=== PATIENT | female | born 1945 | race Caucasian/White ===

== ENCOUNTER 2022-12-22 17:14 | Outpatient (OUT) | payer MEDICARE, SELFPAY | END 2022-12-22 17:15 | disposition home or self-care (01) | LOC: VACCLI 12-27 17:17 | PROVIDERS: PCP Family Medicine; Visit Provider Family Medicine | DX: Z23 Encounter for immunization (principal) | CPT/HCPCS: 90662; G0008 ==

== ENCOUNTER 2023-01-31 13:13 | Outpatient (OUT) | payer MEDICARE, SELFPAY ==
--- NOTE | 2023-01-31 13:29 | XR_ITS ---
The [address] [address] Patient Name: WILBER VANESSA MRN: [id number] date: 1945 Sex: F Assigned Patient Location: [facility] Current Patient Location: [facility] Accession/Order Number: [id number] Exam Date: 01/31/2023 13:21 Report Date: 02/01/2023 11:52 At the request of: JONNY SILVA Procedure: XR abdomen 1V EXAMINATION: XR abdomen 1V, [id number] HISTORY: Kidney Stones COMPARISON: CT abdomen/pelvis 01/25/2021 FINDINGS/IMPRESSION: No calcification projecting over either kidney or along the expected courses of the ureters. Several vascular phleboliths project over the pelvis. Nonobstructive bowel gas pattern. Stool burden is mildly above-average. Sclerosis of the right pubic body is similar. Electronically authenticated by: JETT QUILES Date: 02/01/2023 11:52
== END 2023-01-31 13:14 | disposition home or self-care (01) ==
LOC: RAD 13:14
PROVIDERS: PCP Family Medicine; Visit Provider Urology
DX: N20.0 Calculus of kidney (principal)
CPT/HCPCS: 74018

== ENCOUNTER 2023-02-23 14:09 | Outpatient (REF) | payer MEDICARE, SELFPAY ==
[2023-02-23 15:05] LABS: SARS-CoV-2 Ag NEGATIVE (NEGATIVE)
[2023-02-24 14:27] LABS: SARS-CoV-2 NAA NOT DETECTED (NOT DETECTE)
== END 2023-02-23 14:10 | disposition home or self-care (01) ==
LOC: LAB 14:09
PROVIDERS: PCP Family Medicine; Visit Provider Family Medicine
DX: Z20.822 Contact with and (suspected) exposure to COVID-19 (principal)
CPT/HCPCS: 87635; 87811

== ENCOUNTER 2023-03-21 10:48 | Outpatient (OUT) | payer OTHER, SELFPAY ==
--- OUTSIDE RECORDS SUMMARY | 2023-03-21 11:03 | XMS_ITS | CCD ---
Author Name Unknown Address [address] [place] [address] Organization [facility] Care Team Providers Care Dean Of Girls Name Role Phone Cathie Camara Unavailable Unavailable Unavailable LUIS A ROSARIO Attending Unavailable REQUEST, DR MIRNA LISTED Primary Care Unavailjalyn ROSARIO, LUIS A Consulting Unavailable MARLENE, LUIS A Admitting Unavailable CAMARA, DR CATHIE Doss Admitting Unavailable CAMARA, DR CATHIE Doss Attending Unavailable CAMARA, DR CATHIE Doss Primary Care Unavailable ZIEBJARRETT, DR CARMEN Ayala Consulting Unavailable CAMARA, DR CATHIE Doss Consulting Unavailable FRAGOSO, DR FULLER Attending Unavailable FRAGOSO, DR FULLER Consulting Unavailable CAMARA, DR CATHIE Doss Primary Care Unavailable FRAGOSO, DR FULLER Admitting Unavailable WEST, DR JANIS Clark Consulting Unavailable MARLENE, LUIS A Attending Unavailable MISC, DR GARRISON Primary Care Unavailable MARLENE, LUIS A Consulting Unavailable MARLENE, LUIS A Admitting Unavailable TO, JANIS Consulting Unavailable MARLENE, LUIS A Admitting Unavailable ZIEBER, DR CARMEN Ayala Consulting Unavailable CAMARA, DR CATHIE Doss Primary Care Unavailable MARLENE, LUIS A Attending Unavailable MARLENE, LUIS A Consulting Unavailable CAMARA, DR CATHIE Doss Primary Care Unavailable PAY, DR OLEARY Admitting Unavailable ZIEBER, DR CARMEN Ayala Consulting Unavailable PAY, DR OLEARY Attending Unavailable PAY, DR OLEARY Consulting Unavailable JAX, CATHIE Primary Care Physician Cathie Camara Unavailable Carol, Dr. Youngblood Referring Unavaila ble Jax, Dr. Cathie Hamlin Primary Care Unav ailable Carol, Dr. Youngblood Attending Unavaila ble Carol, Dr. Youngblood Referring Unavaila ble Jax, Dr. Cathie Hamlin Primary Care Unav ailable Carol, Dr. Youngblood Attending Unavaila ble ELVIEKANDI NAVA Attending Unavailable ELVIE, KANDI E Attending Unavailable Allergies Allergy Classification Reported Allergen(s) Allergy Type Date of Onset Reaction(s) Facility (3 sources) Hmg-Coa Reductase Inhibitors (Statins); Translations: [Statins] Allergy to drug (finding) Muscle weakness [facility]Mel 250 DO Work Phone: (6 sources) Penicillins; Translations: [Penicillins] Allergy to drug (finding) Mild (qualifier value) [facility] (2 sources) atorvastatin; Translations: [atorvastatin] Drug Allergy [facility] (1 source) Penicillins Drug allergy (disorder) 10-09-19 [facility] (2 sources) atorvastatin; Translations: [atorvastatin] Drug Allergy Unknown [facility] (4 sources) Penicillin Drug Allergy anaphylaxis [facility] Other (3 sources) Substance with penicillin structure and antibacterial mechanism of action (substance) Drug allergy 09-15-19 16 Unknown [facility] Other (3 sources) Statins Support *DIETARY PRODUCTS/DIETARY MANAGEME Propensity to adverse reactions Unknown [facility] Other (3 sources) Allergies Reconciled Propensity to adverse reactions 01-02-20 Unknown [facility] Other Medications Current Medications Medication Drug Class(es) Dates Sig (Normalized) Sig (Original) apixaban 5 mg oral tablet (2 sources) Factor Xa Inhibitor Start: 07-23-2021 take 1 tablet by mouth twice daily Eliquis 5 mg oral tablet 5 mg = 1 tab(s), Oral, BID Start Date: 11/30/21 Status: Ordered ascorbic acid 500 mg oral tablet (4 sources) Vitamin C Start: 03-09-2021 take 500 mg by mouth once daily Vitamin C 500 mg, Oral, Daily Start Date: 03/09/21 Status: Ordered take 2 tablets by mouth once jonathan ly Vitamin C 1000 MG Oral Tablet TAKE 2 TABLET Daily Quantity: 0 Refills: 0 Ordered: 26-Mar-2022 DO Active take 1 capsule by mouth once jonathan ly Vitamin C 500 MG Oral Capsule TAKE 1 CAPSULE Daily Quantity: 0 Refills: 0 Ordered: 31-Mar-2021 DO Active azithromycin 250 mg oral tablet (2 sources) Macrolide Antimicrobial Start: 02-24-2023 Azithromycin 250 MG as directed Orally 2 tabs po today, then 1 tab daily x 4 more days for 5 Jan, Active Start: 11-12-2021 Azithromycin 2 50 MG Oral Tablet TAKE 2 TABLETS by mouth today, THEN take 1 TABLET once a day FOR the next 4 DAYS. Quantity: 6 Refills: 0 Ordered: 12-Nov-2021 DO Start : 12-Nov-2021 Complete benzonatate 200 mg oral capsule (1 source) Non-narcotic Antitussive Start: 02-24-2023 take 1 capsule by mouth every eight hours Benzonatate 200 MG 1 capsule Orally Three times a day for 10 day(s) Jan, Active cholecalciferol 0.05 mg oral tablet (7 sources) Vitamin D take 1 tablet by mouth every twenty-four hours Vitamin D 50 MCG (2000 UT) 1 tablet Orally Once a day Active Vitamin D3 Maxim um Strength 125 MCG (5000 UT) Oral Capsule TAKE DIRECTED. Quantity: 0 Refills: 0 Ordered: 31-Mar-2021 DO Active Daily Multiple Vitamins (1 source) Start: 08-06-2019 Daily Multiple Vitamins Oral, Daily, Refill(s) 0 Start Date: 08/06/19 Status: Ordered levothyroxine sodium 0.15 mg oral tablet (9 sources) l-Thyroxine Start: 02-01-2023 Synthroid 150 mcg (0.15 mg) Tab Refills(s) 0 Start Date: 02/01/23 Status: Ordered Start: 03-11-2021 take [address] [facility] once daily Synthroid 150 MCG Oral Tablet TAKE 1 TABLET DAILY. Quantity: 0 Refills: 0 Ordered: 11-Mar-2021 DO Start : 11-Mar-2021 Active Start: 03-11-2021 Synthroid 150 MCG Oral Tablet Quantity: 90 Refills: 0 Ordered: 11-Mar-2021 DO Start : 11-Mar-2021 Active Start: 08-06-2019 levothyroxine 150 mcg, Daily, Refills(s) 0 Start Date: 08/06/19 Status: Ordered Synthroid 150 MC G TAKE 1 TABLET DAILY for 90 Active lisinopril 5 mg oral tablet (9 sources) Angiotensin Converting Enzyme Inhibitor Start: 08-06-2019 take 5 mg by mouth once daily lisinopril 5 mg, Oral, Daily, Refills(s) 0 Start Date: 08/06/19 Status: Ordered loratadine 10 mg oral capsule (3 sources) Start: 11-30-2021 take 1 capsule by mouth once daily loratadine 10 mg oral capsule 10 mg = 1 cap(s), Oral, Daily Start Date: 11/30/21 Status: Ordered take 1 tablet by north [facility] once daily as needed Allergy Relief 10 MG Oral Tablet TAKE 1 TABLET DAILY NEEDED. Quantity: 0 Refills: 0 Ordered: 26-Mar-2022 DO Active meloxicam 15 mg oral tablet (4 sources) Nonsteroidal Anti-inflammatory Drug Start: 07-13-2022 take 1 tablet by mouth every twenty-four hours Meloxicam 15 MG 1 tablet Orally Once a day for 30 days June, Active metoprolol tartrate 50 mg oral tablet (9 sources) beta-Adrenergic Castillo Start: 11-28-2020 take 1 tablet by mouth twice daily Metoprolol tartrate 50 mg Tab 50 mg = 1 tab(s), Oral, BID Start Date: 03/09/21 Status: Ordered Multi Complete - (3 sources) Multi Complete - as directed Orally Active norethindrone 0.35 mg oral tablet (1 source) Start: 06-01-2021 Deblitane 0.35 mg oral tablet Refills(s) 0 Start Date: 06/01/21 Status: Ordered 24 hr oxybutynin chloride 15 mg extended release oral tablet (9 sources) Cholinergic Muscarinic Antagonist Start: 09-15-2021 take 1 tablet by mouth once daily oxybutynin 15 mg ER Tab 15 mg = 1 tab(s), Oral, Daily, # 90 tab(s), Refills(s) 3, Pharmacy: [id number], 158, cm, 11/30/21 14:46:00 EDT, Height/Length Dosing, 106.4, kg, 11/30/21 14:46:00 EDT, Weight Dosing Start Date: 01/13/23 Status: Ordered Start: 08-28-2021 take 1 tablet by north th every twenty-four hours Oxybutynin Chloride ER 5 MG Oral Tablet Extended Release 24 Hour Quantity: 30 Refills: 0 Ordered: 28-Aug-2021 DO Start : 28-Aug-2021 Complete paxlovid (300/100) 20 x 150 mg & 10 x 100mg tablet therapy pack (1 source) Start: 07-27-2022 take 3 tablets by mouth every twelve hours Paxlovid (300/100) 20 x 150 MG & 10 x 100MG 3 tablets Orally Twice a day for 5 day(s) June, Active Probiotic Digestive Aid Gummies (1 source) Start: 02-01-2023 Probiotic Digestive Aid Gummies mg, Chewed, BID, Refill(s) 0 Start Date: 02/01/23 Status: Ordered tamsulosin hydrochloride 0.4 mg oral capsule (1 source) alpha-Adrenergi c Castillo Start: 02-01-2023 End: 02-15-2023 take 1 capsule by mouth once daily tamsulosin 0.4 mg Cap 0.4 mg = 1 cap(s), Oral, Daily, X 14 day(s), # 14 cap(s), Refills(s) 0, Pharmacy: [id number], 158, cm, 02/01/23 10:12:00 EST, Height/Length Dosing, 106, kg, 02/01/23 10:12:00 EST, Weight Dosing Start Date: 02/01/23 Stop Date: 02/15/23 Status: Ordered Vitamin D (2 sources) Start: 08-06-2019 Vitamin D Oral , Refills(s) 0 Start Date: 08/06/19 Status: Ordered {20 (nirmatrelvir 150 MG Oral Tablet) / 10 (ritonavir 100 MG Oral Tablet) } Pack [Paxlovid 5-Day] (1 source) Start: 07-27-2022 take 3 tablets by mouth every twelve hours Paxlovid (300/100) 20 x 150 MG & 10 x 100MG 3 tablets Orally Twice a day for 5 day(s) June, Active Completed/Discontinued Medications Medication Drug Class(es) Dates Sig (Normalized) Sig (Original) acetaminophen 325 mg / HYDROcodone bitartrate 5 mg oral tablet (1 source) Opioid Agonist Start: 07-20-2021 HYDROcodone-Aceta minophen 5-325 MG Oral Tablet Quantity: 10 Refills: 0 Ordered: 20-Jul-2021 DO Start : 20-Jul-2021 Complete Black Elderberry(Carvalho-Flow er) CAPS (1 source) Black Elderberry(Carvalho- Flower) CAPS Take 1 capsule twice daily Quantity: 0 Refills: 0 Ordered: 31-Mar-2021 DO Active Centrum Silver Ultra Womens TABS (3 sources) Centrum Silver Ultra Womens TABS TAKE 1 TABLET DAILY. Quantity: 0 Refills: 0 Ordered: 31-Mar-2021 DO Active Culturelle Digestive Womens CAPS (2 sources) Culturelle Digestive Womens CAPS TAKE 1 CAPSULE Daily Quantity: 0 Refills: 0 Ordered: 26-Mar-2022 DO Active Deblitane 0.35 MG Oral Tablet (1 source) Start: 05-27-2021 take 1 tablet by mouth once daily Deblitane 0.35 MG Oral Tablet TAKE 1 TABLET BY MOUTH ONCE DAILY Quantity: 28 Refills: 0 Ordered: 22-Jun-2021 DO Start : 27-May-2021 Complete linseed oil 1000 mg oral capsule (1 source) take 1 capsule by mouth once daily Flaxseed Oil 1000 MG Oral Capsule TAKE 1 CAPSULE Daily Quantity: 0 Refills: 0 Ordered: 26-Mar-2022 DO Active melatonin 1 mg oral tablet (1 source) Start: 08-27-2021 take 1 tablet by mouth 2 hour(s) before bedtime Melatonin 1 MG Oral Tablet TAKE 1 TABLET BY MOUTH 2 (TWO) HOURS BEFORE bedtime Quantity: 30 Refills: 0 Ordered: 27-Aug-2021 DO Start : 27-Aug-2021 Complete 24 hr metFORMIN hydrochloride 500 mg extended release oral tablet (8 sources) Biguanide Start: 09-25-2020 take 1 tablet by mouth once daily metFORMIN HCl ER 500 MG Oral Tablet Extended Release 24 Hour Take 1 tablet daily Quantity: 0 Refills: 0 Ordered: 25-Sep-2020 DO Start : 25-Sep-2020 Active Start: 08-06-2019 take 500 mg by mouth once gustavo y metformin 500 mg, Oral, Daily, Refills(s) 0 Start Date: 08/06/19 Status: Ordered 24 hr mirabegron 50 mg extended release oral tablet (1 source) beta3-Adrenergic Agonist Start: 03-09-2021 take 1 tablet by mouth once daily Myrbetriq 50 MG Oral Tablet Extended Release 24 Hour TAKE 1 TABLET BY MOUTH DAILY Quantity: 30 Refills: 0 Ordered: 09-Mar-2021 DO Start : 09-Mar-2021 Active miSOPROStol 0.2 mg oral tablet (1 source) Prostaglandin E1 Analog Start: 05-21-2021 take 4 tablets by mouth once daily miSOPROStol 200 MCG Oral Tablet TAKE 4 TABLETS BY MOUTH ONCE DAILY the night before the procedure Quantity: 4 Refills: 0 Ordered: 21-May-2021 DO Start : 21-May-2021 Complete omeprazole 20 mg delayed release oral capsule (1 source) Proton Pump Inhibitor Start: 05-05-2021 Omeprazole 20 MG Oral Capsule Delayed Release Quantity: 30 Refills: 0 Ordered: 05-May-2021 DO Start : 05-May-2021 Complete potassium bicarbonate 20 meq effervescent oral tablet (9 sources) Start: 02-01-2023 End: 01-27-2024 take 1 tablet by mouth twice daily potassium bicarbonate 20 mEq oral tablet, effervescent 20 mEq = 1 tab(s), Oral, BID, X 30 day(s), # 60 tab(s), Refills(s) 11, Pharmacy: [id number], 158, cm, 02/01/23 10:12:00 EST, Height/Length Dosing, 106, kg, 02/01/23 10:12:00 EST, Weight Dosing Start Date: 02/01/23 Stop Date: 01/27/24 Status: Ordered Start: 03-24-2020 take 1 tablet by north twice daily Effer-K 25 MEQ Oral Tablet Effervescent TAKE 1 TABLET BY MOUTH TWICE DAILY Quantity: 144 Refills: 0 Ordered: 24-Dec-2020 DO Start : 24-Mar-2020 Active primidone 50 mg oral tablet (2 sources) Anti-epileptic Agent Start: 03-19-2021 Primidone 50 MG Oral Tablet 3 IN MORNING, 2 AT LUNCH, 2 AT NIGHT Quantity: 0 Refills: 0 Ordered: 19-Mar-2021 DO Start : 19-Mar-2021 Active Start: 09-24-2019 primidone 50 m g Tab Refills(s) 0 Start Date: 09/24/19 Status: Ordered Problems Active Problems Problem Classification Problem Date Documented Da te Episodic/Chronic Abdominal pain (15 sources) Right upper quadrant pain; Translations: [Unspecified abdominal pain] Onset: 01-25-2021 Episodic Acute bronchitis (3 sources) Acute bronchitis; Translations: [Acute bronchitis due to other specified organisms] Episodic Calculus of urinary tract (10 sources) Calculus of kidney; Translations: [Kidney stone] Onset: 03-05-2021 Episodic Cardiac dysrhythmias (3 sources) Sinus tachycardia; Translations: [Other specified cardiac dysrhythmias] Episodic Deficiency and other anemia (1 source) Anemia, unspecified Episodic Diabetes mellitus with complications (10 sources) Disorder due to type 2 diabetes mellitus; Translations: [Type 2 diabetes mellitus with unspecified complications] Chronic Diabetes mellitus without complication (3 sources) Type 2 diabetes mellitus without complications; Translations: [Diabetes mellitus] Onset: 01-26-2021 08-06-2019 Chronic Disorders of lipid metabolism (2 sources) Hyperlipidemia 08-06-2019 Chronic E Codes: Fall (1 source) Fall on same level from slipping, tripping and stumbling without subsequent striking against object, initial encounter; Translations: [FALL SAME LVL SLIP NO STRK OBJ INIT] Onset: 09-28-2021 Episodic Essential hypertension (7 sources) Hypertensive disorder; Translations: [Unspecified essential hypertension] 08-06-2019 Chronic Genitourinary symptoms and ill-defined conditions (6 sources) Urge incontinence; Translations: [Incontinence] Onset: 11-30-2021 Chronic Genitourinary symptoms and ill-defined conditions (5 sources) Dysuria; Translations: [Frequency of micturition] Onset: 01-26-2021 Episodic Immunizations and screening for infectious disease (1 source) Encounter for immunization; Translations: [ENCOUNTER FOR IMMUNIZATION] Onset: 09-28-2021 Episodic Menopausal disorders (3 sources) Atrophic vaginitis; Translations: [Postmenopausal atrophic vaginitis] Chronic Nutritional deficiencies (2 sources) Vitamin D deficiency; Translations: [Vitamin D deficiency, unspecified] Chronic Osteoarthritis (5 sources) Arthritis; Translations: [Osteoarthritis] 08-06-2019 Chronic Other aftercare (1 source) 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; Translations: [OTH LIQUOR TESTER CURRENT DRUG THERAPY] Onset: 09-28-2021 Episodic Other aftercare (1 source) middle or intermediate school principal (current) use of anticoagulants; Translations: [FCI CURRNT USE ANTICOAGULANTS] Onset: 09-28-2021 Episodic Other aftercare (1 source) middle or intermediate school principal (current) use of oral hypoglycemic drugs; Translations: [LIQUOR TESTER USE ORAL HYPOGLYCEMIC DX] Onset: 07-22-2021 Episodic Other circulatory disease (3 sources) Elevated blood-pressure reading without diagnosis of hypertension; Translations: [Elevated blood-pressure reading, without diagnosis of hypertension] Episodic Other diseases of kidney and ureters (2 sources) Cyst of kidney 03-24-2020 Episodic Other diseases of kidney and ureters (2 sources) Hydronephrosis 03-24-2020 Episodic Other gastrointestinal disorders (3 sources) Flatulence, eructation and gas pain; Translations: [Abdominal distension (gaseous)] Episodic Other hereditary and degenerative nervous system conditions (3 sources) Essential tremor; Translations: [Essential and other specified forms of tremor] Chronic Other lower respiratory disease (3 sources) Pleuritic pain; Translations: [Pleurodynia] Episodic Other non-traumatic joint disorders (1 source) Monoarthritis; 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, not elsewhere classified, unspecified site] Chronic Other non-traumatic joint disorders (1 source) Monoarthritis, not elsewhere classified, unspecified site Chronic Other non-traumatic joint disorders (3 sources) Pain in left wrist; Translations: [PAIN IN LEFT WRIST] Onset: 09-24-2021 Episodic Other non-traumatic joint disorders (1 source) Pain in left shoulder; Translations: [PAIN IN LEFT SHOULDER] Onset: 09-28-2021 Episodic Other nutritional; endocrine; and metabolic disorders (3 sources) Body mass index 40+ - severely obese; Translations: [Morbid obesity] Chronic Other nutritional; endocrine; and metabolic disorders (1 source) Obesity, unspecified; Translations: [OBESITY UNSPECIFIED] Onset: 07-22-2021 Chronic Other nutritional; endocrine; and metabolic disorders (1 source) Body mass index (BMI) 40.0-44.9, adult; Translations: [BODY MASS INDEX BMI 40.0-44.9 ADULT] Onset: 07-22-2021 Chronic Other nutritional; endocrine; and metabolic disorders (2 sources) Obesity 08-06-2019 Chronic Other nutritional; endocrine; and metabolic disorders (3 sources) Morbid obesity; Translations: [Morbid (severe) obesity due to excess calories] Chronic Other screening for suspected conditions (not mental disorders or infectious disease) (4 sources) Abnormal findings on diagnostic imaging of other specified body structures; Translations: [Imaging result abnormal] Onset: 04-23-2021 Chronic Other upper respiratory infections (3 sources) Chronic sinusitis; Translations: [Chronic sinusitis, unspecified] Chronic Other upper respiratory infections (1 source) Acute maxillary sinusitis, unspecified Episodic Parkinson`s disease (3 sources) Parkinson's disease; Translations: [Parkinson's disease] Chronic Pneumonia (except that caused by tuberculosis or sexually transmitted disease) (1 source) Pneumonia (except that caused by tuberculosis or sexually transmitted disease); Translations: [PNEUMONIA D/T CORONAVIRUS DIS 2019] Onset: 01-26-2021 Pulmonary heart disease (6 sources) Other pulmonary embolism without acute cor pulmonale; Translations: [Pulmonary embolism] Onset: 07-22-2021 11-30-2021 Episodic Residual codes; unclassified (1 source) Acquired absence of other specified parts of digestive tract; Translations: [ACQ ABSENCE OTH PART DIGESTV TRACT] Onset: 07-22-2021 Episodic Residual codes; unclassified (3 sources) Localized edema; Translations: [Localized edema] Episodic Residual codes; unclassified (3 sources) Immunization refused ; Translations: [Immunization not carried out because of patient refusal] Episodic Spondylosis; intervertebral disc disorders; other back problems (3 sources) Low back pain; Translations: [Low back pain, unspecified] Episodic Sprains and strains (1 source) Strain of unspecified muscle, fascia and tendon at wrist and hand level, left hand, initial encounter; Translations: [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 HND 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] Onset: 09-28-2021 Episodic Superficial injury; contusion (3 sources) Contusion of other part of head, initial encounter; Translations: [Abrasion of other part of head, initial encounter] Onset: 09-28-2021 Episodic Thyroid disorders (9 sources) Hypothyroidism; Translations: [Unspecified acquired hypothyroidism] 08-06-2019 Chronic Unclassified (2 sources) Asymptomatic microscopic hematuria 08-06-2019 Viral infection (8 sources) COVID-19; Translations: [Disease caused by 2019-nCoV] Onset: 01-26-2021 Past or Other Problems Problem Classification Problem Date Documented Da te Episodic/Chronic Other gastrointestinal disorders (4 sources) Abdominal distension (gaseous); Translations: [ABDOMINAL DISTENSION GASEOUS] Onset: 04-22-2021 Episodic Unclassified (3 sources) Never smoked tobacco; Translations: [Never a smoker] Results Test Name Value Interpretation Reference Range Facility Pre-Certification Formon Pre-Certification Form [id number] .00TIFF [facility] Pre-Certification Form [id number] .00TIFF [facility] RAD - MISCon 02-04-2023 RAD - MIS [id number] [facility] [id number] .00TIFF [facility] 02-02-2023 [facility] [id number] .00TIFF [facility] Screenson 02-02-2023 Screens [id number] .00TIFF [facility] Ambulatory Visit Summaryon 1 04-04-2022 Ambulatory Visit Summary PHYLLIS FRENCH :1945 Visit Date:02/01/2023 Ambulatory Visit Instructions Your Diagnosis Kidney stone Urge incontinence Tests Performed Urnls Dip Stick Auto w/o Microscopy POC 21167 XR Abdomen 1 View -- Results Pending -- Please visit your patient portal for your results or contact your primary care physician. Your Care Team Attending Physician - KANDI BERMEO PA-C Primary Care Physician - CATHIE CAMARA MD This Is Your Medications List potassium bicarbonate (potassium bicarbonate 20 mEq oral tablet, effervescent) tamsulosin (tamsulosin 0.4 mg Cap) Contact prescribing physician if questions or concerns bacillus coagulans (Probiotic Digestive Aid Gummies) ergocalciferol (Vitamin D) levothyroxine (Synthroid 150 mcg (0.15 mg) Tab) lisinopril metformin metoprolol (Metoprolol tartrate 50 mg Tab) oxybutynin (oxybutynin 15 mg ER Tab) Procedures Performed Cystoscopic removal of ureteric stent (09/25/2019), ESWL of kidney (08/16/2019), Cystoscopic insertion of ureteric stent (08/09/2019), Cystoscopy (12/11/2015), Cystoscopy (10/10/2015), Appendectomy, Cholecystectomy, Colonoscopy. Discharge Vitals Heart Rate (Peripheral) 69 Respiratory Rate 16 Blood Pressure 134/82 Height 158 cm Height 62 in Weight 106 kg Weight 233.2 lb BMI 42.46 What to do next Scheduled Follow-Up Appointments Tuesday 10:00 AM EST With: KANDI BERMEO PA-C Where: [facility] Patient Educationon 02-02-20 Patient Education Nephrology Dietary Guidelines to Help Prevent Kidney Stones Kidney stones are deposits of minerals and salts that form inside your kidneys. Your risk of developing kidney stones may be greater depending on your diet, your lifestyle, the medicines you take, and whether you have certain medical conditions. Most people can lower their risks of developing kidney stones by following these dietary guidelines. Your dietitian may give you more specific instructions depending on your overall health and the type of kidney stones you tend to develop. What are tips for following this plan? Reading food labels ? Choose foods with no salt added or low-salt labels. Limit your salt (sodium) intake to less than 1,500 mg a day. ? Choose foods with calcium for each meal and snack. Try to eat about 300 mg of calcium at each meal. Foods that contain 200?500 mg of calcium a serving include: ? 8 oz (237 mL) of milk, calcium-fortifiednon- dairy milk, and calcium-fortifiedfrui t juice. Calcium-fortified means that calcium has been added to these drinks. ? 8 oz (237 mL) of kefir, yogurt, and soy yogurt. ? 4 oz (114 g) of tofu. ? 1 oz (28 g) of cheese. ? 1 cup (150 g) of dried figs. ? 1 cup (91 g) of cooked broccoli. ? One 3 oz (85 g) can of sardines or mackerel. Most people need 1,000?1,500 mg of calcium a day. Talk to your dietitian about how much calcium is recommended for you. Shopping ? Buy plenty of fresh fruits and vegetables. Most people do not need to avoid fruits and vegetables, even if these foods contain nutrients that may contribute to kidney stones. ? When shopping for convenience foods, choose: ? Whole pieces of fruit. ? Pre-made salads with dressing on the side. ? Low-fat fruit and yogurt smoothies. ? Avoid buying frozen meals or prepared deli foods. These can be high in sodium. ? Look for foods with live cultures, such as yogurt and kefir. ? Choose high-fiber grains, such as whole-wheat breads, oat bran, and wheat cereals. Cooking ? Do not add salt to food when cooking. Place a salt shaker on the table and allow each person to add their own salt to taste. ? Use vegetable protein, such as beans, textured vegetable protein (TVP), or tofu, instead of meat in pasta, casseroles, and soups. Meal planning ? Eat less salt, if told by your dietitian. To do this: ? Avoid eating processed or pre-made food. ? Avoid eating fast food. ? Eat less animal protein, including cheese, meat, poultry, or fish, if told by your dietitian. To do this: ? Limit the number of times you have meat, poultry, fish, or cheese each week. Eat a diet free of meat at least 2 days a week. ? Eat only one serving each day of meat, poultry, fish, or seafood. ? When you prepare animal proteins, cut pieces into small portion sizes. For most meat and fish, one serving is about the size of the palm of your hand. ? Eat at least five servings of fresh fruits and vegetables each day. To do this: ? Keep fruits and vegetables on hand for snacks. ? Eat one piece of fruit or a handful of berries with breakfast. ? Have a salad and fruit at lunch. ? Have two kinds of vegetables at dinner. ? You may be told to limit foods that are high in a substance called oxalate. These include: ? Spinach (cooked), rhubarb, beets, sweet potatoes, and Dominican chard. ? Peanuts. ? Potato chips, costa rican fries, and baked potatoes with skin on. ? Nuts and nut products. ? Chocolate. ? If you regularly take a diuretic medicine, make sure to eat at least 1 or 2 servings of fruits or vegetables that are high in potassium each day. These include: ? Avocado. ? Banana. ? Redwood, prune, carrot, or tomato juice. ? Baked potato. ? Cabbage. ? Beans and split peas. Lifestyle ? Drink enough fluid to keep your urine pale yellow. This is the most important thing you can do. Spread your fluid intake throughout the day. ? If you drink alcohol: ? Limit how much you have to: ? 0?1 drink a day for women who are not . ? 0?2 drinks a day for men. ? Know how much alcohol is in your drink. In the [place] one drink equals one 12 oz bottle of beer (355 mL), one 5 oz glass of wine (148 mL), or one 1? oz glass of hard liquor (44 mL). ? Lose weight if told by your health care provider. Work with your dietitian to find an eating plan and weight loss strategies that work best for you. General information ? Talk to your health care provider and dietitian about taking daily supplements. Depending on your health and the cause of your kidney stones, you may be told: ? Do not take high-dose supplements of vitamin C (1,000 mg a day or more). ? To take a calcium supplement. ? To take a daily probiotic supplement. ? To take other supplements such as magnesium, fish oil, or vitamin B6. ? Take rhnx-gzz-cnlcthe and prescription medicines only as told by your health care provider. These include supplements. What foods sh (more content not included)... Normal [facility] Urology Office/Clinic Noteon 02-01-2023 Urology Office/Clinic Note Chief Complaint 1yr KUB HPI Staff PRW pt 1yr KUB DXL Kidney Stone, Urge Incontinence & Nocturia *Effer K 25meq bid & Oxybutynin 15mg ER Last treated for stones in 2019. (Rt ESWL) KUB 01/31/23 2wks ago noticed increased frequency. Believes she may have passed a stone early this morning. Urge to void as well as RT flank pain awakened her. No blood at that time. Did not see a stone at that time. However there is a black speck in her sample that she gave in our office. Denies pain/burning. Voiding q2hrs during the day. 2-3x/night. For the past few weeks. Normally voids q3-4hrs during the day. Currently having discomfort on Rt side. Denies leaking with Oxybutynin. History of Present Illness staff HPI reviewed and agree. Review of Systems PHQ Score Initial Depression Screen Score: 0 SCORE no fever, chills, malaise, myalgia. no rash/lesions. no chest pain, palpitations, or SOB. no abdominal pain, nausea, vomiting. no unilateral calf swelling, redness, pain Physical Exam Vitals & Measurements HR: 69(Peripheral) RR: 16 BP: 134/82 HT: 62 in HT: 158 cm WT: 106 kg WT: 233.2 lb BMI: 42.46 General: nontoxic, NAD Mouth: moist mucosa Lungs: normal respiratory effort Cardio: regular rate, good distal perfusion Abdomen: nondistended, no suprapubic distention or tenderness, no CVA tenderness Neurologic: Grossly normal Skin: No rashes or suspicious lesions Assessment/Plan Dr. Fargoso pt 1. Kidney stone (N20.0: Calculus of kidney) KUB 11/24/21 - neg for stones. KUB 01/31/23 TB - report not yet completed. Personal review: possible bladder stone, but stool burden. Taking Effer-K 25mEq bid. UA today negative for blood and infection. Has discomfort on R side. States she has had a decreased water intake and change in diet recently. Had increased frequency the last few weeks and feels she passed a stone this morning. Does have a black sediment in her urine sample today. Discussed pt to take Tamsulosin to help with stone passage. Recommended increased clear fluid intake. Advised pt to go to ER if she develops fever, chills, or severe pain. Call if sx don't improve in a week or 2. -Begin Flomax 0.4mg qd -Increase fluid intake -Cont Effer-K -KUB @ [facility] in 1 yr 2. Urge incontinence (N39.41: Urge incontinence) Failed Myrbetriq due to expense. Taking Oxybutynin ER 15mg. Denies bothersome dry mouth SE. Voids q2hrs during the day, was q3-4hrs. Admits she does have some constipation. Advised pt this can cause bladder complications. Advised pt to try to increase fiber and use stool softeners, such as miralax. -Control BMs -Cont Oxybutynin wo changes Follow-up With When Contact Information ELVIE CRAIG, KANDI Doss, URO[address] [place] [address] [phone] Additional Instructions: 1 yr w/ KUB Patient Education Dietary Guidelines to Help Prevent Kidney Stones Documentation recorded by the newton Carvalho accurately reflects the services(s) I performed and decisions made by me. Authenticated by Kandi Bermeo PA-C on 02/01/2023 11:04:52. I, Roxy Carvalho, personally scribed for Kandi Bermeo PA-C on 02/01/2023 10:50:33. . Problem List/Past Medical History Ongoing Arthritis Diabetes Hematuria Hydronephrosis with obstructing calculus Hyperlipidemia Hypertension Hypothyroidism Kidney cysts Kidney stone Mixed incontinence Nephrolithiasis Nocturia Obesity Pulmonary embolus Right flank pain Urge incontinence Historical No qualifying data Procedure/Surgical History Cystoscopic removal of ureteric stent (09/25/2019), ESWL of kidney (08/16/2019), Cystoscopic insertion of ureteric stent (08/09/2019), Cystoscopy (12/11/2015), Cystoscopy (10/10/2015), Appendectomy, Cholecystectomy, Colonoscopy. Medications lisinopril, 5 mg, Oral, Daily metformin, 500 mg, Oral, Daily Metoprolol tartrate 50 mg Tab, 50 mg= 1 tab(s), Oral, BID oxybutynin 15 mg ER Tab, 15 mg= 1 tab(s), Oral, Daily, 3 refills potassium bicarbonate 20 mEq oral tablet, effervescent, 20 mEq= 1 tab(s), Oral, BID, 11 refills Probiotic Digestive Aid Gummies, Chewed, BID Synthroid 150 mcg (0.15 mg) Tab Vitamin D, Oral Allergies atorvastatin (Unknown) penicillins (Mild) Social History Alcohol - Denies Alcohol Use, 03/09/2021 Substance Abuse - Denies Substance Abuse, 03/09/2021 Tobacco - Denies Tobacco Use, 11/30/2021 Never (less than 100 in lifetime) Tobacco Use:. Never Smokeless Tobacco Use:. Household tobacco concerns: No. Yes, 02/01/2023 Family History Hypertension: Mother. Kidney disease: Father. Parkinsons: Father. Primary malignant neoplasm of female breast: Mother. Renal failure syndrome: Father. Immunizations Vaccine Date Status Comments influenza virus vaccine, inactivated 11/28/2021 Recorded SARS-CoV-2 (COVID-19) Ad26 vaccine 05/07/2020 Recorded 2023-02-01: [id number] SARS-CoV-2 (COVID-19) Ad26 vaccin (more content not included)... Normal [facility] Comment on above: Result Comment: Elec tronically Signed By: KANDI BERMEO PA-C\.br\Date and Time Signed: 02/01/23 11:05 EST\.br\Electronically Co-Signed By: Roxy Carvalho\.br\Date and Time Co-Signed: 02/01/23 10:50 EST Office Visit (Cardiology)on 11-05-2022 Follow-up visit Diagnoses/Problems Assessed Sinus tachycardia (427.89) (R00.0) Essential tremor (333.1) (G25.0) Hypothyroidism (244.9) (E03.9) Morbid obesity with BMI of 45.0-49.9, adult (278.01,V85.42) (E66.01,Z68.42) Never a smoker Orders Morbid obesity with BMI of 45.0-49.9, adult Healthy Weight Tips; Status:Complete - Retrospective Authorization; Done: [id number] Some eating tips that can help you lose weight.; Status:Complete - Retrospective Authorization; Done: [id number] SocHx: Never a smoker Tobacco Use Screening; Status:Complete; Done: [id number] Patient Instructions Please bring all medicines, vitamins, and herbal supplements with you when you come to the office. Prescriptions will not be filled unless you are compliant with your follow up appointments or have a follow up appointment scheduled as per instruction of your physician. Refills should be requested at the time of your visit. Follow up in 1 year with EKG PCP will forward labs when completed in next month. Chief Complaint 8 MONTH FOLLOW UP History of Present Illness Patient is here for follow-up continue management for previous evaluation for resting sinus tachycardia attributed to antihypertensive medication, hypertension and obesity. Since last time I saw her she denies any change in cardiac status or symptoms. She denies chest pain, palpitation, lightheadedness, dizziness or syncope. She admits to sedentary lifestyle related to her morbid obesity. She reports recent bout with COVID-19 but recovered from that Assessment 1. Mild resting tachycardia clearly due to vasodilator effect of lisinopril and anticholinergic effect of imipramine this has improved with metoprolol. 2. Hypertension controlled 3. Morbid obesity with c recent weight gain 4. Essential tremor 5. Hypothyroidism on treatment 6. Increased risk of fall 7. Recent COVID-19 recovered from that without sequela Plan 1. I reassured the patient that her mild tachycardia is due to medication 2. Present medical regiment considering improvement of her symptoms and her tachycardia 3. I counseled her regarding losing weight and exercise 4. I advised her to notify me with any change in cardiac status or symptoms 5. We will see her back in 1 year 6. Fall precaution Active Problems Problems Essential tremor (333.1) (G25.0) Hypothyroidism (244.9) (E03.9) Morbid obesity with BMI of 45.0-49.9, adult (278.01,V85.42) (E66.01,Z68.42) Never a smoker Sinus tachycardia (427.89) (R00.0) Surgical History Problems History of section History of Cholecystectomy History of Complete colonoscopy History of Kidney surgery Current Meds Medication NameInstruction Allergy Relief 10 MG Oral TabletTAKE 1 TABLET DAILY NEEDED. Centrum Silver Ultra Womens TABSTAKE 1 TABLET DAILY. Culturelle Digestive Womens CAPSTAKE 1 CAPSULE Daily Effer-K 25 MEQ Oral Tablet EffervescentTAKE 1 TABLET BY MOUTH TWICE DAILY Lisinopril 5 MG Oral TabletTake 1 tablet by mouth daily metFORMIN HCl ER 500 MG Oral Tablet Extended Release 24 HourTake 1 tablet daily Metoprolol Tartrate 50 MG Oral TabletTake 1 tablet twice daily oxyBUTYnin Chloride ER 15 MG Oral Tablet Extended Release 24 HourTake 1 tablet daily Synthroid 150 MCG Oral TabletTAKE 1 TABLET DAILY. Vitamin C 1000 MG Oral TabletTAKE 2 TABLET Daily Vitamin D 50 MCG (2000 UT) Oral TabletTake 1 tablet daily patient brought in a medication list Allergies Medication Penicillins Adverse Reaction; Unknown; Recorded By: Rimma Lemons; 11/14/2020 2:01:22 PM Statins Adverse Reaction; Muscle weakness; Recorded By: Rimma Lemons; 11/14/2020 2:01:22 PM Family History Mother Family history of myocardial infarction (V17.3) (Z82.49) Social History Problems Never a smoker No alcohol use No caffeine use No illicit drug use Review of Systems Other Symptoms: Tremor. Vitals Vital Signs Recorded: 05Nov2022 09:53AM Heart Rate64, L Radial Ssspowgt407, LUE, Sitting Qibijdgoh42, LUE, Sitting Height5 ft 1 in Lkpgwx797 lb BMI Gakfkgwhbm13.62 kg/m2 BSA Calculated2.08 Tobacco Useb) No PHQ-2 #1. Over the last 2 weeks have you felt down, depressed or hopeless? (If yes, answer PHQ-9 below)No PHQ-2 #2. Over the last 2 weeks have you felt little interest or pleasure in doing things? (If yes, answer PHQ-9 below)No Falls Screening (Age 18+)b) One or more falls in the last year Physical Exam Constitutional: alert and in no acute distress. Neck: neck is supple, symmetric, trachea midline, no masses and no thyromegaly . Pulmonary: no increased work of breathing or signs of respiratory distress and lungs clear to auscultation. Cardiovascular: carotid pulses 2+ bilaterally with no bruit , JVP was normal, no thrills , regular rhythm, normal S1 and S2, no murmurs , pedal pulses 2+ bilaterally and no edema . Abdomen: abdomen non-tender, no masses and no hepatomegaly . Skin: skin warm and dry, normal skin turgor . Psychiatr (more content not included)... Normal [employer] Tobacco Screening.on 023 Adult depression screening assessment No [employer] DO Work Phone: Fall risk assessment b) One or [facility] the [facility] [employer] DO Work Phone: Tobacco use status CP b) No [employer] 250 DO Work Phone: Office Visit (Cardiology)on 03-26-2022 Follow-up visit Diagnoses/Problems Assessed Sinus tachycardia (427.89) (R00.0) Essential tremor (333.1) (G25.0) Never a smoker Hypothyroidism (244.9) (E03.9) Morbid obesity with BMI of 45.0-49.9, adult (278.01,V85.42) (E66.01,Z68.42) Orders Morbid obesity with BMI of 45.0-49.9, adult Healthy Weight Tips; Status:Complete - Retrospective Authorization; Done: 26Mar2022 Some eating tips that can help you lose weight.; Status:Complete - Retrospective Authorization; Done: 26Mar2022 Sinus tachycardia IO EKG Electrocardiogram- 12 Lead; Status:Complete; Done: 26Mar2022 SocHx: Never a smoker Tobacco Use Screening; Status:Complete; Done: 26Mar2022 Patient Instructions Please bring all medicines, vitamins, and herbal supplements with you when you come to the office. Prescriptions will not be filled unless you are compliant with your follow up appointments or have a follow up appointment scheduled as per instruction of your physician. Refills should be requested at the time of your visit. Patient provided Falls Prevention education sheet. Follow up in 8 months Chief Complaint PHYLLIS FRENCH is being seen for a 6 month follow-up of + EKG. History of Present Illness Patient is here for follow-up continue management for previous evaluation for sinus tachycardia, hypertension, obesity. Since last time I saw her she reports marked improvement of her symptoms. Her blood pressure and heart rate has been well controlled. t. She denies chest pain, palpitation, lightheadedness, dizziness or syncope. She remains fairly active EKG today showed heart rate is 69 Assessment 1. Mild resting tachycardia clearly due to vasodilator effect of lisinopril and anticholinergic effect of imipramine this has improved with metoprolol. 2. Hypertension controlled 3. Morbid obesity with current weight gain 4. Essential tremor 5. Hypothyroidism on treatment 6. Increased risk of fall Plan 1. I reassured the patient that her mild tachycardia is due to medication 2. Present medical regiment considering improvement of her symptoms and her tachycardia 3. I counseled her regarding losing weight and exercise 4. I advised her to notify me with any change in cardiac status or symptoms 5. We will see her back in 8 month 6. Fall precaution Surgical History Problems History of section History of Cholecystectomy History of Complete colonoscopy History of Kidney surgery Current Meds Medication NameInstruction Allergy Relief 10 MG Oral TabletTAKE 1 TABLET DAILY NEEDED. Centrum Silver Ultra Womens TABSTAKE 1 TABLET DAILY. Culturelle Digestive Womens CAPSTAKE 1 CAPSULE Daily Effer-K 25 MEQ Oral Tablet EffervescentTAKE 1 TABLET BY MOUTH TWICE DAILY Flaxseed Oil 1000 MG Oral CapsuleTAKE 1 CAPSULE Daily Lisinopril 5 MG Oral TabletTake 1 tablet by mouth daily metFORMIN HCl ER 500 MG Oral Tablet Extended Release 24 HourTake 1 tablet daily Metoprolol Tartrate 50 MG Oral TabletTake 1 tablet twice daily Oxybutynin Chloride ER 15 MG Oral Tablet Extended Release 24 HourTake 1 tablet daily Synthroid 150 MCG Oral TabletTAKE 1 TABLET DAILY. Vitamin C 1000 MG Oral TabletTAKE 2 TABLET Daily Vitamin D 50 MCG (1999) Oral TabletTake 1 tablet daily Allergies Medication Penicillins Adverse Reaction; Unknown; Recorded By: Rimma Lemons; 11/14/2020 2:01:22 PM Statins Adverse Reaction; Muscle weakness; Recorded By: Rimma Lemons; 11/14/2020 2:01:22 PM Social History Problems Never a smoker No alcohol use No caffeine use No illicit drug use Review of Systems Constitutional: not feeling tired. Cardiovascular: no intermittent leg claudication and as noted in HPI. Respiratory: no cough and no shortness of breath. Gastrointestinal: no change in bowel habits and no blood in stools. Integumentary: no skin rashes. Neurological: no seizures and no frequent falls. All other systems have been reviewed and are negative for complaint. Vitals Vital Signs Recorded: 26Mar2022 11:12AM Heart Rate69, Apical Nayebagh589, RUE, Sitting Kxazgsvey07, RUE, Sitting Height5 ft 1 in Qoglrb352 lb BMI Ytsypjjfxh66.67 kg/m2 BSA Calculated2.07 Tobacco Useb) No PHQ-2 #1. Over the last 2 weeks have you felt down, depressed or hopeless? (If yes, answer PHQ-9 below)Yes PHQ-2 #2. Over the last 2 weeks have you felt little interest or pleasure in doing things? (If yes, answer PHQ-9 below)Yes Falls Screening (Age 18+)b) One or more falls in the last year PHQ-9 #1. Little interest or pleasure in doing things1-Several days PHQ-9 #2. Feeling down, depressed, or hopelesS1-Several days PHQ-9 #3. Trouble falling or staying asleep, or sleeping too much3-Nearly every day PHQ-9 #4. Feeling tired or having little energy0-Not at all PHQ-9 #5. Poor appetite or overeating0-Not at all PHQ-9 #6. Feeling bad about yourself or you are a failure or that you have let yourself or your family down1-Several days PHQ-9 #7. Trouble concentrating on thi (more content not included)... Normal [employer] Tobacco Screening.on 023 Adult depression screening assessment [facility] [employer] DO Work Phone: Fall risk assessment b) One or more falls in the last year [facility] [employer] DO Work Phone: Tobacco use status CP b) No [facility] [employer] DO Work Phone: Tobacco Screening. 1-Several days [facility] [employer] DO Work Phone: Tobacco Screening. 3-Nearly every day [facility] [employer] DO Work Phone: Tobacco Screening. 0-Not at all [facility] [employer] DO Work Phone: Tobacco Screening. Not difficult at all [facility] [employer] DO Work Phone: CT CSPINE WO CONon 2 CT CSPINE WO CON EXAMINATION: CT CSPINE WO CON HISTORY: Falls COMPARISON: No relevant comparison available. TECHNIQUE: Axial, Coronal, and Sagittal images were created without IV contrast. Dose reduction techniques were achieved by using automated exposure control and/or adjustment of mA and/or kV according to patient size and/or use of iterative reconstruction technique. FINDINGS: VERTEBRAL BODIES: Straightening of the normal lordotic curvature. No fracture spondylolisthesis. FACET JOINTS: Multilevel mild degenerative changes. No disruption or abnormal widening. CERVICAL DISCS: Marked narrowing C6-C7 with large posterior disc-osteophyte complex. Moderate narrowing C5-C6. Bone encroachment on the neural foramen at C5-C6 and C6-C7 bilaterally. CENTRAL CANAL: Suspect moderate narrowing C6-C7 secondary to degenerative changes. No evidence of hemorrhage. PARASPINAL AREA: No visible mass. IMPRESSION: 1. No appreciable acute abnormality. 2. Multilevel degenerative changes suspected to result in moderate central canal and bilateral foramen narrowing as detailed above. Electronically authenticated by: CARMEN HAY Date: 2021-09-24 11:08 Normal [facility] CT FACIAL BONES WO CONon CT FACIAL BONES WO CON EXAMINATION: CT FACIAL BONES WO CON HISTORY: UNSPECIFIED INJURY OF HEAD, INITIAL ENCOUNTER ; fell striking face on floor COMPARISON: No relevant comparison available. TECHNIQUE: Axial, Coronal, and Sagittal CT images created without IV contrast. Dose reduction techniques were achieved by using automated exposure control and/or adjustment of mA and/or kV according to patient size and/or use of iterative reconstruction technique. FINDINGS: FACIAL BONES: No bony lesion or fracture. SINUSES: No visible mass, significant fluid or mucosal thickening. NASAL FOSSA: No mass, fracture, or significant septal deviation. SKULL BASE: No mass or bone destruction. ORBITS: No visible mass, hematoma, edema or fracture. OTHER: No lymphadenopathy. Unremarkable nasopharynx, oropharynx, and oral cavity. IMPRESSION: 1. No fracture, subcutaneous hematoma, or appreciable edema. Electronically authenticated by: CARMEN HAY Date: 2021-09-24 11:18 Normal [facility] [address] HEAD WO CONon 09-24-2021 CT HEAD WO CON EXAMINATION: CT HEAD WO CON HISTORY: Falls ; fell striking face on floor, patient on blood thinner COMPARISON: No relevant comparison available. TECHNIQUE: Axial CT images were obtained without IV contrast. Dose reduction techniques were achieved by using automated exposure control and/or adjustment of mA and/or kV according to patient size and/or use of iterative reconstruction technique. FINDINGS: BRAIN: No edema, hemorrhage, mass, acute infarction, or inappropriate atrophy. CSF SPACES: No hydrocephalus, subarachnoid hemorrhage, or mass. Appropriate for age. SKULL: No fracture, mass, or other significant visible lesion. SINUSES: No significant mucosal thickening or fluid on the limited views. ORBITS: No appreciable abnormality on the limited views. OTHER: Negative IMPRESSION: 1. Motion artifact from patient tremors limits evaluation; no appreciable hemorrhage or acute abnormality. 2. Age consistent mild chronic changes. Electronically authenticated by: CARMEN HAY Date: 2021-09-24 11:21 Normal [facility] CBC AUTO DIFFon 07-20-2021 BASO # 0.1 103/ul Normal 0.0-0.1 [facility] Comment on above: Performed By: #### C BC ####[facility] [address] [place] [address]Dr. Sabrina Reagan Basophils/100 WBC (Bld) 0.5 % Normal 0.2-2.0 [facility] Comment on above: Performed By: #### C BC ####[facility] [id number] [place], [place] [address]Dr. Sabrina Tez EO # 0.3 103/ul Normal 0.0-0.7 [facility] Comment on above: Performed By: #### C BC ####[facility] [id number] [place], [place] [address]Dr. Sabrina Reagan Eosinophils/100 WBC (Bld) 2.9 % Normal 0.9-7.0 [facility] Comment on above: Performed By: #### C BC ####[facility] [address] [place], [place] [address]Dr. Sabrina Reagan Erythrocyte distribution width (RBC) [Ratio] 13.1 % Normal 11.0-15.0 [facility] Comment on above: Performed By: #### C BC ####[facility] [address] [place], [place] [address]Dr. Sabrina Reagan Hematocrit (Bld) [Volume fraction] 36.3 % Normal 36.0-48.0 [facility] Comment on above: Performed By: #### C BC ####[facility] [address] [place], [place] [address]Dr. Sabrina Reagan Hemoglobin (Bld) [Mass/Vol] 11.5 g/dL Critically low 12.0-16.0 [facility] Comment on above: Performed By: #### C BC ####[facility] [address] [place], [place] [address]Dr. Sabrina Reagan IG # 0.02 10e3/ul Normal 0.00-0.03 [facility] Comment on above: Performed By: #### C BC ####[facility] [address] [place] [address]Dr. Sabrina Reagan IG % 0.2 % Normal 0.0-0.5 [facility] Comment on above: Performed By: #### C BC ####[facility] [address] [place] [address]Dr. Sabrina Reagan LYMPH # 3.0 103/ul Normal 1.2-3.8 [facility] Comment on above: Performed By: #### C BC ####[facility] [address] [place] [address]DrAndres Reagan Lymphocytes/100 WBC (Bld) 29.5 % Normal 20.5-60.0 [facility] Comment on above: Performed By: #### C BC ####[facility] [address] [place] [id number] Reagan MANUAL DIFF REQ NO Normal [facility] Comment on above: Performed By: #### C BC ####[facility] [address] [place], [place] [address]DrAndres Keyannamakenna Reagan MCH (RBC) [Entitic mass] 30.8 pg Normal 26.7-34.0 [facility] Comment on above: Performed By: #### C BC ####[facility] [address] [place], [place] [address]DrAndres Sabrina Tez MCHC (RBC) [Mass/Vol] 31.7 g/dL Normal 29.9-35.2 [facility] Comment on above: Performed By: #### C BC ####[facility] [address] [place], [place] [address]DrAndres Reagan MCV (RBC) [Entitic vol] 97.3 fL Normal 81.0-99.0 [facility] Comment on above: Performed By: #### C BC ####[facility] [address] [place], [place] [address]DrAndres Reagan MONO # 0.9 103/ul Critically high 0.3-0.8 [facility] Comment on above: Performed By: #### C BC ####[facility] [address] [place], [place] [address]DrAndres Reagan Monocytes/100 WBC (Bld) 8.4 % Normal 1.7-12.0 [facility] Comment on above: Performed By: #### C BC ####[facility] [address] [place] [address]Dr. Sabrina Reagan NEUT # 6.0 103/ul Normal 1.4-6.5 [facility] Comment on above: Performed By: #### C BC ####[facility] [address] [place] [address]Dr. Sabrina Reagan Neutrophils/100 WBC (Bld) 58.5 % Normal 43.0-75.0 [facility] Comment on above: Performed By: #### C BC ####[facility] [address] [place] [address]Dr. Sabrina Reagan Platelet mean volume (Bld) [Entitic vol] 10.5 fL Normal 9.5-13.5 [facility] Comment on above: Performed By: #### C BC ####[facility] [address] [place] [address]Dr. Sabrina Reagan PLT 247 103/ul Normal 150-450 [facility] Comment on above: Performed By: #### C BC ####[facility] [address]tr[address] [place] [address]Dr. Sabrina Reagan RBC 3.73 106/ul Critically low 4.20-5.40 [facility] Comment on above: Performed By: #### C BC ####[facility] [address] [place], [place] [address]Dr. Sabrina Reagan WBC 10.2 103/ul Normal 4.0-11.0 [facility] Comment on above: Performed By: #### C BC ####[facility] [address] [place], [place] [address]Dr. Sabrina Reagan CTA CHEST WO W CONon 022 CTA CHEST WO W CON EXAMINATION: CTA CHEST WO W CON HISTORY: SHORTNESS OF BREATH , hypertension, right chest pain COMPARISON: No relevant comparison available. TECHNIQUE: Multi-planar CT images were created with IV contrast. Axial, Coronal, and Sagittal images. Dose reduction techniques were achieved by using automated exposure control and/or adjustment of mA and/or kV according to patient size and/or use of iterative reconstruction technique. 3-D reconstruction was performed on a separate workstation. FINDINGS: VASCULATURE: Emboli within the right lower lobe with occlusion of the lateral basilar segmental artery and nonocclusive emboli within the medial and posterior segmental arteries. LUNGS: No visible pulmonary disease. PLEURA: Right pleural effusion 1.1 cm in thickness. JB: No mass or adenopathy. MEDIASTINUM: No mass or adenopathy. CARDIAC: No enlargement, pericardial effusion, or pericardial thickening. No evidence of heart strain. AORTA: No aneurysm or dissection. CHEST WALL: No mass or axillary adenopathy. BONES: No bone lesion or fracture. LIMITED ABDOMEN: No suspicious findings. Limited images of the upper abdomen. OTHER: Negative. IMPRESSION: 1. Moderate pulmonary embolism burden within the right lower lobe. No evidence of heart strain. 2. Small right pleural effusion. Electronically authenticated by: CARMEN HAY Date: 2021-07-20 08:51 Normal [facility] LIPASEon 07-20-2021 Lipase [Catalytic activity/Vol] 81.0 U/L Normal 73.0-393.0 [facility] Comment on above: Performed By: #### L IPA, CMP, HSTROPN #### [facility] [address] [place] [address] [address] Sabrina Reagan PROF 14(COMP METB)on 022 Albumin [Mass/Vol] 3.8 g/dL Normal 3.4-5.0 [facility] Comment on above: Performed By: #### L IPA, CMP, HSTROPN ####[facility] [address] [place] [address]DrAndres Reagan Albumin/Globulin [Mass ratio] 0.9 {ratio} Normal [facility] Comment on above: Performed By: #### L IPA, CMP, HSTROPN ####[facility] [address] [place] [address]DrAndres Reagan ALP [Catalytic activity/Vol] 80 U/L Normal 46-116 [facility] Comment on above: Performed By: #### L IPA, CMP, HSTROPN ####[facility] [address] [place] [address]Dr. Sabrina Reagan ALT [Catalytic activity/Vol] 41 U/L Normal 14-59 [facility] Comment on above: Performed By: #### L IPA, CMP, HSTROPN ####[facility] [address] [place] [address]Dr. Sabrina Reagan Anion gap [Moles/Vol] 12.7 mmol/L Normal [facility] Comment on above: Performed By: #### L IPA, CMP, HSTROPN ####[facility] [address] [place] [address]Dr. Sabrina Reagan AST [Catalytic activity/Vol] 25 U/L Normal 15-37 [facility] Comment on above: Performed By: #### L IPA, CMP, HSTROPN ####[facility] [address] [place] [address]Dr. Sabrina Reagan Bilirubin [Mass/Vol] 0.5 mg/dL Normal 0.2-1.0 [facility] Comment on above: Performed By: #### L IPA, CMP, HSTROPN ####[facility] [address] [place], [place] [address]Dr. Sabrina Reagan Calcium [Mass/Vol] 9.0 mg/dL Normal 8.5-10.1 [facility] Comment on above: Performed By: #### L IPA, CMP, HSTROPN ####[facility] [address] [place] [address]Dr. Sabrina Reagan Chloride [Moles/Vol] 101 mmol/L Normal 98-107 [facility] Comment on above: Performed By: #### L IPA, CMP, HSTROPN ####[facility] [address] [place], [place] [address]Dr. Sabrina Reagan CO2 [Moles/Vol] 29.6 mmol/L Normal 21.0-32.0 [facility] Comment on above: Performed By: #### L IPA, CMP, HSTROPN ####[facility] [address] [place], [place] [address]Dr. Sabrina Reagan Creatinine [Mass/Vol] 1.33 mg/dL Critically high 0.55-1.02 [facility] Comment on above: Performed By: #### L IPA, CMP, HSTROPN ####[facility] [address] [place] [address]Dr. Sabrina Tez EGFR-AF CYMRAES 47 mL/min/1.73m2 Critically low >=60 [facility] Comment on above: Performed By: #### L IPA, CMP, HSTROPN ####[facility] [address] [place] [address]Dr. Sabrina Tez EGFR-NON AF CYMRAES 39 mL/min/1.73m2 Critically low >=60 [facility] Comment on above: Performed By: #### L IPA, CMP, HSTROPN ####[facility] [address] [place] [address]Dr. Sabrina Reagan Globulin (S) [Mass/Vol] 4.2 g/dL Normal [facility] Comment on above: Performed By: #### L IPA, CMP, HSTROPN ####[facility] [address] [place] [address]Dr. Sabrina Reagan Glucose [Mass/Vol] 123 mg/dL Critically high 74-106 [facility] Comment on above: Performed By: #### L IPA, CMP, HSTROPN ####[facility] [address] [place] [address]Dr. Sabrina Reagan Potassium [Moles/Vol] 4.3 mmol/L Normal 3.5-5.1 [facility] Comment on above: Performed By: #### L IPA, CMP, HSTROPN ####[facility] [address] [place] [address]Dr. Sabrina Reagan Protein [Mass/Vol] 8.0 g/dL Normal 6.4-8.2 [facility] Comment on above: Performed By: #### L IPA, CMP, HSTROPN ####[facility] [address] [place] [address]Dr. Sabrina Reagan Sodium [Moles/Vol] 139 mmol/L Normal 136-145 The [facility] Comment on above: Performed By: #### L IPA, CMP, HSTROPN ####[facility] [address] [place] [address]Dr. Sabrina Reagan Urea nitrogen [Mass/Vol] 33.0 mg/dL Critically high 7.0-18.0 [facility] Comment on above: Performed By: #### L IPA, CMP, HSTROPN ####[facility] [address] [place] [address]Dr. Sabrina Reagan Urea nitrogen/Creatinin e [Mass ratio] 24.8 mg/mg Normal [facility] Comment on above: Performed By: #### L IPA, CMP, HSTROPN ####[facility] [address] [place] [address]Dr. Sabrina Reagan TROPONIN, HIGH SENSITIVITYon 07-20-2021 HSTROP 50.4 pg/mL Normal 4.0-51.3 [facility] Comment on above: Result Comment: CUT- OFF POINTS HAVE BEEN ESTABLISHED BASED ON THE FOURTH UNIVERSAL DEFINITIONS OF MYOCARDIAL INFARCTION. THE UPPER REFERENCE LIMIT (URL) OF TROPONIN, DEFINED THE 99TH PERCENTILE OF cTnI DISTRIBUTION IN A REFERENCE POPULATION, HAS BEEN CONFIRMED THE DECISION THRESHOLD FOR CA DIAGNOSIS. Performed By: #### L IPA, CMP, HSTROPN ####[facility] [address] [place] [address]Dr. Sabrina Reagan US PELVIS AND TRANSVAGon US PELVIS AND TRANSVAG EXAMINATION: US PELVIS AND TRANSVAG HISTORY: Abdominal distension, gaseous COMPARISON: Ultrasound pelvis 09/09/2015 TECHNIQUE: Transabdominal and transvaginal sonographic examination. FINDINGS: UTERUS: Several nabothian cysts within solis of cervix. Hypoechoic material within the cervical canal. Uterus size: 7.6 x 3.3 x 3.2 cm ENDOMETRIUM: Thickened, slightly heterogeneous endometrial cavity. Endometrial thickness: 8 mm RIGHT OVARY: Not seen. LEFT OVARY: Not seen. CUL-DE-SAC: Unremarkable. No significant free fluid. BLADDER: Unremarkable. OTHER: None. IMPRESSION: 1. Slightly thickened heterogeneous endometrium and echogenic material within cervical canal of uncertain etiology. Consider tissue sampling. 2. Neither ovary could be identified. Electronically authenticated by: CARMEN HAY Date: 2021-04-22 16:16 Normal [facility] Tobacco Screening.on 022 Fall risk assessment a) No falls within the last year [facility] 250 DO Work Phone: Tobacco use status CPHS b) No [facility] 250 DO Work Phone: MM screening mammo BI w/CADo n 03-09-2021 MM screening mammo BI w/CAD [facility] [place] [address] [place] [address] Mammography Report Signed Patient: Phyllis French MR#: [id number] : 1945 Acct:[id number] Age/Sex: 75 / F ADM Date: 03/09/21 Loc: ID Room: Type: [facility] Attending Dr: Referral Self Ordering Provider: SELF,REFERRAL Date of Service: 03/09/21 MM/MM screening mammo BI w/CAD: SCREENING Copies to: Cathie Camara MD SELF,REFERRAL CLINICAL DATA: Screening for malignancy. BILATERAL SCREENING MAMMOGRAMS - FULL FIELD DIGITAL WITH TOMOSYNTHESIS AND CAD Tomosynthesis craniocaudal and mediolateral oblique views of both breasts were obtained using low- dose digital technique. Comparison is made to prior studies from February 10, 2018 (right) through January 30, 2020. This examination was reviewed with the aid of CAD. The breast parenchyma has been largely replaced by fat. Benign and vascular calcifications are visualized. There are no developing masses, typically malignant calcifications or architectural distortion. There has been no significant interval change. MM/MM screening mammo BI w/CAD IMPRESSION: NO MAMMOGRAPHIC EVIDENCE OF MALIGNANCY. ROUTINE FOLLOW-UP IS RECOMMENDED IN ONE YEAR. RESULT CODE: 2 Benign Findings(s) DENSITY CODE: 1 (<25% glandular) FOLLOW UP: 1YR The false-negative rate of mammography is approximately 10-percent. Management of a palpable abnormality must be based on clinical grounds. Patient was entered into a reminder system with a target due date for the next mammogram. Impression dictated by: Lizett Peres M.D.03/09/2021 2:48 PM Dictation Location: [facility] Transcribed By: [facility] 03/09/21 144 Dictated By: Lizett Peres MD 03/09/211442 Signed By: 03/09/21 1448 [facility] XR KUB 1 VIEWon 03-05-2021 XR KUB 1 VIEW EXAMINATION: XR KUB 1 VIEW HISTORY: Kidney stone COMPARISON: No relevant comparison available. FINDINGS: KIDNEY/URETER - RIGHT: No visible renal or ureteral calcifications. KIDNEY/URETER - LEFT: No visible renal or ureteral calcifications. PELVIS: No visible ureteral calcifications. Any visible calcifications favor phleboliths. BOWEL: No abnormal dilation or deviation. BONES: No acute abnormality. Degenerative changes of the spine OTHER: Negative. No abnormal gaseous collections. IMPRESSION: No definite urinary tract calculi Electronically authenticated by: JANIS GIRON Date: 2021-03-05 13:09 Normal [facility] CBC AUTO DIFFon 01-25-2021 BASO # 0.0 103/ul Normal 0.0-0.1 [facility] Comment on above: Performed By: #### C BC #### [facility] [address] [place] [address] Dr. Sabrina Reagan Basophils/100 WBC (Bld) 0.1 % Critically low 0.2-2.0 [facility] Comment on above: Performed By: #### C BC #### [facility] [address] [place] [address] Dr. Sabrina Reagan EO # 0.0 103/ul Normal 0.0-0.7 [facility] Comment on above: Performed By: #### C BC #### [facility] [address] [place] [address] Dr. Sabrina Reagan Eosinophils/100 WBC (Bld) 0.1 % Critically low 0.9-7.0 [facility] Comment on above: Performed By: #### C BC #### [facility] [address] [place] [address] Dr. Sabrina Reagan Erythrocyte distribution width (RBC) [Ratio] 13.2 % Normal 11.0-15.0 [facility] Comment on above: Performed By: #### C BC #### [facility] [address] [place] [address] Dr. Sabrina Reagan Hematocrit (Bld) [Volume fraction] 33.2 % Critically low 36.0-48.0 [facility] Comment on above: Performed By: #### C BC #### [facility] [address] [place] [address] Dr. Sabrina Reagan Hemoglobin (Bld) [Mass/Vol] 10.7 g/dL Critically low 12.0-16.0 [facility] Comment on above: Performed By: #### C BC #### [facility] [address] [place] [address] Dr. Sabrina Reagan IG # 0.03 10e3/ul Normal 0.00-0.03 [facility] Comment on above: Performed By: #### C BC #### [facility] [address] [place] [address] Dr. Sabrina Reagan IG % 0.4 % Normal 0.0-0.5 [facility] Comment on above: Performed By: #### C BC #### [facility] [address] [place] [address] Dr. Sabrina Reagan LYMPH # 2.0 103/ul Normal 1.2-3.8 [facility] Comment on above: Performed By: #### C BC #### [facility] [address] [place] [address] Dr. Sabrina Reagan Lymphocytes/100 WBC (Bld) 24.0 % Normal 20.5-60.0 [facility] Comment on above: Performed By: #### C BC #### [facility] [address] [place] [address] Dr. Sabrina Reagan MANUAL DIFF REQ NO Normal [facility] Comment on above: Performed By: #### C BC #### [facility] [address] [place] [address] Dr. Sabrina Reagan MCH (RBC) [Entitic mass] 30.1 pg Normal 26.7-34.0 [facility] Comment on above: Performed By: #### C BC #### [facility] [address] [address] [address] Sabrina Reagan MCHC (RBC) [Mass/Vol] 32.2 g/dL Normal 29.9-35.2 [facility] Comment on above: Performed By: #### C BC #### [facility] [address] [place] [address] Dr. Sabrina Reagan MCV (RBC) [Entitic vol] 93.3 fL Normal 81.0-99.0 [facility] Comment on above: Performed By: #### C BC #### [facility] [address] [place] [address] Dr. Sabrina Reagan MONO # 0.9 103/ul Critically high 0.3-0.8 [facility] Comment on above: Performed By: #### C BC #### [facility] [address] [place] [address] Dr. Sabrina Reagan Monocytes/100 WBC (Bld) 10.5 % Normal 1.7-12.0 [facility] Comment on above: Performed By: #### C BC #### [facility] [address] [place] [address] Dr. Sabrina Reagan NEUT # 5.3 103/ul Normal 1.4-6.5 [facility] Comment on above: Performed By: #### C BC #### [facility] [address] [place] [address] Dr. Sabrina Reagan Neutrophils/100 WBC (Bld) 64.9 % Normal 43.0-75.0 [facility] Comment on above: Performed By: #### C BC #### [facility] [address] [place] [address] Dr. Sabrina Reagan Platelet mean volume (Bld) [Entitic vol] 11.0 fL Normal 9.5-13.5 [facility] Comment on above: Performed By: #### C BC #### [facility] [address] [place] [address] Dr. Sabrina Reagan PLT 175 103/ul Normal 150-450 [facility] Comment on above: Performed By: #### C BC #### [facility] [address] [place] [address] Dr. Sabrina Reagan RBC 3.56 106/ul Critically low 4.20-5.40 [facility] Comment on above: Performed By: #### C BC #### [facility] [address] [place], [place] [address] Dr. Sabrina Reagan WBC 8.2 103/ul Normal 4.0-11.0 [facility] Comment on above: Performed By: #### C BC #### [facility] [address] [place], [place] [address] ABD/PELVIS WO CONon 01-25 CT ABD/PELVIS WO CON EXAMINATION: CT ABD/PELVIS WO CON HISTORY: CALCULUS OF KIDNEY COMPARISON: Chest CT January 09, 2016 TECHNIQUE: CT examination of the abdomen and pelvis without IV contrast. Coronal and sagittal reformations were performed. Dose reduction techniques were achieved by using automated exposure control and/or adjustment of mA and/or kV according to patient size and/or use of iterative reconstruction technique. FINDINGS: Sensitivity to detect disease of solid organs without IV contrast is low. Chest (Visualized Portion) Lung bases: Peripheral groundglass opacities of the bilateral lungs suspicious for developing infectious or inflammatory process such as Covid 19. Heart: Visualized portion is normal Distal esophagus: Normal Abdomen: Stomach: Normal course. No wall thickening for degree of distension. Small bowel: Normal. There is ill-defined mesenteric fat stranding which is mildly increased since prior which can be seen with mesenteric panniculitis. Large bowel: Normal. Appendix: Not seen however no secondary findings of acute appendicitis Liver Parenchyma: Normal Biliary system: No intrahepatic or extrahepatic dilatation. Gallbladder: The gallbladder is not seen. Pancreas: Normal Spleen: Normal Adrenal glands: Normal Kidneys: Orthotopic in location and normal in size and shape without hydronephrosis or masses. Previously noted nonobstructing right renal calculus is no longer seen. Also the previously noted obstructing right ureteric calculus is no longer seen. Ureters: Normal Abdominal Aorta and Branches: Normal in caliber with vascular calcifications. Peritoneum: No free air. Soft Tissues: No acute findings. Pelvis: Urinary bladder: There is moderate diffuse thickening of a nondistended urinary bladder. Uterus and Cervix: Unremarkable Ovaries and Adnexa: Within normal limits. No masses. Lymphadenopathy: None. Bones: No evidence of acute fractures. No suspicious osteolytic or blastic lesions. 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 Multilevel lumbar degenerative changes. IMPRESSION: 1. No evidence of obstructing or nonobstructing renal calculi. No evidence of hydronephrosis. 2. Moderate diffuse thickening of not fully distended urinary bladder. Correlate with urinalysis. 3. Mesenteric fat stranding, mildly increased since prior and can be seen with mesenteric panniculitis. 4. Peripheral groundglass opacities of the bilateral visualized lung bases suspicious for developing infectious or inflammatory process such as Covid 19. Electronically authenticated by: JANIS TO Date: 2021-01-25 11:03 Normal [facility] CULTURE URINEon 01-25-2021 CULTURE URINE Culture Observations : No growth Normal [facility] Comment on above: Performed By: #### U RCX ####[facility] [address] [place] [id number]. Sabrina Tez Covid-19 PCR (CVDTBH)on 12-30 SARS-CoV-2 (COVID-19) RNA SHARON+probe Ql (Unsp spec) Detected Critically abnormal NOT DETECTED [facility] Comment on above: Result Comment: This test is not yet approved or cleared by the [place] FDA. When there are no FDA-approved or cleared tests available, and other criteria are met, FDA can make tests available under an emergency access mechanism called an Emergency Use Authorization (EUA). The EUA for this test is supported by the [place] of Health and Human Service's declaration that circumstances exist to justify the emergency use of in vitro diagnostics for the detection and/or diagnosis of the virus that causes COVID-19. This EUA will remain in effect for the duration of the COVID-19 declaration justifying emergency of IVDs, unless it is terminated or revoked by the FDA (after which the test may no longer be used). Performed By: #### C VDTBH ####[facility] [address] [place] [id number] Sabrina Reagan ER URINE PROFILEon 1 Bilirubin Ql (U) Negative Normal NEGATIVE [facility] Comment on above: Performed By: #### U MICRO, ERUR #### [facility] [address] [address] [address] Sabrina Reagan Clarity (U) CLEAR Normal CLEAR [facility] Comment on above: Performed By: #### U MICRO, ERUR #### [facility] [address] [place] [address] Dr. Sabrina Reagan Color (U) YELLOW Normal YELLOW [facility] Comment on above: Performed By: #### U MICRO, ERUR #### [facility] [address] [place] [address] Dr. Sabrina Reagan ERUAHD A micrscopic examination will be performed if indicated. Normal [facility] Comment on above: Performed By: #### U MICRO, ERUR #### [facility] [address] [place] [address] Dr. Sabrina Reagan Glucose Ql (U) Negative Normal NEGATIVE [facility] Comment on above: Performed By: #### U MICRO, ERUR #### [facility] [address] [place] [address] Dr. Sabrina Reagan Hemoglobin Ql (U) TRACE-INTACT Abnormal NEGATIVE [facility] Comment on above: Performed By: #### U MICRO, ERUR #### [facility] [address] [place] [address] Dr. Sabrina Reagan Ketones Ql (U) Negative Normal NEGATIVE [facility] Comment on above: Performed By: #### U MICRO, ERUR #### [facility] [address] [place] [address] Dr. Sabrina Reagan LEUKOCYTES Negative Normal NEGATIVE [facility] Comment on above: Performed By: #### U MICRO, ERUR #### [facility] [address] [place] [address] Dr. Sabrina Reagan Nitrite Ql (U) Negative Normal NEGATIVE [facility] Comment on above: Performed By: #### U MICRO, ERUR #### [facility] [address] [place] [address] Dr. Sabrina Reagan pH (U) 5.0 [pH] Normal 5-9 [facility] Comment on above: Performed By: #### U MICRO, ERUR #### [facility] [address] [address] [address] Sabrina Reagan SPEC GRAVITY >=1.030 Abnormal 1.005-<=1.025 [facility] Comment on above: Performed By: #### U MICRO, ERUR #### [facility] [address] [address] [address] Sabrina Reagan UA PROTEIN TRACE Normal NEGATIVE/ TRACE [facility] Comment on above: Performed By: #### U MICRO, ERUR #### [facility] [address] [address] [address] Sabrina Reagan UR MICRO IND INDICATED Normal [facility] Comment on above: Performed By: #### U MICRO, ERUR #### [facility] [address] [address] [address] Sabrina Reagan Urobilinogen Qn (U) 0.2 {Kaycee'U}/dL Normal 0.2 - 1.0 [facility] Comment on above: Performed By: #### U MICRO, ERUR #### [facility] [address] [address] [address] Sabrina Reagan PROF 14(COMP METB)on 021 Albumin [Mass/Vol] 3.0 g/dL Critically low 3.5-5.0 [facility] Comment on above: Performed By: #### C MP ####[facility] [address] [place] [address]DrAndres Reagan Albumin/Globulin [Mass ratio] 0.7 {ratio} Normal [facility] Comment on above: Performed By: #### C MP ####[facility] [address] [place] [address]Dr. Sabrina Reagan ALP [Catalytic activity/Vol] 66 U/L Normal 38-126 [facility] Comment on above: Performed By: #### C MP ####[facility] [address] [place] [address]Dr. Sabrina Reagan ALT [Catalytic activity/Vol] 31 U/L Normal 9-52 [facility] Comment on above: Performed By: #### C MP ####[facility] [address] [place] [address]Dr. Sabrina Reagan Anion gap [Moles/Vol] 13.5 mmol/L Normal [facility] Comment on above: Performed By: #### C MP ####[facility] [address] [place] [address]Dr. Sabrina Reagan AST [Catalytic activity/Vol] 28 U/L Normal 14-36 [facility] Comment on above: Performed By: #### C MP ####[facility] [address] [place], [place] [address]Dr. Sabrina Reagan Bilirubin [Mass/Vol] 0.3 mg/dL Normal 0.2-1.3 [facility] Comment on above: Performed By: #### C MP ####[facility] [address] [place], [place] [address]Dr. Sabrina Reagan Calcium [Mass/Vol] 8.6 mg/dL Normal 8.4-10.2 The [facility] Comment on above: Performed By: #### C MP ####[facility] [address] [place], [place] [address]Dr. Sabrina Reagan Chloride [Moles/Vol] 99 mmol/L Normal 98-107 [facility] Comment on above: Performed By: #### C MP ####[facility] [address] [place], [place] [address]Dr. Sabrina Reagan CO2 [Moles/Vol] 26.7 mmol/L Normal 22.0-30.0 [facility] Comment on above: Performed By: #### C MP ####[facility] [address] [place], [place] [address]Dr. Sabrina Tez Creatinine [Mass/Vol] 1.64 mg/dL Critically high 0.52-1.04 [facility] Comment on above: Performed By: #### C MP ####[facility] [address] [place], [place] [address]Dr. Sabrina Tez EGFR-AF CYMRAES 37 mL/min/1.73m2 Critically low >=60 [facility] Comment on above: Performed By: #### C MP ####[facility] [address] [place] [address]Dr. Sabrina Reagan EGFR-NON AF CYMRAES 30 mL/min/1.73m2 Critically low >=60 [facility] Comment on above: Performed By: #### C MP ####[facility] [address] [place], [place] [address]Dr. Sabrina Reagan Globulin (S) [Mass/Vol] 4.5 g/dL Normal [facility] Comment on above: Performed By: #### C MP ####[facility] [address] [place], [place] [address]Dr. Sabrina Reagan Glucose [Mass/Vol] 133 mg/dL Critically high 74-106 [facility] Comment on above: Performed By: #### C MP ####[facility] [address] [place], [place] [address]Dr. Sabrina Reagan Potassium [Moles/Vol] 4.2 mmol/L Normal 3.4-5.0 [facility] Comment on above: Performed By: #### C MP ####[facility] [address] [place], [place] [address]Dr. Sabrina Reagan Protein [Mass/Vol] 7.5 g/dL Normal 6.1-8.2 [facility] Comment on above: Performed By: #### C MP ####[facility] [address] [place], [place] [address]Dr. Sabrina Reagan Sodium [Moles/Vol] 135 mmol/L Critically low 137-145 Th [facility] Comment on above: Performed By: #### C MP ####[facility] [address] [place], [place] [address]Dr. Sabrina Reagan Urea nitrogen [Mass/Vol] 51.0 mg/dL Critically high 7.0-17.0 [facility] Comment on above: Performed By: #### C MP ####[facility] [address] [place], [place] [address]Dr. Sabrina Reagan Urea nitrogen/Creatinin e [Mass ratio] 31.1 mg/mg Normal [facility] Comment on above: Performed By: #### C MP ####[facility] [address] [place] [address]Dr. Sabrina Reagan URINE MICROSCOPIC ONLYon AMORPHOUS CRYSTALS MODERATE Normal The [facility] Comment on above: Performed By: #### U MICRO, ERUR #### [facility] [address] [address] [address] Sabrina Reagan BACTERIA SMALL Abnormal NONE SEEN [facility] Comment on above: Performed By: #### U MICRO, ERUR #### [facility] [address] [address] [address] Sabrina Reagan Bacteria identified Cx Nom (U) INDICATED Normal [facility] Comment on above: Performed By: #### U MICRO, ERUR #### [facility] [address] [address] [address] Sabrina Reagan CAST NONE SEEN Normal NONE SEEN [facility] Comment on above: Performed By: #### U MICRO, ERUR #### [facility] [address] [address] [address] Sabrina Reagan Crystals LM Nom (Urine sed) SEEN Abnormal NONE SEEN [facility] Comment on above: Performed By: #### U MICRO, ERUR #### [facility] [address] [address] [address] Sabrina Reagan Epithelial cells LM Ql (Urine sed) MODERATE Abnormal NONE SEEN /RARE [facility] Comment on above: Performed By: #### U MICRO, ERUR #### [facility] [address] [address] [address] Sabrina Reagan MUCOUS MODERATE Abnormal NONE SEEN [facility] Comment on above: Performed By: #### U MICRO, ERUR #### [facility] [address] [address] [address] Sabrina Reagan RBC 0-2 Normal 0-2 [facility] Comment on above: Performed By: #### U MICRO, ERUR #### [facility] [address] [address] [address] Sabrina Reagan WBC 0-2 Abnormal NONE SEEN [facility] Comment on above: Performed By: #### U MICRO, ERUR #### [facility] [address] [address] [address] Sabrina Reagan Vital Signs Date Time Vital Sign Value Performing Clinician Facility 03-14-2023 09:30-0500 Body height 151.13 cm Cathie Camara Other [facility] Other 03-14-2023 09:30-0500 Body mass index (BMI) [Ratio] 48.53 kg/m2 Cathie Camara Other [facility] Other 03-14-2023 09:30-0500 Body weight 110.86 kg Cathie Camara Other [facility] Other 03-14-2023 09:30-0500 Diastolic blood pressure 78 mm[Hg] Cathie Camara Other [facility] Other 03-14-2023 09:30-0500 Systolic blood pressure 124 mm[Hg] Cathie Camara Other [facility] Other 02-24-2023 10:30-0500 Body height 151.13 cm Cathie Camara Other [facility] Other 02-24-2023 10:30-0500 Body temperature 96 [degF] Cathie Camara Other [facility] Other 02-24-2023 10:30-0500 SaO2% (BldA) [Mass fraction] 94 % Cathie Camara Other [facility] Other 02-01-2023 10:10-0500 Blood Pressure Location KANDI BERMEO [facility] 02-01-2023 10:10-0500 Diastolic blood pressure 82 mm[Hg] KANDI BERMEO [facility] 02-01-2023 10:10-0500 Heart rate 69 /min KANDI BERMEO [facility] 02-01-2023 10:10-0500 Respiratory rate 16 /min KANDI BERMEO [facility] 02-01-2023 10:10-0500 Systolic blood pressure 134 mm[Hg] KANDI BERMEO [facility] 11-05-2022 09:53-0400 Body height 154.94 cm Cathie Camara Work Phone: [facility] [address] DO Work Phone: 11-05-2022 09:53-0400 Body mass index (BMI) [Ratio] 47.62 kg/m2 Cathie Camara Work Phone: [facility] [address] DO Work Phone: 11-05-2022 09:53-0400 Body surface area Derived from formula 2.08 m2 Cathie Camara Work Phone: [facility] 250 DO Work Phone: 11-05-2022 09:53-0400 Body weight 114.31 kg Cathie Camara Work Phone: [facility] [address] DO Work Phone: 11-05-2022 09:53-0400 Diastolic blood pressure 78 mm[Hg] Cathie Camara Work Phone: [facility] [address] DO Work Phone: 11-05-2022 09:53-0400 Heart rate 64 /min Cathie Camara Work Phone: [facility] DO Work Phone: 11-05-2022 09:53-0400 Systolic blood pressure 126 mm[Hg] Cathie Camara Work Phone: [facility] DO Work Phone: 03-26-2022 11:12-0500 Body height 154.94 cm Cathie Camara Work Phone: [facility] DO Work Phone: 03-26-2022 11:12-0500 Body mass index (BMI) [Ratio] 46.67 kg/m2 Cathie aCmara Work Phone: [facility] [address] DO Work Phone: 03-26-2022 11:12-0500 Body surface area Derived from formula 2.07 m2 Cathie Camara Work Phone: [facility] DO Work Phone: 03-26-2022 11:12-0500 Body weight 112.04 kg Cathie Camara Work Phone: [facility] DO Work Phone: 03-26-2022 11:12-0500 Diastolic blood pressure 78 mm[Hg] Cathie Camara Work Phone: [facility] DO Work Phone: 03-26-2022 11:12-0500 Heart rate 69 /min Cathie Camara Work Phone: [facility] DO Work Phone: 03-26-2022 11:12-0500 Systolic blood pressure 110 mm[Hg] Cathie Camara Work Phone: [facility] DO Work Phone: 11-30-2021 14:41-0400 Blood Pressure Location Joaquín FRAGOSO [facility] 11-30-2021 14:41-0400 Diastolic blood pressure 72 mm[Hg] Joaquín FRAGOSO [facility] 11-30-2021 14:41-0400 Heart rate 74 /min Joaquín FRAGOSO [facility] 11-30-2021 14:41-0400 Respiratory rate 18 /min Joaquín FRAGOSO [facility] 11-30-2021 14:41-0400 Systolic blood pressure 124 mm[Hg] Joaquín FRAGOSO [facility] 03-31-2021 15:38-0500 Body height 154.94 cm Cathie Camara Work Phone: [facility] DO Work Phone: 03-31-2021 15:38-0500 Body mass index (BMI) [Ratio] 43.46 kg/m2 Cathie Camara Work Phone: [facility] DO Work Phone: 03-31-2021 15:38-0500 Body surface area Derived from formula 2 m2 Cathie Camara Work Phone: [facility] DO Work Phone: 03-31-2021 15:38-0500 Body weight 104.33 kg Cathie Camara Work Phone: [facility] DO Work Phone: 03-31-2021 15:38-0500 Diastolic blood pressure 72 mm[Hg] Cathie Camara Work Phone: [facility] DO Work Phone: 03-31-2021 15:38-0500 Heart rate 83 /min Cathie Camara Work Phone: [facility] DO Work Phone: 03-31-2021 15:38-0500 Systolic blood pressure 124 mm[Hg] Cathie Camara Work Phone: [facility] DO Work Phone: Encounters Encounter Date Encounter Type Care Provider Facility Start: 02-07-2024 ambulatory KANDI Razoi ty:[facility] Start: 03-14-2023 End: 03-14-2023 ambulatory Cathie Camara Other [facility] Other Start: 03-14-2023 Patient encounter procedure Cathie Camara [facility] Start: 02-24-2023 End: 02-24-2023 ambulatory Cathie Camara Other [facility] Other Start: 02-24-2023 Office outpatient visit 15 minutes Cathie Camara [facility] Start: 02-23-2023 End: 02-23-2023 ambulatory Cathie Camara Other [facility] Other Start: 02-23-2023 Telephone encounter Cathie Camara [facility] Start: 02-01-2023 End: 02-02-2023 ambulatory KANDI BERMEO Facility:[facility] Start: 02-01-2023 End: 02-01-2023 Patient encounter procedure KANDI ONEILRY [facility] Start: 11-05-2022 Office outpatient visit 15 minutes Cathie Camara Work Phone: [facility] DO Work Phone: Start: 11-05-[address] Ford Medina Facility: Start: 07-27-2022 (Televisit) Televisit Cathie Camara [facility] Start: 07-27-2022 End: 07-27-2022 ambulatory Cathie Camara Other [facility] Other Start: 03-26-2022 Office outpatient visit 15 minutes [facility] Camara [facility] Work Phone: Start: 03-26-[address] Ford Medina Facility: Start: 11-30-2021 End: 11-30-2021 Patient encounter procedure Joaquín FRAGOSO [facility] Start: 09-24-2021 End: 09-24-2021 ambulatory LUIS A ROSARIO Facility:[facility] Start: 07-20-2021 End: 07-20-[address] CATHIE CAMARA Facility:[facility] Start: 04-22-2021 End: 04-23-[address] CATHIE CAMARA Facility:[facility] Start: 03-31-2021 Office outpatient visit 15 minutes [facility] Camara [facility] Work Phone: Start: 03-05-2021 End: 03-06-[address] JOAQUÍN FRAGOSO Facility:[facility] Start: 01-26-2021 End: 01-26-2021 ambulatory LUIS A ROSARIO Facility:[facility] Start: 01-25-2021 End: 01-25-2021 ambulatory LUIS A ROSARIO Facility:[facility] Procedures Date Procedure Procedure Detail Performing Clinician Start: 09-25-2019 Cystoscopic removal of ureteric stent KANDI ELVIE Start: 08-16-2019 Extracorporeal shock wave lithotripsy of calculus of kidney KANDI BERMEO Start: 08-09-2019 Cystoscopic insertio n of ureteric stent KANDI BERMEO Start: 12-11-2015 Cystoscopy Joaquín GLEZ Start: 10-10-2015 Cystoscopy Joaquín GLEZ Appendectomy Joaquín FRAGOSO section Cathie Lou aun Work Phone: Cholecystectomy Cathie Rai un Work Phone: Cholecystectomy Joaquín PINTO Colonoscopy Joaquín FRAGOSO Kidney operation Cathie Lou aun Work Phone: Screening for malign ant neoplasm of breast Cathie Camara Other Total colonoscopy Cathie Selam garcia Work Phone: Plan of Treatment Date Care Activity Detail Author Start: 11-04-2023 FUV, Provider: Ford Medina, Status: Pen, Time: 9:50 AM FUV, Provider: Ford Medina, Status: Pen, Time: 9:50 AM [facility] 250 DO Work Phone: Start: 11-05-2022 FUV, Provider: Ford Medina, Status: Pen, Time: 9:40 AM FUV, Provider: Ford Medina, Status: Pen, Time: 9:40 AM [facility] 250 DO Work Phone: Start: 09-30-2021 FUV, Provider: Ford Medina, Status: Pen, Time: 2:10 PM FUV, Provider: Ford Medina, Status: Pen, Time: 2:10 PM [facility] Work Phone: Immunizations Immunization Date Immunization Notes Care Provider Ha esqueda 11-28-2021 influenza virus vacc ine, unspecified formulation KANDI BERMEO [facility] 11-28-2021 influenza, seasonal, injectable Cathie Camara Work Phone: [facility] [employer]-[facility] 250 DO Work Phone: Comment on above: Series: 09-24-2021 diphtheria, tetanus toxoids and pertussis vaccine Ctahie Camara Work Phone: [place] [address] DO Work Phone: 05-07-2020 [place] COVID-19 Vac cine 0.5 ML Intramuscular Suspension Cathie Camara Work Phone: [facility] Comment on above: Result Comment: 2022: [id number] 02-29-2020 SARS-CoV-2 (COVID-19 ) Ad26 vaccine, recombinant Joaquín FRAGOSO [facility] 11-29-2019 influenza virus vacc ine, unspecified formulation Cathie Camara Work Phone: [facility] 11-23-2019 influenza, seasonal, injectable Cathie Camara Work Phone: [place] [address] DO Work Phone: 10-30-2019 influenza virus vacc ine, unspecified formulation Joaquín FRAGOSO [facility] 11-23-2018 influenza virus vacc ine, unspecified formulation KANDI ELVIE [facility] 11-23-2018 Influenza, injectabl e, Madin [place] Canine Kidney, preservative free, quadrivalent Cathie Camara Work Phone: [place] [address] DO Work Phone: 12-21-2017 influenza virus vacc ine, unspecified formulation KANDI ELVIE [facility] 12-21-2017 Influenza, injectabl e, Madin [place] Canine Kidney, preservative free, quadrivalent Cathie E Camara Work Phone: [place] [address] DO Work Phone: 12-01-2016 influenza virus vacc ine, unspecified formulation KANDI ELVIE [facility] 12-01-2016 influenza, injectabl e, quadrivalent, preservative free Cathie E Camara Work Phone: [place] [address] DO Work Phone: 11-25-2014 influenza virus vacc ine, unspecified formulation KANDI ELVIE [facility] 11-25-2014 influenza, seasonal, injectable, preservative free Cathie E Camara Work Phone: [place] [address] DO Work Phone: 02-28-2014 pneumococcal polysaccharide vaccine, 23 valent Cathie E Camara Work Phone: [facility] 12-01-2012 influenza virus vacc ine, whole virus Cathie E Camara Work Phone: [place] [address] DO Work Phone: 12-01-2012 influenza, whole KANDI PE RRY [facility] 12-15-2011 influenza virus vacc ine, whole virus Cathie E Camara Work Phone: [place] [address] DO Work Phone: 12-15-2011 influenza, whole KANDI PE RRY [facility] 11-30-2010 influenza virus vacc ine, whole virus Cathie E Camara Work Phone: [place] [address] DO Work Phone: 11-30-2010 influenza, whole KANDI PE RRY [facility] 12-29-2009 pneumococcal polysaccharide vaccine, 23 valent Cathie E Camara Work Phone: [facility] 12-17-2009 influenza virus vacc ine, whole virus Cathie E Camara Work Phone: [facility] 250 DO Work Phone: 12-17-2009 influenza, whole KANDI PE RRY [facility] 12-18-2008 influenza virus vacc ine, whole virus Cathie E Camara Work Phone: [facility] 250 DO Work Phone: 12-18-2008 influenza, whole KANDI PE RRY [facility] 12-28-2006 influenza virus vacc ine, whole virus Cathie E Camara Work Phone: [place] [address] DO Work Phone: 12-28-2006 influenza, whole KANDI PE RRY [facility] Payers Date Payer Category Payer Medicare [id number] 1960 Unknown [id number] 1945 Unknown [id number] 2.16.84 [id number] 1945 Unknown [id number] 2.16.84 [id number] 1944 Unknown [id number] 2.16.84 [id number] 1944 Unknown [id number] 2.16.84 [id number] 1944 Unknown [id number] 2.16.84 [id number] 1944 Unknown [id number] 2.16.84 [id number] 1944 Unknown [id number] 2.16. [id number] 1944 Unknown [id number] 2.16. [id number] 1944 Unknown [id number] 2.16.8 [id number] 1944 Unknown [id number] 2.16.8 [id number] Unknown AN[employer]M MEDICARE ADV Unknown [id number] Social History Date Type Detail Facility No illicit drug use No illicit drug use [facility] Work Phone: Start: 11-30-2021 End: 02-01-2023 Tobacco smoking status Never smoked tobacco (finding) [facility] Sex Assigned At Female [facility] Tobacco smoking status Never [facility] Functional Status Date Assessment Result Facility 02-01-2023 Functional Status N/A [facility] 11-30-2021 Functional Status N/A [facility] Clinical Notes 09-24-2021 to 03-14-2023 Note Date & Type Note Facility 03-14-2023 Evaluation note Encounter Date Diagnosis Assessment Notes Feb, Medicare annual wellness visit, subsequent (ICD-10 - Z00.00) Personalized health advice was given to the beneficiary including a written plan for screenings discussed and provided. Advanced care planning reviewed and/or information given as requested. Additional counseling was provided here today in regards to, [ ]. The above visit was performed by [ ], under direct supervision of [ ]. Document reviewed and amended by provider signed below. Feb, Type 2 diabetes mellitus with diabetic neuropathy, unspecified (ICD-10 - E11.40) Will write a script for it Due for labs. discussed diet and activity Feb, Hypothyroidism, unspecified (ICD-10 - E03.9) chronic problem. check labs prior to refill of synthroid Feb, Essential (primary) hypertension (ICD-10 - I10) GOAL: Maintain BP < 140/90. STATUS: achieved. TIME FRAME: Lifetime goal. Barriers: Non- identifed. Continue current regimen and a low Na+ diet. Regular CV exercise also encouraged. Feb, Monoarticular arthritis (ICD-10 - M13.10) reports 1 week ago had L ankle pain. friend suggested possible gout. will check lab Feb, Vitamin D deficiency (ICD-10 - E55.9) due for check Feb, Acute anemia (ICD-10 - D64.9) assess anemia with history of fatigue. [facility] Other 12-28-2023 Evaluation note* Encounter Date Diagnosis Assessment Notes Treatment Notes Treatment Clinical Notes Jan, Acute non-recurrent maxillary sinusitis (ICD-10 - J01.00) Sinus infections can be triggered by a secondary infection from a viral URI or even seasonal allergies. Take medications as directed. Use saline nasal spray prior to presciption nasal spray. Take medications as directed, and complete all doses of medication even if you start to feel better. Patient advised to follow up with PCP if symptoms persist or worsen. Patient verbalized understanding and agreement with treatment plan. [facility] Other 12-05-2023 Hospital Discharge instructions Patient Education 02/01/2023 10:49:02 Dietary Guidelines to Help Prevent Kidney Stones Dietary Guidelines to Help Prevent Kidney Stones Kidney stones are deposits of minerals and salts that form inside your kidneys. Your risk of developing kidney stones may be greater depending on your diet, your lifestyle, the medicines you take, and whether you have certain medical conditions. Most people can lower their risks of developing kidney stones by following these dietary guidelines. Your dietitian may give you more specific instructions depending on your overall health and the type of kidney stones you tend to develop. What are tips for following this plan? Reading food labels Choose foods with no salt added or low-salt labels. Limit your salt (sodium) intake to less than 1,500 mg a day. Choose foods with calcium for each meal and snack. Try to eat about 300 mg of calcium at each meal.Foods that contain 200 500 mg of calcium a serving include: ?8 oz (237 mL) of milk, nhdecvv-swigwhsyuiqq-tqbsk milk, and calcium- fortifiedfruit juice. Calcium-fortified means that calcium has been added to these drinks. ?8 oz (237 mL) of kefir, yogurt, and soy yogurt. ?4 oz (114 g) of tofu. ?1 oz (28 g) of cheese. ?1 cup (150 g) of dried figs. ?1 cup (91 g) of cooked broccoli. ?One 3 oz (85 g) can of sardines or mackerel. Most people need 1,000 1,500 mg of calcium a day. Talk to your dietitian about how much calcium is recommended for you. Shopping Buy plenty of fresh fruits and vegetables. Most people do not need to avoid fruits and vegetables, even if these foods contain nutrients that may contribute to kidney stones. When shopping for convenience foods, choose: ?Whole pieces of fruit. ?Pre-made salads with dressing on the side. ?Low-fat fruit and yogurt smoothies. Avoid buying frozen meals or prepared deli foods. These can be high in sodium. Look for foods with live cultures, such as yogurt and kefir. Choose high-fiber grains, such as whole-wheat breads, oat bran, and wheat cereals. Cooking Do not add salt to food when cooking. Place a salt shaker on the table and allow each person to addtheir own salt to taste. Use vegetable protein, such as beans, textured vegetable protein (TVP), or tofu, instead of meat inpasta, casseroles, and soups. Meal planning Eat less salt, if told by your dietitian. To do this: ?Avoid eating processed or pre-made food. ?Avoid eating fast food. Eat less animal protein, including cheese, meat, poultry, or fish, if told by your dietitian. To dothis: ?Limit the number of times you have meat, poultry, fish, or cheese each week. Eat a diet free of meat at least 2 days a week. ?Eat only one serving each day of meat, poultry, fish, or seafood. ?When you prepare animal proteins, cut pieces into small portion sizes. For most meat and fish, oneserving is about the size of the palm of your hand. Eat at least five servings of fresh fruits and vegetables each day. To do this: ?Keep fruits and vegetables on hand for snacks. ?Eat one piece of fruit or a handful of berries with breakfast. ?Have a salad and fruit at lunch. ?Have two kinds of vegetables at dinner. You may be told to limit foods that are high in a substance called oxalate. These include: ?Spinach (cooked), rhubarb, beets, sweet potatoes, and Dominican chard. ?Peanuts. ?Potato chips, costa rican fries, and baked potatoes with skin on. ?Nuts and nut products. ?Chocolate. If you regularly take a diuretic medicine, make sure to eat at least 1 or 2 servings of fruits or vegetables that are high in potassium each day. These include: ?Avocado. ?Banana. ?Redwood, prune, carrot, or tomato juice. ?Baked potato. ?Cabbage. ?Beans and split peas. Lifestyle Drink enough fluid to keep your urine pale yellow. This is the most important thing you can do. Spread your fluid intake throughout the day. If you drink alcohol: ?Limit how much you have to: ?0 1 drink a day for women who are not . ?0 2 drinks a day for men. ?Know how much alcohol is in your drink. In the [place] one drink equals one 12 oz bottle of beer (355 mL), one 5 oz glass of wine (148 mL), or one 1 oz glass of hard liquor (44 mL). Lose weight if told by your health care provider. Work with your dietitian to find an eating plan and weight loss strategies that work best for you. General information Talk to your health care provider and dietitian about taking daily supplements. Depending on your health and the cause of your kidney stones, you may be told: ?Do not take high-dose supplements of vitamin C (1,000 mg a day or more). ?To take a calcium supplement. ?To take a daily probiotic supplement. ?To take other supplements such as magnesium, fish oil, or vitamin B6. Take gdnt-mvh-zbxvxnn and prescription medicines only as told by your health care provider. These include supplements. What foods should I limit? Limit your intake of the following foods, or eat them as told by your dietitian. Vegetables Spinach. Rhubarb. Beets. Canned vegetables. Pickles. Olives. Baked potatoes with skin. Grains Wheat bran. Baked goods. Salted crackers. Cereals high in sugar. Meats and other proteins Nuts. Nut butters. Large portions of meat, poultry, or fish. Salted, precooked, or cured meats, such as sausages, meat loaves, and hot dogs. Dairy Cheeses. Beverages Regular soft drinks. Regular vegetable juice. Seasonings and condiments Seasoning blends with salt. Salad dressings. Soy sauce. Ketchup. Barbecue sauce. Other foods Canned soups. Canned pasta sauce. Casseroles. Pizza. Lasagna. Frozen meals. Potato chips. Namibian fries. The items listed above may not be a complete list of foods and beverages you should limit. Contact a dietitian for more information. What foods should I avoid? Talk to your dietitian about specific foods you should avoid based on the type of kidney stones youhave and your overall health. Fruits Grapefruit. The item listed above may not be a complete list of foods and beverages you should avoid. Contact adietitian for more information. Summary Kidney stones are deposits of minerals and salts that form inside your kidneys. You can lower your risk of kidney stones by making changes to your diet. The most important thing you can do is drink enough fluid. Drink enough fluid to keep your urine pale yellow. Talk to your dietitian about how much calcium you should have each day, and eat less salt and animal protein as told by your dietitian. This information is not intended to replace advice given to you by your health care provider. Make sure you discuss any questions you have with your health care provider. Document Revised: 05/27/2022 Document Reviewed: 05/27/2022 depict Patient Education 2022 [employer]. Follow Up Care 11/30/2021 15:38:59 With:KANDI BERMEO PA-C, URL Address: [address] [place] [address] [phone] When: Unknown Comments:1 yr w/ ANNAMARIE [facility] 05-30-2023 Evaluation note* Encounter Date Diagnosis Assessment Notes Treatment Notes Treatment Clinical Notes June, Acute COVID-19 (ICD-10 - U07.1) Reviewed medications. Would be a good candidate for paxlovid due to her age. Cautioned her of side effects. Pt agrees to rx - will call if symptoms continue or worsen. [facility] Other 10-03-2022 Hospital Discharge instructions Patient Education 11/30/2021 15:30:36 Kidney Stones, Mxmi-ls-Pkjm Kidney Stones Kidney stones are rock-like masses that form inside of the kidneys. Kidneys are organs that make pee (urine). A kidney stone may move into other parts of the urinary tract, including: The tubes that connect the kidneys to the bladder (ureters). The bladder. The tube that carries urine out of the body (urethra). Kidney stones can cause very bad pain and can block the flow of pee. The stone usually leaves your body (passes) through your pee. You may need to have a doctor take out the stone. What are the causes? Kidney stones may be caused by: A condition in which certain glands make too much parathyroid hormone (primary hyperparathyroidism). A buildup of a type of crystals in the bladder made of a chemical called uric acid. The body makes uric acid when you eat certain foods. Narrowing (stricture) of one or both of the ureters. A kidney blockage that you were born with. Past surgery on the kidney or the ureters, such as gastric bypass surgery. What increases the risk? You are more likely to develop this condition if: You have had a kidney stone in the past. You have a family history of kidney stones. You do not drink enough water. You eat a diet that is high in protein, salt (sodium), or sugar. You are overweight or very overweight (obese). What are the signs or symptoms? Symptoms of a kidney stone may include: Pain in the side of the belly, right below the ribs (flank pain). Pain usually spreads (radiates) to the groin. Needing to pee often or right away (urgently). Pain when going pee (urinating). Blood in your pee (hematuria). Feeling like you may vomit (nauseous). Vomiting. Fever and chills. How is this treated? Treatment depends on the size, location, and makeup of the kidney stones. The stones will often pass out of the body through peeing. You may need to: Drink more fluid to help pass the stone. In some cases, you may be given fluids through an IV tube put into one of your veins at the hospital. Take medicine for pain. Make changes in your diet to help keep kidney stones from coming back. Sometimes, medical procedures are needed to remove a kidney stone. This may involve: A procedure to break up kidney stones using a beam of light (laser) or shock waves. Surgery to remove the kidney stones. Follow these instructions at home: Medicines Take tuac-wdg-qnbhdla and prescription medicines only as told by your doctor. Ask your doctor if the medicine prescribed to you requires you to avoid driving or using heavy machinery. Eating and drinking Drink enough fluid to keep your pee pale yellow. You may be told to drink at least 8 10 glasses of water each day. This will help you pass the stone. If told by your doctor, change your diet. This may include: ?Limiting how much salt you eat. ?Eating more fruits and vegetables. ?Limiting how much meat, poultry, fish, and eggs you eat. Follow instructions from your doctor about eating or drinking restrictions. General instructions Collect pee samples as told by your doctor. You may need to collect a pee sample: ?24 hours after a stone comes out. ?8 12 weeks after a stone comes out, and every 6 12 months after that. Strain your pee every time you pee (urinate), for as long as told. Use the strainer that your doctor recommends. Do not throw out the stone. Keep it so that it can be tested by your doctor. Keep all follow-up visits as told by your doctor. This is important. You may need follow-up tests. How is this prevented? To prevent another kidney stone: Drink enough fluid to keep your pee pale yellow. This is the best way to prevent kidney stones. Eat healthy foods. Avoid certain foods as told by your doctor. You may be told to eat less protein. Stay at a healthy weight. Where to find more information National Kidney Foundation (NKF): www.kidney.org U[employer] Care Foundation (UCF): www.urologyhealth.org Contact a doctor if: You have pain that gets worse or does not get better with medicine. Get help right away if: You have a fever or chills. You get very bad pain. You get new pain in your belly (abdomen). You pass out (faint). You cannot pee. Summary Kidney stones are rock-like masses that form inside of the kidneys. Kidney stones can cause very bad pain and can block the flow of pee. The stones will often pass out of the body through peeing. Drink enough fluid to keep your pee pale yellow. This information is not intended to replace advice given to you by your health care provider. Make sure you discuss any questions you have with your health care provider. Document Released: 08/02/2008 Document Revised: 07/03/2019 Document Reviewed: 07/03/2019 depict Patient Education 2020 [employer]. Follow Up Care 06/01/2021 09:42:58 With:RICARDO VERDUGO, Joaquín Ayala, URL Address: [facility] [address] , [place] [address]- [phone] When: Unknown [facility] 07-28-2022 NotePROCEDURE: XR HAND LT MIN 3V HISTORY: Falls ; pain after falling COMPARISON: None. FINDINGS: BONES:No fracture or dislocation. Moderate degenerative changes of the distal interphalangeal joints of all digits. SOFT TISSUES:No visible soft tissue swelling. EFFUSION:None visible. OTHER: Negative. IMPRESSION: 1. No acute bone abnormality. Electronically authenticated by: CARMEN HAY Date: 2021-09-24 11:21[id number] NotePROCEDURE: XR FOREARM LT 2 VIEWS, XR HUMERUS LT MIN 2V HISTORY: Falls ; pain after falling COMPARISON: None. FINDINGS: BONES:No fracture, acute abnormality, or significant arthropathy. SOFT TISSUES:No visible soft tissue swelling. EFFUSION:None visible. OTHER: Negative. IMPRESSION: 1. No acute bone abnormality of the left humerus or forearm. Electronically authenticated by: CARMEN HAY Date: 2021-09-24 11:10[id number] NotePROCEDURE: XR FOREARM LT 2 VIEWS, XR HUMERUS LT MIN 2V HISTORY: Falls ; pain after falling COMPARISON: None. FINDINGS: BONES:No fracture, acute abnormality, or significant arthropathy. SOFT TISSUES:No visible soft tissue swelling. EFFUSION:None visible. OTHER: Negative. IMPRESSION: 1. No acute bone abnormality of the left humerus or forearm. Electronically authenticated by: CARMEN HAY Date: 2021-09-24 11:10[facility] Future App[facility]ments Appointment Date:12/06/2022 10:30:00 AM Scheduled Provider:Joaquín FRAGOSO MD Location:[facility] Appointment Type:URO Office Visit [facility] evaluation + Plan note Future Appointments Appointment Date:02/07/2024 10:00:00 AM Scheduled Provider:KANDI BERMEO PA-C Location:[facility] Appointment Type:URO Office Visit [facility] evaluation noteNo [facility] Other History general Narrative - Reported* Type Description Date Surgical History Problem Title : Kristen ract Extraction-Bilateral, Problem Comment : 2020, Problem Status : Active, Surgical History Problem Title : Cesa rean Section - 3 or more, Problem Status : Active, Surgical History Problem Title : Chol ecystectomy, Problem Comment : 1967, Problem Status : Active, [facility] Other History of Present illness Narrative* Patient is here for follow-up continue management for recent evaluation for mild resting sinus tachycardia, hypertension morbid obesity. Last time I saw her we increased her beta-castillo and since then she reported improvement of her palpitation and even her essential tremor. She denies lightheadedness, dizziness or syncope. She remains reasonably active she has been involved in weight loss program and has lost about 20 pounds. * Assessment * 1. Mild resting tachycardia heart rate in the upper normal range clearly due to vasodilator effect of lisinopril and anticholinergic effect of imipramine this has improved with increasing her sugar * 2. Hypertension controlled * 3. Morbid obesity with mild weight loss * 4. Essential tremor * 5. Hypothyroidism on treatment * Plan * 1. I reassured the patient that her mild tachycardia is due to medication * 2. Present medical regiment considering improvement of her symptoms and her tachycardia * 3. I counseled her regarding losing weight and exercise * 4. I advised her to notify me with any change in cardiac status or symptoms * 5. We will see her back in 6-month in follow-up EKG [facility] [employer] DO Work Phone: History of Present illness Narrative* Patient is here for follow-up continue management for previous evaluation for sinus tachycardia, hypertension, obesity. Since last time I saw her she reports marked improvement of her symptoms. Her blood pressure and heart rate has been well controlled. t. She denies chest pain, palpitation, lightheadedness, dizziness or syncope. She remains fairly active EKG today showed heart rate is 69 * Assessment * 1. Mild resting tachycardia clearly due to vasodilator effect of lisinopril and anticholinergic effect of imipramine this has improved with metoprolol. * 2. Hypertension controlled * 3. Morbid obesity with current weight gain * 4. Essential tremor * 5. Hypothyroidism on treatment * 6. Increased risk of fall * Plan * 1. I reassured the patient that her mild tachycardia is due to medication * 2. Present medical regiment considering improvement of her symptoms and her tachycardia * 3. I counseled her regarding losing weight and exercise * 4. I advised her to notify me with any change in cardiac status or symptoms * 5. We will see her back in 8 month * 6. Fall precaution [facility] [employer] DO Work Phone: History of Present illness Narrative* Patient is here for follow-up continue management for previous evaluation for resting sinus tachycardia attributed to antihypertensive medication, hypertension and obesity. Since last time I saw her she denies any change in cardiac status or symptoms. She denies chest pain, palpitation, lightheadedness, dizziness or syncope. She admits to sedentary lifestyle related to her morbid obesity. She reports recent bout with COVID-19 but recovered from that * Assessment * 1. Mild resting tachycardia clearly due to vasodilator effect of lisinopril and anticholinergic effect of imipramine this has improved with metoprolol. * 2. Hypertension controlled * 3. Morbid obesity with c recent weight gain * 4. Essential tremor * 5. Hypothyroidism on treatment * 6. Increased risk of fall * 7. Recent COVID-19 recovered from that without sequela * Plan * 1. I reassured the patient that her mild tachycardia is due to medication * 2. Present medical regiment considering improvement of her symptoms and her tachycardia * 3. I counseled her regarding losing weight and exercise * 4. I advised her to notify me with any change in cardiac status or symptoms * 5. We will see her back in 1 year * 6. Fall precaution [facility] [employer] DO Work Phone: Hospital course Narrative No data available for this section [facility] progress note No data available for this section [facility] Chief Complaint PHYLLIS FRENCH is being seen for a 4 month follow-up of.PHYLLIS FRENCH is being seen for a 6 month follow-up of + EKG.8 MONTH FOLLOW UP Family History Unknown Family Member Name Dates Details Family history of myocardial infarction: Mother(V17.3, Z82.49) Status:Active Unknown Family Member Name Dates Details Family history of myocardial infarction: Mother(V17.3, Z82.49) Status:Active Unknown Family Member Name Dates Details Family history of myocardial infarction: Mother(V17.3, Z82.49) Status:Active Summary Purpose Advance Directives No Advanced Directives Records FoundNo Advanced Directives Records FoundNo Advanced Directives Records FoundNo Advanced Directives Records FoundNo Advanced Directives Records Found Additional Source Comments INFORMATION SOURCE (unrecogn ized section and content) DATE CREATED AUTHOR 04/11/2021 [facility] DATE CREATED AUTHOR AUTHOR'S ORGANIZ ATION 09/29/2021 [facility] DATE CREATED AUTHOR AUTHOR'S ORGANIZ ATION 11/06/2022 [facility] DATE CREATED AUTHOR AUTHOR'S ORGANIZ ATION 11/06/2022 [employer] DATE CREATED AUTHOR AUTHOR'S ORGANIZ ATION 02/04/2023 [facility] Care Team (unrecognized sect ion and content) Personnel Name: CATHIE CAMARA MD Address: [address] [place] [id number] Personnel Name: CATHIE CAMARA MD Address: Address: [address] [place] [address] REASON FOR VISIT (unrecogniz ed section and content) COVID [id number] OVID Order sentCongestion, Cough, Sore Throat- [phone] FOR RECORDS PERTAINING TO PATIENTS WHO ARE OR HAVE BEEN ENROLLED IN A CHEMICAL DEPENDENCY/SUBSTANCEABUSE PROGRAM, SOME INFORMATION MAY BE OMITTED. This clinical summary was aggregated from multiple sources. Caution should be exercised in using it in the provision of clinical care. This summary normalizes information from multiple sources, and as a consequence, information in this document may materially change the coding, format and clinical context of patient data. In addition, data may be omitted in some cases. CLINICAL DECISIONS SHOULD BE BASED ON THE PRIMARY CLINICAL RECORDS. [employer] [facility]. provides no warranty or guarantee of the accuracy or completeness of information in this document.
[2023-03-21 11:56] LABS: Estimated Average Glucose 151 mg/dL; Glycohemoglobin A1C 6.9 % (4.5-6.2)
[2023-03-21 12:21] LABS: Alanine Aminotransferase 21 U/L (14-59); Albumin Globulin Ratio 0.8; Albumin Level 3.4 g/dL (3.4-5.0); Alkaline Phosphatase 68 U/L (46-116); Anion Gap 14.7; Aspartate Amino Transferase 16 U/L (15-37); BUN Creatinine Ratio 25.5; Bilirubin Total 0.5 mg/dL (0.2-1.0); Calcium 8.8 mg/dL (8.5-10.1); Carbon Dioxide 27.6 mmol/L (21.0-32.0); Chloride 102 mmol/L (98-107); Cholesterol 292 mg/dL (<=200); Estimated GFR (African America 41 (>=60); Estimated GFR (Non-African Ame 34 (>=60); Globulin 4.3 g/dL; Glucose 128 mg/dL (74-106); HDL Cholesterol 49 mg/dL (40-60); Potassium 4.3 mmol/L (3.5-5.1); Sodium 140 mmol/L (136-145); Thyroid Stimulating Hormone 1.439 uIU/mL (0.358-3.740); Total Protein 7.7 g/dL (6.4-8.2); Triglycerides 171 mg/dL (<=150); Uric Acid 7.4 mg/dL (2.6-6.0); VLDL CHOLESTEROL 34.2 mg/dL
[2023-03-21 12:39] LABS: Basophils Percent Auto 0.5 % (0.2-2.0); Eosinophils Absolute Auto 0.3 10^3/uL (0.0-0.7); Eosinophils Percent Auto 3.5 % (0.9-7.0); Hemoglobin 11.8 g/dL (12.0-16.0); Immature Granulocytes Abs Auto 0.02 10^3/uL (0.00-0.03); Immature Granulocytes Pct Auto 0.2 % (0.0-0.5); Lymphocytes Absolute Auto 4.1 10^3/uL (1.2-3.8); Lymphocytes Percent Auto 48.6 % (20.5-60.0); Mean Corpuscular HGB Conc 31.9 g/dL (29.9-35.2); Mean Corpuscular Hemoglobin 30.3 pg (26.7-34.0); Mean Corpuscular Volume 94.9 fL (81.0-99.0); Mean Platelet Volume 11.1 fL (9.5-13.5); Monocytes Absolute Auto 0.6 10^3/uL (0.3-0.8); Monocytes Percent Auto 7.4 % (1.7-12.0); Neutrophils Absolute Auto 3.4 10^3/uL (1.4-6.5); Neutrophils Percent Auto 39.8 % (43.0-75.0); Platelet Count 238 10^3/uL (150-450); Red Cell Distribution Width 13.3 % (11.0-15.0); White Blood Count 8.4 10^3/uL (4.0-11.0)
[2023-03-21 12:58] LABS: Free T4 1.37 ng/dL (0.76-1.46)
== END 2023-03-21 10:49 | disposition home or self-care (01) ==
LOC: LAB 10:50
PROVIDERS: PCP Family Medicine; Visit Provider Family Medicine
DX: E03.9 Hypothyroidism, unspecified (principal); E11.40 Type 2 diabetes mellitus with diabetic neuropathy, unspecified; I10 Essential (primary) hypertension; M13.10 Monoarthritis, not elsewhere classified, unspecified site; E55.9 Vitamin D deficiency, unspecified; D64.9 Anemia, unspecified
CPT/HCPCS: 36415; 80053; 80061; 82306; 82728; 83036; 84439; 84443; 84550; 85025

== ENCOUNTER 2023-12-12 13:49 | Outpatient (OUT) | payer OTHER, SELFPAY ==
--- NOTE | 2023-12-12 13:54 | MM_ITS ---
Patient Name: WILBER VANESSA MR#: [id number] : 1945 Exam Date: 12/12/2023 Ordering Doctor: DR Cathie Moreland M.D. RADIOLOGY REPORT PROCEDURE: MM TOMOSYNTHESIS SCREENING BI COMPARISON: MG MAMM SCREEN DEBRA W CAD, 01/03/2018. INDICATIONS: Screening Calculator Name NCI Breast Cancer Risk Assessment Tool 5 Year Breast Cancer Risk 2.90% Lifetime Breast Cancer Risk 5.20% Personal Breast Cancer No Personal Ovarian Cancer No Treatments None Family Cancers Mother with breast cancer at age 78. LOCATION: [facility] BREAST COMPOSITION: There are scattered areas of fibroglandular density. FINDINGS: DIAGNOSTIC CATEGORY 2--BENIGN FINDING. NO CHANGE FROM COMPARISON. Scattered benign-appearing calcifications are present. Scattered benign-appearing lymph nodes are present. RIGHT BREAST: No significant suspicious finding. LEFT BREAST: No significant suspicious finding. RECOMMENDATIONS: ROUTINE MAMMOGRAM AND CLINICAL EVALUATION IN 12 MONTHS. PLEASE NOTE: A NORMAL MAMMOGRAM DOES NOT EXCLUDE THE POSSIBILITY OF BREAST CANCER. A CLINICALLY SUSPICIOUS PALPABLE LUMP SHOULD BE BIOPSIED. Dictated by: Aron Herrmann MD on 12/12/2023 at 15:58 Approved by: Aron Herrmann MD on 12/12/2023 at 15:59
== END 2023-12-12 13:50 | disposition home or self-care (01) ==
LOC: MAMMO 13:49
PROVIDERS: PCP Family Medicine; Visit Provider Family Medicine
DX: Z12.31 Encounter for screening mammogram for malignant neoplasm of breast (principal); Z80.3 Family history of malignant neoplasm of breast
CPT/HCPCS: 77063; 77067

== ENCOUNTER 2024-02-01 13:33 | Outpatient (OUT) | payer OTHER, SELFPAY ==
--- NOTE | 2024-02-01 13:49 | XR_ITS ---
The [address] [address] Patient Name: WILBER VANESSA MRN: [id number] date: 1945 Sex: F Assigned Patient Location: [facility] Current Patient Location: Accession/Order Number: [id number] Exam Date: 02/01/2024 14:15 Report Date: 02/02/2024 07:33 At the request of: AMANDA BERMEO Procedure: XR abdomen 1V EXAMINATION: XR abdomen 1V HISTORY: Kidney Stone COMPARISON: 01/31/2023 FINDINGS: KIDNEY/URETER - RIGHT: No visible renal or ureteral calcifications. KIDNEY/URETER - LEFT: No visible renal or ureteral calcifications. PELVIS: No visible ureteral calcifications. Any visible calcifications favor phleboliths. BOWEL: No abnormal dilation or deviation. BONES: No acute abnormality. Moderate diffuse degenerative change OTHER: Negative. No abnormal gaseous collections. XR/XR abdomen 1V IMPRESSION: No urinary tract calculi Electronically authenticated by: JANIS GIRON Date: 02/02/2024 07:33
== END 2024-02-01 13:34 | disposition home or self-care (01) ==
LOC: RAD 13:33
PROVIDERS: PCP Family Medicine; Visit Provider Physician Assistant
DX: N20.0 Calculus of kidney (principal)
CPT/HCPCS: 74018

== ENCOUNTER 2024-06-20 09:45 | Outpatient (OUT) | payer OTHER, SELFPAY ==
--- NOTE | 2024-06-20 09:52 | XR_ITS ---
The [address] [address] Patient Name: WILBER VANESSA MRN: [id number] date: 1945 Sex: F Assigned Patient Location: [facility] Current Patient Location: [facility] Accession/Order Number: [id number] Exam Date: 06/20/2024 11:09 Report Date: 06/20/2024 11:10 At the request of: MOISES CAMARA MD Procedure: XR chest 2V Plain film chest and two-view HISTORY: Chronic left chest pain COMPARISON: None FINDINGS: SUPPORT DEVICES: None POSTSURGICAL CHANGES: None HEART: Within normal limits PULMONARY JB: Within normal limits MEDIASTINUM: Unremarkable LUNGS AND PLEURA: No acute lung process, pleural effusion or pneumothorax identified. BONY STRUCTURES: Thoracic spondylosis/hyperostosis. ADDITIONAL FINDINGS None XR/XR chest 2V IMPRESSION: No acute process. Impression dictated by: David Lindsey M.D.06/20/2024 11:10 AM Dictation Location: [place] [address] Electronically authenticated by: [id number] Y Date: 06/20/2024 11:10
== END 2024-06-20 09:46 | disposition home or self-care (01) ==
LOC: RAD 09:47
PROVIDERS: PCP Family Medicine; Visit Provider Family Medicine
DX: R07.9 Chest pain, unspecified (principal)
CPT/HCPCS: 71046

== ENCOUNTER 2024-12-12 10:51 | Outpatient (OUT) | payer OTHER, SELFPAY ==
--- NOTE | 2024-12-12 10:54 | MM_ITS ---
Patient Name: WILBER VANESSA MR#: [id number] : 1945 Exam Date: 12/12/2024 Ordering Doctor: DR MOISES CAMARA M.D. RADIOLOGY REPORT PROCEDURE: MM TOMOSYNTHESIS SCREENING BI COMPARISON: MM TOMOSYNTHESIS SCREENING BI, 12/12/2023. MG MAMM SCREEN DEBRA W CAD, 01/03/2018. INDICATIONS: screening Calculator Name NCI Breast Cancer Risk Assessment Tool 5 Year Breast Cancer Risk 2.90% Lifetime Breast Cancer Risk 4.80% Personal Breast Cancer No Personal Ovarian Cancer No Treatments None Family Cancers Mother with breast cancer at age 78. LOCATION: [facility] BREAST COMPOSITION: There are scattered areas of fibroglandular density. FINDINGS: DIAGNOSTIC CATEGORY 1--NEGATIVE. RIGHT BREAST: No significant suspicious finding. LEFT BREAST: No significant suspicious finding. RECOMMENDATIONS: ROUTINE MAMMOGRAM AND CLINICAL EVALUATION IN 12 MONTHS. Dictated by: Prakash Crook MD on 12/12/2024 at 15:13 Approved by: Prakash Crook MD on 12/12/2024 at 15:17
--- OUTSIDE RECORDS SUMMARY | 2024-12-12 10:55 | XMS_ITS | Clinical Summary ---
Author Organization [facility] Healthcare Address [address] [place] [address] Care Team Providers Care Pack Worker Name Role Phone Cathie Moreland MD Primary Care Provider [phone] Lauren Ramirez PROJECT ENGINEER Unavailable Unavailable CharlieGerardoeusebiobaldomero DO Unavailable [phone] Allergies Active Allergy Reactions Criticality Noted Date Comments Penicillins Unknown 01/01/2019 Statins Unknown 07/26/2023 Medications mirabegron ER (Myrbetriq) 50 MG 24 hr tablet Take 50 mg by mouth at bedtime Do not crush, chew, or split. Active Multiple Vitamin (multivitamin) tablet Take 1 tablet by mouth Daily 1 tablet Active cholecalciferol (Vitamin D-3) 25 MCG tablet Take 25 mcg by mouth Daily Active insulin detemir (Levemir) 100 UNIT/ML injection Inject 100 Units under the skin at bedtime Active imipramine (Tofranil) 50 MG tablet Take 50 mg by mouth at bedtime Active pravastatin (Pravachol) 10 MG tablet Take 10 mg by mouth at bedtime Active baclofen (Lioresal) 10 MG tablet Take 10 mg by mouth in the morning and 10 mg before bedtime. Active loratadine (Claritin) 10 MG tablet Take 10 mg by mouth Daily Active lisinopril 5 MG tablet Take 5 mg by mouth Daily Active metoprolol tartrate (Lopressor) 25 MG tablet Take 25 mg by mouth in the morning and 25 mg in the evening. Take with meals. 1 tablet with food . Active levothyroxine (Synthroid, Levoxyl) 150 MCG tablet Take 150 mcg by mouth in the morning. Take before meals. Active metFORMIN XR (Glucophage-XR) 500 MG 24 hr tablet Take 500 mg by mouth in the evening. Take with meals Do not crush, chew, or split. Active oxybutynin XL (Ditropan-XL) 10 MG 24 hr tablet Take 15 mg by mouth Daily Do not crush, chew, or split. Active potassium bicarbonate (K-Lyte) 25 MEQ effervescent tablet Take 25 mEq by mouth in the morning and 25 mEq before bedtime. Active metoprolol tartrate (Lopressor) 50 MG tablet Take 50 mg by mouth in the morning and 50 mg before bedtime. 4 Active oxybutynin XL (Ditropan-XL) 15 MG 24 hr tablet Take 15 mg by mouth Daily 4 Active primidone (Mysoline) 50 MG tabletIndications :Essential tremor Take 1 tablet (50 mg) by mouth in the morning and in the evening 180 tablet 1 5 Active Active Problems Problem Noted Date Diagnosed Date Essential tremor 06/23/2023 Overview (06/23/2023): The patient's essential tremor has improved significantly since increasing primidone, however, due to a recent blood clot and being started on Eliquis we discontinued this. Tremor can worsen when anxious/nervous. She is also on metoprolol which is likely helping with her tremor. No worsening off of primidone, in fact she thinks her tremor has been improved. - PLAN - Stopped primidone (recently started on Eliquis) - If tremor worsens, we can consider switching metoprolol to propranolol or increasing metoprolol Hypertension 06/23/2023 Overview (06/23/2023): Fluctuations in blood pressure could certainly lead to tremor but BP does seem to better controlled here lately, so likely less influential. Tremor 06/23/2023 Anxiety 06/23/2023 Overview (06/23/2023): Patient with newer and fairly significant anxiety, more related to pandemic and lack of socialization. She does follow with PCP, and seems to be stabilizing/improving somewhat as time progresses. No SI or HI. Gait instability 06/23/2023 Overview (06/23/2023): Patient was having some gait instability and generalized weakness, having responded very nicely to recent course of PT. Immunizations Immunization Administration Dates Next Due Pneumococcal Conjugate PCV 13 03/03/2020 Family History Relation Name Status Comments Father Social History Tobacco Use Types Packs/Day Years Used Date Smoking Tobacco: Never Smokeless Tobacco: Never Tobacco Cessation:Counseling Given: Not Answered Alcohol Use Standard Drinks/Week Comments Never 0 (1 standard drink = 0.6 oz pur e alcohol) Comments Unknown Sex and Gender Information Value Date Recorded Sex Assigned at Not on file Legal Sex Female 9:49 PM EDT Gender Identity Not on file Sexual Orientation Not on file Last Filed Vital Signs Vital Sign Reading Time Taken Comments Blood Pressure 128/80 05/28/2024 2:07 PM EDT Pulse 67 12/14/2023 2:56 PM EDT Temperature - - Respiratory Rate 16 06/23/2023 11:10 AM EDT Oxygen Saturation - - Inhaled Oxygen Concentration - - Weight 113 kg (249 lb) 05/28/2024 2:07 PM EDT Height 154.9 cm (5' 1 ) 05/28/2024 2:07 PM EDT Body Mass Index 47.05 05/28/2024 2:07 PM EDT Plan of Treatment Not on file Insurance [employer] Care Teams Pack Worker Relationship Specialty Start Date End Date Cathie Moreland MD PCP - General Family Medicine 12/14/23 Lauren Ramirez NP Nurse Practitioner Neurology 05/28/24 Zbigniew Guerra DO [address] [place] [address] Referring Physician Neurology 05/28/24
--- OUTSIDE RECORDS SUMMARY | 2024-12-12 10:55 | XMS_ITS | Clinical Summary ---
Author Organization [facility] tem Address [id number] [address] [place] [address] Care Team Providers Care Signal Engineer Name Role Phone Cathie Moreland MD Primary Care Provider [phone] Immunizations Immunization Administration Dates Next Due COVID-19 Vaccine, vector-nr, rS-Ad26, PF, 0.5mL 05/07/2020 Social History Tobacco Use Types Packs/Day Years Used Date Smoking Tobacco: Never Assessed Childcare Answer Date Recorded Childcare Unknown 08/09/2018 Employment Answer Date Recorded Employment Unknown 08/09/2018 Purpose - Life Answer Date Recorded Purpose and direction in life Unknown Comments Unknown Sex and Gender Information Value Date Recorded Sex Assigned at Not on file Legal Sex Female 12:04 PM EDT Gender Identity Not on file Sexual Orientation Not on file Plan of Treatment Health Maintenance Due Date Last Done Comments Depression Screening 1957 Tobacco Screening 1957 DTaP,Tdap and Td Vaccines (1 - Tdap) 12/25/1963 Zoster (Shingles) Vaccine (1 of 2) 1994 Fall Risk Screening 2009 COVID-19 Vaccine (2 - 2024-2 6 season) 2024 05/07/2020 Influenza Vaccine 10/29/2024 11/29/2019, , 11/23/2018, Additional history exists Medical Devices Not on file Insurance [facility] MEDIC[facility] Care Teams Signal Engineer Relationship Specialty Start Date End Date Cathie Moreland MD [address] [place] [id number] PCP - General Family Medicine 12/25/20
--- OUTSIDE RECORDS SUMMARY | 2024-12-12 10:55 | XMS_ITS | Encounter Summary ---
Author Organization [facility] Address [address] [place] [address] Phone Care Team Providers Care Modeling Instructor Name Role Phone Cathie Moreland MD Primary Care Provider [phone] Encounter Details Date Type Department Care Team (Late st Contact Info) Description 11/14/2023 Scanned Document [facility] [address] [place] [id number] Scanning, Generic Provider Social History Tobacco Use Types Packs/Day Years Used Date Smoking Tobacco: Never Smokeless Tobacco: Never Alcohol Use Standard Drinks/Week Comments Never 0 (1 standard drink = 0.6 oz pur e alcohol) PHQ-2 Answer Date Recorded Patient Health Questionnaire-2 Score 2 03/26/2022 Comments Unknown Sex and Gender Information Value Date Recorded Sex Assigned at Not on file Legal Sex Female 7:01 AM EST Gender Identity Not on file Sexual Orientation Not on file COVID-19 Exposure Response Date Recorded In the last 10 days, have yo u been in contact with someone who was confirmed or suspected to have Coronavirus/COVID-19? No / Unsure 11/04/2023 9:46 AM EDT documented as of this encounter Plan of Treatment Upcoming Encounters Date Type Department Care Team (Late st Contact Info) Description 03/27/2025 12:50 PM EST Office Visit [facility] [address] [facility] [address] [place] [address] Ford Medina MD [address] [facility] [address] [place] [address] documented as of this encounter Procedures Procedure Name Priority Date/Time Associated Diagnosis Comments OUTSIDE LAB SCAN 11/14/2023 documented in this encounter Results * OUTSIDE LAB SCAN (11/14/2023) Narrative 11/14/2023 Ordered by an unspecified provider. us Generic Provider Scanning OUTSIDE SCAN Final Result documented in this encounter Visit Diagnoses Not on filedocumented in this encounter Additional Health Concerns Assessment Noted Time PHQ-9 Depression Total Score: 6 03/26/19 23 11:12 AM EST A fall risk assessment has been complete d for the patient 11/04/2023 10:04 AM EDT documented as of this encounter Care Teams Modeling Instructor Relationship Specialty Start Date End Date Cathie Moreland MD [address] [place] [id number] PCP - General 02/28/99 documented as of this encounter
--- OUTSIDE RECORDS SUMMARY | 2024-12-12 10:55 | XMS_ITS | Encounter Summary ---
Author Organization [facility] Address [address] [place] [address] Care Team Providers Care Dairy Helper Name Role Phone Kandi Bradshaw MD Unavailable [phone] Cathie Moreland MD Primary Care Provider [phone] Cathie Moreland MD Primary Care Provider [phone] Lauren Ramirez RESEARCH DIRECTOR Unavailable Unavailable Zbigniew Guerra DO Unavailable [phone] Encounter Details Date Type Department Care Team (Late st Contact Info) Description 10/28/2022 Abstract [facility] [address] [facility] [address] [place] [phone] Waldo Olivares MD [address] [facility] [address] [place] [address] Social History Tobacco Use Types Packs/Day Years Used Date Smoking Tobacco: Never Assessed Comments Unknown Sex and Gender Information Value Date Recorded Sex Assigned at Not on file Legal Sex Female 9:49 PM EDT Gender Identity Not on file Sexual Orientation Not on file documented as of this encounter Plan of Treatment Not on file documented as of this encounter Visit Diagnoses Not on filedocumented in this encounter Care Teams Dairy Helper Relationship Specialty Start Date End Date Kandi Bradshaw MD [address] [facility] [place] [address] PCP - Devoted 02/28/23 03/30/23 Cathie Moreland MD [address] [place] [address] PCP - General Family Medicine 03/14/23 12/13/23 Cathie Moreland MD [address] [place] [address] PCP - General Family Medicine 12/14/23 Lauren Ramirez NP [address] [place] [address] Nurse Practitioner Neurology 05/28/24 Zbigniew Guerra DO [address] [facility] [address] [place] [address] Referring Physician Neurology 05/28/24 documented as of this encounter
--- OUTSIDE RECORDS SUMMARY | 2024-12-12 10:55 | XMS_ITS | Encounter Summary ---
Author Organization [facility] Address [address] [place] [address] Phone Care Team Providers Care Head Start Director Name Role Phone aCthie Moreland MD Primary Care Provider [phone] Encounter Details Date Type Department Care Team (Late st Contact Info) Description 07/20/2021 Orders Only [facility] [address] [place] [address] Conversion, Onbase Social History Tobacco Use Types Packs/Day Years [...] Description 03/27/2025 12:50 PM EST Office Visit [place] [id number] [facility] [address] [place] [address] Ford Medina MD [address] [facility] [address] [place] [address] Scheduled Orders Name Type Priority Associated Diagnoses Orde r Schedule OUTSIDE LAB SCAN Lab Ordered: 07/20/2021 documented as of this encounter Visit Diagnoses Not on filedocumented in this encounter Care Teams Head Start Director Relationship Specialty Start Date End Date Cathie Moreland MD [address] [place] [address] [address] [place] [address] PCP - General 02/28/99 documented as of this encounter
--- OUTSIDE RECORDS SUMMARY | 2024-12-12 10:56 | XMS_ITS | Clinical Summary ---
Author Organization [facility] Address [address] [place] [address] Phone Care Team Providers Care Campground Hand Name Role Phone Cathie Moreland MD Primary Care Provider Allergies Active Allergy Reactions Criticality Noted Date Comments Penicillins Unknown 05/17/2023 Cpgbqsj-Knh-Pgh Reductase Inhibitors Other 05/17/2023 Medications lisinopril 5 mg tablet Take 1 tablet (5 mg) by mouth once daily. 1 Active metFORMIN XR 500 mg 24 hr tablet Take 1 tablet (500 mg) by mouth once daily. 1 Active Effer-K 20 mEq tablet, effervescent Take 1 tablet by mouth 2 times a day. Active primidone (Mysoline) 50 mg tablet Take 1 tablet (50 mg) by mouth 2 times a day. 2 Active levothyroxine (Synthroid, Levoxyl) 150 mcg tablet Take 1 tablet (150 mcg) by mouth early in the morning.. 2 Active metoprolol tartrate (Lopressor) 50 mg tablet Take 1 tablet by mouth 2 times a day. 1 Active oxybutynin XL (Ditropan-XL) 15 mg 24 hr tablet Take 1 tablet (15 mg) by mouth once daily. Do not crush, chew, or split. Active cholecalciferol (D3-2000) 50 mcg (2,000 unit) capsule Take 1 capsule (50 mcg) by mouth once daily. Active Active Problems Problem Noted Date Diagnosed Date BMI 45.0-49.9, adult 11/04/2023 Never smoked tobacco 11/04/2023 Essential tremor 05/18/2023 HTN (hypertension) 05/18/2023 Hypothyroidism 05/18/2023 Sinus tachycardia 05/18/2023 Immunizations Immunization Administration Dates Next Due Influenza Whole 11/28/2021 [place] SARS-CoV-2 Vaccination 05/07/2020 Pneumococcal polysaccharide vaccine, 23-valent, age 2 years and older (PNEUMOVAX 23) 02/28/2014,12/29/2009 Family History Medical History Relation Name Comments Heart attack Mother Relation Name Status Comments Mother Social History Tobacco Use Types Packs/Day Years [...] Sign Reading Time Taken Comments Blood Pressure 138/81 11/04/2023 10:28 AM EDT Pulse 65 11/04/2023 10:05 AM EDT Temperature - - Respiratory Rate - - Oxygen Saturation - - Inhaled Oxygen Concentration - - Weight 114 kg (252 lb) 11/04/2023 10:05 AM EDT Height 154.9 cm (5' 1 ) 11/04/2023 10:05 AM EDT Body Mass Index 47.61 11/04/2023 10:05 AM EDT Plan of Treatment Upcoming Encounters Date Type Department Care Team (Late st Contact Info) Description 03/27/2025 12:50 PM EST Office Visit [facility] [address] [address] Ford Medina MD [address] [facility] [address], [facility] [address] [place] [address] Health Maintenance Due Date Last Done Comments Lipid Panel 1945 Medicare Annual Wellness Visit (AWV) 1945 TSH Level 1945 Hepatitis C Screening 1962 Zoster Vaccines (1 of 2) 1994 Bone Density Scan 2009 RSV High Risk: (Elderly (60+) or Population) (1 - 1-dose 75+ series) 12/25/2019 COVID-19 Vaccine (2 - season) 2024 05/07/2020 Influenza Vaccine (#1) 2024 2, 11/29/2019, 11/23/2019, Additional history exists DTaP/Tdap/Td Vaccines (2 - Tdap) 09/25/2031 09/24/2021 Pneumococcal Vaccine Completed 03/03/2020, 02/28/2014, 12/29/2009 HIB Vaccines Aged Out No longer eligi ble based on patient's age to complete this topic HPV Vaccines Aged Out No longer eligi ble based on patient's age to complete this topic Hepatitis A Vaccines Aged Out No long er eligible based on patient's age to complete this topic Hepatitis B Vaccines Aged Out No long er eligible based on patient's age to complete this topic IPV Vaccines Aged Out No longer eligi ble based on patient's age to complete this topic Meningococcal Vaccine Aged Out No gloria beth eligible based on patient's age to complete this topic Rotavirus Vaccines Aged Out No longer eligible based on patient's age to complete this topic Insurance [employer] Care Teams Campground Hand Relationship Specialty Start Date End Date Cathie Moreland MD [address] [place] [address] [address] [place] [address] PCP - General 02/28/99
--- OUTSIDE RECORDS SUMMARY | 2024-12-12 11:07 | XMS_ITS | CCD ---
Author Organization [facility] CliniSyal Care Team Providers Care Presto Log Operator Name Role Phone Moises Camara Unavailable Unavailable Unavailable LUIS A ROSARIO Attending Unavailable REQUEST, DR MIRNA LISTED Primary Care Unavailjalyn ROSARIO, LUIS A Consulting Unavailable MARLENE, LUIS A Admitting Unavailable CAMARA, DR MOISES Doss Admitting Unavailable CAMARA, DR MOISES Doss Attending Unavailable CAMARA, DR MOISES Doss Primary Care Unavailable ZIEBJARRETT, DR CARMEN Ayala Consulting Unavailable CAMARA, DR MOISES Doss Consulting Unavailable SILVA, DR FULLER Attending Unavailable SILVA, DR FULLER Consulting Unavailable CAMARA, DR MOISES Doss Primary Care Unavailable SILVA, DR FULLER Admitting Unavailable WEST, DR JANIS Clark Consulting Unavailable MARLENE, LUIS A Attending Unavailable MISC, DR GARRISON Primary Care Unavailable MARLENE, LUIS A Consulting Unavailable MARLENE, LUIS A Admitting Unavailable TO, JANIS Consulting Unavailable MARLENE, LUIS A Admitting Unavailable ZIEBER, DR CARMEN Ayala Consulting Unavailable CAMARA, DR MOISES Doss Primary Care Unavailable MARLENE, LUIS A Attending Unavailable MARLENE, LUIS A Consulting Unavailable CAMARA, DR MOISES Doss Primary Care Unavailable PAY, DR OLEARY Admitting Unavailable ZIEBER, DR CARMEN Ayala Consulting Unavailable PAY, DR OLEARY Attending Unavailable PAY, DR OLEARY Consulting Unavailable JAX, MOISES Primary Care Physician [phone] Moises Camara Unavailable Carol, Dr. Youngblood Referring Unavaila lizeth Camara, Dr. Moises Hamlin Primary Care Unav ailable Carol, Dr. Youngblood Attending Unavaila ble Carol, Dr. Youngblood Referring Unavaila ble Camara, Dr. Moises Hamlin Primary Care Unav ailable Carol, Dr. Youngblood Attending Unavaila lizeth MEDINA, MORGAN Attending Unavailable CAMARA, MOISES Doss Primary Care Unavailable Moises Camara MD Primary Care Provider Moises Camara MD Primary Care Provider Moises Camara MD Primary Care Provider Jennifer Nicole APRN Attending Provider Jennifer Nicole Admitting Unavailable Jennifer Nicole Attending Unavailable Moises Camara Primary Care Unavailable James HAWLEY, Lauren Unavailable Charlie DOButch Unavailable LAUREN ARREOLA Attending Unavailable BUTCH GUERRA Attending Unavailable ALBINO MICHAELS Attending Unavailable ALBINO MICHAELS Attending Unavailable ALBINO MICHAELS Attending Unavailable Moises Camara MD Primary Care Provider Moises Camara MD Attending Provider Kandi Cage DNP Attending Provider Scarlet Vega RD Attending Provider Unavailab Moises Rossi MD Primary Care Provider Jennifer Valles Attending Unavailable KANDI BERMEO Attending Unavailable Allergies Allergy Classification Reported Allergen(s) Allergy Type Date of Onset Reaction(s) Facility (3 sources) Hmg-Coa Reductase Inhibitors (Statins); Translations: [Statins] Allergy to drug (finding) Muscle weakness [facility] 250 DO Work Phone: (14 sources) Penicillins; Translations: [Penicillins] Allergy to drug (finding) 05-17-19 24 Mild (qualifier value) [facility] Comment on above: Onset Date: 09/15/19 16 (2 sources) atorvastatin; Translations: [atorvastatin] Drug Allergy [facility] Repository (1 source) Penicillins Drug allergy (disorder) 10-09-19 16 [facility] Repository (3 sources) atorvastatin; Translations: [atorvastatin] Drug Allergy Unknown [facility] (7 sources) Penicillin Drug Allergy anaphylaxis [facility] Other (6 sources) Substance with penicillin structure and antibacterial mechanism of action (substance) Drug allergy 09-15-19 16 Unknown [facility] Other (6 sources) Statins Support *DIETARY PRODUCTS/DIETARY MANAGEME Propensity to adverse reactions Unknown [facility] Other (6 sources) Allergies Reconciled Propensity to adverse reactions 01-02-20 Unknown [facility] Other (2 sources) Hmg-Coa Reductase Inhibitors (Statins); Translations: [[id number] REDUCTASE INHIBITORS] Propensity to adverse reactions to drug (disorder) 05-17-19 24 Other [facility] 3 Repository (6 sources) HMG-CoA reductase inhibitor Drug Allergy 07-26-19 24 Unknown [facility] (6 sources) Penicillins Drug Allergy 01-02-20 Unknown [facility] (1 source) Penicillins Drug Intolerance 05-17-19 Unknown [facility] (6 sources) Statins Support *DIETARY PRODU Allergy to substance 05-18-19 [facility] Comment on above: Free Text Allergy: S tatins Support *DIETARY PRODUCTS/DIETARY MANAGEME Medications Current Medications Medication Drug Class(es) Dates [...] tab daily x 4 more days for Jan, Active Start: 11-12-2021 Azithromycin 2 50 MG Oral Tablet TAKE 2 TABLETS by mouth today, THEN take 1 TABLET once a day FOR the next 4 DAYS. Quantity: 6 Refills: 0 Ordered: 12-Nov-2021 DO Start : 12-Nov-2021 Complete baclofen 10 mg oral tablet (6 sources) gamma-Aminobutyric Acid-ergic Agonist take 1 tablet by mouth in the morning baclofen (Lioresal) 10 MG tablet Take 10 mg by mouth in the morning and 10 mg before bedtime. Active benzonatate 200 mg oral capsule (1 source) Non-narcotic Antitussive Start: 023 take 1 capsule by mouth every eight hours Benzonatate 200 MG 1 capsule Orally Three times a day for 10 day(s) Jan, Active Blood-Glucose Meter misc (4 sources) Start: 025 Blood-Glucose Meter misc Active 0 .Route June 18, 2024 12:00am As directed cholecalciferol 0.05 mg oral capsule (20 sources) Vitamin D Start: 025 take 1 capsule by mouth once daily take 1 tablet by mouth once gustavo y cholecalciferol (Vitamin D-3) 25 MCG tablet Take 25 mcg by mouth Daily Active take 1 capsule by mouth once jonathan ly cholecalciferol (D3-2000) 50 mcg (2,000 unit) capsule Take 1 capsule (50 mcg) by mouth once daily. Active take 1 tablet by north th every twenty-four hours Vitamin D 50 MCG (2000 UT) 1 tablet Oral ly Once a day Active Vitamin D3 Maxim um Strength 125 MCG (5000 UT) Oral Capsule TAKE DIRECTED. Quantity: 0 Refills: 0 Ordered: 31-Mar-2021 DO Active Daily Multiple Vitamins (1 source) Start: 08-06-2019 Daily Multiple Vitamins Oral, Daily, Refill(s) 0 Start Date: 08/06/19 Status: Ordered imipramine hydrochloride 50 mg oral tablet (6 sources) Tricyclic Antidepressant take 1 tablet by mouth at bedtime imipramine (Tofranil) 50 MG tablet Take 50 mg by mouth at bedtime Active insulin detemir 100 unt/ml injectable solution (6 sources) Insulin Analog inject 100 [IU] by subcutaneous injection at bedtime insulin detemir (Levemir) 100 UNIT/ML injection Inject 100 Units under the skin at bedtime Active levothyroxine sodium 0.175 mg oral tablet (20 sources) l-Thyroxine Start: 06-18-2024 take 1 tablet by mouth once daily Start: 03-03-2024 End: 06-18-2024 take 1 tablet by mouth once daily Levothyroxine (Synthroid) 150 mcg tablet Discontinued 150 MCG PO Daily May 16, 2024 12:43pm June 18, 2024 2:01pm Start: 10-06-2023 End: 03-03-2024 Levothyroxine (Synthroid) 15 0 mcg tablet Discontinued 0 .ROUTE .COMPLEX January 24, 2024 9:34am March 03, 2024 2:53pm TAKE 1 TABLET DAILY Start: 02-01-2023 Synthroid 150 mcg (0.15 mg) Tab Refills(s) 0 Start Date: 02/01/23 Status: Ordered Start: 03-11-2021 Synthroid 150 MCG Oral Tablet Quantity: 90 Refills: 0 Ordered: 11-Mar-2021 DO Start : 11-Mar-2021 Active Start: 08-06-2019 levothyroxine 150 mcg, Daily, Refills(s) 0 Start Date: 08/06/19 Status: Ordered Start: 01-01-2019 End: 10-06-2023 take 1 tablet by mouth once daily Levothyroxine 150 mcg Tablet Discontinued 150 MCG PO Daily January 01, 2019 1:00am October 06, 2023 9:50am Synthroid 150 MC G TAKE 1 TABLET DAILY for 90 Active lisinopril 5 mg oral tablet (20 sources) Angiotensin Converting Enzyme Inhibitor Start: 03-03-2024 End: 05-24-2024 take 1 tablet by mouth once daily Start: 10-06-2023 End: 03-03-2024 Lisinopril 5 mg tablet Disco ntinued 0 .ROUTE .COMPLEX January 24, 2024 9:34am March 03, 2024 2:53pm TAKE 1 TABLET DAILY Start: 01-01-2019 End: 10-06-2023 take 1 tablet by mouth once daily Lisinopril 5 mg tablet Discontinued 5 MG PO Daily August 08, 2023 1:09pm October 06, 2023 9:50am loratadine 10 mg oral capsule (9 sources) Start: 11-30-2021 take 1 capsule by mouth once daily loratadine 10 mg oral capsule 10 mg = 1 cap(s), Oral, Daily Start Date: 11/30/21 Status: Ordered take 1 tablet by mouth once gustavo y loratadine (Claritin) 10 MG tablet Take 10 mg by mouth Daily Active 24 hr metFORMIN hydrochlorid e 500 mg extended release oral tablet (20 sources) Biguanide Start: 03-03-2024 End: 07-26-2024 take 1 tablet by mouth once daily Start: 11-23-2023 End: 03-03-2024 Metformin 500 mg tablet exte nded release 24 hr Discontinued 0 .ROUTE .COMPLEX November 23, 2023 1:19pm March 03, 2024 2:53pm TAKE 1 TABLET DAILY Start: 11-23-2023 End: 03-03-2024 Metformin 500 mg tablet exte nded release 24 hr Discontinued 0 .ROUTE .COMPLEX November 23, 2023 1:19pm March 03, 2024 2:53pm TAKE 1 TABLET DAILY Start: 11-23-2023 End: 03-03-2024 Metformin 500 mg tablet exte nded release 24 hr Discontinued 0 .ROUTE .COMPLEX November 23, 2023 12:19pm March 03, 2024 1:53pm TAKE 1 TABLET DAILY Start: 09-25-2020 take 1 tablet by north th once daily metFORMIN XR 500 mg 24 hr tablet Take 1 tablet (500 mg) by mouth once daily. 09/25/2020 Active Start: 08-06-2019 take 500 mg by mouth once gustavo y metformin 500 mg, Oral, Daily, Refills(s) 0 Start Date: 08/06/19 Status: Ordered Start: 01-01-2019 End: 11-23-2023 take 1 tablet by mouth once daily Metformin 750 mg tablet extended release 24 hr Discontinued 750 MG PO Daily January 01, 2019 1:00am November 23, 2023 1:19pm take 1 tablet by north th every twenty-four hours at mealtime metFORMIN XR (Glucophage-XR) 500 MG 24 hr tablet Take 500 mg by mouth in the evening. Take with meals Do not crush, chew, or split. Active Multi Complete - (3 sources) Multi Complete - as directed Orally Active Multiple Vitamin (multivitamin) tablet (6 sources) take 1 tablet by mouth once daily Multiple Vitamin (multivitamin) tablet Take 1 tablet by mouth Daily 1 tablet Active Yr-Ans-Ytleo-Calcium Carb-K1 (Women's 50 Plus Multivitamin) 400 mcg-500 mg calcium-20 mcg tablet (6 sources) Start: 03-03-2024 take 1 tablet by mouth once daily Iz-Lne-Gylte-Calcium Carb-K1 (Women's 50 Plus Multivitamin) 400 mcg-500 mg calcium-20 mcg tablet Active 1 TAB PO .once a day March 03, 2024 1:00am Complies with drug therapy Start: 03-03-2024 take 1 tablet by mouth once da thien Start: 03-03-2024 take 1 tablet by mouth once da thien Ug-Znm-Zdmdp-Calcium Carb-K1 (Women's 50 Plus Multivitamin) 400 mcg-500 mg calcium-20 mcg tablet Active 1 TAB PO .once a day March 03, 2024 1:00am Start: 03-03-2024 take 1 tablet by mouth once da thien Mc-Irt-Raqvg-Calcium Carb-K1 (Women's 50 Plus Multivitamin) 400 mcg-500 mg calcium-20 mcg tablet Active 1 TAB PO .once a day March 03, 2024 12:00am norethindrone 0.35 mg oral tablet (1 source) Start: 06-01-2021 Deblitane 0.35 mg oral tablet Refills(s) 0 Start Date: 06/01/21 Status: Ordered 24 hr oxybutynin chloride 15 mg extended release oral tablet (20 sources) Cholinergic Muscarinic Antagonist Start: 03-03-2024 take 1 tablet by mouth every twenty-four hours Start: 11-14-2023 take 1 tablet by north th once daily oxybutynin XL (Ditropan-XL) 15 MG 24 hr tablet Take 15 mg by mouth Daily 11/14/2023 Active Start: 09-15-2021 take 1 tablet by north th once daily oxybutynin 15 mg ER Tab 15 mg = 1 tab(s), Oral, Daily, # 90 tab(s), Refills(s) 3, Pharmacy: [facility] #[id number], 158, cm, 11/30/21 14:46:00 EDT, Height/Length Dosing, 106.4, kg, 11/30/21 14:46:00 EDT, Weight Dosing Start Date: 01/13/23 Status: Ordered Start: 08-28-2021 take 1 tablet by north th every twenty-four hours Oxybutynin Chloride ER 5 MG Oral Tablet Extended Release 24 Hour Quantity: 30 Refills: 0 Ordered: 1-Shukri-2022 DO Start : 28-Aug-2021 Complete take 1 tablet by north th once daily oxybutynin XL (Ditropan-XL) 10 MG 24 hr tablet Take 15 mg by mouth Daily Do not crush, chew, or split. Active paxlovid (300/100) 20 x 150 mg & 10 x 100mg tablet therapy pack (1 source) Start: 07-27-2022 take 3 tablets by mouth every twelve hours Paxlovid (300/100) 20 x 150 MG & 10 x 100MG 3 tablets Orally Twice a day for 5 day(s) June, Active potassium bicarbonate 25 meq effervescent oral tablet (20 sources) Start: 08-13-2024 Start: 02-01-2023 End: 01-27-2024 take 1 tablet by mouth twice daily potassium bicarbonate 20 mEq oral tablet, effervescent 20 mEq = 1 tab(s), Oral, BID, X 30 day(s), # 60 tab(s), Refills(s) 11, Pharmacy: [facility] #[id number], 158, cm, 02/01/23 10:12:00 EST, Height/Length Dosing, 106, kg, 02/01/23 10:12:00 EST, Weight Dosing Start Date: 02/01/23 Stop Date: 01/27/24 Status: Ordered Start: 03-24-2020 End: 06-18-2024 Potassium Bicarb-Citric Acid (Klor-Con/Ef) 25 mEq tablet, effervescent Discontinued 25 MEQ PO Twice daily March 03, 2024 1:00am June 18, 2024 1:13pm pravastatin sodium 10 mg oral tablet (6 sources) HMG-CoA Reductase Inhibitor take 1 tablet by mouth at bedtime pravastatin (Pravachol) 10 MG tablet Take 10 mg by mouth at bedtime Active primidone 50 mg oral tablet (20 sources) Anti-epileptic Agent Start: take 1 tablet by mouth twice daily Start: 08-13-2024 End: 10-22-2024 take 1 tablet by mouth once Primidone 50 mg tablet Dis continued 50 MG PO Once August 13, 2024 12:00am October 22, 2024 2:23pm Start: 03-03-2024 End: 06-18-2024 take 1 tablet by mouth twice daily Primidone 50 mg tablet Discontinued 50 MG PO Twice daily March 03, 2024 2:50pm June 18, 2024 1:13pm Start: 11-14-2023 End: 12-14-2023 take 1 tablet by mouth in the morning primidone (Mysoline) 50 MG tablet Indications: Essential tremor Take 1 tablet (50 mg) by mouth in the morning and in the evening 180 tablet 1 12/14/2023 Active Start: 03-19-2021 Primidone 50 M G Oral Tablet 3 IN MORNING, 2 AT LUNCH, 2 AT NIGHT Quantity: 0 Refills: 0 Ordered: 19-Mar-2021 DO Start : 19-Mar-2021 Active Start: 09-24-2019 take 1 tablet by north th twice daily primidone (Mysoline) 50 mg tablet Take 1 tablet (50 mg) by mouth 2 times a day. 03/19/2021 Active Start: 01-01-2019 End: 03-03-2024 take 1 tablet by mouth once daily at bedtime Primidone 50 mg Tablet Discontinued 50 MG PO Daily at bedtime January 01, 2019 1:00am March 03, 2024 2:53pm Probiotic Digestive Aid Gummies (2 sources) Start: 02-01-2023 Probiotic Digestive Aid Gummies mg, Chewed, BID, Refill(s) 0 Start Date: 02/01/23 Status: Ordered tamsulosin hydrochloride 0.4 mg oral capsule (1 source) alpha-Adrenergi c Sunita Start: 02-01-2023 End: 02-15-2023 take 1 capsule by mouth once daily tamsulosin 0.4 mg Cap 0.4 mg = 1 cap(s), Oral, Daily, X 14 day(s), # 14 cap(s), Refills(s) 0, Pharmacy: [facility] #[id number], 158, cm, 02/01/23 10:12:00 EST, Height/Length Dosing, 106, kg, 02/01/23 10:12:00 EST, Weight Dosing Start Date: 02/01/23 Stop Date: 02/15/23 Status: Ordered Vitamin D (3 sources) Start: 08-06-2019 Vitamin D Oral , [...] tablet (1 source) Opioid Agonist Start: 07-20-2021 HYDROcodone-Acetam inophen 5-325 MG Oral Tablet Quantity: 10 Refills: 0 Ordered: 20-Jul-2021 DO Start : 20-Jul-2021 Complete Black Elderberry(Carvalho-Fl ower) CAPS (1 source) Black Elderberry(Carvalho-F lower) CAPS Take 1 capsule twice daily Quantity: 0 Refills: 0 Ordered: 31-Mar-2021 DO Active Centrum Silver Ultra Womens TABS (3 sources) Centrum Silver Ultra Womens TABS TAKE 1 TABLET DAILY. Quantity: 0 Refills: 0 Ordered: 31-Mar-2021 DO Active cephalexin 500 mg oral capsule (5 sources) Cephalosporin Antibacterial Start: 03-03-2024 End: 05-28-2024 take 1 capsule by mouth three times daily Cephalexin 500 mg capsule Discontinued 500 MG PO Three times daily 17 09March 03, 2024 1:00am May 28, 2024 4:04pm Culturelle Digestive Womens CAPS (2 sources) Culturelle [...] Ordered: 27-Aug-2021 DO Start : 27-Aug-2021 Complete meloxicam 15 mg oral tablet (11 sources) Nonsteroidal Anti-inflammatory Drug Start: 06-15-2024 End: 06-18-2024 take 1 tablet by mouth once daily Meloxicam 15 mg tablet Discontinued 15 MG PO Daily June 15, 2024 12:00am June 18, 2024 1:13pm FreeTextSi tablet Orally Once a day; Note: Source Status: Taking; Provider: Jax Doss Start: 07-13-2022 take 1 tablet by north th every twenty-four hours Meloxicam 15 MG 1 tablet Orally Once a day for 30 days June, Active metoprolol tartrate 50 mg oral tablet (20 sources) beta-Adrenergic Sunita Start: 12-05-2023 End: 03-03-2024 Metoprolol Tartrate 50 mg tablet Discontinued 0 .ROUTE .COMPLEX 180 December 05, 2023 8:54am March 03, 2024 2:53pm TAKE 1 TABLET TWICE A DAY Start: 11-28-2020 End: 06-20-2024 take 1 tablet by mouth twice daily Metoprolol Tartrate 50 mg tablet Discontinued 50 MG PO Twice daily March 03, 2024 2:49pm June 20, 2024 8:42am Start: 01-01-2019 End: 12-05-2023 take 1 tablet by mouth twice daily Metoprolol Tartrate 25 mg Tablet Discontinued 25 MG PO Twice daily January 01, 2019 1:00am December 05, 2023 8:55am 24 hr mirabegron 50 mg extended release oral tablet (7 sources) beta3-Adrenergic Agonist Start: 03-09-2021 take 1 tablet [...] Ordered: 05-May-2021 DO Start : 05-May-2021 Complete Potassium Bicarb-Citric Acid (Klor-Con/Ef) 25 mEq tablet, effervescent (3 sources) Start: 03-03-2024 End: 06-18-2024 Potassium Bicarb-Citric Acid (Klor-Con/Ef) 25 mEq tablet, effervescent Discontinued 25 MEQ PO Twice daily March 03, 2024 1:00am June 18, 2024 1:13pm Start: 03-03-2024 Potassium Bica rb-Citric Acid (Klor-Con/Ef) 25 mEq tablet, effervescent Active 25 MEQ PO Twice daily March 03, 2024 12:00am Problems Active Problems Problem Classification Problem Date Documented Da te Episodic/Chronic Abdominal pain (20 sources) Right upper quadrant pain; Translations: [Unspecified abdominal pain] Onset: 01-25-2021 Episodic Acute bronchitis (6 sources) Acute bronchitis; Translations: [Acute bronchitis due to other specified organisms] Episodic Administrative/social admission (16 sources) Patient encounter status; Translations: [Exercise counseling] 08-13-2024 Episodic Anxiety disorders (6 sources) Anxiety; Translations: [Anxiety disorder, unspecified] Onset: 06-23-2023 06-23-2023 Chronic Calculus of urinary tract (20 sources) Calculus of kidney; Translations: [Kidney stone] Onset: 03-05-2021 Episodic Cardiac dysrhythmias (7 sources) Sinus tachycardia; Translations: [Other specified cardiac dysrhythmias] Onset: 05-18-2023 Episodic Deficiency and other anemia (2 sources) Anemia, unspecified Episodic Diabetes mellitus with complications (20 sources) Disorder due to type 2 diabetes mellitus; Translations: [Type 2 diabetes mellitus with unspecified complications] Chronic Diabetes mellitus without complication (4 sources) Type 2 diabetes mellitus without complications; Translations: [Diabetes mellitus] Onset: 01-26-2021 08-06-2019 Chronic Disorders of lipid metabolism (11 sources) Hyperlipidemia; Translations: [Hyperlipidemia, unspecified] 08-06-2019 Chronic E Codes: Fall (1 source) Fall on same level from slipping, tripping and stumbling without subsequent striking against object, initial encounter; Translations: [FALL SAME LVL SLIP NO STRK OBJ INIT] Onset: 09-28-2021 Episodic Essential hypertension (20 sources) Hypertensive disorder; Translations: [Unspecified essential hypertension] Onset: 05-18-2023 08-06-2019 Chronic Gastrointestinal hemorrhage (6 sources) Hematochezia; Translations: [Melena] 01-03-2019 Episodic Genitourinary symptoms and ill-defined conditions (9 sources) Urge incontinence; Translations: [Incontinence] Onset: 11-30-2021 Chronic Genitourinary symptoms and ill-defined conditions (6 sources) Dysuria; Translations: [Frequency of micturition] Onset: 01-26-2021 Episodic Immunizations and screening for infectious disease (1 source) Encounter for immunization; Translations: [ENCOUNTER FOR IMMUNIZATION] Onset: 09-28-2021 Episodic Menopausal disorders (6 sources) Atrophic vaginitis; Translations: [Postmenopausal atrophic vaginitis] Chronic Nonspecific chest pain (6 sources) Right sided chest pain; Translations: [Chest pain, unspecified] 06-18-2024 Episodic Nutritional deficiencies (10 sources) Vitamin D deficiency; Translations: [Vitamin D deficiency, unspecified] Chronic Osteoarthritis (9 sources) Arthritis; Translations: [Osteoarthritis] 08-06-2019 Chronic Other aftercare (1 source) Other senior care (current) drug therapy; Translations: [OTH [facility] CURRENT DRUG THERAPY] Onset: 09-28-2021 Episodic Other aftercare (1 source) terminal system operator (current) use of anticoagulants; Translations: [[facility] CURRNT USE ANTICOAGULANTS] Onset: 09-28-2021 Episodic Other aftercare (1 source) terminal system operator (current) use of oral hypoglycemic drugs; Translations: [HEREDITARY CANCER PROGRAM COORDINATOR USE ORAL HYPOGLYCEMIC DX] Onset: 07-22-2021 Episodic Other circulatory disease (6 sources) Elevated blood-pressure reading without diagnosis of hypertension; Translations: [Elevated blood-pressure reading, without diagnosis of hypertension] Episodic Other connective tissue disease (4 sources) Weakness of right hand; Translations: [Other symptoms and signs involving the musculoskeletal system] 12-14-2023 Episodic Other diseases of kidney and ureters (3 sources) Cyst of kidney 03-24-2020 Episodic Other diseases of kidney and ureters (3 sources) Hydronephrosis 03-24-2020 Episodic Other gastrointestinal disorders (6 sources) Flatulence, eructation and gas pain; Translations: [Abdominal distension (gaseous)] Episodic Other hereditary and degenerative nervous system conditions (20 sources) Essential tremor; Translations: [Essential and other specified forms of tremor] Onset: 05-18-2023 Chronic Other hereditary and degenerative nervous system conditions (1 source) Essential tremor; Translations: [Essential tremor] Onset: 05-18-2023 Chronic Other lower respiratory disease (6 sources) Pleuritic pain; Translations: [Pleurodynia] Episodic Other nervous system disorders (12 sources) Tremor; Translations: [Tremor, unspecified] Onset: 06-23-2023 06-23-2023 Episodic Other nervous system disorders (10 sources) Abnormal gait; Translations: [Unsteadiness on feet] Onset: 06-23-2023 06-23-2023 Episodic Other non-traumatic joint disorders (4 sources) Monoarthritis; 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, not elsewhere classified, unspecified site] Chronic Other non-traumatic joint disorders (2 sources) Monoarthritis, not elsewhere classified, unspecified site Chronic Other non-traumatic joint disorders (3 sources) Pain in left wrist; Translations: [PAIN IN LEFT WRIST] Onset: 09-24-2021 Episodic Other non-traumatic joint disorders (1 source) Pain in left shoulder; Translations: [PAIN IN LEFT SHOULDER] Onset: 09-28-2021 Episodic Other nutritional; endocrine; and metabolic disorders (13 sources) Body mass index 40+ - severely obese; Translations: [Morbid obesity] Onset: 11-04-2023 11-04-2023 Chronic Other nutritional; endocrine; and metabolic disorders (1 source) Obesity, unspecified; Translations: [OBESITY UNSPECIFIED] Onset: 07-22-2021 Chronic Other nutritional; endocrine; and metabolic disorders (1 source) Body mass index (BMI) 40.0-44.9, adult; Translations: [BODY MASS INDEX BMI 40.0-44.9 ADULT] Onset: 07-22-2021 Chronic Other nutritional; endocrine; and metabolic disorders (3 sources) Obesity 08-06-2019 Chronic Other nutritional; endocrine; and metabolic disorders (6 sources) Morbid obesity; Translations: [Morbid (severe) obesity due to excess calories] Chronic Other nutritional; endocrine; and metabolic disorders (2 sources) Body mass index (BMI) 45.0-49.9, adult; Translations: [Body mass index (BMI) 45.0-49.9, adult (Multi)] Onset: 11-04-2023 Chronic Other nutritional; endocrine; and metabolic disorders (9 sources) Severe obesity; Translations: [Class 3 severe obesity with body mass index (BMI) of 50.0 to 59.9 in adult] 06-18-2024 Chronic Other nutritional; endocrine; and metabolic disorders (8 sources) Abnormal weight gain; Translations: [Abnormal weight gain] 08-13-2024 Episodic Other screening for suspected conditions (not mental disorders or infectious disease) (7 sources) Abnormal findings on diagnostic imaging of other specified body structures; Translations: [Imaging result abnormal] Onset: 04-23-2021 Chronic Other screening for suspected conditions (not mental disorders or infectious disease) (3 sources) Encounter for screening for lipoid disorders; Translations: [Patient encounter status] Onset: 11-04-2023 Episodic Other upper respiratory infections (6 sources) Chronic sinusitis; Translations: [Chronic sinusitis, unspecified] Chronic Other upper respiratory infections (1 source) Acute maxillary sinusitis, unspecified Episodic Parkinson`s disease (9 sources) Parkinson's disease; Translations: [Parkinson's disease] 08-13-2024 Chronic Pneumonia (except that caused by tuberculosis or sexually transmitted disease) (1 source) Pneumonia (except that caused by tuberculosis or sexually transmitted disease); Translations: [PNEUMONIA D/T CORONAVIRUS DIS 2019] Onset: 01-26-2021 Pulmonary heart disease (10 sources) Other pulmonary embolism without acute cor pulmonale; Translations: [Pulmonary embolism] Onset: 07-22-2021 11-30-2021 Episodic Residual codes; unclassified (1 source) Acquired absence of other specified parts of digestive tract; Translations: [ACQ ABSENCE OTH PART DIGESTV TRACT] Onset: 07-22-2021 Episodic Residual codes; unclassified (6 sources) Localized edema; Translations: [Localized edema] Episodic Residual codes; unclassified (6 sources) Immunization refused ; Translations: [Immunization not carried out because of patient refusal] Episodic Residual codes; unclassified (2 sources) Other specified health status; Translations: [Other specified health status] Onset: 11-04-2023 Episodic Residual codes; unclassified (2 sources) Family history of Parkinson's disease; Translations: [Family history of epilepsy and other diseases of the nervous system] 05-28-2024 Episodic Spondylosis; intervertebral disc disorders; other back problems (6 sources) Low back pain; Translations: [Low back pain, unspecified] Episodic Sprains and strains (1 source) Strain of unspecified muscle, fascia and tendon at wrist and hand level, left hand, initial encounter; Translations: [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] Onset: 09-28-2021 Episodic Superficial injury; contusion (3 sources) Contusion of other part of head, initial encounter; Translations: [Abrasion of other part of head, initial encounter] Onset: 09-28-2021 Episodic Thyroid disorders (20 sources) Hypothyroidism; Translations: [Unspecified acquired hypothyroidism] Onset: 05-18-2023 08-06-2019 Chronic Unclassified (3 sources) Asymptomatic microscopic hematuria 08-06-2019 Urinary tract infections (6 sources) Acute urinary tract infection; Translations: [Urinary tract infection, site not specified] 03-03-2024 Episodic Viral infection (11 sources) COVID-19; Translations: [Disease caused by 2019-nCoV] Onset: 01-26-2021 Past or Other Problems Problem Classification Problem Date Documented Da te Episodic/Chronic Mood disorders (1 source) Mood disorders Onset: 03-26-2022 06-29-2022 Other gastrointestinal disorders (4 sources) Abdominal distension (gaseous); Translations: [ABDOMINAL DISTENSION GASEOUS] Onset: 04-22-2021 Episodic Residual codes; unclassified (2 sources) Never smoked tobacco; Translations: [Other specified health status] Onset: 11-04-2023 11-04-2023 Episodic Unclassified (3 sources) Never smoked tobacco; Translations: [Never a smoker] Unclassified (1 source) Onset: 11-04-2023 11-04-2023 Results Test Name Value Interpretation Reference Range Facility Laboratory - Chemistry and C hemistry - challengeon 03-03-2024 Bilirubin Ql (U) Negative [facility] Glucose (U) [Mass/Vol] Negative [facility] Ketones Ql (U) Negative [facility] pH (U) 7.0 [pH] [facility] Specific gravity (U) [Rel density] 1.020 [facility] Laboratory - Specimen inform ationon 03-03-2024 Appearance (U) cloudy [facility] Color (U) Yellow [facility] Laboratory - Urinalysison Leukocyte esterase Test strip Ql (U) Small [facility] Nitrite Ql (U) Negative [facility] Protein Ql (U) 30 [facility] No Panel Informationon 03-03 Urine Occult Blood Moderate [facility] Urine Urobilinogen 0,2 [facility] Urine Cultureon 03-03-2024 Bacteria identified Cx Nom (U) ORGANISM: Escherichia coli (O:ESCCOL) [place] Count >100,000 Aerobic ADILENE Charge (NMIC56) ---- SUSCEPTIBILITY --- ORGANISM: O:ESCCOL ANTIBIOTIC INTERPRETATION ADILENE Amikacin S <16 Amoxacillin/K Clavulanate S <8 Ampicillin S <8 Ampicillin/Sulbactam S <4 Aztreonam S <4 Cefazolin S 8 Cefepime S <2 Ceftazidime S <1 Ceftazidime/Avibactam S <4 Ceftolozane/Tazobacta m S <2 Ceftriaxone S <1 Cefuroxime S <4 Ciprofloxacin S <0.25 Ertapenem S <0.5 Gentamicin S <2 Levofloxacin S <0.5 Meropenem S <1 Meropenem/Vaborbactam S <2 Nitrofurantoin S <32 Piperacillin/Tazobact am S <8 Tetracycline S <4 Tigecycline S <2 Tobramycin S <2 Trimethoprim/Sulfamet hoxazole S <0.5 S = SUSCEPTIBLE I = INTERMEDIATE R = RESISTANT BLANK = DATA NOT AVAILABLE, OR DRUG NOT ADVISABLE OR TESTED R* = RESISTANCE DUE TO EXTENDED SPECTRUM BETA-LACTAMASES ESBL = EXTENDED SPECTRUM BETA-LACTAMASE TFG = THYMIDINE-DEPENDENT STRAIN PACHECO = BETA-LACTAMASE POSITIVE IB = INDUCIBLE BETA-LACTAMASE. APPEARS IN PLACE OF 'S' WITH SPECIES KNOWN TO POSSESS INDUCIBLE BETA-LACTAMASES. POTENTIALLY THEY MAY BECOME RESISTANT TO ALL B-LACTAM DRUGS. PERFORMED BY: [facility] [address] [place] [address] PATHOLOGIST TIMBER WATCHMAN CASSIA So [facility] Comment on above: Performed By: #### C UU #### [address] [address] [facility] Ambulatory Visit Summaryon 1 04-11-2023 Ambulatory Visit Summary Ambulatory Visit Summary PHYLLIS FRENCH :1945 Visit Date:02/09/2024 Ambulatory Visit Instructions Your Diagnosis Kidney stone Urge incontinence Tests Performed XR Abdomen 1 View -- Results Pending -- Please visit your patient portal for your results or contact your primary care physician. Your Care Team Attending Physician - KANDI BERMEO PA-C Primary Care Physician - MOISES CAMARA MD This Is Your Medications List oxybutynin (oxybutynin 15 mg ER Tab) potassium bicarbonate (Klor-Con/EF 25 mEq oral tablet, effervescent) Contact prescribing physician if questions or concerns bacillus coagulans (Probiotic Digestive Aid Gummies) ergocalciferol (Vitamin D) levothyroxine (Synthroid 150 mcg (0.15 mg) Tab) lisinopril metformin metoprolol (Metoprolol tartrate 50 mg Tab) Procedures Performed Cystoscopic removal of ureteric stent (09/25/2019), ESWL of kidney (08/16/2019), Cystoscopic insertion of ureteric stent (08/09/2019), Cystoscopy (12/11/2015), Cystoscopy (10/10/2015), Appendectomy, Cholecystectomy, Colonoscopy. Discharge Vitals Heart Rate (Peripheral) 76 Blood Pressure 126/84 Height 158 cm Height 62 in Weight 112.6 kg Weight 248.24 lb BMI 45.1 What to do next Scheduled Follow-Up Appointments Tuesday 9:40 AM EST With: KANDI BERMEO PA-C Where: [facility] [address] [place] [address]- You Need to Schedule the Following Appointments Follow Up with ELVIE CRAIG, NICKI HARTMAN When: Where: [address] [address] Medications What How Much When Instructions Unchanged oxybutynin (oxybutynin 15 mg ER Tab) 1 Tablets By Mouth Every day Unchanged potassium bicarbonate (Klor-Con/ EF 25 mEq oral tablet, effervescent) 1 Tablets By Mouth 2 times a day Unchanged bacillus coagulans (Probiotic Digestive Aid Gummies) Chewed 2 times a day Contact prescribing physician if questions or concerns Unchanged ergocalciferol (Vitamin D) By Mouth Contact prescribing physician if questions or concerns Unchanged levothyroxine (Synthroid 150 mcg (0.15 mg) Tab) Contact prescribing physician if questions or concerns Unchanged lisinopril 5 Milligram By Mouth Every day Contact prescribing physician if questions or concerns Unchanged metformin 500 Milligram By Mouth Every day Contact prescribing physician if questions or concerns Unchanged metoprolol (Metoprolol tartrate 50 mg Tab) 1 Tablets By Mouth 2 times a day Contact prescribing physician if questions or concerns Allergies atorvastatin (Unknown) penicillins (Mild) Problems Ongoing - Any problem that you are currently receiving treatment for. Arthritis Diabetes Hematuria Hydronephrosis with obstructing calculus Hyperlipidemia Hypertension Hypothyroidism Kidney cysts Kidney stone Mixed incontinence Nephrolithiasis Nocturia Obesity Pulmonary embolus Right flank pain Urge incontinence Patient Survey You may receive a survey via text or e-mail asking about your office visit. Please share your experience with us by completing your survey. We appreciate your feedback and thank you for choosing us for your care. Education Materials Overactive Bladder, Adult Overactive bladder is a condition in which a person has a sudden and frequent need to urinate. A person might also leak urine if he or she cannot get to the bathroom fast enough (urinary incontinence). Sometimes, symptoms can interfere with work or social activities. What are the causes? Overactive bladder is associated with poor nerve signals between your bladder and your brain. Your bladder may get the signal to empty before it is full. You may also have very sensitive muscles that make your bladder squeeze too soon. This condition may also be caused by other factors, such as: ??? Medical conditions: ? Urinary tract infection. ? Infection of nearby tissues. ? Prostate enlargement. ? Bladder stones, inflammation, or tumors. ? Diabetes. ? Muscle or nerve weakness, especially from these conditions: ? A spinal cord injury. ? Stroke. ? Multiple sclerosis. ? Parkinson's disease. ??? Other causes: ? Surgery on the uterus or urethra. ? Drinking too much caffeine or alcohol. ? Certain medicines, especially those that eliminate extra fluid in the body (diuretics). ? Constipation. What increases the risk? You may be at greater risk for overactive bladder if you: ??? Are an older adult. ??? Smoke. ??? Are going through menopause. ??? Have prostate problems. ??? Have a neurological disease, such as stroke, dementia, Parkinson's disease, or multiple sclerosis (MS). ??? Eat or drink alcohol, spicy food, caffeine, and other things that irritate the bladder. ??? Are overweight or obese. What ar (more content not included)... Normal [facility] Urology Office/Clinic Noteon 02-09-2024 Urology Office/Clinic Note Urology Office/Clinic Note Chief Complaint 1 yr f/u HPI Staff 78yr old female pt here for 1yr f/u with KUB. Previous Dx: kidney stone, urge incontinence *Flomax 0.4mg qd, Effer-K 25mEq bid, oxybutynin 15mg ER Dysuria: _only at night Incomplete bladder emptying: _no Hematuria: _no Frequency: _q3-4 hrs in am, more frequent during night Urgency: _yes Nocturia: _q1-2 hrs, at times has pain Stream: _normal Leaking: _yes, only at night Post void dripping: _no Wearing pads/ Depends: _bedtime Urge incontinence: _bedtime Stress incontinence: _no Incontinence without Sensory Awareness: _during night Abdominal pain: during the night Flank pain: _no Sexual complaints: _ History of Present Illness staff HPI reviewed and agree. Tests Reviewed: Reviewed UA, KUB Review of Systems PHQ Score Initial Depression Screen Score: 0 SCORE no fever, chills, malaise, myalgia. no rash/lesions. no chest pain, palpitations, or SOB. no abdominal pain, nausea, vomiting. no unilateral calf swelling, redness, pain Physical Exam Vitals & Measurements HR: 76(Peripheral) BP: 126/84 HT: 62 in HT: 158 cm WT: 112.6 kg WT: 248.24 lb BMI: 45.1 General: nontoxic, NAD Mouth: moist mucosa Lungs: normal respiratory effort Cardio: regular rate, good distal perfusion Abdomen: nondistended, no suprapubic distention or tenderness, no CVA tenderness Neurologic: Grossly normal Skin: No rashes or suspicious lesions Assessment/Plan 1. Kidney stone (N20.0: Calculus of kidney) KUB 11/24/21 - neg for stones. KUB 01/31/23 [facility] - report not yet completed. Personal review: possible bladder stone, but stool burden. KUB 02/01/24 [facility] - Kidney/Ureter (R) No visible renal or ureteral calcifications. (L) No visible renal or ureteral calcifications. UA today shows trace protein. Discussed the KUB and UA for today. Denies gross hematuria, flank pain, stone passage. Has Flomax to start if feels stone passing. No issues w Effer-K. Continues to take it. Feels it is helping. -Cont Effer-K 25mEq bid. -KUB ordered for 1 yr 2. Urge incontinence (N39.41: Urge incontinence) BBS 13 Patient state's she is doing well on the Oxybutynin but c/o constipation. Discussed the possibility of changing her medications (however Myrbetriq was cost-prohibitive previously) and other anticholinergics have same risk of constipation. Other option is stay on Oxybutynin and just add daily MiraLAX for constipation. Pt prefers this option since the Oxybutynin is helping her urinary sx so well. -Control BMs w Miralax -Cont Oxybutynin ER 15mg wo changes Follow-up With When Contact Information ELVIE CRAIG, KANDI Doss, URL [address] [place] [address] Additional Instructions: Follow up 1yr w KUB or sooner if needed Patient Education Overactive Bladder, Adult Kidney Stones, Rlug-eh-Bhmv Francis Zafar, personally scribed for LESLI Alvarez on 02/09/2024 10:17:46. . Documentation recorded by the newton Ceron_ accurately reflects the services(s) I performed and decisions made by me. Authenticated by Kandi Bermeo PA-C on 02/09/2024 11:38:51. Problem List/Past Medical History Ongoing Arthritis Diabetes Hematuria Hydronephrosis with obstructing calculus Hyperlipidemia Hypertension Hypothyroidism Kidney cysts Kidney stone Mixed incontinence Nephrolithiasis Nocturia Obesity Pulmonary embolus Right flank pain Urge incontinence Historical No qualifying data Procedure/Surgical History Cystoscopic removal of ureteric stent (09/25/2019), ESWL of kidney (08/16/2019), Cystoscopic insertion of ureteric stent (08/09/2019), Cystoscopy (12/11/2015), Cystoscopy (10/10/2015), Appendectomy, Cholecystectomy, Colonoscopy. Medications Klor-Con/EF 25 mEq oral tablet, effervescent, 25 mEq= 1 tab(s), Oral, BID, 11 refills lisinopril, 5 mg, Oral, Daily metformin, 500 mg, Oral, Daily Metoprolol tartrate 50 mg Tab, 50 mg= 1 tab(s), Oral, BID oxybutynin 15 mg ER Tab, 15 mg= 1 tab(s), Oral, Daily, 3 refills Probiotic Digestive Aid Gummies, Chewed, BID Synthroid 150 mcg (0.15 mg) Tab Vitamin D, Oral Allergies atorvastatin (Unknown) penicillins (Mild) Social History Alcohol - Denies Alcohol Use, 03/09/2021 Substance Abuse - Denies Substance Abuse, 03/09/2021 Tobacco - Denies Tobacco Use, 11/30/2021 Never (less than 100 in lifetime) Tobacco Use:. Never Smokeless Tobacco Use:. Household tobacco concerns: No. Yes, 02/09/2024 Family History Hypertension: Mother. Kidney disease: Father. Parkinsons: Father. Primary malignant neoplasm of female breast: Mother. Renal failure syndrome: Father. Immunizations Vaccine Date Status Comments influenza virus vaccine, inactivated 11/28/2021 Recorded SARS-CoV-2 (COVID-19) Ad26 vaccine 05/07/2020 Recorded 2023-02-01: [id number] SARS-CoV-2 (COVID-19) Ad26 vaccine 2020 Recorded (more content not included)... Normal [facility] Comment on above: Result Comment: Elec tronically Signed By: ELVIE CRAIGKANDI.br\Date and Time Signed: 02/09/24 11:39 EST\.br\Electronically Co-Signed By: Francis eCron\Date and Time Co-Signed: 02/09/24 10:18 EST Provider Letteron 01-11-2024 Provider Letter Provider Letter January 11, 2024 PHYLLIS FRENCH [address] [place] [address] : 1945 Dear Phyllis, We have been trying to reach you with no success. You have an appointment with Kandi Bermeo PA-C on January which will need to be rescheduled since she will be out of the office that morning . Please contact the office at the number listed below to get this appointment rescheduled at your earliest convenience. Thank you for your prompt attention to this matter. Sincerely, [facility] [address], [place] [address] Normal [facility] ECG 12 Leadon 11-04-2023 Normal sinus rhythm [facility] Work Phone: Office Visit (Cardiology)on 11-05-2022 Follow-up visit Diagnoses/Problems Assessed Sinus tachycardia (427.89) (R00.0) Essential tremor (333.1) (G25.0) Hypothyroidism (244.9) (E03.9) Morbid obesity with BMI of 45.0-49.9, adult (278.01,V85.42) (E66.01,Z68.42) Never a smoker Orders Morbid obesity with BMI of 45.0-49.9, adult Healthy Weight Tips; Status:Complete - Retrospective Authorization; Done: [id number] Some eating tips that can help you lose weight.; Status:Complete - Retrospective Authorization; Done: [id number] SocHx: Never a smoker Tobacco Use Screening; Status:Complete; Done: [id number] Patient Instructions Please bring all medicines, vitamins, [...] MCG (1999) Oral TabletTake 1 tablet daily patient brought [...] Recorded: 05Nov2022 09:53AM Heart Rate64, L Radial Qrkzsjef593, LUE, Sitting Zbpekcnrq80, LUE, Sitting Height5 ft 1 in Rgcmtb595 lb BMI Gtvzptztkd11.62 kg/m2 BSA Calculated2.08 Tobacco Useb) No PHQ-2 [...] . Psychiatr (more content not included)... Normal [facility] Tobacco Screening.on 023 Adult depression screening assessment No [employer] [employer] 250 DO Work Phone: Fall risk assessment b) One or more falls in the last year [facility] [employer] 250 DO Work Phone: Tobacco use status CP b) No [employer] [employer] 250 DO Work Phone: Office Visit (Cardiology)on [...] 2 TABLET Daily Vitamin D 50 MCG (1999 [place]) Oral TabletTake 1 tablet daily Allergies Medication [...] Signs Recorded: 26Mar2022 11:12AM Heart Rate69, Apical Vlsveadg147, RUE, Sitting Ghygmizfr33, RUE, Sitting Height5 ft 1 in Vbptim257 lb BMI Uojuusatlz75.67 kg/m2 BSA Calculated2.07 Tobacco Useb) No PHQ-2 [...] Screening.on 023 Adult depression screening assessment Yes [facility] Wrnch DO Work Phone: Fall risk assessment b) One or more falls in the last year [facility] Wrnch DO Work Phone: Tobacco use status CPHS b) No [facility] Wrnch DO Work Phone: Tobacco Screening. 1-Several days [facility] Wrnch DO Work Phone: Tobacco Screening. 3-Nearly every day [facility] Wrnch DO Work Phone: Tobacco Screening. 0-Not at all [facility] Wrnch DO Work Phone: Tobacco Screening. Not difficult at all [facility] Wrnch DO Work Phone: CT CSPINE WO CONon [...] CARMEN HAY Date: 2021-09-24 11:08 Normal [facility] CT FACIAL BONES WO CONon CT FACIAL [...] CARMEN HAY Date: 2021-09-24 11:18 Normal [facility] CT HEAD WO CONon 09-24-2021 CT HEAD [...] CARMEN HAY Date: 2021-09-24 11:21 Normal [facility] CBC AUTO DIFFon 07-20-2021 BASO # 0.1 103/ul Normal 0.0-0.1 [facility] Comment on above: Performed By: #### C BC ####[facility] [address] [place] [address]Dr. Sabrina Reagan Basophils/100 WBC (Bld) 0.5 % Normal 0.2-2.0 [facility] Comment on above: Performed By: #### C BC ####[facility] [address] [place], [place] [address]Dr. Sabrina Reagan EO # 0.3 103/ul Normal 0.0-0.7 [facility] Comment on above: Performed By: #### C BC ####[facility] [address] [place], [place] [address]Dr. Sabrina Reagan Eosinophils/100 WBC (Bld) 2.9 % Normal 0.9-7.0 [facility] Comment on above: Performed By: #### C BC ####[facility] [address] [place], [place] [address]Dr. Sabrina Reagan Erythrocyte distribution width (RBC) [Ratio] 13.1 % Normal 11.0-15.0 [facility] Comment on above: Performed By: #### C BC ####[facility] [address] [place], [place] [address]Dr. Sabrina Reagan Hematocrit (Bld) [Volume fraction] 36.3 % Normal 36.0-48.0 [facility] Comment on above: Performed By: #### C BC ####[facility] [address] [place], [place] [address]Dr. Sabrina Reagan Hemoglobin (Bld) [Mass/Vol] 11.5 g/dL Critically low 12.0-16.0 [facility] Comment on above: Performed By: #### C BC ####[facility] [address] [place], [place] [address]Dr. Sabrina Reagan IG # 0.02 10e3/ul Normal 0.00-0.03 [facility] Comment on above: Performed By: #### C BC ####[facility] [address] [place] [id number] Sabrina Reagan IG % 0.2 % Normal 0.0-0.5 [facility] Comment on above: Performed By: #### C BC ####[facility] [address] [place] [address]DrAndres Briceñomakenna Tez LYMPH # 3.0 103/ul Normal 1.2-3.8 [facility] Comment on above: Performed By: #### C BC ####[facility] [address] [place] [address]DrAndres Sabrina Tez Lymphocytes/100 WBC (Bld) 29.5 % Normal 20.5-60.0 [facility] Comment on above: Performed By: #### C BC ####[facility] [address] [place], [place] [address]DrAndres Keyannamakenna Reagan MANUAL DIFF REQ NO Normal [facility] Comment on above: Performed By: #### C BC ####[facility] [address] [place] [id number] Sabrina Tez MCH (RBC) [Entitic mass] 30.8 pg Normal 26.7-34.0 [facility] Comment on above: Performed By: #### C BC ####[facility] [address] [place], [place] [address]DrAndres Sabrina Tez MCHC (RBC) [Mass/Vol] 31.7 g/dL Normal 29.9-35.2 [facility] Comment on above: Performed By: #### C BC ####[facility] [address] [place] [id number] Sabrina Tez MCV (RBC) [Entitic vol] 97.3 fL Normal 81.0-99.0 [facility] Comment on above: Performed By: #### C BC ####[facility] [address] [place] [address]DrAndres Reagan MONO # 0.9 103/ul Critically high 0.3-0.8 [facility] Comment on above: Performed By: #### C BC ####[facility] [address] [place] [address]Dr. Sabrina Reagan Monocytes/100 WBC (Bld) 8.4 % Normal 1.7-12.0 [facility] Comment on above: Performed By: #### C BC ####[facility] [address] [place] [address]Dr. Sabrina Reagan NEUT # 6.0 103/ul Normal 1.4-6.5 [facility] Comment on above: Performed By: #### C BC ####[facility] [address] [place] [address]Dr. Sabrina Reagan Neutrophils/100 WBC (Bld) 58.5 % Normal 43.0-75.0 [facility] Comment on above: Performed By: #### C BC ####[facility] [address] [place], [place] [address]Dr. Sabrina Reagan Platelet mean volume (Bld) [Entitic vol] 10.5 fL Normal 9.5-13.5 [facility] Comment on above: Performed By: #### C BC ####[facility] [address] [place], [place] [address]Dr. Sabrina Reagan PLT 247 103/ul Normal 150-450 [facility] Comment on above: Performed By: #### C BC ####[facility] [address] [place] [address]Dr. Sabrina Reagan RBC 3.73 106/ul Critically low 4.20-5.40 [facility] Comment on above: Performed By: #### C BC ####[facility] [address] [place] [id number]. Sabrina Reagan WBC 10.2 103/ul Normal 4.0-11.0 [facility] Comment on above: Performed By: #### C BC ####[facility] [address] [place] [id number]. Sabrina Reagan CTA CHEST WO W CONon [...] by: CARMEN HAY Date: 2021-07-20 08:51 Normal [facility] LIPASEon 07-20-2021 Lipase [Catalytic activity/Vol] 81.0 U/L Normal 73.0-393.0 [facility] Comment on above: Performed By: #### L IPA, CMP, HSTROPN #### [facility] [address] [place], [place] [address] Dr. Sabrina Reagan PROF 14(COMP METB)on 022 Albumin [Mass/Vol] 3.8 g/dL Normal 3.4-5.0 [facility] Comment on above: Performed By: #### L IPA, CMP, HSTROPN ####[facility] [address] [place] [id number]. Sabrina Reagan Albumin/Globulin [Mass ratio] 0.9 {ratio} Normal [facility] Comment on above: Performed By: #### L IPA, CMP, HSTROPN ####[facility] [address] [place] [address]Dr. Sabrina Reagan ALP [Catalytic activity/Vol] 80 U/L Normal 46-116 [facility] Comment on above: Performed By: #### L IPA, CMP, HSTROPN ####[facility] [address] [place] [address]Dr. Sabrina Reagan ALT [Catalytic activity/Vol] 41 U/L Normal 14-59 [facility] Comment on above: Performed By: #### L IPA, CMP, HSTROPN ####[facility] [address] [place] [address]Dr. Sabrina Reagan Anion gap [Moles/Vol] 12.7 mmol/L Normal [facility] Comment on above: Performed By: #### L IPA, CMP, HSTROPN ####[facility] [address] [place], [place] [address]Dr. Sabrina Reagan AST [Catalytic activity/Vol] 25 U/L Normal 15-37 [facility] Comment on above: Performed By: #### L IPA, CMP, HSTROPN ####[facility] [address] [place] [address]Dr. Sabrina Reagan Bilirubin [Mass/Vol] 0.5 mg/dL Normal 0.2-1.0 [facility] Comment on above: Performed By: #### L IPA, CMP, HSTROPN ####[facility] [address] [place] [address]Dr. Sabrina Reagan Calcium [Mass/Vol] 9.0 mg/dL Normal 8.5-10.1 [facility] Comment on above: Performed By: #### L IPA, CMP, HSTROPN ####[facility] [address] [place], [place] [address]Dr. Sabrina Reagan Chloride [Moles/Vol] 101 mmol/L Normal 98-107 [facility] Comment on above: Performed By: #### L IPA, CMP, HSTROPN ####[facility] [address] [place] [address]Dr. Sabrina Reagan CO2 [Moles/Vol] 29.6 mmol/L Normal 21.0-32.0 [facility] Comment on above: Performed By: #### L IPA, CMP, HSTROPN ####[facility] [address] [place] [address]Dr. Sabrina Reagan Creatinine [Mass/Vol] 1.33 mg/dL Critically high 0.55-1.02 [facility] Comment on above: Performed By: #### L IPA, CMP, HSTROPN ####[facility] [address] [place], [place] [address]Dr. Sabrina Reagan EGFR-AF MOSOTHO 47 mL/min/1.73m2 Critically low >=60 [facility] Comment on above: Performed By: #### L IPA, CMP, HSTROPN ####[facility] [address] [place], [place] [address]Dr. Sabrina Reagan EGFR-NON AF MOSOTHO 39 mL/min/1.73m2 Critically low >=60 [facility] Comment on above: Performed By: #### L IPA, CMP, HSTROPN ####[facility] [address] [place], [place] [address]Dr. Sabrina Reagan Globulin (S) [Mass/Vol] 4.2 g/dL Normal [facility] Comment on above: Performed By: #### L IPA, CMP, HSTROPN ####[facility] [address] [place] [address]Dr. Sabrina Reagan Glucose [Mass/Vol] 123 mg/dL Critically high 74-106 [facility] Comment on above: Performed By: #### L IPA, CMP, HSTROPN ####[facility] [address] [place], [place] [address]Dr. Sabrina Reagan Potassium [Moles/Vol] 4.3 mmol/L Normal 3.5-5.1 [facility] Comment on above: Performed By: #### L IPA, CMP, HSTROPN ####[facility] [address] [place], [place] [address]Dr. Sabrina Reagan Protein [Mass/Vol] 8.0 g/dL Normal 6.4-8.2 [facility] Comment on above: Performed By: #### L IPA, CMP, HSTROPN ####[facility] [address] [place] [address]Dr. Sabrina Reagan Sodium [Moles/Vol] 139 mmol/L Normal 136-145 [facility] Comment on above: Performed By: #### L IPA, CMP, HSTROPN ####[facility] [address] [place] [address]Dr. Sabrina Reagan Urea nitrogen [Mass/Vol] 33.0 mg/dL Critically high 7.0-18.0 [facility] Comment on above: Performed By: #### L IPA, CMP, HSTROPN ####[facility] [address] [place] [address]Dr. Sabrina Reagan Urea nitrogen/Creatinin e [Mass ratio] 24.8 mg/mg Normal [facility] Comment on above: Performed By: #### L IPA, CMP, HSTROPN ####[facility] [address] [place] [address]Dr. Sabrina Reagan TROPONIN, HIGH SENSITIVITYon 07-20-2021 HSTROP 50.4 pg/mL Normal 4.0-51.3 [facility] Comment on above: Result Comment: CUT- OFF POINTS HAVE BEEN ESTABLISHED BASED ON THE FOURTH UNIVERSAL DEFINITIONS OF MYOCARDIAL INFARCTION. THE UPPER REFERENCE LIMIT (URL) OF TROPONIN, DEFINED THE 99TH PERCENTILE OF cTnI DISTRIBUTION IN A REFERENCE POPULATION, HAS BEEN CONFIRMED THE DECISION THRESHOLD FOR SD DIAGNOSIS. Performed By: #### L IPA, CMP, HSTROPN ####[facility] [address] [place] [address]Dr. Sabrina Reagan US PELVIS AND TRANSVAGon US [...] CARMEN HAY Date: 2021-04-22 16:16 Normal [facility] Tobacco Screening.on 022 Fall risk assessment a) No falls within the last year -[facility] [employer] 250 DO Work Phone: Tobacco use status CPHS b) No -[facility] [employer] 250 DO Work Phone: XR KUB 1 VIEWon 03-05-2021 XR KUB [...] JANIS GIRON Date: 2021-03-05 13:09 Normal [facility] CBC AUTO DIFFon 01-25-2021 BASO # 0.0 103/ul Normal 0.0-0.1 [facility] Comment on above: Performed By: #### C BC #### [facility] [address] [place] [address] Dr. Sabrina Reagan Basophils/100 WBC (Bld) 0.1 % Critically low 0.2-2.0 [facility] Comment on above: Performed By: #### C BC #### [facility] [address] [place] [address] Dr. Sabrina Reagan EO # 0.0 103/ul Normal 0.0-0.7 [facility] Comment on above: Performed By: #### C BC #### [facility] [address] [place] [address] Dr. Sabrina Reagan Eosinophils/100 WBC (Bld) 0.1 % Critically low 0.9-7.0 [facility] Comment on above: Performed By: #### C BC #### [facility] [address] [place] [address] Dr. Sabrina Reagan Erythrocyte distribution width (RBC) [Ratio] 13.2 % Normal 11.0-15.0 [facility] Comment on above: Performed By: #### C BC #### [facility] [address] [place] [address] Dr. Sabrina Reagan Hematocrit (Bld) [Volume fraction] 33.2 % Critically low 36.0-48.0 [facility] Comment on above: Performed By: #### C BC #### [facility] [address] [place] [address] Dr. Sabrina Reagan Hemoglobin (Bld) [Mass/Vol] 10.7 g/dL Critically low 12.0-16.0 [facility] Comment on above: Performed By: #### C BC #### [facility] [address] [place] [address] Dr. Sabrina Reagan IG # 0.03 10e3/ul Normal 0.00-0.03 [facility] Comment on above: Performed By: #### C BC #### [facility] [address] [place] [address] Dr. Sabrina Reagan IG % 0.4 % Normal 0.0-0.5 [facility] Comment on above: Performed By: #### C BC #### [facility] [address] [place] [address] Dr. Sabrina Reagan LYMPH # 2.0 103/ul Normal 1.2-3.8 [facility] Comment on above: Performed By: #### C BC #### [facility] [address] [place] [address] Dr. Sabrina Reagan Lymphocytes/100 WBC (Bld) 24.0 % Normal 20.5-60.0 [facility] Comment on above: Performed By: #### C BC #### [facility] [address] [place] [address] Dr. Sabrina Reagan MANUAL DIFF REQ NO Normal [facility] Comment on above: Performed By: #### C BC #### [facility] [address] [place] [address] Dr. Sabrina Reagan MCH (RBC) [Entitic mass] 30.1 pg Normal 26.7-34.0 [facility] Comment on above: Performed By: #### C BC #### [facility] [address] [place] [address] Dr. Sabrina Reagan MCHC (RBC) [Mass/Vol] 32.2 g/dL Normal 29.9-35.2 [facility] Comment on above: Performed By: #### C BC #### [facility] [address] [place] [address] Dr. Sabrina Reagan MCV (RBC) [Entitic vol] 93.3 fL Normal 81.0-99.0 [facility] Comment on above: Performed By: #### C BC #### [facility] [address] [place] [address] Dr. Sabrina Reagan MONO # 0.9 103/ul Critically high 0.3-0.8 [facility] Comment on above: Performed By: #### C BC #### [facility] [address] [place] [address] Dr. Sabrina Reagan Monocytes/100 WBC (Bld) 10.5 % Normal 1.7-12.0 [facility] Comment on above: Performed By: #### C BC #### [facility] [address] [place] [address] Dr. Sabrina Reagan NEUT # 5.3 103/ul Normal 1.4-6.5 [facility] Comment on above: Performed By: #### C BC #### [facility] [address] [place] [address] Dr. Sabrina Reagan Neutrophils/100 WBC (Bld) 64.9 % Normal 43.0-75.0 [facility] Comment on above: Performed By: #### C BC #### [facility] [address] [place] [address] Dr. Sabrina Reagan Platelet mean volume (Bld) [Entitic vol] 11.0 fL Normal 9.5-13.5 [facility] Comment on above: Performed By: #### C BC #### [facility] [address] [place] [address] [address] Sabrina Reagan PLT 175 103/ul Normal 150-450 [facility] Comment on above: Performed By: #### C BC #### [facility] [address], [place] [address] Dr. Sabrina Reagan RBC 3.56 106/ul Critically low 4.20-5.40 [facility] Comment on above: Performed By: #### C BC #### [facility] [address], [place] [address] Dr. Sabrina Reagan WBC 8.2 103/ul Normal 4.0-11.0 [facility] Comment on above: Performed By: #### C BC #### [facility] [address], [place] [address] ABD/PELVIS WO CONon [...] JANIS TO Date: 2021-01-25 11:03 Normal [facility] CULTURE URINEon 01-25-2021 CULTURE URINE Culture Observations : No growth Normal [facility] Comment on above: Performed By: #### U RCX ####[facility] [address] [place], [place] [address]Me. Sabrina Reagan Covid-19 PCR (CVDTB)on 12-30 SARS-CoV-2 (COVID-19) RNA SHARON+probe Ql (Unsp spec) Detected Critically abnormal NOT DETECTED [facility] Comment on above: Result Comment: This test is not yet approved or cleared by the [place] FDA. When there are no FDA-approved or cleared tests available, and other criteria are met, FDA can make tests available under an emergency access mechanism called an Emergency Use Authorization (EUA). The EUA for this test is supported by the Nuclear Physicist of Health and Human Service's declaration that [...] longer be used). Performed By: #### C VDTB ####[facility] [address] [place] [address]Dr. Sabrina FARIAS URINE PROFILEon 1 Bilirubin Ql (U) Negative Normal NEGATIVE [facility] Comment on above: Performed By: #### U MICRO, ERUR #### [facility] [address] [place] [address] [address] Sabrina Reagan Clarity (U) CLEAR Normal CLEAR [facility] Comment on above: Performed By: #### U MICRO, ERUR #### [facility] [address] [place] [address] [address] Sabrina Reagan Color (U) YELLOW Normal YELLOW [facility] Comment on above: Performed By: #### U MICRO, ERUR #### [facility] [address] [place] [address] Dr. Sabrina Reagan ERUAHD A micrscopic examination will be performed if indicated. Normal [facility] Comment on above: Performed By: #### U MICRO, ERUR #### [facility] [address] [place] [address] Dr. Sabrina Raegan Glucose Ql (U) Negative Normal NEGATIVE [facility] Comment on above: Performed By: #### U MICRO, ERUR #### [facility] [address] [place] [address] Dr. Sabrina Reagan Hemoglobin Ql (U) TRACE-INTACT Abnormal NEGATIVE [facility] Comment on above: Performed By: #### U MICRO, ERUR #### [facility] [address] [address] [address] Sabrina Reagan Ketones Ql (U) Negative Normal NEGATIVE [facility] Comment on above: Performed By: #### U MICRO, ERUR #### [facility] [address] [place] [address] [address] Sabrina Reagan LEUKOCYTES Negative Normal NEGATIVE [facility] Comment on above: Performed By: #### U MICRO, ERUR #### [facility] [address] [place] [address] Dr. Sabrina Reagan Nitrite Ql (U) Negative Normal NEGATIVE [facility] Comment on above: Performed By: #### U MICRO, ERUR #### [facility] [address] [address] [address] Sabrina Reagan pH (U) 5.0 [pH] Normal 5-9 [facility] Comment on above: Performed By: #### U MICRO, ERUR #### [facility] [address] [address] [address] Sabrina Reagan SPEC GRAVITY >=1.030 Abnormal 1.005-<=1.025 [facility] Comment on above: Performed By: #### U MICRO, ERUR #### [facility] [address] [place] [address] [address] Sabrina Reagan UA PROTEIN TRACE Normal NEGATIVE/ TRACE [facility] Comment on above: Performed By: #### U MICRO, ERUR #### [facility] [address] [place] [address] [address] Sabrina Reagan UR MICRO IND INDICATED Normal [facility] Comment on above: Performed By: #### U MICRO, ERUR #### [facility] [address] [address] [address] Sabrina Reagan Urobilinogen Qn (U) 0.2 {Kaycee'U}/dL Normal 0.2 - 1.0 [facility] Comment on above: Performed By: #### U MICRO, ERUR #### [facility] [address] [address] [address] Sabrina Reagan PROF 14(COMP METB)on 021 Albumin [Mass/Vol] 3.0 g/dL Critically low 3.5-5.0 [facility] [place] Comment on above: Performed By: #### C MP ####[facility] [address] [place] [address]Dr. Sabrina Reagan Albumin/Globulin [Mass ratio] 0.7 {ratio} Normal [facility] Comment on above: Performed By: #### C MP ####[facility] [address] [place] [address]Dr. Sabrina Reagan ALP [Catalytic activity/Vol] 66 U/L Normal 38-126 [facility] Comment on above: Performed By: #### C MP ####[facility] [address] [place] [id number]. Sabrina Reagan ALT [Catalytic activity/Vol] 31 U/L Normal 9-52 [facility] Comment on above: Performed By: #### C MP ####[facility] [address] [place] [id number]. Sabrina Reagan Anion gap [Moles/Vol] 13.5 mmol/L Normal [facility] Comment on above: Performed By: #### C MP ####[facility] [address] [place] [id number]. Sabrina Reagan AST [Catalytic activity/Vol] 28 U/L Normal 14-36 [facility] Comment on above: Performed By: #### C MP ####[facility] [address] [place], [place] [address]Dr. Sabrina Reagan Bilirubin [Mass/Vol] 0.3 mg/dL Normal 0.2-1.3 [facility] Comment on above: Performed By: #### C MP ####[facility] [address] [place] [address]Dr. Sabrina Reagan Calcium [Mass/Vol] 8.6 mg/dL Normal 8.4-10.2 [facility] Comment on above: Performed By: #### C MP ####[facility] [address] [place] [id number]. Sabrina Reagan Chloride [Moles/Vol] 99 mmol/L Normal 98-107 [facility] Comment on above: Performed By: #### C MP ####[facility] [address] [place] [id number]. Sabrina Reagan CO2 [Moles/Vol] 26.7 mmol/L Normal 22.0-30.0 [facility] Comment on above: Performed By: #### C MP ####[facility] [address] [place] [id number]. Sabrina Tez Creatinine [Mass/Vol] 1.64 mg/dL Critically high 0.52-1.04 [facility] Comment on above: Performed By: #### C MP ####[facility] [address] [place] [address]Dr. Sabrina Reagan EGFR-AF MOSOTHO 37 mL/min/1.73m2 Critically low >=60 [facility] Comment on above: Performed By: #### C MP ####[facility] [address] [place] [address]Dr. Sabrina Reagan EGFR-NON AF MOSOTHO 30 mL/min/1.73m2 Critically low >=60 [facility] Comment on above: Performed By: #### C MP ####[facility] [address] [place] [id number]. Sabrina Tez Globulin (S) [Mass/Vol] 4.5 g/dL Normal [facility] Comment on above: Performed By: #### C MP ####[facility] [address] [place] [address]Dr. Sabrina Tez Glucose [Mass/Vol] 133 mg/dL Critically high 74-[address] [facility] Comment on above: Performed By: #### C MP ####[facility] [address] [place] [id number]. Sabrina Tez Potassium [Moles/Vol] 4.2 mmol/L Normal 3.4-5.0 [facility] Comment on above: Performed By: #### C MP ####[facility] [address] [place] [id number]. Sabrina Tez Protein [Mass/Vol] 7.5 g/dL Normal 6.1-8.2 [facility] Comment on above: Performed By: #### C MP ####[facility] [address] [place] [id number]. Sabrina Reagan Sodium [Moles/Vol] 135 mmol/L Critically low 137-145 [facility] [place] Comment on above: Performed By: #### C MP ####[facility] [address] [place] [id number]. Sabrina Tez Urea nitrogen [Mass/Vol] 51.0 mg/dL Critically high 7.0-17.0 [facility] Comment on above: Performed By: #### C MP ####[facility] [address] [place] [address]Dr. Sabrina Reagan Urea nitrogen/Creatinin e [Mass ratio] 31.1 mg/mg Normal [facility] Comment on above: Performed By: #### C MP ####[facility] [address] [place] [address]Dr. Sabrina Reagan URINE MICROSCOPIC ONLYon AMORPHOUS CRYSTALS MODERATE Normal [facility] Comment on above: Performed By: #### U MICRO, ERUR #### [facility] [address] [address] [address] Sabrina Reagan BACTERIA SMALL Abnormal NONE SEEN [facility] Comment on above: Performed By: #### U MICRO, ERUR #### [facility] [address] [address] [address] Sabrina Reagan Bacteria identified Cx Nom (U) INDICATED Normal [facility] Comment on above: Performed By: #### U MICRO, ERUR #### [facility] [address] [address] [address] Sabrina Reagan CAST NONE SEEN Normal NONE SEEN [facility] Comment on above: Performed By: #### U MICRO, ERUR #### [facility] [address] [address] [address] Sabrina Reagan Crystals LM Nom (Urine sed) SEEN Abnormal NONE SEEN [facility] Comment on above: Performed By: #### U MICRO, ERUR #### [facility] [address] [address] [address] Sabrina Reagan Epithelial cells LM Ql (Urine sed) MODERATE Abnormal NONE SEEN /RARE [facility] Comment on above: Performed By: #### U MICRO, ERUR #### [facility] [address] [address] [address] Sabrina Reagan MUCOUS MODERATE Abnormal NONE SEEN [facility] Comment on above: Performed By: #### U MICRO, ERUR #### [facility] [address] [address] [address] Sabrina Reagan RBC 0-2 Normal 0-2 [facility] Comment on above: Performed By: #### U MICRO, ERUR #### [facility] [address], [place] [address] Dr[address] Sabrina Reagan WBC 0-2 Abnormal NONE SEEN [facility] Comment on above: Performed By: #### U MICRO, ERUR #### [facility] [address], [place] [address] Dr. Sabrina Reagan Vital Signs Date Time Vital Sign Value Performing Clinician Facility 10-22-2024 14:27-0400 Body height 147.5 cm Moises Camara MD Work Phone: [phone])[phone] [place] [address] 10-22-2024 14:27-0400 Body mass index (BMI) [Ratio] 50.9 kg/m2 Moises Camara MD Work Phone: [phone] [address] 10-22-2024 14:27-0400 Body weight 110.8 kg Moises Camara MD Work Phone: [phone](029)[phone] [address] 10-22-2024 14:27-0400 Diastolic blood pressure 83 mm[Hg] Moises Camara MD Work Phone: [phone] [place] [address] 10-22-2024 14:27-0400 Heart rate 77 /min Moises Camara MD Work Phone: [facility] 10-22-2024 14:27-0400 Respiratory rate 18 /min Moises Camara MD Work Phone: [facility] 10-22-2024 14:27-0400 Systolic blood pressure 129 mm[Hg] Moises Camara MD Work Phone: [facility] 08-13-2024 10:50-0400 Body height 147.5 cm Moises Camara MD Work Phone: [phone] [place] [address] 08-13-2024 10:50-0400 Body mass index (BMI) [Ratio] 51.7 kg/m2 Moises Camara MD Work Phone: [phone] [address] 08-13-2024 10:50-0400 Body weight 112.7 kg Moises Camara MD Work Phone: [facility] 08-13-2024 10:50-0400 Diastolic blood pressure 82 mm[Hg] Moises Camara MD Work Phone: [facility] 08-13-2024 10:50-0400 Heart rate 67 /min Moises Camara MD Work Phone: [facility] 08-13-2024 10:50-0400 Respiratory rate 18 /min Moises Camara MD Work Phone: [facility] 08-13-2024 10:50-0400 Systolic blood pressure 127 mm[Hg] Moises Camara MD Work Phone: [facility] 06-18-2024 13:08-0400 Body height 149.86 cm [facility] 06-18-2024 13:08-0400 Body mass index (BMI) [Ratio] 51 kg/m2 [facility] 06-18-2024 13:08-0400 Body weight 114.47 kg [facility] 06-18-2024 13:08-0400 Diastolic blood pressure 73 mm[Hg] [facility] 06-18-2024 13:08-0400 Heart rate 68 /min [facility] 06-18-2024 13:08-0400 Respiratory rate 12 /min [facility] 06-18-2024 13:08-0400 SaO2% (BldA) [Mass fraction] 98 % [facility] 06-18-2024 13:08-0400 Systolic blood pressure 130 mm[Hg] [facility] 05-28-2024 14:07-0400 Body height 154.9 cm Lauren Keitholl [employer] Work Phone: [facility] 05-28-2024 14:07-0400 Body mass index (BMI) [Ratio] 47.05 kg/m2 Lauren Arreola [employer] Work Phone: [facility] 05-28-2024 14:07-0400 Body weight 112.95 kg Lauren Keitholl [employer] Work Phone: [facility] 05-28-2024 14:07-0400 Diastolic blood pressure 80 mm[Hg] Lauren Arreola [employer] Work Phone: [facility] 05-28-2024 14:07-0400 Systolic blood pressure 128 mm[Hg] Lauren Arreola [employer] Work Phone: [facility] 03-03-2024 13:46-0500 Body height 149.86 cm [facility] 03-03-2024 13:46-0500 Body mass index (BMI) [Ratio] 50.5 kg/m2 [facility] 03-03-2024 13:46-0500 Body temperature 96.6 [degF] [facility] 03-03-2024 13:46-0500 Body weight 113.39 kg [facility] 03-03-2024 13:46-0500 Diastolic blood pressure 76 mm[Hg] [facility] 03-03-2024 13:46-0500 Heart rate 70 /min [facility] 03-03-2024 13:46-0500 Respiratory rate 18 /min [facility] 03-03-2024 13:46-0500 SaO2% (BldA) [Mass fraction] 97 % [facility] 03-03-2024 13:46-0500 Systolic blood pressure 121 mm[Hg] [facility] 02-09-2024 09:28-0500 Blood Pressure Location KANDI BERMEO [facility] 02-09-2024 09:28-0500 Diastolic blood pressure 84 mm[Hg] KANDI BERMEO [facility] 02-09-2024 09:28-0500 Heart rate 76 /min KANDI BERMEO [facility] 02-09-2024 09:28-0500 Systolic blood pressure 126 mm[Hg] KANDI BERMEO [facility] 12-14-2023 14:56-0400 Body mass index (BMI) [Ratio] 46.46 kg/m2 Albino Michaels ELECTROTYPE CASTER Work Phone: [facility] 12-14-2023 14:56-0400 Body weight 115.21 kg Albino Michaels ELECTROTYPE CASTER Work Phone: [facility] 12-14-2023 14:56-0400 Diastolic blood pressure 80 mm[Hg] Albino Michaels ELECTROTYPE CASTER Work Phone: [facility] 12-14-2023 14:56-0400 Heart rate 67 /min Albino Michaels ELECTROTYPE CASTER Work Phone: [facility] 12-14-2023 14:56-0400 Systolic blood pressure 132 mm[Hg] Albino Michaels ELECTROTYPE CASTER Work Phone: [facility] 11-04-2023 10:28-0400 Diastolic blood pressure 81 mm[Hg] Morgan Medina MD Work Phone: [facility] 11-04-2023 10:28-0400 Systolic blood pressure 138 mm[Hg] Morgan Medina MD Work Phone: [facility] 11-04-2023 10:05-0400 Body height 154.9 cm Morgan Medina MD Work Phone: [facility] 11-04-2023 10:05-0400 Body mass index (BMI) [Ratio] 47.61 kg/m2 Morgan Medina MD Work Phone: [facility] 11-04-2023 10:05-0400 Body weight 114.31 kg Morgan Medina MD Work Phone: [facility] 11-04-2023 10:05-0400 Heart rate 65 /min Morgan Medina MD Work Phone: [facility] 03-14-2023 09:30-0500 Body height 151.13 cm Moises Camara Other [facility] Other 03-14-2023 09:30-0500 Body mass index (BMI) [Ratio] 48.53 kg/m2 Moises Camara Other [facility] Other 03-14-2023 09:30-0500 Body weight 110.86 kg Moises Camara Other [facility] Other 03-14-2023 09:30-0500 Diastolic blood pressure 78 mm[Hg] Moises Camara Other [facility] Other 03-14-2023 09:30-0500 Systolic blood pressure 124 mm[Hg] Moises Camara Other [facility] Other 02-24-2023 10:30-0500 Body height 151.13 cm Moises Camara Other [facility] Other 02-24-2023 10:30-0500 Body temperature 96 [degF] Moises Camara Other [facility] Other 02-24-2023 10:30-0500 SaO2% (BldA) [Mass fraction] 94 % Moises Camara Other [facility] Other 02-01-2023 10:10-0500 Blood Pressure Location KANDI ELVIE [facility] 02-01-2023 10:10-0500 Diastolic blood pressure 82 mm[Hg] KANDI ELVIE [facility] 02-01-2023 10:10-0500 Heart rate 69 /min KANDI ELVIE [facility] 02-01-2023 10:10-0500 Respiratory rate 16 /min KANDI ELVIE [facility] 02-01-2023 10:10-0500 Systolic blood pressure 134 mm[Hg] KANDI BERMEO [facility] 11-05-2022 09:53-0400 Body height 154.94 cm Moises Camara Work Phone: [facility] DO Work Phone: 11-05-2022 09:53-0400 Body mass index (BMI) [Ratio] 47.62 kg/m2 Moises Camara Work Phone: [facility] [facility] DO Work Phone: 11-05-2022 09:53-0400 Body surface area Derived from formula 2.08 m2 Moises Camara Work Phone: [facility] DO Work Phone: 11-05-2022 09:53-0400 Body weight 114.31 kg Moises Camara Work Phone: [facility] DO Work Phone: 11-05-2022 09:53-0400 Diastolic blood pressure 78 mm[Hg] Moises Camara Work Phone: [facility] DO Work Phone: 11-05-2022 09:53-0400 Heart rate 64 /min Moises Camara Work Phone: [facility] DO Work Phone: 11-05-2022 09:53-0400 Systolic blood pressure 126 mm[Hg] Moises Camara Work Phone: [facility] DO Work Phone: 03-26-2022 11:12-0500 Body height 154.94 cm Moises Camara Work Phone: [facility] [facility] DO Work Phone: 03-26-2022 11:12-0500 Body mass index (BMI) [Ratio] 46.67 kg/m2 Moises Camara Work Phone: [facility] DO Work Phone: 03-26-2022 11:12-0500 Body surface area Derived from formula 2.07 m2 Moises Camara Work Phone: [facility] DO Work Phone: 03-26-2022 11:12-0500 Body weight 112.04 kg Moises Camara Work Phone: [facility] [facility] DO Work Phone: 03-26-2022 11:12-0500 Diastolic blood pressure 78 mm[Hg] Moises Camara Work Phone: [facility] DO Work Phone: 03-26-2022 11:12-0500 Heart rate 69 /min Moises Camara Work Phone: [facility] [facility] DO Work Phone: 03-26-2022 11:12-0500 Systolic blood pressure 110 mm[Hg] Moises Camara Work Phone: [facility] DO Work Phone: 11-30-2021 14:41-0400 Blood Pressure Location Jonny SILVA [facility] 11-30-2021 14:41-0400 Diastolic blood pressure 72 mm[Hg] Jonny SILVA [facility] 11-30-2021 14:41-0400 Heart rate 74 /min Jonny SILVA [facility] 11-30-2021 14:41-0400 Respiratory rate 18 /min Jonny SILVA [facility] 11-30-2021 14:41-0400 Systolic blood pressure 124 mm[Hg] Jonny SILVA [facility] 03-31-2021 15:38-0500 Body height 154.94 cm Moises Camara Work Phone: [facility] [facility] DO Work Phone: 03-31-2021 15:38-0500 Body mass index (BMI) [Ratio] 43.46 kg/m2 Moises Camara Work Phone: [facility] DO Work Phone: 03-31-2021 15:38-0500 Body surface area Derived from formula 2 m2 Moises Camara Work Phone: [facility] [facility] DO Work Phone: 03-31-2021 15:38-0500 Body weight 104.33 kg Moises Camara Work Phone: [facility] [facility] DO Work Phone: 03-31-2021 15:38-0500 Diastolic blood pressure 72 mm[Hg] Moises Camara Work Phone: [facility] DO Work Phone: 03-31-2021 15:38-0500 Heart rate 83 /min Moises Camara Work Phone: [facility] [facility] DO Work Phone: 03-31-2021 15:38-0500 Systolic blood pressure 124 mm[Hg] Moises Camara Work Phone: [facility] DO Work Phone: Encounters Encounter Date Encounter Type Care Provider Facility Start: 01-15-2025 ambulatory Jennifer Valles Facility:[facility] [place] Start: 10-24-2024 End: 10-24-2024 ambulatory Moises Camara MD Work Phone: [facility] Work Phone: Start: 10-24-2024 End: 10-24-2024 Patient encounter procedure Scarlet Vega [facility] Work Phone: Start: 10-22-2024 End: 10-22-2024 ambulatory Moises Camara MD Work Phone: [facility] Work Phone: Start: 10-22-2024 End: 10-22-2024 Patient encounter procedure Kandi Mcdonald [facility] Work Phone: Start: 09-13-2024 End: 09-13-2024 ambulatory Moises Camara MD Work Phone: [facility] Work Phone: Start: 09-13-2024 End: 09-13-2024 Patient encounter procedure Scarlet Vega [facility] Work Phone: Start: 08-13-2024 End: 08-13-2024 Patient encounter procedure Kandi Mcdonald [facility] Work Phone: Start: 06-18-2024 Patient encounter procedure Moises Camara MD Work Phone: [facility] Start: 06-18-2024 End: 06-18-2024 ambulatory [facility] Work Phone: Start: 06-18-2024 End: 06-18-2024 Patient encounter procedure [facility] Physician [facility] Work Phone: Start: 05-28-[address] 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 Work Phone: [facility] [place] Start: 05-28-2024 End: 05-28-2024 Office outpatient visit 15 minutes Lauren Arreola [employer] CA[employer] Work Phone: [facility] [place] Comment on above: Essential tremor (Pr imary Dx); Family history of Parkinson's disease; Right hand weakness; Gait instability Start: 05-28-2024 End: 05-28-2024 ambulatory LAUREN ARREOLA Not Available Start: 03-03-2024 End: 03-03-2024 Departed Referred Moises Camara MD Work Phone: [facility] [place] Work Phone: Start: 03-03-2024 End: 03-03-2024 ambulatory Moises Camara MD Work Phone: [facility] Work Phone: Start: 03-03-2024 End: 03-03-2024 Patient encounter procedure [facility] Work Phone: Start: 02-09-2024 End: 02-09-2024 ambulatory KANDI BERMEO Facility: [place] Start: 02-09-2024 End: 02-09-2024 Patient encounter procedure KANDI BERMEO [facility] [place] Start: 12-14-2023 End: 12-14-2023 Office outpatient visit 15 minutes Albino Michaels ELECTROTYPE CASTER Work Phone: [facility] [address] Comment on above: Essential tremor (Pr imary Dx); Essential hypertension (CMS/HCC); Right hand weakness; Gait instability Start: 12-14-2023 End: 12-14-2023 ambulatory ALBINO MICHAELS Not Available Start: 12-14-2023 End: 12-14-2023 Bamboo flowsheet Albino Michaels ELECTROTYPE CASTER Work Phone: [facility] [place] [address] Start: 12-14-2023 End: 12-14-2023 Bamboo flowsheet Albino Michaels ELECTROTYPE CASTER Work Phone: [facility] [place] [facility] Start: 11-04-2023 End: 11-04-2023 ambulatory [facility] Start: 11-04-2023 End: 11-04-2023 Office outpatient visit 15 minutes Morgan Medina MD Work Phone: [facility] Comment on above: Sinus tachycardia (P rimary Dx); Primary hypertension; Essential tremor; BMI 45.0-49.9, adult (Multi); Never smoked tobacco; Lipid screening Start: 09-15-2023 End: 09-15-2023 ambulatory ALBINO MICHAELS Not Available Start: 07-26-2023 End: 07-26-2023 ambulatory ALBINO MICHAELS Not Available Start: 06-23-2023 End: 06-23-2023 ambulatory BUTCH GUERRA Not Available Start: 04-08-2023 End: 04-08-2023 ambulatory Moises Camara Other [facility] Other Start: 04-08-2023 Telephone encounter Moises Camara [facility] Start: 03-23-2023 End: 03-23-2023 ambulatory Moises Camara Other [facility] Other Start: 03-23-2023 Telephone encounter Moises Camara [facility] Start: 03-14-2023 End: 03-14-2023 ambulatory Moises Camara Other [facility] Other Start: 03-14-2023 Patient encounter procedure Moises Camara [facility] Start: 02-24-2023 End: 02-24-2023 ambulatory Moises Camara Other [facility] Other Start: 02-24-2023 Office outpatient vi sit 15 minutes Moises Camara [facility] Start: 02-23-2023 End: 02-23-2023 ambulatory Moises Camara Other [facility] Other Start: 02-23-2023 Telephone encounter Moises Camara [facility] Start: 02-01-2023 End: 02-01-2023 Patient encounter procedure KANDI BERMEO [facility] Start: 11-05-2022 Office outpatient vi sit 15 minutes Moises Camara Work Phone: [facility] [facility] DO Work Phone: Start: 11-05-[address] Morgan Medina Facility: Start: 07-27-2022 (Televisit) Televisit Moises Camara [facility] Start: 07-27-2022 End: 07-27-2022 ambulatory Moises Camara Other [employer] [facility] [employer] Other Start: 03-26-2022 Office outpatient vi sit 15 minutes Moises Camara Work Phone: [facility] DO Work Phone: Start: 03-26-[address] Morgan Medina Facility: Start: 11-30-2021 End: 11-30-2021 Patient encounter procedure Jonny Ayala RICARDO [facility] Start: 09-24-2021 End: 09-24-2021 ambulatory LUIS A ROSARIO Facility:[facility] Start: 07-20-2021 End: 07-20-[address] MOISES CAMARA Facility:[facility] Start: 04-22-2021 End: 04-23-[address] MOISES CAMARA Facility:[facility] Start: 03-31-2021 Office outpatient vi sit 15 minutes Moises Camara Work Phone: [facility] [facility] DO Work Phone: Start: 03-05-2021 End: 03-06-[address] JONNY SILVA Facility:[facility] Start: 01-26-2021 End: 01-26-2021 ambulatory LUIS A ROSARIO Facility:[facility] Start: 01-25-2021 End: 01-25-2021 ambulatory LUIS A ROSARIO Facility:[facility] Procedures Date Procedure Procedure Detail Performing Clinician Start: 11-04-2023 Ecg routine ecg w/least 12 lds w/i&r Morgan Medina MD Work Phone: Start: 09-25-2019 Cystoscopic removal of ureteric stent KANDI BERMEO Start: 08-16-2019 Extracorporeal shockwave lithotripsy of calculus of kidney KANDI BERMEO Start: 08-09-2019 Cystoscopic insertion of ureteric stent KANDI BERMEO Start: 12-11-2015 Cystoscopy Jonny SILVA Start: 10-10-2015 Cystoscopy Jonny SILVA Appendectomy Jonny SILVA section Moises Lou aun Work Phone: Cholecystectomy Moises waldron Work Phone: Cholecystectomy Jonny PINTO Colonoscopy Jonny SILVA History of cholecystectomy Hx of cholecys tectomy Moises Camara MD Work Phone: History of cholecystectomy Hx of cholecys tectomy Kandi Mcdonald DNP History of cholecystectomy Hx of cholecys tectomy Kandi Mcdonald DNP Kidney operation Moises Lou aun Work Phone: Screening for malign ant neoplasm of breast Moises Camara Other Total colonoscopy Moises garcia Work Phone: Plan of Treatment Date Care Activity Detail Author Start: 09-25-2031 DTaP/Tdap/Td Vaccine s (2 - Tdap) DTaP/Tdap/Td Vaccines (2 - Tdap) [facility] Start: 11-02-2024 End: 11-02-2024 Patient encounter procedure 11/02/2024 9:40 AM EDT Office Visit [facility] [address] [place] [id number] Morgan Medina MD [address] [place] [address] [facility] Start: 09-17-2024 End: 09-17-2024 Patient encounter procedure 09/17/2024 2:40 PM EDT Office Visit [facility] [address] [place] [phone] Lauren Arreola NP [address] [place] [phone] [facility] Start: 05-28-2024 End: 05-28-2024 Patient encounter procedure 05/28/2024 2:00 PM EDT Office Visit [facility] [address] [place] [phone] Lauren Arreola NP [address] [place] [phone] Arrived [facility] Comment on above: Arrived Start: 04-04-2024 End: 04-04-2024 Patient encounter procedure 04/04/2024 1:20 PM EST Office Visit [facility] [address] [place] [phone] Albino Michaels NP [address] [place] [address] [facility] [address] [address] Start: 03-03-2024 End: 03-03-[address] [facility] Start: 03-03-2024 Bacteria identified in Urine by Culture Urine Culture [facility] Start: 12-14-2023 End: 12-14-2023 Patient encounter procedure 12/14/2023 3:00 PM EDT Office Visit [facility] [address] [place] [phone] Albino Michaels, ELECTROTYPE CASTER [address] [facility] [place] [address] Arrived [facility] Comment on above: Arrived Start: 11-04-2023 End: 11-03-2024 Basic metabolic 2000 panel - Serum or Plasma Basic Metabolic Panel Lab Routine Sinus tachycardia Primary hypertension Expected: 11/04/2023 (Approximate), Expires: 11/03/2024 [facility] Work Phone: Comment on above: Expected: 11/04/2023 (Approximate), Expires: 11/03/2024 Start: 11-04-2023 End: 11-03-2024 Lipid 1996 panel - Serum or Plasma Lipid Panel Lab Routine Sinus tachycardia Primary hypertension Lipid screening Expected: 11/04/2023 (Approximate), Expires: 11/03/2024 [facility] Work Phone: Comment on above: Expected: 11/04/2023 (Approximate), Expires: 11/03/2024 Start: 11-04-2023 FUV, Provider: Morgan Medina, Status: Pen, Time: 9:50 AM FUV, Provider: Morgan Medina, Status: Pen, [facility]: 9:[address] [facility] Work Phone: Start: 10-30-2023 COVID-19 Vaccine ( season) COVID-19 Vaccine ( season) [facility] Start: 10-30-2023 Influenza vaccination Influenza Vacc ine (#1) [facility] Start: 11-05-2022 FUV, Provider: Morgan Medina, Status: Pen, Time: 9:40 AM FUV, Provider: Morgan Medina, Status: Pen, Time: 9:[address] [facility] Work Phone: Start: 09-30-2021 FUV, Provider: Morgan Medina, Status: Pen, Time: 2:10 PM FUV, Provider: Morgan Medina, Status: Pen, Time: 2:10 PM [facility] 250 DO Work Phone: Start: 2004 RSV patient s and/or patients aged 60+ years (1 - 1-dose 60+ series) RSV patients and/or patients aged 60+ years (1 - 1-dose 60+ series) [facility] Start: 1994 Zoster Vaccines (1 o f 2) Zoster Vaccines (1 of 2) [facility] Start: 1962 Hepatitis C screening Hepatitis C Sc reening [facility] Start: 1944 Lipid panel Lipid Panel [facility] Start: 1944 Medicare Annual Wellness Visit Medicare Annual Wellness Visit (AWV) [facility] Start: 1944 Screening for osteoporosis Bone Density Scan [facility] Start: 1944 Thyroid stimulating hormone measurement TSH Level [facility] XR Chest 2 Views [facility] Immunizations Immunization Date Immunization Notes Care Provider Fa cili 12-31-2023 influenza virus vaccine, unspecified formulation Lauren Arreola ELECTROTYPE CASTER Work Phone: [facility] 11-28-2021 influenza virus vaccine, unspecified formulation KANDI BERMEO [facility] 11-28-2021 influenza virus vaccine, whole virus Morgan Medina MD Work Phone: [facility] Work Phone: 11-28-2021 influenza, seasonal, injectable Moises Camara Work Phone: [facility] 250 DO Work Phone: Comment on above: Series: 09-24-2021 diphtheria, tetanus toxoids and pertussis vaccine Moises Camara Work Phone: [facility] 250 DO Work Phone: 05-07-2020 [place] COVID-19 Vaccine 0.5 ML Intramuscular Suspension Moises Camara Work Phone: [facility] Comment on above: Result Comment: 2022: [id number] 03-03-2020 pneumococcal conjuga te vaccine, 13 valent Albino Domenic HAWLEY Work Phone: [facility] 02-29-2020 SARS-CoV-2 (COVID-19 ) Ad26 vaccine, recombinant Jonny SILVA [facility] 11-29-2019 influenza virus vaccine, unspecified formulation Moises E Camara Work Phone: [facility] 11-23-2019 influenza, seasonal, injectable Moises E Camara Work Phone: [place] [address] DO Work Phone: 10-30-2019 influenza virus vaccine, unspecified formulation Jonny SILVA [facility] 11-23-2018 influenza virus vaccine, unspecified formulation KANDI ELVIE [facility] 11-23-2018 Influenza, injectabl e, Madin Edmond Canine Kidney, preservative free, quadrivalent Moises E Camara Work Phone: [place] [address] DO Work Phone: 12-21-2017 influenza virus vaccine, unspecified formulation KANDI ELVIE [facility] 12-21-2017 Influenza, injectabl e, Madin Jihan Canine Kidney, preservative free, quadrivalent Moises E Caamra Work Phone: [place] [address] DO Work Phone: 12-01-2016 influenza virus vaccine, unspecified formulation KANDI ELVIE [facility] 12-01-2016 influenza, injectabl e, quadrivalent, preservative free Moises E Camara Work Phone: [place] [address] DO Work Phone: 11-25-2014 influenza virus vaccine, unspecified formulation KANDI ELVIE [facility] 11-25-2014 influenza, seasonal, injectable, preservative free Moises E Camara Work Phone: [place] [address] DO Work Phone: 02-28-2014 pneumococcal polysaccharide vaccine, 23 valent Moises E Camara Work Phone: [facility] 12-01-2012 influenza virus vaccine, whole virus Moises E Camara Work Phone: [place] [address] DO Work Phone: 12-01-2012 influenza, whole KANDI PE RRY [facility] 12-15-2011 influenza virus vaccine, whole virus Moises E Cmaara Work Phone: [place] [address] DO Work Phone: 12-15-2011 influenza, whole KANDI PE RRY [facility] 11-30-2010 influenza virus vaccine, whole virus Moises E Camara Work Phone: [place] [address] DO Work Phone: 11-30-2010 influenza, whole KANDI PE RRY [facility] 12-29-2009 pneumococcal polysaccharide vaccine, 23 valent Moises E Camara Work Phone: [facility] 12-17-2009 influenza virus vaccine, whole virus Moises E Camara Work Phone: [facility] 250 DO Work Phone: 12-17-2009 influenza, whole KANDI PE RRY [facility] 12-18-2008 influenza virus vaccine, whole virus Moises Camara Work Phone: [facility] 250 DO Work Phone: 12-18-2008 influenza, whole KANDI PE RRY [facility] 12-28-2006 influenza virus vaccine, whole virus Moises Camara Work Phone: [facility] 250 DO Work Phone: 12-28-2006 influenza, whole KANDI PE RRY [facility] Payers Date Payer Category Payer Medicare (Managed Care) [facility] [id number] 2023 Unknown 2023 Unknown [id number] 1959 Medicare [id number] 1959 Unknown [id number] 1944 Unknown [id number] 2.16.840.1.366104.3.579. 2.593 1944 Unknown [id number] 2..840.1.428557.3.579. 2.593 1944 Unknown [id number] 2.16.840.1.463294.3.579. 2.593 1944 Unknown [id number] 2.16.840.1.624130.3.579. 2.593 1944 Unknown [id number] 2.16.840.1.508801.3.579. 2.593 1944 Unknown [id number] 2.16.840.1.075899.3.579. 2.593 1944 Unknown [id number] 2.16.840.1.555265.3.579. 2.356 1944 Unknown [id number] 2.16.840.1.388719.3.579. 2.356 1944 Unknown [id number] 2.16.840.1.634845.3.579. 2.1244 1944 Unknown [id number] 2.16.840.1.160531.3.579. 2.1259 1944 Unknown [id number] 2.16.840.1.797983.3.579. 2.1259 1944 Unknown [id number] 2.16.840.1.099474.3.579. 2.1259 1944 Unknown [id number] 2.16.840.1.913866.3.579. 2.1259 1944 Unknown [id number] 2.16.840.1.496692.3.579. 2.1259 1944 Unknown [id number] 2.16.840.1.956633.3.579. 2.727 1944 Unknown [id number] 2.16.840.1.262040.3.579. 2.727 Private Health Insurance [employer] [facility] M [id number] Private Health Insurance [employer] [facility] [id number] Social History Date Type Detail Facility Start: 09-15-2023 End: 05-28-2024 No illicit drug use No illicit drug use [facility] Start: 11-30-2021 End: 08-13-2024 Tobacco smoking status Never smoked tobacco (finding) [facility] Start: 09-15-2023 End: 05-28-2024 Sex Assigned At Female [facility] Tobacco smoking status Never [facility] Start: 05-18-2023 End: 06-23-2023 Tobacco use and exposure Smokeless tobacco non-user [facility] Work Phone: Start: 09-15-2023 End: 05-28-2024 Alcoholic beverage intake Lifetime non-drinker (finding) [facility] Work Phone: Start: 1945 [facility] Start: 10-25-2023 End: 11-04-2023 Exposure to SARS-CoV-2 (event) Not sure [facility] Start: 03-03-2024 End: 06-18-2024 Sex Female (finding) [facility] Start: 1945 Sex Assigned At Female F [facility] Medical Equipment Procedure Code Equipment Code Equipment Origin al Text Equipment Identifier Dates Blood Sugar Diagnostic (Onetouch Verio Test Strips) strip Start: 05-19-2023 Blood Sugar Diagnostic (Onetouch Verio Test Strips) strip Start: 05-19-2023 Blood Sugar Diagnostic (Advanced Gluc Meter Test Strip) strip Start: 06-18-2024 Blood Sugar Diagnostic (Onetouch Verio Test Strips) strip Start: 05-19-2023 Blood Sugar Diagnostic (Advanced Gluc Meter Test Strip) strip Start: 06-18-2024 Blood Sugar Diagnostic (Onetouch Verio Test Strips) strip Start: 05-19-2023 Lancets 30 gauge misc Start: 06-27-2024 Lancets misc Start: 06-26-2024 End: 06-27-2024 Blood Sugar Diagnostic (Advanced Gluc Meter Test Strip) strip Start: 06-18-2024 Blood Sugar Diagnostic (Onetouch Verio Test Strips) strip Start: 05-19-2023 Lancets 30 gauge misc Start: 06-27-2024 Lancets misc Start: 06-26-2024 End: 06-27-2024 Blood Sugar Diagnostic (Advanced Gluc Meter Test Strip) strip Start: 06-18-2024 Blood Sugar Diagnostic (Onetouch Verio Test Strips) strip Start: 05-19-2023 Lancets 30 gauge misc Start: 06-27-2024 Lancets misc Start: 06-26-2024 End: 06-27-2024 Functional Status Date Assessment Result Facility 02-09-2024 Functional Status N/A [facility] 02-01-2023 Functional Status N/A [facility] 11-30-2021 Functional Status N/A [facility] Clinical Notes 09-24-2021 to 08-13-2024 Note Date & Type Note Facility 08-13-2024 Evaluation note Diagnosis Onset Date Resolution Abnormal weight gain acute August 13, 2024 10:27am BMI 50.0-59.9, adult acute August 13, 2024 10:27am Class 3 severe obesity with body mass index (BMI) of 50.0 to 59.9 in adult acute August 13, 2024 10:27am Dietary surveillance and counseling acute August 13, 2024 10:27am Essential (primary) hypertension acute August 13, 2024 10:27am Essential tremor acute July 10:27am Exercise counseling acute August 13, 2024 10:27am History of kidney stones acute August 13, 2024 10:27am Hx of cholecystectomy acute Jul 10:27am Hyperlipidemia acute August 13, 2024 10:27am Hypothyroidism acute August 13, 2024 10:27am Type 2 diabetes mellitus with hyperglycemia acute August 13 10:27am Type II diabetes mellitus with nephropathy acute August 13, 2024 10:27am Abnormal weight gain acute 2024 1:17pm BMI 50.0-59.9, adult acute 2024 1:17pm Class 3 severe obesity with body mass index (BMI) of 50.0 to 59.9 in adult acute October 22 1:17pm Dietary surveillance and counseling acute October 22 1:17pm Essential (primary) hypertension acute October 22 1:17pm Essential tremor acute September 292024 1:17pm Exercise counseling acute 2024 1:17pm History of kidney stones acute October 22, 2024 1:17pm Hx of cholecystectomy acute Sep 1:17pm Hyperlipidemia acute September 1:17pm Hypothyroidism acute September 1:17pm Type 2 diabetes mellitus with hyperglycemia acute October 22, 2024 1:17pm Type II diabetes mellitus with nephropathy acute October 22 1:17pm [facility] Work Phone: 1(170) 102-786504-21-2025 Evaluation note* Diagnosis Onset Date Resolution Status Admit Date Class 3 severe obesity with body mass index (BMI) of 50.0 to 59.9 in adult acute June 18, 2024 1:04pm Hypothyroidism acute May 1:04pm Medicare annual wellness vis it, subsequent acute June 18, 2024 1:04pm Right-sided chest pain acute Ap 2024 1:04pm Type 2 diabetes mellitus wit h hyperglycemia acute June 18, 2024 1:04pm Abnormal weight gain acute August 13, 2024 10:27am BMI 50.0-59.9, adult acute August 13, 2024 10:27am Class 3 severe obesity with body mass index (BMI) of 50.0 to 59.9 in adult acute August 13, 2024 10:27am Dietary surveillance and counseling acute August 13, 2024 10:27am Essential (primary) hypertension acu te August 13, 2024 10:27am Essential tremor acute July 10:27am Exercise counseling acute August 13, 2024 10:27am History of kidney stones acute August 13, 2024 10:27am Hx of cholecystectomy acute Jul5 10:27am Hyperlipidemia acute August 13, 2024 10:27am Hypothyroidism acute August 13, 2024 10:27am Type 2 diabetes mellitus wit h hyperglycemia acute August 13, 2024 10:27am Type II diabetes mellitus wi th nephropathy acute August 13, 2024 10:27am [facility] Work Phone: 1([phone]) 723-243401-04-2025 Evaluation note* Diagnosis Onset Date Resolution Status Admit Date Acute UTI acute March 03 1:17pm [facility] Work Phone: 1(210) 745-670712-12-2024 Hospital Discharge instructions Patient Education 02/09/2024 10:16:37 Overactive Bladder, Adult Overactive Bladder, Adult Overactive bladder is a condition in which a person has a sudden and frequent need to urinate. A person might also leak urine if he or she cannot get to the bathroom fast enough (urinary incontinence). Sometimes, symptoms can interfere with work or social activities. What are the causes? Overactive bladder is associated with poor nerve signals between your bladder and your brain. Your bladder may get the signal to empty before it is full. You may also have very sensitive muscles thatmake your bladder squeeze too soon. This condition may also be caused by other factors, such as: Medical conditions: ?Urinary tract infection. ?Infection of nearby tissues. ?Prostate enlargement. ?Bladder stones, inflammation, or tumors. ?Diabetes. ?Muscle or nerve weakness, especially from these conditions: ?A spinal cord injury. ?Stroke. ?Multiple sclerosis. ?Parkinson's disease. Other causes: ?Surgery on the uterus or urethra. ?Drinking too much caffeine or alcohol. ?Certain medicines, especially those that eliminate extra fluid in the body (diuretics). ?Constipation. What increases the risk? You may be at greater risk for overactive bladder if you: Are an older adult. Smoke. Are going through menopause. Have prostate problems. Have a neurological disease, such as stroke, dementia, Parkinson's disease, or multiple sclerosis (MS). Eat or drink alcohol, spicy food, caffeine, and other things that irritate the bladder. Are overweight or obese. What are the signs or symptoms? Symptoms of this condition include a sudden, strong urge to urinate. Other symptoms include: Leaking urine. Urinating 8 or more times a day. Waking up to urinate 2 or more times overnight. How is this diagnosed? This condition may be diagnosed based on: Your symptoms and medical history. A physical exam. Blood or urine tests to check for possible causes, such as infection. You may also need to see a health care provider who specializes in urinary tract problems. This is called a urologist. How is this treated? Treatment for overactive bladder depends on the cause of your condition and whether it is mild or severe. Treatment may include: Bladder training, such as: ?Learning to control the urge to urinate by following a schedule to urinate at regular intervals. ?Doing Kegel exercises to strengthen the pelvic floor muscles that support your bladder. Special devices, such as: ?Biofeedback. This uses sensors to help you become aware of your body's signals. ?Electrical stimulation. This uses electrodes placed inside the body (implanted) or outside the body. These electrodes send gentle pulses of electricity to strengthen the nerves or muscles that control the bladder. ?Women may use a plastic device, called a pessary, that fits into the vagina and supports the bladder. Medicines, such as: ?Antibiotics to treat bladder infection. ?Antispasmodics to stop the bladder from releasing urine at the wrong time. ?Tricyclic antidepressants to relax bladder muscles. ?Injections of botulinum toxin type A directly into the bladder tissue to relax bladder muscles. Surgery, such as: ?A device may be implanted to help manage the nerve signals that control urination. ?An electrode may be implanted to stimulate electrical signals in the bladder. ?A procedure may be done to change the shape of the bladder. This is done only in very severe cases. Follow these instructions at home: Eating and drinking Make diet or lifestyle changes recommended by your health care provider. These may include: ?Drinking fluids throughout the day and not only with meals. ?Cutting down on caffeine or alcohol. ?Eating a healthy and balanced diet to prevent constipation. This may include: ?Choosing foods that are high in fiber, such as beans, whole grains, and fresh fruits and vegetables. ?Limiting foods that are high in fat and processed sugars, such as fried and sweet foods. Lifestyle Lose weight if needed. Do not use any products that contain nicotine or tobacco. These include cigarettes, chewing tobacco, and vaping devices, such as e-cigarettes. If you need help quitting, ask your health care provider. General instructions Take vkui-pyr-aicaxqp and prescription medicines only as told by your health care provider. If you were prescribed an antibiotic medicine, take it as told by your health care provider. Do notstop taking the antibiotic even if you start to feel better. Use any implants or pessary as told by your health care provider. If needed, wear pads to absorb urine leakage. Keep a log to track how much and when you drink, and when you need to urinate. This will help your health care provider monitor your condition. Keep all follow-up visits. This is important. Contact a health care provider if: You have a fever or chills. Your symptoms do not get better with treatment. Your pain and discomfort get worse. You have more frequent urges to urinate. Get help right away if: You are not able to control your bladder. Summary Overactive bladder refers to a condition in which a person has a sudden and frequent need to urinate. Several conditions may lead to an overactive bladder. Treatment for overactive bladder depends on the cause and severity of your condition. Making lifestyle changes, doing Kegel exercises, keeping a log, and taking medicines can help with this condition. This information is not intended to replace advice given to you by your health care provider. Make sure you discuss any questions you have with your health care provider. Document Revised: 11/03/2020 Document Reviewed: 11/03/2020 [employer] Patient Education 2023 [employer]. 02/09/2024 10:16:36 Kidney Stones, [id number]-jk-Whvt Kidney Stones Kidney stones are rock-like masses [...] pee. The stone usually leaves your body through your pee. A doctor may need to take out the stone. What are the causes? Kidney stones may be caused by: Too much calcium in the body. This may be caused by too much parathyroid hormone in the blood. Uric acid crystals in the bladder. The body makes uric acid when you eat certain foods. Narrowing of one or both of the ureters. A kidney blockage that you were born with. Past surgery on the kidney or the ureters. What increases the risk? You are more likely to develop this condition if: You have had a kidney stone in the past. Other people in your family have had kidney stones. You do not drink enough water. You eat a diet that is high in protein, salt (sodium), or sugar. You are very overweight (obese). What are the signs or symptoms? Symptoms of a kidney stone may include: Pain in the side of the belly, right below the ribs. Pain usually spreads to the groin. Needing to pee often or right away. Pain when peeing. Blood in your pee. Feeling like you may vomit (nauseous). Vomiting. Fever and chills. How is this treated? Treatment depends on the size, location, and makeup of the kidney stones. The stones will often pass out of the body when you pee. You may need to: Drink more fluid to help pass the stone. ?In some cases, you may be given fluids through an IV tube at the hospital. Take medicine for pain. Change your diet to help keep kidney stones from coming back. Sometimes, you may need: A procedure to break up kidney stones using a beam of light (laser) or shock waves. Surgery to remove the kidney stones. Follow these instructions at home: Medicines Take jvrj-rji-hdfxfqn and prescription medicines only as told by your doctor. Ask your doctor if the medicine prescribed to you requires you to avoid driving or using machinery. Eating and drinking Drink enough fluid to keep your pee pale yellow. ?You may be told to drink at least 8 10 glasses of water each day. This will help you pass the stone. If told by your doctor, change your diet. You may be told to: ?Limit how much salt you eat. ?Eat more fruits and vegetables. ?Limit how much meat, poultry, fish, and eggs you eat. Follow instructions from your doctor about what you may eat and drink. General instructions Collect pee samples as told by your doctor. You may need to collect a pee sample: ?24 hours after a stone comes out. ?8 12 weeks after a stone comes out, and every 6 12 months after that. Strain your pee every time you pee. Use the strainer that your doctor recommends. Do not throw out the stone. Keep it so that it can be tested by your doctor. Keep all follow-up visits. You may need X-rays and ultrasounds to make sure the stone has come out. How is this prevented? To prevent another kidney stone: Drink enough fluid to keep your pee pale yellow. This is the best way to prevent kidney stones. Eat healthy foods. Avoid certain foods as told by your doctor. You may be told to eat less protein. Stay at a healthy weight. Where to find more information National Kidney Foundation (NKF): kidney.org [facility] (UCF): urologyhealth.org Contact a doctor if: You have pain that gets worse or does not get better with medicine. Get help right away if: You have a fever or chills. You get very bad pain. You get new pain in your belly. You faint. You cannot pee. This information is not intended to replace advice given to you by your health care provider. Make sure you discuss any questions you have with your health care provider. Document Revised: 10/08/2022 Document Reviewed: 10/08/2022 [employer] Patient Education 2023 [employer]. Follow Up Care 02/01/2023 10:54:02 With:ELVIE CRAIG, KANDI Doss, URL Address: [address] [place] [address] [place] [address] When: Unknown [facility] 12-12-2024 NotePatient Education Obstetrics and Gynecology Overactive Bladder, Adult Overactive bladder is a condition in which a person has a sudden and frequent need to urinate. A person might also leak urine if he or she cannot get to the bathroom fast enough (urinary incontinence). Sometimes, symptoms can interfere with work or social activities. What are the causes? Overactive bladder is associated with poor nerve signals between your bladder and your brain. Your bladder may get the signal to empty before it is full. You may also have very sensitive muscles thatmake your bladder squeeze too soon. This condition may also be caused by other factors, such as: ??? Medical conditions: ? Urinary tract infection. ? Infection of nearby tissues. ? Prostate enlargement. ? Bladder stones, inflammation, or tumors. ? Diabetes. ? Muscle or nerve weakness, especially from these conditions: ? A spinal cord injury. ? Stroke. ? Multiple sclerosis. ? Parkinson's disease. ??? Other causes: ? Surgery on the uterus or urethra. ? Drinking too much caffeine or alcohol. ? Certain medicines, especially those that eliminate extra fluid in the body (diuretics). ? Constipation. What increases the risk? You may be at greater risk for overactive bladder if you: ??? Are an older adult. ??? Smoke. ??? Are going through menopause. ??? Have prostate problems. ??? Have a neurological disease, such as stroke, dementia, Parkinson's disease, or multiple sclerosis (MS). ??? Eat or drink alcohol, spicy food, caffeine, and other things that irritate the bladder. ??? Are overweight or obese. What are the signs or symptoms? Symptoms of this condition include a sudden, strong urge to urinate. Other symptoms include: ??? Leaking urine. ??? Urinating 8 or more times a day. ??? Waking up to urinate 2 or more times overnight. How is this diagnosed? This condition may be diagnosed based on: ??? Your symptoms and medical history. ??? A physical exam. ??? Blood or urine tests to check for possible causes, such as infection. You may also need to see a health care provider who specializes in urinary tract problems. This is called a urologist. How is this treated? Treatment for overactive bladder depends on the cause of your condition and whether it is mild or severe. Treatment may include: ??? Bladder training, such as: ? Learning to control the urge to urinate by following a schedule to urinate at regular intervals. ? Doing Kegel exercises to strengthen the pelvic floor muscles that support your bladder. ??? Special devices, such as: ? Biofeedback. This uses sensors to help you become aware of your body's signals. ? Electrical stimulation. This uses electrodes placed inside the body (implanted) or outside the body. These electrodes send gentle pulses of electricity to strengthen the nerves or muscles that control the bladder. ? Women may use a plastic device, called a pessary, that fits into the vagina and supports the bladder. ??? Medicines, such as: ? Antibiotics to treat bladder infection. ? Antispasmodics to stop the bladder from releasing urine at the wrong time. ? Tricyclic antidepressants to relax bladder muscles. ? Injections of botulinum toxin type A directly into the bladder tissue to relax bladder muscles. ??? Surgery, such as: ? A device may be implanted to help manage the nerve signals that control urination. ? An electrode may be implanted to stimulate electrical signals in the bladder. ? A procedure may be done to change the shape of the bladder. This is done only in very severe cases. Follow these instructions at home: Eating and drinking ??? Make diet or lifestyle changes recommended by your health care provider. These may include: ? Drinking fluids throughout the day and not only with meals. ? Cutting down on caffeine or alcohol. ? Eating a healthy and balanced diet to prevent constipation. This may include: ? Choosing foods that are high in fiber, such as beans, whole grains, and fresh fruits and vegetables. ? Limiting foods that are high in fat and processed sugars, such as fried and sweet foods. Lifestyle ??? Lose weight if needed. ??? Do not use any products that contain nicotine or tobacco. These include cigarettes, chewing tobacco, and vaping devices, such as e-cigarettes. If you need help quitting, ask your health care provider. General instructions ??? Take uvce-jrc-yzaruhf and prescription medicines only as told by your health care provider. ??? If you were prescribed an antibiotic medicine, take it as told by your health care provider. Donot stop taking the antibiotic even if you start to feel better. ??? Use any implants or pessary as told by your health care provider. ??? If needed, wear pads to absorb urine leakage. ??? Keep a log to track how much and when you drink, and whe (more content not included)...[facility]09-06-2024 History of Present illness Narrative* Morgan Medina MD - 11/04/2023 9:50 AM EDT Subjective Phyllis French is a 77 y.o. female Chief Complaint Annual Exam HPI Patient is here for follow-up continue management for previous evaluation for resting sinus tachycardia attributed to vasodilator effect of antihypertensive medication. This improved with adjustment of her antihypertensive medication and the addition of low-dose beta-sunita. Since last time I saw her she has mid to limited exercise tolerance. She denies complaint of chest pain, palpitation, lightheadedness, dizziness or syncope. She has not been successful in losing any meaningful weight. Assessment 1. Mild resting tachycardia clearly due to vasodilator effect of lisinopril and anticholinergic effect of imipramine this has improved with metoprolol. 2. Hypertension controlled 3. Morbid obesity with no significant weight changes 4. Essential tremor 5. Hypothyroidism on treatment 6. Increased risk of fall Plan 1. I advised the patient to continue present medical regimen 2. I advised her to repeat her lab work 3. I counseled her regarding losing weight and exercise 4. I advised her to notify me with any change in cardiac status or symptoms 5. We will see her back in 1 year 6. Fall 7. I advised her to see the weight loss clinic Review of Systems All other systems reviewed and are negative. Vitals: 11/04/23 1005 11/04/23 1028 BP: 146/88 138/81 BP Location: Left arm Patient Position: Sitting Pulse: 65 Weight: 114 kg (252 lb) Height: 1.549 m (5' 1 ) EKG done in office today Objective Physical Exam Constitutional: Appearance: Normal appearance. HENT: Nose: Nose normal. Neck: Vascular: No carotid bruit. Cardiovascular: Rate and Rhythm: Normal rate. Pulses: Normal pulses. Heart sounds: Normal heart sounds. Pulmonary: Effort: Pulmonary effort is normal. Abdominal: General: Bowel sounds are normal. Palpations: Abdomen is soft. Musculoskeletal: General: Normal range of motion. Cervical back: Normal range of motion. Right lower leg: No edema. Left lower leg: No edema. Skin: General: Skin is warm and dry. Neurological: General: No focal deficit present. Mental Status: She is alert. Psychiatric: Mood and Affect: Mood normal. Behavior: Behavior normal. Thought Content: Thought content normal. Judgment: Judgment normal. Allergies Penicillins and Tyczrem-ggi-yzu reductase inhibitors Current Medications Current Outpatient Medications: cholecalciferol (D3-2000) 50 mcg (2,000 unit) capsule, Take 1 capsule (50 mcg) by mouth once daily., Disp: , Rfl: Effer-K 20 mEq tablet, effervescent, Take 1 tablet by mouth 2 times a day., Disp: , Rfl: levothyroxine (Synthroid, Levoxyl) 150 mcg tablet, Take 1 tablet (150 mcg) by mouth early in the morning.., Disp: , Rfl: lisinopril 5 mg tablet, Take 1 tablet (5 mg) by mouth once daily., Disp: , Rfl: metFORMIN XR 500 mg 24 hr tablet, Take 1 tablet (500 mg) by mouth once daily., Disp: , Rfl: metoprolol tartrate (Lopressor) 50 mg tablet, Take 1 tablet by mouth 2 times a day., Disp: , Rfl: oxybutynin XL (Ditropan-XL) 15 mg 24 hr tablet, Take 1 tablet (15 mg) by mouth once daily. Do not crush, chew, or split., Disp: , Rfl: primidone (Mysoline) 50 mg tablet, Take 1 tablet (50 mg) by mouth 2 times a day., Disp: , Rfl: Assessment/Plan 1. Sinus tachycardia 2. Primary hypertension 3. Essential tremor 4. BMI 45.0-49.9, adult (Multi) 5. Never smoked tobacco 6. Lipid screening Scribe Attestation By signing my name below, IJeaneth LPN, Scribe attest that this documentation has been prepared under the direction and in the presence of MD Addison. Provider Attestation - Scribe documentation All medical record entries made by the Scribe were at my direction and personally dictated by me. Ihave reviewed the chart and agree that the record accurately reflects my personal performance of the history, physical exam, discussion and plan. documented in this [facility] Work Phone: 1(758) 808-215809-06-2024 Instructions* Patient Instructions* Jeaneth Darden LPN - 11/04/2023 9:50 AM EDT Please bring all medicines, vitamins, and herbal supplements with you when you come to the office. Prescriptions will not be filled unless you are compliant with your follow up appointments or have a follow up appointment scheduled as per instruction of your physician. Refills should be requested at the time of your visit. BMI was above normal measurement. Current weight: 114 kg (252 lb) Weight change since last visit (-) denotes wt loss 0 lbs Weight loss needed to achieve BMI 25: 120 Lbs Weight loss needed to achieve BMI 30: 93.6 Lbs Provided instructions on dietary changes. [facility] Phone: 1(450) 152-289901-15-2024 Evaluation note* Encounter Date Diagnosis Assessment Notes Treatment Notes Treatment Clinical Notes Feb, Medicare annual wellness visit, subsequent [...] D64.9) assess anemia with history of fatigue. [facility] Other 12-28-2023 Evaluation note* Encounter Date Diagnosis [...] verbalized understanding and agreement with treatment plan. [facility] Other [id number] Hospital Discharge instructions Patient Education 02/01/2023 10:49:02 [...] include: ?8 oz (237 mL) of milk, lqnrjiv-tzsfpodszsna-nwvpu milk, and calcium- fortifiedfruit juice. Calcium-fortified means [...] ?Spinach (cooked), rhubarb, beets, sweet potatoes, and [place] Islander chard. ?Peanuts. ?Potato chips, indonesian fries, and baked potatoes with skin on. ?Nuts and nut products. ?Chocolate. If you regularly take a diuretic medicine, make sure to eat at least 1 or 2 servings of fruits or vegetables that are high in potassium each day. These include: ?Avocado. ?Banana. ?Avon, prune, carrot, or tomato juice. ?Baked potato. [...] magnesium, fish oil, or vitamin B6. Take uhwo-wit-kxpmnvx and prescription medicines only as told by [...] Casseroles. Pizza. Lasagna. Frozen meals. Potato chips. Wallisian fries. The items listed above may not [...] provider. Document Revised: 05/27/2022 Document Reviewed: 05/27/2022 [employer] Patient Education 2022 [employer]. Follow Up Care 11/30/2021 15:38:59 With:ELVIE CRAIG, KANDI Doss, URL Address: [address] [place] [address] [phone] When: Unknown Comments:1 yr w/ ANNAMARIE [facility] 05-30-2023 Evaluation note* Encounter Date Diagnosis Assessment Notes Treatment Notes Treatment Clinical Notes June, Acute COVID-19 (ICD-10 - U07.1) Reviewed medications. Would be a good candidate for paxlovid due to her age. Cautioned her of side effects. Pt agrees to rx - will call if symptoms continue or worsen. AIS Other 10-03-2022 Hospital Discharge instructions Patient Education 11/30/2021 15:30:36 Kidney Stones, Nvad-kz-Uvei Kidney Stones Kidney stones are rock-like masses [...] Follow these instructions at home: Medicines Take twri-kik-pgvsbaj and prescription medicines only as told by [...] 08/02/2008 Document Revised: 07/03/2019 Document Reviewed: 07/03/2019 [employer] Patient Education 2019 [employer] Follow Up Care 06/01/2021 09:42:58 With:RICARDO VERDUGO, Jonny Ayala, URL Address: [facility] [address] , [place] [address] [phone] When: Unknown [facility] 07-28-2022 NotePROCEDURE: XR HAND LT MIN 3V HISTORY: Falls ; pain after falling COMPARISON: None. FINDINGS: BONES:No fracture or dislocation. Moderate degenerative changes of the distal interphalangeal joints of all digits. SOFT TISSUES:No visible soft tissue swelling. EFFUSION:None visible. OTHER: Negative. IMPRESSION: 1. No acute bone abnormality. Electronically authenticated by: CARMEN HAY Date: 2021-09-24 11:21[id number] NotePROCEDURE: XR FOREARM LT 2 VIEWS, XR HUMERUS LT MIN 2V HISTORY: Falls ; pain after falling COMPARISON: None. FINDINGS: BONES:No fracture, acute abnormality, or significant arthropathy. SOFT TISSUES:No visible soft tissue swelling. EFFUSION:None visible. OTHER: Negative. IMPRESSION: 1. No acute bone abnormality of the left humerus or forearm. Electronically authenticated by: CARMEN HAY Date: 2021-09-24 11:10[facility] [id number] NotePROCEDURE: XR FOREARM LT 2 VIEWS, XR HUMERUS LT MIN 2V HISTORY: Falls ; pain after falling COMPARISON: None. FINDINGS: BONES:No fracture, acute abnormality, or significant arthropathy. SOFT TISSUES:No visible soft tissue swelling. EFFUSION:None visible. OTHER: Negative. IMPRESSION: 1. No acute bone abnormality of the left humerus or forearm. Electronically authenticated by: CARMEN HAY Date: 2021-09-24 11: [facility] Future Appointments Appointment Date:12/06/2022 10:30:00 AM Scheduled Provider:Jonny SILVA MD Location:[facility] Appointment Type:URO Office Visit [facility] evaluation + Plan note Future Appointments Appointment Date:02/07/2024 10:00:00 AM Scheduled Provider:KANDI BERMEO PA-C Location:[facility] Appointment Type:URO Office Visit [facility] evaluation + Plan note Future Appointments Appointment Date:01/14/2025 09:40:00 AM Scheduled Provider:KANDI BERMEO PA-C Location:[facility] Appointment Type:URO Office Visit [facility] evaluation noteNo Information[facility] [employer] Other Evaluation note* Diagnosis Essential tremor- Primary Essential hypertension (CMS/HCC) Unspecified essential hypertension Right hand weakness Muscle weakness (generalized) Gait instability Abnormality of gait documented in this encounter [facility] HealthcareEvaluation note* Diagnosis Sinus tachycardia- Primary Other specified cardiac dysrhythmias Primary hypertension Unspecified essential hypertension Essential tremor BMI 45.0-49.9, adult (Multi) Never smoked tobacco Lipid screening Screening for lipoid disorders documented in this encounter [facility] Work Phone: Evaluation noteNo assessment information available [facility] Work Phone: Evaluation note* Diagnosis Essential tremor- Primary Family history of Parkinson's disease Family history of other neurological diseases Right hand weakness Muscle weakness (generalized) Gait instability Abnormality of gait documented in this encounter [facility] HealthcareEvaluation note* Diagnosis Onset Date Resolution Status Admit Date Right-sided chest pain acute Ap 2024 1:04pm Type 2 diabetes mellitus wit h hyperglycemia acute June 18, 2024 1:04pm [facility] Work Phone: History general Narrative - Reported* Type Description Date Surgical History Problem Title : Kristen ract Extraction-Bilateral, Problem Comment : 2020, Problem Status : Active, Surgical History Problem Title : Cesa rean Section - 3 or more, Problem Status : Active, Surgical History Problem Title : Chol ecystectomy, Problem Comment : 1967, Problem Status : Active, AIS Other Hisyjfl general Narrative - Reported* Type Description Date Medical History HTN Medical History Hypothyroidism Medical History Type 2 diabetes Medical History Obesity Medical History Parkinsons Medical History Osteoarthritis Surgical History Problem Title : Kristen ract Extraction-Bilateral, Problem Comment : 2020, Problem Status : Active, Surgical History Problem Title : Cesa rean Section - 3 or more, Problem Status : Active, Surgical History Problem Title : Chol ecystectomy, Problem Comment : 1967, Problem Status : Active, AIS Other History of Present illness Narrative* Patient is here for follow-up continue management for recent evaluation for mild resting sinus tachycardia, hypertension morbid obesity. Last time I saw her we increased her beta-sunita and since then she reported improvement of [...] her back in 6-month in follow-up EKG [facility] Wrnch DO Work Phone: History of Present illness [...] in 8 month * 6. Fall precaution -[facility] [employer] 250 DO Work Phone: History of Present illness [...] in 1 year * 6. Fall precaution [facility] 250 DO Work Phone: Hospital course Narrative No data available for this section [facility] progress note No data available for this section [facility] reason for referral (narrative)No reason for referral information availableFlower Hospital Work Phone: Chief Complaint PHYLLIS FRENCH is being seen for a 4 month follow-up of.PHYLLIS FRENCH is being seen for a 6 month follow-up of + EKG.8 MONTH FOLLOW UP Family History No Family History Records FoundUnknown Family Member Name Dates Details Family history of myocardial infarction: Mother(V17.3, Z82.49) Status:Active Unknown Family Member Name Dates Details Family history of myocardial infarction: Mother(V17.3, Z82.49) Status:Active Unknown Family Member Name Dates Details Family history of myocardial infarction: Mother(V17.3, Z82.49) Status:Active Relationship Condition Age at Onset Recorded Date/T usman Not Specified No pertinent family history Unknown brother History of stroke Unknown father Unknown family member Unknown mother Hypertension Unknown Unknown Heart disease Unknown Relationship Condition Age at Onset Recorded Date/T usman Not Specified No pertinent family history Unknown brother History of stroke Unknown father Unknown Disorder of kidney Unknown Parkinson's disease Unknown family member Unknown mother Hypertension Unknown Unknown Heart disease Unknown Malignant neoplasm of breast Unknown brother Tremor Unknown Relationship Condition Age at Onset Recorded Date/T usman brother History of stroke Unknown father Unknown Disorder of kidney Unknown Parkinson's disease Unknown mother Hypertension Unknown Unknown Heart disease Unknown Malignant neoplasm of breast Unknown brother Tremor Unknown Summary Purpose Advance Directives No Advanced Directives Records Found Advance Directive Response Recorded Date/ Time Advance Directives No January 2:39pm Advance Directive Response Recorded Date/ Time Advance Directives No January 3:39pm Reason for Referral Specialty Diagnoses / Procedures Referred By Kiko crockett Referred To Contact Diagnoses Sinus tachycardia Procedures ECG 12 Lead Morgan Medina MD [address] [place] [address], [place] [phone] Referral ID Status Reason Start Date Expiration Date V isits Requested Visits Authorized [id number] Authorized 11/04/2023 11/03/2024 1 1 Specialty Diagnoses / Procedures Referred By Kiko crockett Referred To Contact Cardiology Diagnoses Sinus tachycardia Procedures Follow Up In Cardiology Morgan Medina MD [address] [place] [address] 2, [place] [phone] Morgan Medina MD [address] [place] [address] 2, [place] [phone] Referral ID Status Reason Start Date Expiration Date V isits Requested Visits Authorized [id number] Authorized 11/04/2023 11/03/2024 1 1 Chief Complaint and Reason for Visit Chief Complaint Admit Date Poss uti March 03, 2024 1: 17pm Reason for Visit Admit Date Acute UTI March 03, 2024 1: 17pm Chief Complaint Admit Date Wellness June 18, 2024 1:0 4pm Reason for Visit Admit Date Right-sided chest pain June 18, 2024 1:04pm Type 2 diabetes mellitus with hyperglyce cdoy June 18, 2024 1:04pm Chief Complaint Admit Date Wellness June 18, 2024 1:0 4pm Self- [facility] (Q-Done) Called pt. LM o n VM August 13, 2024 10:27am Reason for Visit Admit Date Class 3 severe obesity with body mass index (BMI) of 50.0 to 59.9 in adult June 18, 2024 1:04pm Hypothyroidism June 18, 2024 1:0 4pm Medicare annual wellness visit, subseque nt June 18, 2024 1:04pm Right-sided chest pain June 18, 2024 1:04pm Type 2 diabetes mellitus with hyperglyce cody June 18, 2024 1:04pm Abnormal weight gain August 13, 2024 10: 27am BMI 50.0-59.9, adult August 13, 2024 10: 27am Class 3 severe obesity with body mass index (BMI) of 50.0 to 59.9 in adult August 13, 2024 10:27am Dietary surveillance and counseling August 13, 2024 10:27am Essential (primary) hypertension August 132024 10:27am Essential tremor August 13, 2024 10:2 7am Exercise counseling August 13, 2024 10:2 7am History of kidney stones August 13, 2024 10:27am Hx of cholecystectomy August 13, 2024 10 :27am Hyperlipidemia August 13, 2024 10:2 7am Hypothyroidism August 13, 2024 10:2 7am Type 2 diabetes mellitus with hyperglyce cody August 13, 2024 10:27am 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 LM o n VM August 13, 2024 10:27am Reason for Visit Admit Date Abnormal weight gain August 13, 2024 10: 27am BMI 50.0-59.9, adult August 13, 2024 10: 27am Class 3 severe obesity with body mass index (BMI) of 50.0 to 59.9 in adult August 13, 2024 10:27am Dietary surveillance and counseling August 13, 2024 10:27am Essential (primary) hypertension August 132024 10:27am Essential tremor August 13, 2024 10:2 7am Exercise counseling August 13, 2024 10:2 7am History of kidney stones August 13, 2024 10:27am Hx of cholecystectomy August 13, 2024 10 :27am Hyperlipidemia August 13, 2024 10:2 7am Hypothyroidism August 13, 2024 10:2 7am Type 2 diabetes mellitus with hyperglyce cody August 13, 2024 10:27am 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 August 13, 2024 10:27am Abnormal weight gain October 22, 2024 1 :17pm BMI 50.0-59.9, adult October 22, 2024 1 :17pm Class 3 severe obesity with body mass index (BMI) of 50.0 to 59.9 in adult October 22, 2024 1:17pm Dietary surveillance and counseling Augu 2024 1:17pm Essential (primary) hypertension October 22, 2024 1:17pm Essential tremor October 22, 2024 1: 17pm Exercise counseling October 22, 2024 1: 17pm History of kidney stones October 22 1:17pm Hx of cholecystectomy October 22, 2024 1:17pm Hyperlipidemia October 22, 2024 1: 17pm Hypothyroidism October 22, 2024 1: 17pm Type 2 diabetes mellitus with hyperglyce cody October 22, 2024 1:17pm 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 LM o n VM August 13, 2024 10:27am wm October 24, 2024 12 :42pm Additional Source Comments INFORMATION SOURCE (unrecogn ized section and content) DATE CREATED AUTHOR 09/29/2021 [facility] DATE CREATED AUTHOR AUTHOR'S ORGANIZ ATION 11/06/2022 [facility] DATE CREATED AUTHOR AUTHOR'S ORGANIZ ATION 11/06/2022 [facility] DATE CREATED AUTHOR AUTHOR'S ORGANIZ ATION 11/06/2023 [facility] DATE CREATED AUTHOR AUTHOR'S ORGANIZ ATION 03/10/2024 [facility] DATE CREATED AUTHOR AUTHOR'S ORGANIZ ATION 05/29/2024 [facility] EPIC DATE CREATED AUTHOR AUTHOR'S ORGANIZ ATION 11/13/2024 J[facility] Care Team (unrecognized sect ion and content) Presto Log Operator Relationship Specialty Start Date End Date Moises Camara MD [address] [place] [address] PCP - General Family Medicine 12/14/23 Presto Log Operator Relationship Specialty Start Date End Date Moises Camara MD [address] [place] [phone] PCP - General Family Medicine 12/14/23 Presto Log Operator Relationship Specialty Start Date End Date Moises Camara MD [address] [place] [place] [address] PCP - General 02/28/99 Team Status: Active Member Role Status Dates Moises Camara MD Primary Care Provider Active Team Status: Inactive Member Role Status Dates Moises Camara MD Primary Care Provider Active Start: March 03, 2024 End: March 03, 2024 Jennifer Nicole APRN Attending Provider Active Start: March 03, 2024 End: March 03, 2024 Presto Log Operator Relationship Specialty Start Date End Date Moises Camara MD [address] [place] [address] PCP - General Family Medicine 12/14/23 Lauren Arreola NP [address] [phone] Nurse Practitioner Neurology 05/28/24 Butch Guerra DO [address] [phone] Referring Physician Neurology 05/28/24 Presto Log Operator Relationship Specialty Start Date End Date Moises Camara MD [address] [place] [address] PCP - General Family Medicine 12/14/23 Lauren Arreola NP [address] [place] [phone] Nurse Practitioner Neurology 05/28/24 Butch Guerra DO [address] [place] [id number] Referring Physician Neurology 05/28/24 Team Status: Inactive Member Role Status Dates Moises Camara MD Primary Care Provide r, Attending Provider Active Start: June 18, 2024 End: June 18, 2024 Team Status: Inactive Member Role Status Dates Moises Camara MD Primary Care Provider Active Start: June 18, 2024 End: June 18, 2024 Moises Camara MD Attending Provider Active St art: June 18, 2024 End: June 18, 2024 Team Status: Inactive Member Role Status Dates Moises Camara MD Primary Care Provider Active Start: August 13, 2024 End: August 13, 2024 Kandi Cage DNP Attending Provider Active S tart: August 13, 2024 End: August 13, 2024 Team Status: Inactive Member Role Status Dates Moises Camara MD Primary Care Provider Active Start: September 13, 2024 End: September 13, [address] Attending Provider Active S tart: September 13, 2024 End: September 13, 2024 Team Status: Inactive Member Role Status Dates Moises Camara MD Primary Care Provider Active Start: October 22, 2024 End: October 22, 2024 Kandi Cage DNP Attending Provider Active S tart: October 22, 2024 End: October 22, 2024 Team Status: Inactive Member Role Status Dates Moises Camara MD Primary Care Provider Active Start: October 24, 2024 End: October 24, [address] Attending Provider Active S tart: October 24, 2024 End: October 24, 2024 REASON FOR VISIT (unrecogniz ed section and content) Reason Comments Tremors Weakness, Gen R hand Hypertension Reason Comments Annual Exam 1yr with ekg Specialty Diagnoses / Procedures Referred By Contanitha t Referred To Contact Diagnoses Sinus tachycardia Procedures ECG 12 Lead Morgan Medina MD [address] [facility] 2, [place] [phone] Referral ID Status Reason Start Date Expiration Date V isits Requested Visits Authorized [id number] Authorized 11/04/2023 11/03/2024 1 1 Reason Comments Tremors Extremity Weakness Right hand Balance difficulty Goals (unrecognized section and content) Goals may be documented in a n alternate section FOR RECORDS PERTAINING TO PATIENTS WHO ARE [...] BE BASED ON THE PRIMARY CLINICAL RECORDS. [employer] provides no warranty or guarantee of the accuracy or completeness of information in this document.
== END 2024-12-12 10:52 | disposition home or self-care (01) ==
LOC: MAMMO 10:51
PROVIDERS: PCP Family Medicine; Visit Provider Family Medicine
DX: Z12.31 Encounter for screening mammogram for malignant neoplasm of breast (principal); Z80.3 Family history of malignant neoplasm of breast
CPT/HCPCS: 77063; 77067

== ENCOUNTER 2025-01-07 10:56 | Outpatient (OUT) | payer OTHER, SELFPAY ==
--- NOTE | 2025-01-07 10:59 | XR_ITS ---
The [address] [address] Patient Name: WILBER VANESSA MRN: [id number] date: 1945 Sex: F Assigned Patient Location: [facility] Current Patient Location: [facility] Accession/Order Number: [id number] Exam Date: 01/07/2025 11:05 Report Date: 01/07/2025 11:42 At the request of: JONNY SILVA MD Procedure: XR abdomen 1V SINGLE VIEW ABDOMEN COMPARISON: 02/01/2024 CLINICAL DATA: Follow-up kidney stones. Supine view of the abdomen and pelvis was obtained. Scattered air and stool are present within the colon. No dilated small bowel loops are seen. Both kidneys are partially obscured. No obvious radiopaque renal or ureteral stones are noted. There are similar pelvic calcifications that may be vascular. There are no soft tissue masses. Degenerative changes are visualized at the spine and SI joints. XR/XR abdomen 1V IMPRESSION: NO OBVIOUS RADIOPAQUE STONES WITHIN LIMITS OF BOWEL GAS AND STOOL. Impression dictated by: Lizett Peres M.D. 01/07/2025 11:42 AM Dictation Location: [place] [address] Electronically authenticated by: [id number] Y Date: 01/07/2025 11:42
--- OUTSIDE RECORDS SUMMARY | 2025-01-07 10:59 | XMS_ITS | Clinical Summary ---
Author Organization [facility] Healthcare Address [address] [place] [address] Care Team Providers Care Industrial Diamond Polisher Name Role Phone Cathie Moreland MD Primary Care Provider [phone] Lauren Ramirez MILITARY EQUIPMENT SPECIALIST Unavailable [phone] Zbigniew Guerra DO Unavailable [phone] Allergies Active AllergyReactionsCriticalityNoted MicbBndwmsiwLigzzpulsqtOdztytw95/04/2019 JuprgkmUmsfzic04/28/2024 Medications MedicationSigDispense QuantityRefillsLast FilledStart DateEnd DateStatus mirabegron ER (Myrbetriq) 50 MG 24 hr tablet Take 50 mg by mouth at bedtime Do not crush, chew, or split.Active Multiple Vitamin (multivitamin) tablet Take 1 tablet by mouth Daily 1 tabletActive cholecalciferol (Vitamin D-3) 25 MCG tablet Take 25 mcg by mouth DailyActive insulin detemir (Levemir) 100 UNIT/ML injection Inject 100 Units under the skin at bedtimeActive imipramine (Tofranil) 50 MG tablet Take 50 mg by mouth at bedtimeActive pravastatin (Pravachol) 10 MG tablet Take 10 mg by mouth at bedtimeActive baclofen (Lioresal) 10 MG tablet Take 10 mg by mouth in the morning and 10 mg before bedtime.Active loratadine (Claritin) 10 MG tablet Take 10 mg by mouth DailyActive lisinopril 5 MG tablet Take 5 mg by mouth DailyActive metoprolol tartrate (Lopressor) 25 MG tablet Take 25 mg by mouth in the morning and 25 mg in the evening. Take with meals. 1 tablet with food .Active levothyroxine (Synthroid, Levoxyl) 150 MCG tablet Take 150 mcg by mouth in the morning. Take before meals.Active metFORMIN XR (Glucophage-XR) 500 MG 24 hr tablet Take 500 mg by mouth in the evening. Take with meals Do not crush, chew, or split.Active oxybutynin XL (Ditropan-XL) 10 MG 24 hr tablet Take 15 mg by mouth Daily Do not crush, chew, or split.Active potassium bicarbonate (K-Lyte) 25 MEQ effervescent tablet Take 25 mEq by mouth in the morning and 25 mEq before bedtime.Active metoprolol tartrate (Lopressor) 50 MG tablet Take 50 mg by mouth in the morning and 50 mg before bedtime.12/05/2023ctive oxybutynin XL (Ditropan-XL) 15 MG 24 hr tablet Take 15 mg by mouth Daily11/14/2023ctive primidone (Mysoline) 50 MG tablet Indications:Essential tremorTake 1 tablet (50 mg) by mouth in the morning and in the evening 180 tablet 5Active Active Problems ProblemNoted DateDiagnosed DateEssential dlpyzk9306/23/2023 Overview (06/23/2023): The patient's essential tremor has [...] switching metoprolol to propranolol or increasing metoprolol Ngykastbgqkr57/25/2024 Overview (06/23/2023): Fluctuations in blood pressure could certainly lead to tremor but BP does seem to better controlledhere lately, so likely less influential. Rtjmhv6006/23/20235527Djpzwoc77/25/2024 Overview (06/23/2023): Patient with newer and fairly significant anxiety, more related to pandemic and lack of socialization. She does follow with PCP, and seems to be stabilizing/improving somewhat as time progresses. No SI or HI. Gait rqwjnrbiqbb57/25/2024 Overview (06/23/2023): Patient was having some gait instability and generalized weakness, having responded very nicely to recent course of PT. Immunizations ImmunizationAdministration DatesNext DuePneumococcal Conjugate PCV 1301 Family History RelationNameStatusCommentsFatherDeceased Social History Tobacco UseTypesPacks/DayYears UsedDateSmoking Tobacco: NeverSmokeless Tobacco: Never Tobacco Cessation:Counseling Given: Not Answered Alcohol UseStandard Drinks/WeekCommentsNever0 (1 standard drink = 0.6 oz pure alcohol)CommentsUnknownSex and Gender InformationValueDate RecordedSex Assigned at BirthNot on fileLegal RhfMpgeff37/15/2023 9:49 PM EDTGender Identity Not on fileSexual OrientationNot on file Last Filed Vital Signs Vital SignReadingTime TakenCommentsBlood Ndsqahni842/8003 2:07 PM EDT Rtgvc1270 2:56 PM EDTTemperature--Respiratory Npxm435406/23/2023 11:10 AM EDTOxygen Saturation--Inhaled Oxygen Concentration--Odkoqt678 kg (249 lb) 05/28/2024 2:07 PM MKPNjcpuj697.9 cm (5' 1 )05/28/2024 2:07 PM EDTBody Mass Index47.05005/28/2024 2:07 PM EDT Plan of Treatment Not on file Insurance Care Teams Team MemberRelationshipSpecialtyStart DateEnd Date Cathie Moreland MD PCP - GeneralFamily Gtvkrwma18/16/24 Lauren Ramirez NP Nurse PractitionerNeurology05/28/24 Zbigniew Guerra DO [address] [facility] [address] [place] [address] Referring PhysicianNeurology05/28/24
--- OUTSIDE RECORDS SUMMARY | 2025-01-07 10:59 | XMS_ITS | Clinical Summary ---
Author Organization [facility] Address [address] [place] [address] Phone Care Team Providers Care Assembler [employer] Name Role Phone Cathie Moreland MD Primary Care Provider [phone] Allergies Active AllergyReactionsCriticalityNoted JaebWovquzmxXpgpdrsdxvdRggjses83/19/2024 Ehzrqon-Fny-Wnn Reductase KcogfnrbxnVsrde02/19/2024 Medications MedicationSigDispense QuantityRefillsLast FilledStart DateEnd DateStatus lisinopril 5 mg tablet Take 1 tablet (5 mg) by mouth once daily.11/28/2020ctive metFORMIN XR 500 mg 24 hr tablet Take 1 tablet (500 mg) by mouth once daily.09/25/2020ctive Effer-K 20 mEq tablet, effervescent Take 1 tablet by mouth 2 times a day.Active primidone (Mysoline) 50 mg tablet Take 1 tablet (50 mg) by mouth 2 times a day.03/19/2021ctive levothyroxine (Synthroid, Levoxyl) 150 mcg tablet Take 1 tablet (150 mcg) by mouth early in the morning..03/11/2021ctive metoprolol tartrate (Lopressor) 50 mg tablet Take 1 tablet by mouth 2 times a day.11/28/2020ctive oxybutynin XL (Ditropan-XL) 15 mg 24 hr tablet Take 1 tablet (15 mg) by mouth once daily. Do not crush, chew, or split.Active cholecalciferol (D3-2000) 50 mcg (2,000 unit) capsule Take 1 capsule (50 mcg) by mouth once daily.Active Active Problems ProblemNoted DateDiagnosed DateBMI 45.0-49.9, adult11/04/2023Never smoked nmmjjfi7611/04/2023Essential pppiyn82/20/2024HTN (hypertension)05/18/2023 Mjrrelrmqaklgp23/20/2024Sinus sqoihtjcqzt87/20/2024 Immunizations ImmunizationAdministration DatesNext DueInfluenza Whole11/28/2021Janssen SARS-CoV-2 Tjixykwfoul94/10/2021neumococcal polysaccharide vaccine, 23-valent, age 2 years and older (PNEUMOVAX 23)02/28/2014,12/29/2009 Family History Medical HistoryRelationNameCommentsHeart attackMotherRelationNameStatusComments Mother Social History Tobacco UseTypesPacks/DayYears UsedDateSmoking Tobacco: NeverSmokeless Tobacco: Never Tobacco Cessation:Counseling Given: Not Answered Alcohol UseStandard Drinks/WeekCommentsNever0 (1 standard drink = 0.6 oz pure alcohol)PHQ-2AnswerDate RecordedPatient Health Questionnaire-2 [id number] CommentsUnknownSex and Gender InformationValueDate RecordedSex Assigned at BirthNot on fileLegal GxpBoeeal56/26/2022 7:01 AM ESTGender IdentityNot on fileSexual OrientationNot on file Last Filed Vital Signs Vital SignReadingTime TakenCommentsBlood Gpahpvco594/8109 10:28 AM EDT Egmxh618611/04/2023 10:05 AM EDTTemperature--Respiratory Rate--Oxygen Saturation-- Inhaled Oxygen Concentration--Zjjogi965 kg (252 lb)11/04/2023 10:05 AM EDTHeight 154.9 cm (5' 1 )11/04/2023 10:05 AM EDTBody Mass Index47.61011/04/2023 10:05 AM EDT Plan of Treatment DateTypeDepartmentCare Team (Latest Contact Info)Pomtvdnrcpz55/28/2026 12:50 PM ESTOffice Visit [facility] [address] [facility] [address] [place] [address] Ford Medina MD [address] [facility] [address] [place] [address] Health MaintenanceDue DateLast DoneCommentsLipid Panel1944Medicare Annual Wellness Visit (AWV)1944TSH Level1944Zoster Vaccines (1 of 2) 1994Bone Density Scan2009RSV High Risk: (Elderly (60+) or Population) (1 - 1-dose 75+ series)12/25/2019Influenza Vaccine (#1)2024 11/28/2021, 11/29/2019, 11/23/2019, Additional history existsCOVID-19 Vaccine (2 - 2024- season)503/1DTaP/Tdap/Td Vaccines (2 - Tdap)09/25/2031 09/24/2021neumococcal UydktchQywczqdwm65/04/2021, 02/28/2014, 12/29/2009HIB VaccinesAged OutNo longer eligible based on patient's age to complete this topic HPV VaccinesAged OutNo longer eligible based on patient's age to complete this topicHepatitis A VaccinesAged OutNo longer eligible based on patient's age to complete this topicHepatitis B VaccinesAged OutNo longer eligible based on patient's age to complete this topicIPV VaccinesAged OutNo longer eligible based on patient's age to complete this topicMeningococcal VaccineAged OutNo longer eligible based on patient's age to complete this topicRotavirus VaccinesAged Out No longer eligible based on patient's age to complete this topic Insurance Care Teams Team MemberRelationshipSpecialtyStart DateEnd Date Cathie Moreland MD [address] [place] [address] [place] [address] VLZ - General02/28/99
--- OUTSIDE RECORDS SUMMARY | 2025-01-07 10:59 | XMS_ITS | Clinical Summary ---
Author Organization [employer] [facility] [employer] Address [id number] [address] [place] [address] Care Team Providers Care Drapery Inspector Name Role Phone Cathie Moreland MD Primary Care Provider [phone] Immunizations ImmunizationAdministration DatesNext DueCOVID-19 Vaccine, vector-nr, rS-Ad26, PF, 0.5mL/11/2020 Social History Tobacco UseTypesPacks/DayYears UsedDateSmoking Tobacco: Never AssessedChildcare AnswerDate QcvomkogXznzgqhooRfxfagl66/12/2019EmploymentAnswerDate Recorded MxsbmxymjtOppojtj90/12/2019Purpose - LifeAnswerDate RecordedPurpose and direction in psnzLfcqdxl07/11/2021CommentsUnknownSex and Gender InformationValueDate RecordedSex Assigned at BirthNot on fileLegal SexFemale 10/03/2014 12:04 PM EDTGender IdentityNot on fileSexual OrientationNot on file Plan of Treatment Health MaintenanceDue DateLast DoneCommentsDepression Olmtlffjk99/27/1957Tobacco Qsmjyftnc70/27/1957DTaP,Tdap and Td Vaccines (1 - Tdap)12/25/1963Zoster (Shingles) Vaccine (1 of 2)1994Fall Risk Xazueuxyq24/27/2010RSV ( or age 60+ yrs) (1 - 1-dose 75+ series)12/25/2019COVID-19 Vaccine (2 - season)/11/2020Influenza Neirwjj99/02/2019, 11/23/2019, 11/23/2018, Additional history exists [employer] Not on file Insurance Care Teams Team MemberRelationshipSpecialtyStart DateEnd Date Cathie Moreland MD [facility] [place] [address] PCP - GeneralFamily Qzxuurva82/28/21
--- OUTSIDE RECORDS SUMMARY | 2025-01-07 11:02 | XMS_ITS | CCD ---
Author Organization [facility] Care Team Providers Care Dock Hand Name Role Phone Moises Camara Unavailable Unavailable Unavailable LUIS A ROASRIO Attending Unavailable REQUEST, DR MIRNA LISTED Primary [...] WEST, DR JANIS Clark Consulting Unavailable MARLENE, LUISA Attending Unavailable MISC, DR GARRISON Primary Care [...] Consulting Unavailable JAX, MOISES Primary Care Physician Moises Camara Unavailable Carol, Dr. Youngblood Referring Unavaila lizeth Camara, Dr. Moises Hamlin Primary Care Unav ailable Carol, Dr. Youngblood Attending Unavaila ble Carol, Dr. Youngblood Referring Unavaila ble Camara, Dr. Moises Hamlin Primary Care Unav ailable Carol, Dr. Youngblood Attending Unavaila lizeth RAY, MORGAN Attending Unavailable CAMARA, MOISES Doss Primary Care Unavailable Moises Camara MD Primary Care Provider Moises Camara MD Primary Care Provider Moises Camara MD Primary Care Provider Jennifer Nicole APRN Attending Provider Jennifer Nicole Admitting Unavailable Jennifer Nicole Attending Unavailable Moises Camara Primary Care Unavailable James HAWLEY, Lauren Unavailable Butch Guerra DO Unavailable LAUREN RAMIREZ Attending Unavailable BUTCH GUERRA Attending Unavailable ALBINO MICHAELS Attending Unavailable ALBINO MICHAELS Attending Unavailable ALBINO MICHAELS Attending Unavailable Moises Camara MD Primary Care Provider Moises Camara MD Attending Provider [phone] Kandi Cage DNP Attending Provider [phone] Attending Provider UnavailMoises Burr MD Primary Care Provider Jennifer Valles Attending Unavailable KANDI TREJO Attending Unavailable Moises Camara MD Primary Care Provider Kandi Cage DNP Attending Provider Scarlet Vega RD Attending Provider Unavailab kiser Allergies Allergy ClassificationReported Allergen(s)Allergy TypeDate of OnsetReaction(s) Facility (3 sources)Hmg-Coa Reductase Inhibitors (Statins); Translations: [Statins] Allergy to drug (finding)Muscle weakness-[facility] 250 DO Work Phone: (15 sources)Penicillins; Translations: [Penicillins]Allergy to drug (finding) 41-51-3539Czwf (qualifier value)[facility] HospitalComment on above:Onset Date: 09/15/2015 (2 sources)atorvastatin; Translations: [atorvastatin]Drug AllergyThe [facility] (1 source)PenicillinsDrug allergy (disorder)47-75-8730Bln [facility] Repository (3 sources)atorvastatin; Translations: [atorvastatin]Drug AllergyUnknown [facility] (7 sources)PenicillinDrug AllergyanaphylaxisNoEdgewood Surgical Hospital [employer] Other (6 sources)Substance with penicillin structure and antibacterial mechanism of action (substance)Drug kvfhrut16-90-6750VmodoadHymwo Coast [employer] Other (6 sources)Statins Support *DIETARY PRODUCTS/DIETARY MANAGEMEPropensity to adverse reactionsCranston General Hospital [employer] Other (6 sources)Allergies ReconciledPropensity to adverse obnzopxsw19-97-4994Pcayifw [place] [employer] Other (2 sources)Hmg-Coa Reductase Inhibitors (Statins); Translations: [GFCIOXN-LET-JVE REDUCTASE INHIBITORS]Propensity to adverse reactions to drug (disorder)80-42-1611YcxceHS [facility] 3 [facility] (6 sources)HMG-CoA reductase inhibitorDrug Nzzkcdz41-61-1076QrslzlrWYUM Healthcare (6 sources)PenicillinsDrug Bvcsquf81-40-0482VolgmcjRNSF Healthcare (1 source)PenicillinsDrug Twcxvbxodyl49-54-7951BdyiuzxTtjzokzgkiOhioHealth O'[facility]len[facility] (7 sources)Statins Support *DIETARY PRODUAllergy to -07-2500QcmnlMckitrick HospitalComment on above:Free Text Allergy: Statins Support *DIETARY PRODUCTS/DIETARY MANAGEME Medications Current Medications MedicationDrug Class(es)DatesSig (Normalized)Sig (Original)apixaban 5 mg oral tablet (2 sources)Factor Xa InhibitorStart: 80-74-8019rjjl 1 tablet by mouth twice dailyEliquis 5 mg oral tablet 5 mg = 1 tab(s), Oral, BID Start Date: 11/30/21 Status: Orderedascorbic acid 500 mg oral tablet (4 sources)Vitamin CStart: 73-31-2744xgbp 500 mg by mouth once dailyVitamin C 500 mg, Oral, Daily Start Date: 03/09/21 Status: Orderedtake 2 tablets by mouth once dailyVitamin C 1000 MG Oral Tablet TAKE 2 TABLET Daily Quantity: 0 Refills: 0 Ordered: 26-Mar-2022 DO Activetake 1 capsule by mouth once dailyVitamin C 500 MG Oral Capsule TAKE 1 CAPSULE Daily Quantity: 0 Refills: 0 Ordered: 31-Mar-2021 DO Activeazithromycin 250 mg oral tablet (2 sources)Macrolide AntimicrobialStart: 39-62-0542Xoizlbqoujtg 250 MG as directed Orally 2 tabs po today, then 1 tab daily x 4 more days for 5 Jan, ActiveStart: 99-57-8562Kaeihgihjyth 250 MG Oral Tablet TAKE 2 TABLETS by mouth today, THEN take 1 TABLET once a day FOR the next 4 DAYS. Quantity: 6 Refills: 0 Ordered: 12-Nov-2021 DO Start : 12-Nov-2021 Completebaclofen 10 mg oral tablet (6 sources)gamma-Aminobutyric Acid-ergic Agonisttake 1 tablet by mouth in the morningbaclofen (Lioresal) 10 MG tablet Take 10 mg by mouth in the morning and 10 mg before bedtime. Activebenzonatate 200 mg oral capsule (1 source)Non-narcotic AntitussiveStart: 99-13-2906yxjs 1 capsule by mouth every eight hoursBenzonatate 200 MG 1 capsule Orally Three times a day for 10 day(s) Jan, ActiveBlood-Glucose Meter misc (5 sources)Start: 27-32-9583Cgzpk-Glucose Meter misc Active 0 .Route 1 0 June 18, 2024 12:00am Type 2 diabetes mellitus withhyperglycemia Type 2 diabetes mellitus with hyperglycemia As directedStart: 77-61-2050Evoul-Glucose Meter misc Active 0 .Route 1 June 18, 2024 12:00am As directedcholecalciferol 0.05 mg oral capsule (20 sources)Vitamin DStart: 87-90-2551awfp 1 capsule by mouth once daily Cholecalciferol (Vitamin D3) 50 mcg (2,000 unit) capsule Active 50 MCG PO Daily March 03, 2024 1:00am Complies with drug therapytake 1 tablet by mouth once dailycholecalciferol (Vitamin D-3) 25 MCG tablet Take 25 mcg by mouth Daily Activetake 1 capsule by mouth once dailycholecalciferol (D3-2000) 50 mcg (2,000 unit) capsule Take 1 capsule (50 mcg) by mouth once daily. Activetake 1 tablet by mouth every twenty-four hoursVitamin D 50 MCG (2000 UT) 1 tablet Orally Once a day ActiveVitamin D3 Maximum Strength 125 MCG (5000 UT) Oral Capsule TAKE DIRECTED. Quantity: 0 Refills: 0Ordered: 1-Feb-2022 DO ActiveDaily Multiple Vitamins (1 source)Start: 53-21-0273Catxn Multiple Vitamins Oral, Daily, Refill(s) 0 Start Date: 08/06/19 Status: Orderedimipramine hydrochloride 50 mg oral tablet (6 sources)Tricyclic Antidepressanttake 1 tablet by mouth at bedtimeimipramine (Tofranil) 50 MG tablet Take 50 mg by mouth at bedtime Activeinsulin detemir 100 unt/ml injectable solution (6 sources)Insulin Analoginject 100 [IU] by subcutaneous injection at bedtime insulin detemir (Levemir) 100 UNIT/ML injection Inject 100 Units under the skin at bedtime Activelevothyroxine sodium 0.175 mg oral tablet (20 sources)l-ThyroxineStart: 06-18-2024 End: 17-31-9746boya 1 tablet by mouth once dailyLevothyroxine 175 mcg tablet Active 175 MCG PO Daily 90 0 November 19, 2024 1:11pm Complies withdrug therapyStart: 03-03-2024 End: 66-63-0333eijg 1 tablet by mouth once dailyLevothyroxine (Synthroid) 150 mcg tablet Discontinued 150 MCG PO Daily 90 0 May 16, 2024 12:43pm June 18, 2024 2:01pmStart: 10-06-2023 End: 26-61-7622Jbjoveaayzmrl (Synthroid) 150 mcg tablet Discontinued 0 .ROUTE .COMPLEX 90 0 January 24, 2024 9:34am March 03, 2024 2:53pm TAKE 1 TABLET DAILYStart: 20-58-3892Nfaqdrzgn 150 mcg (0.15 mg) Tab Refills(s) 0 Start Date: 02/01/23 Status: OrderedStart: 54-91-4037Froyzirlt 150 MCG Oral Tablet Quantity: 90 Refills: 0 Ordered: 11-Mar-2021 DO Start : 11-Mar-2021 ActiveStart: 97-16-8337volemdtikqodp 150 mcg, Daily, Refills(s) 0 Start Date: 08/06/19 Status: OrderedStart: 01-01-2019 End: 88-42-1067jpqi 1 tablet by mouth once dailyLevothyroxine 150 mcg Tablet Discontinued 150 MCG PO Daily January 01, 2019 1:00am October 06, 2023 9:50am Synthroid 150 MCG TAKE 1 TABLET DAILY for 90 Activelisinopril 5 mg oral tablet (20 sources)Angiotensin Converting Enzyme InhibitorStart: 03-03-2024 End: 91-45-4100gzml 1 tablet by mouth once dailyLisinopril 5 mg tablet Active 5 MG PO Daily 90 May 24, 2024 3:52pm Complies with drug therapyStart: 10-06-2023 End: 84-53-6279Rbceawvobj 5 mg tablet Discontinued 0 .ROUTE .COMPLEX 90 0 January 24, 2024 9:34am March 03, 2024 2:53pm TAKE 1 TABLET DAILYStart: 01-01-2019 End: 17-60-3404nqwc 1 tablet by mouth once dailyLisinopril 5 mg tablet Discontinued 5 MG PO Daily 90 August 08, 2023 1:09pm October 06, 2023 9:50am loratadine 10 mg oral capsule (9 sources)Start: 83-12-2972fvll 1 capsule by mouth once dailyloratadine 10 mg oral capsule 10 mg = 1 cap(s), Oral, Daily Start Date: 11/30/21 Status: Ordered take 1 tablet by mouth once dailyloratadine (Claritin) 10 MG tablet Take 10 mg by mouth Daily Bdwiip89 hr metFORMIN hydrochloride 500 mg extended release oral tablet (20 sources)BiguanideStart: 03-03-2024 End: 59-84-0213gkkb 1 tablet by mouth once dailyMetformin 500 mg tablet extended release 24 hr Active 500 MG PO Daily July 26, 2024 8:30am Complies with drug therapyStart: 11-23-2023 End: 02-24-1144Yuabioqtr 500 mg tablet extended release 24 hr Discontinued 0 .ROUTE .COMPLEX 90 November 23, 2023 1:19pm March 03, 2024 2:53pm TAKE 1 TABLET DAILYStart: 11-23-2023 End: 18-35-7554Vkoexqwag 500 mg tablet extended release 24 hr Discontinued 0 .ROUTE .COMPLEX November 23, 2023 1:19pm March 03, 2024 2:53pm TAKE 1 TABLET DAILYStart: 11-23-2023 End: 34-51-1234Sncuzcsok 500 mg tablet extended release 24 hr Discontinued 0 .ROUTE .COMPLEX November 23, 2023 12:19pm March 03, 2024 1:53pm TAKE 1 TABLET DAILYStart: 64-44-7306atno 1 tablet by mouth once dailymetFORMIN XR 500 mg 24 hr tablet Take 1 tablet (500 mg) by mouth once daily. 09/25/2020 Active Start: 78-62-8081mynd 500 mg by mouth once dailymetformin 500 mg, Oral, Daily, Refills(s) 0 Start Date: 08/06/19 Status: OrderedStart: 01-01-2019 End: 69-79-9537udxs 1 tablet by mouth once dailyMetformin 750 mg tablet extended release 24 hr Discontinued 750 MG PO Daily January 01, 2019 1:00am November 23, 2023 1:19pmtake 1 tablet by mouth every twenty-four hours at mealtime metFORMIN XR (Glucophage-XR) 500 MG 24 hr tablet Take 500 mg by mouth in the evening. Take with meals Do not crush, chew, or split. ActiveMulti Complete - (3 sources)Multi Complete - as directed Orally ActiveMultiple Vitamin (multivitamin) tablet (6 sources)take 1 tablet by mouth once dailyMultiple Vitamin (multivitamin) tablet Take 1 tablet by mouth Daily 1 tablet FujprmAm-Umb-Iuhft-Calcium Carb-K1 (Women's 50 Plus Multivitamin) 400 mcg-500 mg calcium-20 mcg tablet (7 sources)Start: 99-01-9902fdmk 1 tablet by mouth once daily Fh-Cxa-Porqz-Calcium Carb-K1 (Women's 50 Plus Multivitamin) 400 mcg-500 mg calcium-20 mcg tablet Active 1 TAB PO .once a day March 03, 2024 1:00am Complies with drug therapyStart: 03-36-2806buyu 1 tablet by mouth once daily Start: 72-38-5885ceaf 1 tablet by mouth once nzchoBx-Sfa-Sbnxj-Calcium Carb-K1 (Women's 50 Plus Multivitamin) 400 mcg-500 mg calcium-20 mcg tablet Active 1 TAB PO .once a day March 03, 2024 1:00amStart: 79-83-4550iwar 1 tablet by mouth once zratlFd-Opr-Anohz-Calcium Carb-K1 (Women's 50 Plus Multivitamin) 400 mcg- 500 mg calcium-20 mcg tablet Active 1 TAB PO .once a day March 03, 2024 12:00amnorethindrone 0.35 mg oral tablet (1 source)Start: 06-23-0351Mfbqhqskx 0.35 mg oral tablet Refills(s) 0 Start Date: 06/01/21 Status: Jvtenft17 hr oxybutynin chloride 15 mg extended release oral tablet (20 sources)Cholinergic Muscarinic AntagonistStart: 27-82-1587qbmn 1 tablet by mouth every twenty-four hoursOxybutynin Chloride 15 mg tablet extended release 24hr Active 15 MG PO Once March 03, 2024 1:00am Complies with drug therapy Start: 36-57-2422btxl 1 tablet by mouth once dailyoxybutynin XL (Ditropan-XL) 15 MG 24 hr tablet Take 15 mg by mouth Daily 11/14/2023 ActiveStart: 09-15-2021 take 1 tablet by mouth once dailyoxybutynin 15 mg ER Tab 15 mg = 1 tab(s), Oral, Daily, # 90 tab(s), Refills(s) 3, Pharmacy: [id number], 158, cm, 11/30/21 14:46:00 EDT, Height/Length Dosing, 106.4, kg, 11/30/21 14:46:00 EDT, Weight Dosing Start Date: 01/13/23 Status: OrderedStart: 39-78-0464jzcv 1 tablet by mouth every twenty-four hoursOxybutynin Chloride ER 5 MG Oral Tablet Extended Release 24 Hour Quantity: 30 Refills: 0 Ordered: 28-Aug-2021 DO Start : 28-Aug-2021 Completetake 1 tablet by mouth once dailyoxybutynin XL (Ditropan-XL) 10 MG 24 hr tablet Take 15 mg by mouth Daily Do not crush, chew, or split. Activepaxlovid (300/100) 20 x 150 mg & 10 x 100mg tablet therapy pack (1 source)Start: 55-72-4308bdhv 3 tablets by mouth every twelve hoursPaxlovid (300/100) 20 x 150 MG & 10 x 100MG 3 tablets Orally Twice a day for 5 day(s) June, Activepotassium bicarbonate 25 meq effervescent oral tablet (20 sources)Start: 28-65-3282Edtyssezy Bicarb-Citric Acid (Klor-Con/Ef) 25 mEq tablet, effervescent Active 25 MEQ PO Twice dailyJune 5 12:00am Complies with drug therapyStart: 02-01-2023 End: 32-33-7652ztvc 1 tablet by mouth twice dailypotassium bicarbonate 20 mEq oral tablet, effervescent 20 mEq = 1 tab(s), Oral, BID, X 30 day(s), #60 tab(s), Refills(s) 11, Pharmacy: [id number], 158, cm, 02/01/23 10:12:00 EST, Height/Length Dosing, 106, kg, 02/01/23 10:12:00 EST, Weight Dosing Start Date: 02/01/23 Stop Date: 01/27/24 Status: OrderedStart: 03-24-2020 End: 21-31-4100Cfnjaohng Bicarb-Citric Acid (Klor-Con/Ef) 25 mEq tablet, effervescent Discontinued 25 MEQ PO Twicedaily March 03, 2024 1:00am June 18, 2024 1:13pmpravastatin sodium 10 mg oral tablet (6 sources)HMG-CoA Reductase Inhibitortake 1 tablet by mouth at bedtime pravastatin (Pravachol) 10 MG tablet Take 10 mg by mouth at bedtime Active primidone 50 mg oral tablet (20 sources)Anti-epileptic AgentStart: 92-12-6723mkeq 1 tablet by mouth twice dailyPrimidone 50 mg tablet Active 50 MG PO Twice daily October 22, 2024 2:22pm Complies with drug therapyStart: 08-13-2024 End: 42-64-1232oskb 1 tablet by mouth oncePrimidone 50 mg tablet Discontinued 50 MG PO Once August 13, 2024 12:00am October 22, 2024 2:23pmStart: 03-03-2024 End: 42-94-5229mmcx 1 tablet by mouth twice dailyPrimidone 50 mg tablet Discontinued 50 MG PO Twice daily March 03, 2024 2:50pm June 18, 2024 1 :13pmStart: 11-14-2023 End: 57-34-8724hvld 1 tablet by mouth in the morningprimidone (Mysoline) 50 MG tablet Indications: Essential tremor Take 1 tablet (50 mg) by mouth in the morning and in the evening 180 tablet 1 12/14/2023 ActiveStart: 01-20-2022 Primidone 50 MG Oral Tablet 3 IN MORNING, 2 AT LUNCH, 2 AT NIGHT Quantity: 0 Refills: 0 Ordered: 19-Mar-2021 DO Start : 19-Mar-2021 ActiveStart: 09-24-2019 take 1 tablet by mouth twice dailyprimidone (Mysoline) 50 mg tablet Take 1 tablet (50 mg) by mouth 2 times a day. 03/19/2021 ActiveStart: 01-01-2019 End: 51-99-0991luzm 1 tablet by mouth once daily at bedtimePrimidone 50 mg Tablet Discontinued 50 MG PO Daily at bedtime January 01, 2019 1:00am March 03, 2024 2:53pmProbiotic Digestive Aid Gummies (2 sources)Start: 55-56-5917Xjhuvooil Digestive Aid Gummies mg, Chewed, BID, Refill(s) 0 Start Date: 02/01/23 Status: Orderedtamsulosin hydrochloride 0.4 mg oral capsule (1 source)alpha-Adrenergic BlockerStart: 02-01-2023 End: 26-07-7722cdkp 1 capsule by mouth once dailytamsulosin 0.4 mg Cap 0.4 mg = 1 cap(s), Oral, Daily, X 14 day(s), # 14 cap(s), Refills(s) 0, Pharmacy: [facility], 158, cm, 02/01/23 10:12:00 EST, Height/Length Dosing, 106, kg, 02/01/23 10:12:00 EST, Weight Dosing Start Date: 02/01/23 Stop Date: 02/15/23 Status: OrderedVitamin D (3 sources)Start: 88-25-3356Mbqhsux D Oral, Refills(s) 0 Start Date: 08/06/19 Status: Ordered{20 (nirmatrelvir 150 MG Oral Tablet) / 10 (ritonavir 100 MG Oral Tablet) } Pack [Paxlovid 5-Day] (1 source)Start: 58-42-0098lezc 3 tablets by mouth every twelve hoursPaxlovid (300/100) 20 x 150 MG & 10 x 100MG 3 tablets Orally Twice a day for 5 day(s) June, Active Completed/Discontinued Medications MedicationDrug Class(es)DatesSig (Normalized)Sig (Original)acetaminophen 325 mg / HYDROcodone bitartrate 5 mg oral tablet (1 source)Opioid AgonistStart: 04-12-9084EPDFYrixblb-Acetaminophen 5-325 MG Oral Tablet Quantity: 10 Refills: 0 Ordered: 20-Jul-2021 DO Start : 20-Jul-2021 CompleteBlack Elderberry(Carvalho-Flower) CAPS (1 source)Black Elderberry(Carvalho-Flower) CAPS Take 1 capsule twice daily Quantity: 0 Refills: 0 Ordered: 31-Mar-2021 DO ActiveCentrum Silver Ultra Womens TABS (3 sources)Centrum Silver Ultra Womens TABS TAKE 1 TABLET DAILY. Quantity: 0 Refills: 0 Ordered: 31-Mar-2021 DOActivecephalexin 500 mg oral capsule (6 sources)Cephalosporin AntibacterialStart: 03-03-2024 End: 24-01-1130efhp 1 capsule by mouth three times dailyCephalexin 500 mg capsule Discontinued 500 MG PO Three times daily 21 7 0 March 03, 2024 1:00am May 28, 2024 4:04pmCulturelle Digestive Womens CAPS (2 sources)Culturelle Digestive Womens CAPS TAKE 1 CAPSULE Daily Quantity: 0 Refills: 0 Ordered: 26-Mar-2022 DO ActiveDeblitane 0.35 MG Oral Tablet (1 source)Start: 83-90-8236pwyy 1 tablet by mouth once dailyDeblitane 0.35 MG Oral Tablet TAKE 1 TABLET BY MOUTH ONCE DAILY Quantity: 28 Refills: 0 Ordered: 22-Jun-2021 DO Start : 27-May-2021 Completelinseed oil 1000 mg oral capsule (1 source)take 1 capsule by mouth once dailyFlaxseed Oil 1000 MG Oral Capsule TAKE 1 CAPSULE Daily Quantity: 0 Refills: 0 Ordered: 26-Mar-2022 DO Active melatonin 1 mg oral tablet (1 source)Start: 87-05-3359ytkt 1 tablet by mouth 2 hour(s) before bedtime Melatonin 1 MG Oral Tablet TAKE 1 TABLET BY MOUTH 2 (TWO) HOURS BEFORE bedtime Quantity: 30 Refills: 0 Ordered: 27-Aug-2021 DO Start : 27-Aug-2021 Complete meloxicam 15 mg oral tablet (12 sources)Nonsteroidal Anti-inflammatory DrugStart: 06-15-2024 End: 55-72-1402psor 1 tablet by mouth once dailyMeloxicam 15 mg tablet Discontinued 15 MG PO Daily June 15, 2024 12:00am June 18, 2024 1:13pm FreeTextSi tablet Orally Once a day; Note: Source Status: Taking; Provider: Jax Gould: 59-35-0002wcom 1 tablet by mouth every twenty-four hours Meloxicam 15 MG 1 tablet Orally Once a day for 30 days June, Active metoprolol tartrate 50 mg oral tablet (20 sources)beta-Adrenergic BlockerStart: 12-05-2023 End: 15-63-3452Gcmbdjyiix Tartrate 50 mg tablet Discontinued 0 .ROUTE .COMPLEX 180 1 December 05, 2023 8:54am March 03, 2024 2:53pm TAKE 1 TABLET TWICE A DAYStart: 11-28-2020 End: 61-20-9471rlyc 1 tablet by mouth twice dailyMetoprolol Tartrate 50 mg tablet Discontinued 50 MG PO Twice daily March 03, 2024 2:49pm June 20, 2024 8:42amStart: 01-01-2019 End: 05-58-8002qndx 1 tablet by mouth twice dailyMetoprolol Tartrate 25 mg Tablet Discontinued 25 MG PO Twice daily January 01, 2019 1:00am December 05, 2023 8:55am24 hr mirabegron 50 mg extended release oral tablet (7 sources)beta3-Adrenergic AgonistStart: 46-80-6837foun 1 tablet by mouth once dailyMyrbetriq 50 MG Oral Tablet Extended Release 24 Hour TAKE 1 TABLET BY MOUTH DAILY Quantity: 30 Refills: 0 Ordered: 09-Mar-2021 DO Start : 09-Mar-2021 Active miSOPROStol 0.2 mg oral tablet (1 source)Prostaglandin E1 AnalogStart: 22-83-2079uxmi 4 tablets by mouth once dailymiSOPROStol 200 MCG Oral Tablet TAKE 4 TABLETS BY MOUTH ONCE DAILY the night before the procedure Quantity: 4 Refills: 0 Ordered: 21-May-2021 DO Start : 21-May-2021 Completeomeprazole 20 mg delayed release oral capsule (1 source)Proton Pump InhibitorStart: 47-10-1380Dfimsjjhxz 20 MG Oral Capsule Delayed Release Quantity: 30 Refills: 0 Ordered: 05-May-2021 DO Start : 05-May-2021 CompletePotassium Bicarb-Citric Acid (Klor-Con/Ef) 25 mEq tablet, effervescent (3 sources)Start: 03-03-2024 End: 83-58-6708Hgtiuisng Bicarb-Citric Acid (Klor-Con/Ef) 25 mEq tablet, effervescent Discontinued 25 MEQ PO Twicedaily March 03, 2024 1:00am June 18, 2024 1:13pmStart: 36-39-3792Gyvsxzaia Bicarb-Citric Acid (Klor-Con/Ef) 25 mEq tablet, effervescent Active 25 MEQ PO Twice dailyJan2024 12:00am Problems Active Problems Problem ClassificationProblemDateDocumented DateEpisodic/ChronicAbdominal pain (20 sources)Right upper quadrant pain; Translations: [Unspecified abdominal pain]Onset: 19-35-1753JdrdvjxkUixxb bronchitis (6 sources)Acute bronchitis; Translations: [Acute bronchitis due to other specified organisms]EpisodicAdministrative/social admission (20 sources)Patient encounter status; Translations: [Exercise counseling] 22-51-0190JaomvcjhBosvnsl disorders (6 sources)Anxiety; Translations: [Anxiety disorder, unspecified]Onset: 843980-54-3719YoeqfnzEaeqquhh of urinary tract (20 sources)Calculus of kidney; Translations: [Kidney stone]Onset: 03-05-2021 EpisodicCardiac dysrhythmias (7 sources)Sinus tachycardia; Translations: [Other specified cardiac dysrhythmias]Onset: 11-81-9761HkmuhjetAntufhzmpe and other anemia (2 sources)Anemia, unspecifiedEpisodicDiabetes mellitus with complications (20 sources)Disorder due to type 2 diabetes mellitus; Translations: [Type 2 diabetes mellitus with unspecified complications]ChronicDiabetes mellitus without complication (4 sources)Type 2 diabetes mellitus without complications; Translations: [Diabetes mellitus]Onset: 396156-16-0928RwegdtlLaqoubpbe of lipid metabolism (14 sources)Hyperlipidemia; Translations: [Hyperlipidemia, unspecified] 19-40-7690NftkwgkD Codes: Fall (1 source)Fall on same level from slipping, tripping and stumbling without subsequent striking against object, initial encounter; Translations: [FALL SAME LVL SLIP NO STRK OBJ INIT]Onset: 34-29-1842PakpgirlCrgpceznj hypertension (20 sources)Hypertensive disorder; Translations: [Unspecified essential hypertension]Onset: 788529-42-7174OjftxlxHynshhyjrwcmvorx hemorrhage (7 sources)Hematochezia; Translations: [Melena]43-75-2473RydvbrngSgnzwhuwqppvc symptoms and ill-defined conditions (9 sources)Urge incontinence; Translations: [Incontinence]Onset: 11-30-2021 ChronicGenitourinary symptoms and ill-defined conditions (6 sources)Dysuria; Translations: [Frequency of micturition]Onset: 01-26-2021 EpisodicImmunizations and screening for infectious disease (1 source)Encounter for immunization; Translations: [ENCOUNTER FOR IMMUNIZATION] Onset: 31-93-6262XexxayliMpsqdarrmx disorders (6 sources)Atrophic vaginitis; Translations: [Postmenopausal atrophic vaginitis] ChronicNonspecific chest pain (7 sources)Right sided chest pain; Translations: [Chest pain, unspecified] 32-80-3750QcqddwanJmxgienuklh deficiencies (11 sources)Vitamin D deficiency; Translations: [Vitamin D deficiency, unspecified]ChronicOsteoarthritis (9 sources)Arthritis; Translations: [Osteoarthritis]92-68-1639LhgntehWyhne aftercare (1 source)Other detention (current) drug therapy; Translations: [OTH SNF CURRENT DRUG THERAPY]Onset: 90-49-6502MmbrfgmxBwrip aftercare (1 source)assisted (current) use of anticoagulants; Translations: [SNF CURRNT USE ANTICOAGULANTS]Onset: 27-21-8429OtlksqtiKditr aftercare (1 source)assisted (current) use of oral hypoglycemic drugs; Translations: [SNF USE ORAL HYPOGLYCEMIC DX]Onset: 87-41-8585EsaupjubQjzvg circulatory disease (6 sources)Elevated blood-pressure reading without diagnosis of hypertension; Translations: [Elevated blood-pressure reading, without diagnosis of hypertension]EpisodicOther connective tissue disease (4 sources)Weakness of right hand; Translations: [Other symptoms and signs involving the musculoskeletal system]13-79-2221NqqhdiweEpaag diseases of kidney and ureters (3 sources)Cyst of skinha90-97-5342IaedogybKrpyg diseases of kidney and ureters (3 sources)Zilzwueaxdzcmo24-96-7608OwtgevctWdigv gastrointestinal disorders (6 sources)Flatulence, eructation and gas pain; Translations: [Abdominal distension (gaseous)]EpisodicOther hereditary and degenerative nervous system conditions (20 sources)Essential tremor; Translations: [Essential and other specified forms of tremor]Onset: 97-18-2241KvmobqnHyjcu hereditary and degenerative nervous system conditions (1 source)Essential tremor; Translations: [Essential tremor]Onset: 05-18-2023 ChronicOther lower respiratory disease (6 sources)Pleuritic pain; Translations: [Pleurodynia]EpisodicOther nervous system disorders (13 sources)Tremor; Translations: [Tremor, unspecified]Onset: 06-23-2023 81-43-7219ClyxibrbKskni nervous system disorders (10 sources)Abnormal gait; Translations: [Unsteadiness on feet]Onset: 06-23-2023 60-89-6934QykfwwusXltbz non-traumatic joint disorders (4 sources)Monoarthritis; 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, not elsewhere classified, unspecified site]ChronicOther non-traumatic joint disorders (2 sources)Monoarthritis, not elsewhere classified, unspecified siteChronicOther non-traumatic joint disorders (3 sources)Pain in left wrist; Translations: [PAIN IN LEFT WRIST]Onset: 62-03-9428NybybjchRoxuv non-traumatic joint disorders (1 source)Pain in left shoulder; Translations: [PAIN IN LEFT SHOULDER]Onset: 97-08-0666HyqilbyiDojuw nutritional; endocrine; and metabolic disorders (16 sources)Body mass index 40+ - severely obese; Translations: [Morbid obesity] Onset: 851246-23-0190ShmvemoJygrz nutritional; endocrine; and metabolic disorders (1 source)Obesity, unspecified; Translations: [OBESITY UNSPECIFIED]Onset: 96-56-9552PnqfvcyEbmlz nutritional; endocrine; and metabolic disorders (1 source)Body mass index (BMI) 40.0-44.9, adult; Translations: [BODY MASS INDEX BMI 40.0-44.9 ADULT]Onset: 84-08-1155GqexrtuRstxb nutritional; endocrine; and metabolic disorders (3 sources)Ciroatm59-33-4358WxdzwfoHrjwk nutritional; endocrine; and metabolic disorders (6 sources)Morbid obesity; Translations: [Morbid (severe) obesity due to excess calories]ChronicOther nutritional; endocrine; and metabolic disorders (2 sources)Body mass index (BMI) 45.0-49.9, adult; Translations: [Body mass index (BMI) 45.0-49.9, adult (Multi)]Onset: 60-06-9844PrkmkgzFnocf nutritional; endocrine; and metabolic disorders (12 sources)Severe obesity; Translations: [Class 3 severe obesity with body mass index (BMI) of 50.0 to 59.9 inadult]53-73-8728EjpcapnLbrce nutritional; endocrine; and metabolic disorders (11 sources)Abnormal weight gain; Translations: [Abnormal weight gain]08-13-2024 EpisodicOther screening for suspected conditions (not mental disorders or infectious disease) (7 sources)Abnormal findings on diagnostic imaging of other specified body structures; Translations: [Imaging result abnormal]Onset: 42-17-7333UmvxlpsIvvbv screening for suspected conditions (not mental disorders or infectious disease) (3 sources)Encounter for screening for lipoid disorders; Translations: [Patient encounter status]Onset: 65-41-0738GnylxuejYwkca upper respiratory infections (6 sources)Chronic sinusitis; Translations: [Chronic sinusitis, unspecified] ChronicOther upper respiratory infections (1 source)Acute maxillary sinusitis, unspecifiedEpisodicParkinson`s disease (10 sources)Parkinson's disease; Translations: [Parkinson's disease]08-13-2024 ChronicPneumonia (except that caused by tuberculosis or sexually transmitted disease) (1 source)Pneumonia (except that caused by tuberculosis or sexually transmitted disease); Translations: [PNEUMONIA D/T CORONAVIRUS DIS 2019]Onset: 01-26-2021 Pulmonary heart disease (10 sources)Other pulmonary embolism without acute cor pulmonale; Translations: [Pulmonary embolism]Onset: 582257-21-8061ZrntkypcUuhvtppr codes; unclassified (1 source)Acquired absence of other specified parts of digestive tract; Translations: [ACQ ABSENCE OTH PART DIGESTV TRACT]Onset: 64-79-8456Aehupryv Residual codes; unclassified (6 sources)Localized edema; Translations: [Localized edema]EpisodicResidual codes; unclassified (6 sources)Immunization refused ; Translations: [Immunization not carried out because of patient refusal]EpisodicResidual codes; unclassified (2 sources)Other specified health status; Translations: [Other specified health status]Onset: 84-30-4819OfielnprKobirwnq codes; unclassified (2 sources)Family history of Parkinson's disease; Translations: [Family history of epilepsy and other diseasesof the nervous system]46-64-5924Taovfkor Spondylosis; intervertebral disc disorders; other back problems (6 sources)Low back pain; Translations: [Low back pain, unspecified]Episodic Sprains and strains (1 source)Strain of unspecified muscle, fascia and tendon at wrist and hand level, left hand, initial encounter; Translations: [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]Onset: 34-65-4375ZlrprytmPhvblxmcgox injury; contusion (3 sources)Contusion of other part of head, initial encounter; Translations: [Abrasion of other part of head, initial encounter]Onset: 21-73-4414Ynebeftq Thyroid disorders (20 sources)Hypothyroidism; Translations: [Unspecified acquired hypothyroidism] Onset: 050879-76-8956GnesoknUntyyjclrwmm (3 sources)Asymptomatic microscopic lxeovlhho35-35-0828Rleabsy tract infections (7 sources)Acute urinary tract infection; Translations: [Urinary tract infection, site not specified]06-06-1698VkfboqkpJnpno infection (11 sources)COVID-19; Translations: [Disease caused by 2019-nCoV]Onset: 01-26-2021 Past or Other Problems Problem ClassificationProblemDateDocumented DateEpisodic/ChronicMood disorders (1 source)Mood disordersOnset: 224087-21-3694Oipvj gastrointestinal disorders (4 sources)Abdominal distension (gaseous); Translations: [ABDOMINAL DISTENSION GASEOUS]Onset: 83-14-5576LdoducdrZzrpbsza codes; unclassified (2 sources)Never smoked tobacco; Translations: [Other specified health status] Onset: 127412-29-2554AdmfwinvNlvyuspheokt (3 sources)Never smoked tobacco; Translations: [Never a smoker]Unclassified (1 source)Onset: 010532-58-7551 Results Test NameValueInterpretationReference RangeFacilityLaboratory - Chemistry and Chemistry - challengeon 49-40-4605Rookttmbd Ql (U)NegativeCleveland Clinic Union HospitalGlucose (U) [Mass/Vol]NegativeCleveland Clinic Union Hospital Ketones Ql (U)[facility] HospitalpH (U)7.0 [pH][facility] Hospitalpecific gravity (U) [Rel density]1.020C[facility] HospitalLaboratory - Specimen informationon 85-76-6183Olvymbzeci (U)cloudy [facility] HospitalColor (U)YellowCleveland Clinic Union HospitalLaboratory - Urinalysison 43-77-5995Tsirobdgn esterase Test strip Ql (U) [facility] - AndersonNitrite Ql (U)NegativeCleveland Clinic Union HospitalProtein Ql (U)[address] [place], [place] [address]No Panel Informationon 15-19-9089Pfrff Occult BloodModerateCleveland Clinic Union HospitalUrine Urobilinogen0,2FDayton VA Medical CenterUrine Cultureon 09-49-1585Mxilvyxw identified Cx Nom (U)ORGANISM: Escherichia coli (O:ESCCOL) [place] Count >100,000 Aerobic ADILENE Charge (NMIC56) SUSCEPTIBILITY ORGANISM: O:ESCCOL ANTIBIOTIC INTERPRETATION ADILENE Amikacin S <16 Amoxacillin/K Clavulanate S <8 Ampicillin S <8 Ampicillin/Sulbactam S <4 Aztreonam S <4 Cefazolin S 8 Cefepime S <2 Ceftazidime S <1 Ceftazidime/Avibactam S <4 Ceftolozane/Tazobactam S <2 Ceftriaxone S <1 Cefuroxime S <4 Ciprofloxacin S <0.25 Ertapenem S <0.5 Gentamicin S <2 Levofloxacin S <0.5 Meropenem S <1 Meropenem/Vaborbactam S <2 Nitrofurantoin S <32 Piperacillin/Tazobactam S <8 Tetracycline S <4 Tigecycline S <2 Tobramycin S <2 Trimethoprim/Sulfamethoxazole S <0.5 S = SUSCEPTIBLE I = [...] RESISTANT TO ALL B-LACTAM DRUGS. PERFORMED BY: [place] [address] PATHOLOGIST ASSISTANT STATISTICIAN CASSIA LOPEZ M.D.NormalThe Quorum Health Physician GroupComment on above: Performed By: #### CUU #### [place] [address] USAAmbulatory Visit Summaryon 93-97-4608Rkgtwrtbyt Visit SummaryAmbulatory Visit Summary PHYLLIS VANESSA :1945 Visit Date:02/09/2024 Ambulatory Visit Instructions Your Diagnosis Kidney stone Urge incontinence Tests Performed XR Abdomen 1 View -- Results Pending -- Please visit your patient portal for your results or contact your primary care physician. Your Care Team Attending Physician - KANDI TREJO PA-C Primary Care Physician - MOISES CAMARA [...] Appointments Tuesday 9:40 AM EST With: KANDI TREJO PA-C Where: [facility] [address] [place] [address]- You Need to Schedule the Following Appointments Follow Up with KANDI TREJO PA-C, NICKI When: Where: [address] [facility] [place] [address] Medications What How Much When [...] or obese. What ar (more content not included)...NormalLutheran HospitalUrology Office/Clinic Noteon 09-05-9091Fyrgmtf Office/Clinic NoteUrology Office/Clinic Note Chief Complaint 1 yr f/u [...] the Oxybutynin but c/o constipation. Discussed the possibilityof changing her medications (however Myrbetriq was cost-prohibitive previously) and other anticholinergics have same risk of constipation. Other option is stay on Oxybutynin and just add daily MiraLAX for constipation. Pt prefers this option since the Oxybutynin is helping her urinary sx so well. -Control BMs w Miralax -Cont Oxybutynin ER 15mg wo changes Follow-up With When Contact Information ELVIE CRAIG, KANDI Doss, URL [address] [place] [address] Additional Instructions: Follow up 1yr w KUB or sooner if needed Patient Education Overactive Bladder, Adult Kidney Stones, Qccx-ng-Vfzc I, Francis Ceron, personally scribed for LESLI Alvarez on 02/09/2024 10:17:46. . Documentation recorded by the newton Ceron_ accurately reflects the services(s) I performed and decisions made by me. Authenticated by Kandi Trejo PA-C on 02/09/2024 11:38:51. Problem List/Past Medical [...] vaccine 2020 Recorded (more content not included)... [facility] HospitalComment on above:Result Comment: Electronically Signed By: KANDI TREJO PA-C\.br\Date and Time Signed: 02/08/2411:39 EST\.br\Electronically Co-Signed By: Francis Ceron\.br\Date and Time Co- Signed: 02/09/24 10:18 ESTProvider Letteron 66-13-4872Tqbdvygy LetterProvider Letter January 11, 2024 PH[address]LLIS VANESSA [address] [place] [address] : 1945 Dear Phyllis, We have been trying to reach you with no success. You have an appointment with Kandi Trejo PA-C on January which will need to be rescheduled since she will be out of the office that morning . Please contact the office at the number listed below to get this appointment rescheduled at your earliest convenience. Thank you for your prompt attention to this matter. Sincerely, [facility] [address], [place] [address] YxxpzgLoeniwKettering Health TroyECG 12 [place] 11-04-2023 Normal sinus rhythmCPACSKettering Health Dayton Work Phone: Office Visit (Cardiology)on 40-85-2819Zxhfdb-up visit Diagnoses/Problems Assessed Sinus tachycardia (427.89) (R00.0) Essential tremor (333.1) (G25.0) Hypothyroidism (244.9) (E03.9) Morbid obesity with BMI of 45.0-49.9, adult (278.01,V85.42) (E66.01,Z68.42) Never a smoker Orders Morbid obesity with BMI of 45.0-49.9, adult Healthy Weight Tips; Status:Complete - Retrospective Authorization; Done: 05Nov2022 Some eating tips that can help you lose weight.; Status:Complete - Retrospective Authorization; Done: [id number] SocHx: Never a smoker Tobacco Use Screening; Status:Complete; Done: [id number] Patient Instructions Please bring all medicines, vitamins, [...] (1999 UT) Oral TabletTake 1 tablet daily patient [...] Recorded: 05Nov2022 09:53AM Heart Rate64, L Radial Ikujgajv662, LUE, Sitting Ilhnntqks70, LUE, Sitting Height5 ft 1 in Dvtzxo297 lb BMI Bbpjscepit95.62 kg/m2 BSA Calculated2.08 Tobacco Useb) No PHQ-2 #1. Over the last 2 weeks have you felt down, depressed or hopeless? (If yes, answer PHQ-9 below)No PHQ-2 #2. Over the last 2 weeks have you felt little interest or pleasure in doing things? (If yes,answer PHQ-9 below)No Falls Screening (Age 18+)b) One [...] skin turgor . Psychiatr (more content not included)...NormalUH TouchworksTobacco Screening.on 33-68-7046Ekkyp depression screening assessmentNoSkyline Hospital Ingenic 250 DO Work Phone: Fall risk assessmentb) One or more falls in the last yearSkyline Hospital Heart-Mel 250 DO Work Phone: Tobacco use status CPHSb) [facility] HASH 250 DO Work Phone: Office Visit (Cardiology)on 15-36-9722Wmmhpx-up visit Diagnoses/Problems Assessed Sinus tachycardia (427.89) (R00.0) [...] up in 8 months Chief Complaint PHYLLIS VANESSA is being seen for a 6 month [...] (2000 UT) Oral TabletTake 1 tablet daily Allergies [...] Signs Recorded: 26Mar2022 11:12AM Heart Rate69, Apical Bcxmucly457, RUE, Sitting Bjelqneji30, RUE, Sitting Height5 ft 1 in Tbjmzo845 lb BMI Jabnucqzfd09.67 kg/m2 BSA Calculated2.07 Tobacco Useb) No PHQ-2 #1. Over the last 2 weeks have you felt down, depressed or hopeless? (If yes, answer PHQ-9 below)Yes PHQ-2 #2. Over the last 2 weeks have you felt little interest or pleasure in doing things? (If yes,answer PHQ-9 below)Yes Falls Screening (Age 18+)b) One [...] Trouble concentrating on thi (more content not included)...NormalUH TouchworksTobacco Screening.on 27-18-3659Yljhh depression screening assessment YesSkyline Hospital Lovejuice-HereOrThere DO Work Phone: Fall risk assessmentb) One or more falls in the last yearSkyline Hospital Heart-[place] 250 DO Work Phone: Tobacco use status CPHSb) NoMP-[facility] Heart- [place] 250 DO Work Phone: Tobacco Screening.1-Several daysSkyline Hospital Heart- [place] 250 DO Work Phone: Tobacco Screening.3-Nearly every daySkyline Hospital Heart-[place] 250 DO Work Phone: Tobacco Screening.0-Not at allSkyline Hospital Heart- [place] 250 DO Work Phone: Tobacco Screening.Not difficult at allSkyline Hospital Heart-[place] 250 DO Work Phone: CT CSPINE WO CONon 00-49-6926AE CSPINE WO CON EXAMINATION: CT CSPINE WO [...] Electronically authenticated by: CARMEN HAY Date: 2021-09-24 11:08[facility] CenterCT FACIAL BONES WO CONon 59-92-0499RZ FACIAL BONES WO CON EXAMINATION: CT FACIAL [...] Electronically authenticated by: CARMEN HAY Date: 2021-09-24 11:18NoMercy Health Tiffin HospitalCT HEAD WO CONon 42-79-2742DB HEAD WO CONEXAMINATION: CT HEAD WO CON HISTORY: Falls ; [...] authenticated by: CARMEN HAY Date: 2021-09-24 11:21[facility] AUTO DIFFon 21-09-8119SPCH #0.1 103/ulNormal0.0-0.1The [facility] Hospital ToledoComment on above:Performed By: #### CBC ####[facility] J[address] [place], [place] [address]Dr.Yilan ChangBasophils/100 WBC (Bld)0.5 %Normal0.2-2.0The [facility] Hospital ToledoComment on above:Performed By: #### CBC ####[facility] Ytyyrmmiki[address] [place], [place] [address]Dr.Yilan ChangEO #0.3 103/ulNormal0.0-0.7The [facility] ToledoComment on above:Performed By: #### CBC ####[facility] W[address]mn[address] [place], [place] [address]Dr.Yilan ChangEosinophils/100 WBC (Bld)2.9 %Normal 0.9-7.0The [facility] Hospital ToledoComment on above:Performed By: #### CBC ####[facility] Mjghvcwrln[address] [place], [place] [address]Dr.Sabrina Reagan Erythrocyte distribution width (RBC) [Ratio]13.1 %Rdlozj43.0-15.0The [facility]aritan Hospitalment on above:Performed By: #### CBC ####[facility] [address] [place] [address]Dr.Sabrina ReaganHematocrit (Bld) [Volume fraction]36.3 %Fmazbu00.0-48.0The [facility] ToledoComment on above:Performed By: #### CBC ####[facility] S[address]vqbrle[address] [place], [place] [address]Dr.Sabrina ChangHemoglobin (Bld) [Mass/Vol]11.5 g/dL Critically low12.0-16.0The [facility] HospitalComment on above:Performed By: #### CBC ####[facility] Npjuqosdms[address] [place], [place] [address]Dr. Yilan ChangIG #0.02 10e3/ulNormal0.00-0.03The [facility] ToledoComment on above: Performed By: #### CBC ####[facility] Z[address]merdnbd[address] [place], [place] [address]Dr.Keyannalan ChangIG %0.2 %Normal0.0-0.5The [facility] ToledoComment on above:Performed By: #### CBC ####[facility] S[address]goetdirx[address] [place], [place] [address]Dr.Sabrina ChangLYMPH #3.0 103/ulNormal1.2-3.8The [facility] ToledoComment on above:Performed By: #### CBC ####[facility] Wm[address]czzbw[address] [place], [place] [address]Dr. Sabrina ChangLymphocytes/100 WBC (Bld)29.5 %Gbxsxu93.5-60.0The [facility] Comment on above:Performed By: #### CBC ####[facility] Qbfzujnsry[address] [place], [place] [address]Dr.Keyannalan ChangMANUAL DIFF REQNONormalThe [facility] ToledoComment on above:Performed By: #### CBC ####[facility] G[address]pwxkpdv[address] [place], [place] [address]Dr.Keyannamakenna ChangMCH (RBC) [Entitic mass]30.8 mfIppqaa51.7-34.0The [facility] ToledoComment on above: Performed By: #### CBC ####[facility] [address] [place] [address]Dr.Sabrina ReaganMCHC (RBC) [Mass/Vol]31.7 g/dLNormal 29.9-35.2The [facility] ToledoComment on above:Performed By: #### CBC ####[facility] [address]glykihsq[address] [place], [place] [address]Dr. Sabrina ReaganMCV (RBC) [Entitic vol]97.3 fJUjwssg53.0-99.0The [facility] Comment on above:Performed By: #### CBC ####[facility] Ucmlxnrjsr[address] [place], [place] [address]Dr.Sabrina ReaganMONO #0.9 103/ulCritically high0.3-0.8The [facility] ToledoComment on above:Performed By: #### CBC ####[facility] C[address]vlyzely[address] [place], [place] [address]Dr. Sabrina ReaganMonocytes/100 WBC (Bld)8.4 %Normal1.7-12.0The [facility] Comment on above:Performed By: #### CBC ####[facility] Sdnksgitfd[address] [place], [place] [address]Dr.Sabrina ReaganNEUT #6.0 103/ulNormal1.4-6.5 The [facility] Hospital ToledoComment on above:Performed By: #### CBC ####[facility] Ts[address]ycush[address] [place], [place] [address]Dr.Sabrina Reagan Neutrophils/100 WBC (Bld)58.5 %Wccvhf31.0-75.0The [facility] ToledoComment on above:Performed By: #### CBC ####[facility] Bmgbxlbynu[address] [place], [place] [address]Dr.Sabrina ReaganPlatelet mean volume (Bld) [Entitic vol] 10.5 fLNormal9.5-13.5The [facility] ToledoComment on above:Performed By: #### CBC ####[facility] Pcpjalarbv[address] [place], [place] [address]Dr. Sabrina ReaganPLT247 103/zwBexiht765-485Vwk [facility] ToledoComment on above: Performed By: #### CBC ####[facility] [address] [place], [place] [address]Gk.Sabrina ReaganRBC3.73 106/ulCritically low4.20-5.40The [facility] on above:Performed By: #### CBC ####[facility] [address] [place], [place] [address]Pi.Sabrina ReaganWBC10.2 103/ul Normal4.0-11.0The [facility] on above:Performed By: #### CBC ####[facility] [address]kw[address] [place], [place] [address]Tu. Sabrina ReaganCTA CHEST WO W CONon 96-25-3737CMZ CHEST WO W CONEXAMINATION: CTA CHEST WO W CON HISTORY: SHORTNESS [...] Electronically authenticated by: CARMEN HAY Date: 2021-07-20 08:[address] [place], [place] [address]LIPASEon 60-05-8452Ptufqr [Catalytic activity/Vol]81.0 U/L Ysovtk07.0-393.0The [facility] HospitalComment on above:Performed By: #### LIPA, CMP, HSTROPN #### [facility] [address] [place] [address] [address] Sabrina ReaganPROF 14(COMP METB)on 46-28-5000Dtzxgqk [Mass/Vol]3.8 g/dLNormal 3.4-5.0The [facility] ToledoComment on above:Performed By: #### LIPA, CMP, HSTROPN ####[facility] [address] [place] [address]Dr. Sabrina ReaganAlbumin/Globulin [Mass ratio]0.9 {ratio}NormalThe [facility] Hospital ToledoComment on above:Performed By: #### LIPA, CMP, HSTROPN ####[facility] [address] [place] [address]Dr. Sabrina ChangALP [Catalytic activity/Vol]80 U/VGrfcsj39-223Nrl [facility] ToledoComment on above: Performed By: #### LIPA, CMP, HSTROPN ####[facility] [address] [place] [address]Dr. Sabrina ChangALT [Catalytic activity/Vol]41 U/L Fpzgnf82-16Ukq [facility] ToledoComment on above:Performed By: #### LIPA, CMP, HSTROPN ####[facility] [address] [place] [address]Dr. Sabrina ChangAnion gap [Moles/Vol]12.7 mmol/LNormalThe [facility] Comment on above:Performed By: #### LIPA, CMP, HSTROPN ####[facility] [address] [place] [address]Dr. Yilan ChangAST [Catalytic activity/Vol]25 U/EXglkdw69-70Drm [facility] ToledoComment on above:Performed By: #### LIPA, CMP, HSTROPN ####[facility] [address] [place] [address]Dr. Sabrina ChangBilirubin [Mass/Vol]0.5 mg/dLNormal 0.2-1.0The [facility] on above:Performed By: #### LIPA, CMP, HSTROPN ####[facility] [address]ads[address] [place] [address]Dr. Yilan ChangCalcium [Mass/Vol]9.0 mg/dLNormal8.5-10.1The [facility] on above:Performed By: #### LIPA, CMP, HSTROPN ####[facility] [address] [place] [address]Dr. Yilan Reagan Chloride [Moles/Vol]101 mmol/MOemhwv89-284Kbh [facility] on above: Performed By: #### LIPA, CMP, HSTROPN ####[facility] [address]ytsddr[address] [place], [place] [address]Dr. Yilan ChangCO2 [Moles/Vol]29.6 mmol/LNormal 21.0-32.0The [facility] on above:Performed By: #### LIPA, CMP, HSTROPN ####[facility] [address]fwkkci[address] [place], [place] [address]Dr. Yilan ChangCreatinine [Mass/Vol]1.33 mg/dLCritically high0.55-1.02The [facility] on above:Performed By: #### LIPA, CMP, HSTROPN ####[facility] [address] [place] [address]Dr. Yilan ChangEGFR-AF VJUIQVGM18 mL/min/1.26n5Zgwouhbngq low>=60The [facility] on above:Performed By: #### LIPA, CMP, HSTROPN ####[facility] [address] [place] [address]Dr. Yilan ChangEGFR- NON AF UEEFSRBM20 mL/min/1.67b6Pgpvnpzddc low>=60The [facility] on above:Performed By: #### LIPA, CMP, HSTROPN ####[facility] [address] [place] [address]Dr. Yilan ChangGlobulin (S) [Mass/Vol]4.2 g/dLNormalThe [facility]c HospitalComment on above:Performed By: #### LIPA, CMP, HSTROPN ####[facility] [address] [place] [address]Dr. Yilan ChangGlucose [Mass/Vol]123 mg/dLCritically audd50-735Dcn [facility]Com[facility] on above:Performed By: #### LIPA, CMP, HSTROPN ####[facility] [address]ys[address] [place] [address]Dr. Yilan ChangPotassium [Moles/Vol]4.3 mmol/LNormal3.5-5.1The [facility]edoComs[facility] hospital on above:Performed By: #### LIPA, CMP, HSTROPN ####[facility] [address]rcyakqg[address] [place], [place] [address]Dr. Yilan Reagan Protein [Mass/Vol]8.0 g/dLNormal6.4-8.2The [facility]edoComs[facility] on above: Performed By: #### LIPA, CMP, HSTROPN ####[facility] [address]afe[address] [place], [place] [address]Dr. Yilan ChangSodium [Moles/Vol]139 mmol/LNormal 136-145The [facility] on above:Performed By: #### LIPA, CMP, HSTROPN ####[facility] [address] [place] [address]Dr. Yilan ChangUrea nitrogen [Mass/Vol]33.0 mg/dLCritically high7.0-18.0The [facility] on above:Performed By: #### LIPA, CMP, HSTROPN ####[facility] [address]vise[address] [place], [place] [address]Dr. Yilan ChangUrea nitrogen/Creatinine [Mass ratio]24.8 mg/mgNoMercy Health Tiffin HospitalComsinai-grace hospital on above:Performed By: #### LIPA, CMP, HSTROPN ####[facility] [address]kbakk[address] [place], [place] [address]Dr. Sabrina Reagan TROPONIN, HIGH SENSITIVITYon 07-80-6863ITOBJI78.4 pg/mLNormal4.0-51.3The [facility] ToledoComment on above:Result Comment: CUT-OFF POINTS HAVE BEEN ESTABLISHED BASED ON THE FOURTH UNIVERSAL DEFINITIONS OF MYOCARDIAL INFARCTION. THE UPPER REFERENCE LIMIT (URL) OF TROPONIN, DEFINED THE 99TH PERCENTILE OF cTnI DISTRIBUTION IN A REFERENCE POPULATION, HAS BEEN CONFIRMED THE DECISION THRESHOLD FOR [place] DIAGNOSIS.Performed By: #### LIPA, CMP, HSTROPN ####[facility] [address]ab[address] [place], [place] [address]Jy. Yimakenna ChangUS PELVIS AND TRANSVAGon 19-06-2218ZT PELVIS AND TRANSVAGEXAMINATION: US PELVIS AND TRANSVAG HISTORY: Abdominal distension, [...] Electronically authenticated by: CARMEN HAY Date: 2021-04-22 16:[address] [place], [place] [address].on 18-69-8717Fomw risk assessmenta) No falls within the last yearMP-[facility] [facility] DO Work Phone: Tobacc use status CPHSb) [facility] 250 DO Work Phone: XR KUB 1 VIEWon [id number] KUB 1 VIEWEXAMINATION: XR KUB 1 VIEW HISTORY: Kidney stone [...] Electronically authenticated by: JANIS GIRON Date: 2021-03-05 13:09NormalThMercy Health [facility] Hospital AUTO DIFFon [id number] #0.0 103/ulNormal0.0-0.1[facility] HospitalComment on above:Performed By: #### CBC #### [facility] [address] [place] [address] Dr. Sabrina ReaganBasophils/100 WBC (Bld)0.1 %Critically low0.2-2.0The [facility] ToledoComment on above:Performed By: #### CBC #### [facility] [address] [place] [address] Dr. Sabrina Meyer #0.0 103/ulNormal0.0-0.7The [facility]edoComment on above: Performed By: #### CBC #### [facility] [address] [place] [address] Dr. Sabrina Beachosinophils/100 WBC (Bld)0.1 %Critically low0.9-7.0[facility] HospitalComment on above:Performed By: #### CBC #### [facility] [address] [place] [address] Dr. Sabrina Beachrythrocyte distribution width (RBC) [Ratio]13.2 %Kusuow93.0-15.0 [facility] HospitalComment on above:Performed By: #### CBC #### [facility] [address] [place] [address] Dr. Sabrina ReaganHematocrit (Bld) [Volume fraction]33.2 %Critically low36.0-48.0 [facility] HospitalComment on above:Performed By: #### CBC #### [facility] [address] [place] [address] Dr. Sabrina ReaganHemoglobin (Bld) [Mass/Vol]10.7 g/dLCritically low12.0-16.0[facility] HospitalComment on above:Performed By: #### CBC #### [facility] [address] [place] [address] Dr. Sabrina Ramirez #0.03 10e3/ulNormal0.00-0.03The [facility]edoComment on above:Performed By: #### CBC #### [facility] [address] [place] [address] Dr. Sabrina Ramirez %0.4 %Normal0.0-0.5The [facility] ToledoComment on above: Performed By: #### CBC #### [facility] [address] [place] [address] Dr. Sabrina MartinMONTEFIORE [facility] #2.0 103/ulNormal1.2-3.8The [facility]edoComment on above:Performed By: #### CBC #### [facility] [address] [place] [address] Dr. Sabrina Romanohocytes/100 WBC (Bld)24.0 %Vylnww79.5-60.0The [facility] on above:Performed By: #### CBC #### [facility] [address] [place] [address] Dr. Sabrina CasarezUAL DIFF REQNONormalThe [facility] ToledoComment on above: Performed By: #### CBC #### [facility] [address] [place] [address] Dr. Sabrina Garcia (RBC) [Entitic mass]30.1 sbFkiieb42.7-34.0[facility] on above:Performed By: #### CBC #### [facility] [address] [place] [address] Dr. Sabrina Garcia (RBC) [Mass/Vol]32.2 g/cAQmjjym47.9-35.2[facility] on above:Performed By: #### CBC #### [facility] [address] [place] [address] Dr. Sabrina Garcia (RBC) [Entitic vol]93.3 nOAzmmji33.0-99.0The [facility] ToledoComment on above:Performed By: #### CBC #### [facility] [address] [place] [address] Dr. Sabrina Kirby #0.9 103/ulCritically high0.3-0.8The [facility] Comment on above:Performed By: #### CBC #### [facility] [address] [place] [address] Dr. Sabrina Goldocytes/100 WBC (Bld)10.5 %Normal1.7-12.0The [facility] Comment on above:Performed By: #### CBC #### [facility] [address] [place] [address] Dr. Sabrina Joaquin #5.3 103/ulNormal1.4-6.5The [facility] ToledoComment on above:Performed By: #### CBC #### [facility] [address] [place] [address] Dr. Sabrina Goinsutrophils/100 WBC (Bld)64.9 %Cjgmlo31.0-75.0The [facility] ToledoComment on above:Performed By: #### CBC #### [facility] [address] [place] [address] Dr. Sabrina Johnlet mean volume (Bld) [Entitic vol]11.0 fLNormal9.5-13.5The [facility]edoComment on above:Performed By: #### CBC #### [facility] [address] [place] [address] Dr. Sabrina ReaganPLT175 103/vjLintmb115-830Uuu [facility]edoComment on above: Performed By: #### CBC #### [facility] [address] [place] [address] Dr. Sabrina ReaganRBC3.56 106/ulCritically low4.20-5.40The [facility] ToledoComment on above:Performed By: #### CBC #### [facility] [address] [place] [address] Dr. Sabrina ReaganWBC8.2 103/ulNormal4.0-11.0The [facility] ToledoComment on above: Performed By: #### CBC #### [facility] [address] [place] [address] Dr. Sabrina Arroyo ABD/PELVIS WO CONon [id number] ABD/PELVIS WO CONEXAMINATION: CT ABD/PELVIS WO CON HISTORY: CALCULUS OF [...] Electronically authenticated by: JANIS TO Date: 2021-01-25 11:03NormMarjan [facility] HospitalCULTURE URINEon 37-33-2041GPPDGOF URINECulture Observations: No growthNormWilson Street HospitalComment on above:Performed By: #### URCX ####[facility] [address] [address]Dr. Sabrina Aland-19 PCR (CVDTBH)on 19-62-1373PRHJ-CoV-2 (COVID-19) RNA SHARON+probe Ql (Unsp spec)DetectedCritically abnormalNOT DETECTEDCleveland Clinic [facility]on Hospital Comment on above:Result Comment: This test is not yet approved or cleared by the [place] FDA. When there are no FDA-approved or cleared tests available, and other criteria are met, FDA can make tests available under an emergency access mechanism called an Emergency Use Authorization (EUA). The EUA for this test is supported by the Reporting Process Consultant of Health and Human Service's declaration that circumstances exist to justify the emergency use of in vitro diagnostics for the detection and/or diagnosis of the virusthat causes COVID-19. This EUA will remain in effect for the duration of the COVID-19 declaration justifying emergency of IVDs, unless it is terminated or revoked by the FDA (after which the test mayno longer be used).Performed By: #### CVDTBH ####[facility] [address] [address]Dr. Sabrina Anton URINE PROFILEon 22-84-9757Fqxnemstn Ql (U)NegativeNormalNEGATIVECleveland Clinic Avon Hospital Comment on above:Performed By: #### HEAVENLY TAMAYO #### [facility] [address] [address] [address] Sabrina Mota (U)CLEARNormalCLEARCleveland Clinic Avon HospitalComment on above: Performed By: #### RONI ERUR #### [facility] [address] [address] [address] Sabrina Walsh (U)YELLOWNormalYELLOWCleveland Clinic Avon HospitalComment on above: Performed By: #### RONI, ERUR #### [facility] [address] [address] [address] Sabrina Brooks micrscopic examination will be performed if indicated. NormalCleveland Clinic Avon HospitalComment on above:Performed By: #### RONI, ERUR #### [facility] [address] [address] [address] Sabrina ReaganGlucose Ql (U)NegativeNormalNEGATIVECleveland Clinic Avon HospitalComment on above:Performed By: #### RONI, ERUR #### [facility] [address] [place] [address] Dr. Sabrina ReaganHemoglobin Ql (U)TRACE-INTACTAbnormalNEGATIVECleveland Clinic Avon HospitalComment on above:Performed By: #### RONI, ERUR #### [facility] [address] [place] [address] Dr. Sabrina ReaganKetones Ql (U)NegativeNormalNEGATIVECleveland Clinic Avon HospitalComment on above:Performed By: #### RONI, ERUR #### [facility] [address] [place] [address] Dr. Sabrina ReaganLEUKOCYTESNegativeNormalNEGATIVECleveland Clinic Avon HospitalComment on above:Performed By: #### RONI, ERUR #### [facility] [address] [place] [address] Dr. Sabrina ReaganNitrite Ql (U)NegativeNormalNEGATIVECleveland Clinic Avon HospitalComment on above:Performed By: #### RONI, ERUR #### [facility] [address] [address] [address] Sabrina ReaganpH (U)5.0 [pH]Normal5-9[facility] HospitalComment on above: Performed By: #### RONI, ERUR #### [facility] [address] [place] [address] Dr. Sabrina ReaganSPEC GRAVITY>=1.875Fwciyzhw2.005-<=1.025[facility] on above:Performed By: #### RONI, ERUR #### [facility] [address] [address] [address] Sabrina Chance PROTEINTRACENormalNEGATIVE/ TRACEThe [place] HospitalComment on above:Performed By: #### CHRISTELLE TAMAYOR #### [facility] [address] [address] [address] Sabrina Gongora MICRO INDINDICATEDNormalThe [facility] ToledoComment on above: Performed By: #### CHRISTELLE TAMAYOR #### [facility] [address] [address] [address] Sabrina Corcoranbilinogen Qn (U)0.2 {Kaycee'U}/dLNormal0.2 - 1.0The [facility] ToledoComment on above:Performed By: #### HEAVENLY TAMAYO #### [facility] [address] [address] [address] Sabrina Pulido 14(COMP METB)on 01-41-9622Fukwhpv [Mass/Vol]3.0 g/dL Critically low3.5-5.0The [facility] ToledoComment on above:Performed By: #### CMP ####[facility] [address] [address]DrAndres ReaganAlbumin/Globulin [Mass ratio]0.7 {ratio}NormalThe [facility] Comment on above:Performed By: #### CMP ####[facility] [address] [address]Dr.Sabrina ReaganALP [Catalytic activity/Vol]66 U/GDxppay82-686Bdv [facility]edoComment on above:Performed By: #### CMP ####[facility] [address] [address]Dr. Sabrina ReaganALT [Catalytic activity/Vol]31 U/LNormal9-52The [facility] Comment on above:Performed By: #### CMP ####[facility] [address] [address]Dr.Sabrina ReaganAnion gap [Moles/Vol]13.5 mmol/LNormalThe [facility] HospitalComment on above:Performed By: #### CMP ####[facility] [address] [address]Dr. Yilan ChangAST [Catalytic activity/Vol]28 U/XZfligh45-45Wur [facility] Comment on above:Performed By: #### CMP ####[facility] [address] [address]Dr.Yilan ChangBilirubin [Mass/Vol]0.3 mg/dL Normal0.2-1.3The [place] [facility] HospitalComment on above:Performed By: #### CMP ####[facility] Y[address] [place], [place] [address]Dr. Yilan ChangCalcium [Mass/Vol]8.6 mg/dLNormal8.4-10.2The [facility] ToledoComment on above:Performed By: #### CMP ####[facility] Pb[address]zbyjsi[address] [place], [place] [address]Dr.Yilan ChangChloride [Moles/Vol]99 mmol/LNormal 98-107The [facility] ToledoComment on above:Performed By: #### CMP ####[facility] [address] [place], [place] [address]Dr.Yilan ChangCO2 [Moles/Vol]26.7 mmol/MXtwtdw94.0-30.0The [facility] ToledoComment on above: Performed By: #### CMP ####[facility] Tglirjjcb[address] [place], [place] [address]Dr.Yilan ChangCreatinine [Mass/Vol]1.64 mg/dL Critically high0.52-1.04The [facility] ToledoComment on above:Performed By: #### CMP ####[facility] I[address] [place], [place] [address]Dr.Yilan ChangEGFR-AF EPKVKKFV75 mL/min/1.07c9Xsxxbtqouy low>=60The [facility] ToledoComment on above:Performed By: #### CMP ####[facility] I[address] [place], [place] [address]Dr.Yilan ChangEGFR-NON AF NLUVFJVQ02 mL/min/1.90r5Otdqwmkjud low>=60The [facility] ToledoComment on above: Performed By: #### CMP ####[facility] R[address] [place], [place] [address]Dr.Sabrina ReaganGlobulin (S) [Mass/Vol]4.5 g/dLNormWilson Street HospitalComment on above:Performed By: #### CMP ####[facility] G[address]jpuhy[address] [place], [place] [address]Dr.Sabrina ChangGlucose [Mass/Vol]133 mg/dLCritically tulg37-153Nfg [facility]edoComment on above: Performed By: #### CMP ####[facility] V[address]wtscuz[address] [place], [place] [address]Dr.Sabrina ReaganPotassium [Moles/Vol]4.2 mmol/LNormal 3.4-5.0The [facility] ToledoComment on above:Performed By: #### CMP ####[facility] X[address]ix[address] [place], [place] [address]Dr.Sabrina Reagan Protein [Mass/Vol]7.5 g/dLNormal6.1-8.2The [facility] ToledoComment on above: Performed By: #### CMP ####[facility] Gvonjjfykm[address] [place], [place] [address]Dr.Sabrina ChangSodium [Moles/Vol]135 mmol/LCritically vjl380-680Awt [facility]edoComment on above:Performed By: #### CMP ####[facility] [address] [place], [place] [address]Dr. Sabrina ChangUrea nitrogen [Mass/Vol]51.0 mg/dLCritically high7.0-17.0The [facility] ToledoComment on above:Performed By: #### CMP ####[facility] Qtmrmxjw[address] [place], [place] [address]Dr.Sabrina ChangUrea nitrogen/Creatinine [Mass ratio]31.1 mg/mgNoMercy Health Tiffin HospitalComment on above:Performed By: #### CMP ####[facility] Tfdustznld[address] [place], [place] [address]Dr.Keyannalan ChangURINE MICROSCOPIC ONLYon 01-25-2021 AMORPHOUS CRYSTALSMODERATENormalThe [facility] HospitalComment on above:Performed By: #### RONI, ERUR #### [facility] [address] [address] [address] Sabrina HyattSMALLAbnormalNONE SEENProtestant Deaconess Hospital on above:Performed By: #### RONI, ERUR #### [facility] [address] [address] [address] Sabrina Hyatt identified Cx Nom (U)INDICATEDWexner Medical CenterComsinai-grace hospital on above:Performed By: #### RONI, ERUR #### [facility] [address] [place] [address] Dr. Sabrina Rowland SEENHannibal Regional HospitalE SEENProtestant Deaconess Hospital on above:Performed By: #### RONI, ERUR #### [facility] [address] [place] [address] Dr. Sabrina ReaganCrystals LM Nom (Urine sed)SEENAbnormalNONE SEENProtestant Deaconess Hospital on above:Performed By: #### RONI, ERUR #### [facility] [address] [place] [address] Dr. Sabrina Thompsonthelial cells LM Ql (Urine sed)MODERATEAbnormalNONE SEEN /RARE The [facility] on above:Performed By: #### RONI, ERUR #### [facility] [address] [place] [address] Dr. Sabrina TravisMODERATEAbnormalNONE SEENProtestant Deaconess Hospital on above:Performed By: #### RONI, ERUR #### [facility] [address] [address] [address] Sabrina BorreroBojvqYUO7-5Zmrcrs3-5BipProtestant Deaconess Hospital on above:Performed By: #### RONI, ERUR #### [facility] [address] [address] [address] Sabrina BaumannBC0-2AbnormalNONE SEENThe [place] HospitalComment on above: Performed By: #### RONI ERUR #### [facility] [address] [address] [address] Sabrina Reagan Vital Signs Date TimeVital SignValuePerforming NiqmzawhvJzxxbczm66-55-7764 14:22-0400Body ugcoch738.1 cmMoises Camara MD Work Phone: [phone] [place], [place] 1409810-20-2025 14:22-0400 Body mass index (BMI) [Ratio]49.7 kg/f2MsiudhMoises Camara MD Work Phone: [phone])[address] [place], [place] 140[address]10-20-2025 14:22-0400 Body jojqhc496.6 kgMoises Camara MD Work Phone: [phone] [place], [place] 140[address]10-20-2025 14:22-0400 Diastolic blood xchdpmaz17 mm[Hg]Moises Camara MD Work Phone: [phone])[address] [place], [place] 140[address]10-20-2025 14:22-0400 Heart rate70 /Maribel Camara MD Work Phone: [phone])[address] [place], [place] 1409810-20-2025 14:22-0400 Respiratory rate18 /Maribel Camara MD Work Phone: [phone])[address] [place], [place] 140[address]10-20-2025 14:22-0400 Systolic blood gyndctgc060 mm[Hg]Moises Camara MD Work Phone: [phone])[address] [place], [place] 1409808-25-2025 14:27-0400 Body tgjget429.5 cmMoises Camara MD Work Phone: [phone] [place], [place] 1409808-25-2025 14:27-0400 Body mass index (BMI) [Ratio]50.9 kg/z6PuyykrMoises Camara MD Work Phone: 1(419)[address] [place], [place] 1409808-25-2025 14:27-0400 Body zcvixf009.8 kgMoises Camara MD Work Phone: [phone])[address] [place], [place] 1409808-25-2025 14:27-0400 Diastolic blood tcolhrof46 mm[Hg]Moises Camara MD Work Phone: [phone]08-25-2025 14:27-0400 Heart rate77 /Maribel Camara MD Work Phone: [phone])[address]08-25-2025 14:27-0400 Respiratory rate18 /Maribel Camara MD Work Phone: [phone])[address]08-25-2025 14:27-0400 Systolic blood mm[Hg]Moises Camara MD Work Phone: [phone])[address]06-16-2025 10:50-0400 Body hizpiy533.5 cmMoises Camara MD Work Phone: [phone])[address]06-16-2025 10:50-0400 Body mass index (BMI) [Ratio]51.7 kg/g0GakhpzMoises Camara MD Work Phone: [phone])[address]06-16-2025 10:50-0400 Body eycyqf984.7 kgMoises Camara MD Work Phone: [phone])[phone]06-16-2025 10:50-0400 Diastolic blood nryuejdf50 mm[Hg]Moises Camara MD Work Phone: [phone])[address]06-16-2025 10:50-0400 Heart rate67 /Maribel Camara MD Work Phone: [phone])[address]06-16-2025 10:50-0400 Respiratory rate18 /Maribel Camara MD Work Phone: [phone])[phone]06-16-2025 10:50-0400 Systolic blood wharoipv686 mm[Hg]Moises Camara MD Work Phone: [phone]04-21-2025 13:08-0400 Body eiache471.86 cmC[facility]04-21-2025 13:08-0400Body mass index (BMI) [Ratio]51 kg/q6XwyhoyuqoC[facility] Clinic [facility] Hospital04-21-2025 13:08-0400Body malyxe428.47 [facility]04-21-2025 13:08-0400Diastolic blood nyspyggi32 mm[Hg][facility] 06-18-2024 13:08-0400Heart rate68 /[facility] 06-18-2024 13:08-0400Respiratory rate12 /[facility] 06-18-2024 13:08-9182HoD7% (BldA) [Mass fraction]98 %[facility]04-21-2025 13:08-0400Systolic blood pxicmqxh886 mm[Hg][facility]03-31-2025 14:07-0400Body rtnbja563.9 Rosa Isela Ramirez RAYON WINDER Work Phone: [facility] SpringsNafmidglvm02-09-0949 14:07-0400Body mass index (BMI) [Ratio]47.05 kg/q8BcpliLauren Ramirez RAYON WINDER Work Phone: [facility] SpringsDtvtxurwlc26-41-4370 14:07-0400Body oldwqr728.95 kgLauren Ramirez RAYON WINDER Work Phone: [facility] SpringsSgwwraqaev68-03-7469 14:07-0400Diastolic blood gjednnsi52 mm[Hg]Lauren Ramirez RAYON WINDER Work Phone: [facility] SpringsAnezsmzcyn45-34-6720 14:07-0400Systolic blood bsbdwolj544 mm[Hg]Lauren Ramirez RAYON WINDER Work Phone: [facility] SpringsDddtqtufwy57-92-9726 13:46-0500Body vpasjk416.86 cmC[facility]01-04-2025 13:46-0500Body mass index (BMI) [Ratio]50.5 kg/k3MnvchgvuvC[facility] Clinic [facility] Hospital01-04-2025 13:46-0500Body dlggsydemrq05.6 [degF][facility]01-04-2025 13:46-0500Body .39 kgC[facility] Clinic [facility] Hospital01-04-2025 13:46-0500Diastolic blood tgvjbojx47 mm[Hg][facility]01-04-2025 13:46-0500 Heart rate70 /[facility]01-04-2025 13:46-0500 Respiratory rate18 /minCleveland Clinic Union Hospital01-04-2025 13:46-0500 SaO2% (BldA) [Mass fraction]97 %[facility]01-04-2025 13:46-0500Systolic blood pwntluqm031 mm[Hg][facility] 02-09-2024 09:28-0500Blood Pressure LocationJENNIFER ELVIE [facility]12-12-2024 09:28-0500Diastolic blood lnttiaxu51 mm[Hg]KANDI TREJO [facility]12-12-2024 09:28-0500Heart rate76 /minKANDI ONEILRY [facility]12-12-2024 09:28-0500Systolic blood iexlipdl594 mm[Hg]KANDI TREJO [facility]10-16-2024 14:56-0400Body mass index (BMI) [Ratio]46.46 kg/y9KticjfAlbino Michaels RAYON WINDER Work Phone: [facility] SpringsWvoltyizta10-68-5187 14:56-0400Body .21 kgAlbino Michaels RAYON WINDER Work Phone: [facility] SpringsEyycyntlfp65-54-8650 14:56-0400Diastolic blood hacvclwv06 mm[Hg]Albino Michaels RAYON WINDER Work Phone: NOCedar [facility] HospitalPukhsxozfp85-22-5627 14:56-0400Heart rate67 /min Albino Michaels RAYON WINDER Work Phone: noCedar County Memorial HospitalQkuytzswic24-33-4567 14:56-0400Systolic blood amfuxqwy719 mm[Hg]Albino Michaels RAYON WINDER Work Phone: noCedar County Memorial HospitalVwnnmizndj57-28-1284 10:28-0400Diastolic blood txpbesit52 mm[Hg]Morgan Ray MD Work Phone: [facility]09-06-2024 10:28-0400 Systolic blood kbotmlcb569 mm[Hg]Morgan Ray MD Work Phone: [facility]09-06-2024 10:05-0400 Body iatzjq419.9 cmMorgan Ray MD Work Phone: [phone]09-06-2024 10:05-0400 Body mass index (BMI) [Ratio]47.61 kg/u8LfqjpigMorgan Ray MD Work Phone: [phone])[address]09-06-2024 10:05-0400 Body qoevfm320.31 kgMorgan Ray MD Work Phone: [phone] [place], [place] 4889009-06-2024 10:05-0400 Heart rate65 /minMorgan Ray MD Work Phone: [phone])950-[address] [place], [place] 4889001-15-2024 09:30-0500 Body beupji708.13 cmMoises Camara Other [employer] Other 01-15-2024 09:30-0500Body mass index (BMI) [Ratio] 48.53 kg/t8EduvwnMoises Camara Other [employer] Other 01-15-2024 09:30-0500Body qibwch029.86 kgMoises Camara Other [employer] Other 01-15-2024 09:30-0500Diastolic blood ahjdaqgo62 mm[Hg] Moises Camara Other [employer] Other 01-15-2024 09:30-0500Systolic blood pujclrdt693 mm[Hg] Moises Camara Other [employer] Other 12-28-2023 10:30-0500Body .13 cmTaylorjalyn Jax Other [facility] [employer] Other 12-28-2023 10:30-0500Body yzhjpeetaen26 [degF]Moises Jax Other [facility] [employer] Other 12-28-2023 10:30-8616BwT4% (BldA) [Mass fraction]94 % Moises Camara Other [employer] Other 12-05-2023 10:10-0500Blood Pressure LocationJENNIFER ELVIE [facility]12-05-2023 10:10-0500Diastolic blood pgojpgkh00 mm[Hg]KANDI ELVIE [facility]12-05-2023 10:10-0500Heart rate69 /minJENNIFER ELVIE [facility]12-05-2023 10:10-0500Respiratory rate16 /minJENNIFER ELVIE [facility]12-05-2023 10:10-0500Systolic blood mm[Hg]KANDI ELVIE [facility]09-08-2023 09:53-0400Body dslele994.94 cmMoises Camara Work Phone: [phone]-[employer] [facility] DO Work Phone: 1(532) 864-879309-08-2023 09:53-0400Body mass index (BMI) [Ratio] 47.62 kg/j9GqyxlwMoises Camara Work Phone: [phone]-[employer] [facility] DO Work Phone: 1(728) 122-507509-08-2023 09:53-0400Body surface area Derived from formula2.08 t4VoxfylMoises Camara Work Phone: [phone]-Suwsi [facility] DO Work Phone: 1(955) 405-543109-08-2023 09:53-0400Body .31 kgMoises Camara Work Phone: 1([phone]) [phone]-Tmpjx [facility] DO Work Phone: 1(378) 268-471109-08-2023 09:53-0400Diastolic blood ovdgmzon48 mm[Hg] Moises Camara Work Phone: [phone]-Vfkio [facility] [address] DO Work Phone: 1(839) 872-923609-08-2023 09:53-0400Heart rate64 /minMoises Camara Work Phone: 1(146) [phone]-Cldmn [facility] [address] DO Work Phone: 1(650) 132-935109-08-2023 09:53-0400Systolic blood mm[Hg] Moises Camara Work Phone: 1(954) 577-9439289-5365VW-Aygph [facility] [address] DO Work Phone: 1(245) 445-558101-27-2023 11:12-0500Body .94 cmMoises Camara Work Phone: 1(228) [phone]-Grumo [facility] [address] DO Work Phone: 1([phone])204-863-397682-04 11:12-0500Body mass index (BMI) [Ratio] 46.67 kg/c6KcixydMoises Camara Work Phone: [phone]) [phone]-Kqzco [facility] 250 DO Work Phone: 1(940) 458-928801-27-2023 11:12-0500Body surface area Derived from formula2.07 t2EypwedMoises Camara Work Phone: [phone]-Qfmrn [facility] 250 DO Work Phone: 1(647)112-76415-889533-50952103-17-6571 11:12-0500Body yqfbau330.04 kgMoises Camara Work Phone: [phone]-Efokd [facility] 250 DO Work Phone: 1(592) [phone] 11:12-0500Diastolic blood oosghmlq45 mm[Hg] Moises Camara Work Phone: [phone]-Vmkuh [facility] DO Work Phone: 1(988) [phone] 11:12-0500Heart rate69 /minMoises Camara Work Phone: [phone]-Qbmrz [facility] 250 DO Work Phone: 1(475) [phone] 11:12-0500Systolic blood mm[Hg] Moises Camara Work Phone: [phone]-Munyw [facility] DO Work Phone: 1(964) 489-638110-03-2022 14:41-0400Blood Pressure LocationPatrick SILVA [facility]10-03-2022 14:41-0400Diastolic blood yzymuxqx82 mm[Hg]Jonny SILVA [facility]10-03-2022 14:41-0400Heart rate74 /minPatrick SILVA [facility]10-03-2022 14:41-0400Respiratory rate18 /minPatrick SILVA [facility]10-03-2022 14:41-0400Systolic blood lszouhwh766 mm[Hg]Jonny SILVA [facility]02-01-2022 15:38-0500Body unxhrn123.94 cmMoises Camara Work Phone: [phone]-XxtgeL[facility] 250 DO Work Phone: 1(455) 332-354402-01-2022 15:38-0500Body mass index (BMI) [Ratio] 43.46 kg/i0UxplwrMoises Camara Work Phone: 1([phone]-AcrjnOrtonville [facility] 250 DO Work Phone: 1(318) 696-626802-01-2022 15:38-0500Body surface area Derived from formula2 j1YeoxohMoises Camara Work Phone: 1(804) [phone]-VkxauErica [place] [address] DO Work Phone: 1(515) 270-234002-01-2022 15:38-0500Body pqviay070.33 kgMoises Camara Work Phone: mp339-2476KM-JmvyaVictoria [place] [address] DO Work Phone: 1(356) 142-796702-01-2022 15:38-0500Diastolic blood mm[Hg] Moises Camara Work Phone: 1(925) [phone]-HxbtoErica [place] [address] DO Work Phone: 1(464) 604-499402-01-2022 15:38-0500Heart rate83 /minMoises Camara Work Phone: 1(346) [phone]-OwmgvErica [place] [address] DO Work Phone: 1(279) 754-771002-01-2022 15:38-0500Systolic blood iaelsmjv424 mm[Hg] Moises Camara Work Phone: 1(302) [phone]-UcbezErica [place] [address] DO Work Phone: Encounters Encounter DateEncounter TypeCare ProviderFacilityStart: 22-15-7384vhovprqmbr Jennifer TannaFacility:HAIDER BellevueStart: 12-17-2024 End: 51-81-8435nczvxgmmfdXkvsye E Braun MD Work Phone: [phone]-NRMFIhvqm: 12-17-2024 End: 09-48-9116Hzitbli encounter procedureJele Mcdonald [facility] Work Phone: Start: 10-24-2024 End: 59-47-1683pwaaujrtwiYeroon E Braun MD Work Phone: [facility] Work Phone: Start: 10-24-2024 End: 61-62-4951Hluldcs encounter procedureScarlet Vega [facility] Work Phone: Start: 10-22-2024 End: 38-61-2293wgripiansnNqajqp E Braun MD Work Phone: [facility] Work Phone: Start: 10-22-2024 End: 83-92-3812Nctyins encounter procedureKandi Mcdonald [facility] Work Phone: Start: 09-13-2024 End: 40-48-2661hqyswwytuxUxkfbo E Braun MD Work Phone: [facility] Work Phone: Start: 09-13-2024 End: 06-23-7799Uhtjiob encounter procedureScarlet Vega [facility] Work Phone: Start: 08-13-2024 End: 83-01-2842Pijalci encounter procedureKandi Mcdonald [facility] Work Phone: Start: 27-65-4766Yxfvbxa encounter procedureMoises Camara MD Work Phone: [facility]: 06-18-2024 End: 71-37-3675heobmslfgfTyclocmuhAvita Health [facility] Work Phone: Start: 06-18-2024 End: 64-28-9463Eaaeriv encounter procedureQuorum Health Physician GroupClermont County Hospital Work Phone: Start: 19-69-2393Ozlyuce encounter statusLicking Memorial Hospitaltart: 05-28-2024 End: 91-70-5564Nhngra Adelina Ramirez NP Work Phone: aNA BELLEVUEStart: 05-28-2024 End: 00-53-3229Dxhuvz flowsheetSarah Ramirez RAYON WINDER Work Phone: ana BELLEVUEStart: 05-28-2024 End: 36-02-9753Bjfhbh outpatient visit 15 minutesLauren Keitholl RAYON WINDER Work Phone: ana BELLEVUEComment on above:Essential tremor (Primary Dx); Family history of Parkinson's disease; Right hand weakness; Gait instabilityStart: 05-28-2024 End: 44-89-2000budaceamfkGPOSC CARROLLNot AvailableStart: 03-03-2024 End: 54-08-5414Lrccfkqw Valerie Camara MD Work Phone: [facility] [place] Work Phone: Start: 03-03-2024 End: 68-55-6899plxpjxfrodJaejuo E Braun MD Work Phone: [facility] Work Phone: Start: 03-03-2024 End: 98-20-9641Wuygqur encounter procedureQuorum Health Physician Group-[facility] Patricio Work Phone: Start: 02-09-2024 End: 28-16-1280pteqygiyfuHTEECZXC E PERRYFacility:EU BellevueStart: 02-09-2024 End: 19-40-1599Amrxmip encounter procedureJENNIFER E ELVIE [facility] [place] start: 12-14-2023 End: 77-26-6438Vtgina outpatient visit 15 minutesAlbino Michaels RAYON WINDER Work Phone: noMS [place] STATE ROUTEComment on above:Essential tremor (Primary Dx); Essential hypertension (CMS/HCC); Right hand weakness; Gait instabilityStart: 12-14-2023 End: 56-65-7880wcysqjehxuVVUKIY MORRISNot AvailableStart: 12-14-2023 End: 15-47-8652Exehqg flowsCharlie Michaels RAYON WINDER Work Phone: noms [facility] ROUTEStart: 12-14-2023 End: 95-36-4125Fzlqot flowsheetAlbino Michaels NP Work Phone: noms [facility] ROUTEStart: 11-04-2023 End: 79-40-7281egtatpxejoXODGTIR [facility] AmbulatoryStart: 11-04-2023 End: 83-43-8743Svzobm outpatient visit 15 minutesMobest Ray MD Work Phone: uh [facility] on above:Sinus tachycardia (Primary Dx); Primary hypertension; Essential tremor; BMI 45.0-49.9, adult (Multi); Never smoked tobacco; Lipid screeningStart: 09-15-2023 End: 18-44-4245htjophmxwkEXWGNK MORRISNot AvailableStart: 07-26-2023 End: 71-26-4557lqpmifqzwzSDJJQJ MORRISNot AvailableStart: 06-23-2023 End: 72-63-7231mawmkvzppuWKCEVJZDMVY HASSETTNot AvailableStart: 04-08-2023 End: 42-79-9008fsengjotxjQgiqyu Camara Other noOVIA Other Start: 69-46-2171Ityowcilw encounterMarcia [facility] ClinicStart: 03-23-2023 End: 11-46-6174ytnvqhpeoqTlyxlu Camara Other noOVIA Other Start: 31-84-9373Vwfyoztgx encounterMarcia [facility] ClinicStart: 03-14-2023 End: 30-92-3975wwamucoxpbQgzppl Camara Other noOVIA Other Start: 74-05-2452Qquwoku encounter procedureMarcia [facility] ClinicStart: 02-24-2023 End: 12-91-0336deizbnyjvpNmrsxn Camara Other noOVIA Other Start: 06-48-3347Iuljrs outpatient visit 15 minutes Moises JaxGRAZYNA [facility] Centertart: 02-23-2023 End: 77-64-6015apsprtxnfaNamvcl Braun Other [facility] [employer] Other Start: 89-81-4749Wzlsbqgpf encounterMarleobardo Aguila [facility] Centertart: 02-01-2023 End: 63-23-5428Smwhguz encounter procedureJENNIFER E ELVIE [facility] start: 17-60-5005Itncsh outpatient visit 15 minutes Moises Camara Work Phone: [phone]-KqahgLake View [facility] Hospital 250 DO Work Phone: Start: 28-97-7904xgnsnppuweDz. Mourhaf Traboulssi Facility:[id number]: 07-27-2022(Televisit) TelevisitErlindaleobardo Mingo [facility] Centertart: 07-27-2022 End: 39-83-1067pnaoltwsvfEjqfxq Braun Other [place] [employer] Other Start: 49-42-9977Yfzyge outpatient visit 15 minutes Moises Camara Work Phone: [phone]-EwbfsLake View Memorial Hospital 250 DO Work Phone: Start: 85-24-7085joowvwhiqyPkulatoryDr. Morgan Ray Facility:: 11-30-2021 End: 89-80-2961Hhcjypz encounter procedurePaall SILVA [facility] start: 09-24-2021 End: 18-30-7723lmofartfllTRLDLF RODRIGUEZFacility:U3Qqigb: 07-20-2021 End: 41-49-7457dpzolywibdAU MOISES CAMARAFacility:X7Wwtps: 04-22-2021 End: 94-21-8938ptfqrdqjmdKI MARCIA E BRAUNFacility:P8Ehivd: 65-50-9293Hhtmlj outpatient visit 15 minutesMoises Camara Work Phone: [phone]-Tlulh [facility] 250 DO Work Phone: Start: 03-05-2021 End: 68-10-3816ystamyyzliXS JONNY WATERSFacility:H4Xahlm: 01-26-2021 End: 93-93-8653xcsveumlmlVUIRFY RODRIGUEZFacility:K6Zjvvj: 01-25-2021 End: 14-58-4954zmierxpspeXPXPOJ MARLENEFacility:H1 Procedures DateProcedureProcedure DetailPerforming ClinicianStart: 10-88-3733Bde routine ecg w/least 12 lds w/i&rMourhaf Carol VERDUGO Work Phone: Start: 23-34-9708Ddnvnpiawwr removal of ureteric stent KANDI TREJO Start: 06-76-3938Imovylwlfabulj shockwave lithotripsy of calculus of kidneyTAYNNIFER ELVIE Start: 78-02-0660Xchgjxhiflz insertion of ureteric stentTAYNNIFER ELVIE Start: 58-43-1488YxvzuffhvdCbwxcvx WATERS Start: 78-87-8947FmboxhktvfYdypeod WATERS appendectomyPaAttorneyFee Cesarean sectionMoises Camara Work Phone: CholecystectomyMoises Camara Work Phone: CholecystectomyPaAttorneyFee ColonoscopyVriti Infocom History of cholecystectomyHx of cholecystectomyMoises Camara MD Work Phone: History of cholecystectomyHx of cholecystectomy Kandi Mcdonald DNPHistory of cholecystectomyHx of cholecystectomyTaynnifer Fauzia Mcdonald DNPHistory of cholecystectomyHx of cholecystectomyJewelljacob Fauzia Mcdonald DNP Kidney operationMoises Camara Work Phone: Screening for malignant neoplasm of breastErlindajuanchoa Jax Other Total colonoscopyMoises Selam Camara Work Phone: Plan of Treatment DateCare ActivityDetailAuthorStart: 75-06-1649FEgU/Tdap/Td Vaccines (2 - Tdap) DTaP/Tdap/Td Vaccines (2 - Tdap)[facility]Start: 11-[facility]-2024 End: 50-84-1530Ziuchrk encounter bdsdxyzxq99/05/2025 9:40 AM EDT Office Visit [address] [place] [address] Morgan Ray MD 3 [facility] [place] [address] [facility]: 09-17-2024 End: 83-40-5477Fyqrsym encounter ckynvxucw36/21/2025 2:40 PM EDT Office Visit LIA MICHAEL [address] [place], [place] [address], [place] [address] Lauren Ramirez NP [address] [place] [address] LIA MCKEONUEStart: 05-28-2024 End: 20-78-6994Rmadast encounter swzvhonze79/31/2025 2:00 PM EDT Office Visit LIA MICHAEL [address] [place] [address] Lauren Ramirez NP [address] [place] [address] Joan MICHAELComment on above:ArrivedStart: 04-04-2024 End: 27-06-2655Vucvgiu encounter kynoajogi30/05/2025 1:20 PM EST Office Visit [facility] [address] [place] [address] Albino Michaels NP [address] [place] [address], [place] [id number] [facility] R[facility]TEStart: 03-03-2024 End: 04-78-2198Ievsb cultureLicking Memorial Hospitaltart: 03-03-2024 Bacteria identified in Urine by CultureUrine CultureLicking Memorial Hospitaltart: 12-14-2023 End: 02-08-8522Kqwrpbu encounter /16/2024 3:00 PM EDT Office Visit [facility] [address] [phone] Albino Michaels NP [address] [place] [address], [place] [id number] ArrivedTUSCARAWAS HOSPITAL ROUTEComment on above:ArrivedStart: 11-04-2023 End: 23-81-8154Jsvjo metabolic 2000 panel - Serum or PlasmaBasic Metabolic Panel Lab Routine Sinus tachycardia Primary hypertension Expected: 11/04/2023 (Appro ximate), Expires: 11/03/2024[facility] Work Phone: Comment on above:Expected: 11/04/2023 (Approximate), Expires: 11/03/2024Start: 11-04-2023 End: 90-38-7951Aiuyw 1996 panel - Serum or PlasmaLipid Panel Lab Routine Sinus tachycardia Primary hypertension Lipid screening Expected: 11/04/2023 (Approximate), Expires: 11/03/2024[facility] Service Area Work Phone: Comment on above:Expected: 11/04/2023 (Approximate), Expires: 11/03/2024Start: 13-86-6670GNN, Provider: Morgan Ray, Status: Pen, Time: 9:50 AMFUV, Provider: Morgan Ray, Status: Pen, Time: 9:50 AM [facility] 250 DO Work Phone: Start: 90-85-2867UTIRH-19 Vaccine ( season) COVID-19 Vaccine ( season)[facility]: 64-01-2111Fjkrjonxz vaccinationInfluenza Vaccine (#1)[facility] HealthcareStart: 45-53-7376ZDN, Provider: Morgan Ray, Status: Pen, Time: 9:40 AMFUV, Provider: Morgan Ray, Status: Pen, Time: 9:40 AMRiverView Health Clinic 250 DO Work Phone: Start: 30-42-7464XLG, Provider: Morgan Ray, Status: Pen, Time: 2:10 PMFUV, Provider: Morgan Ray, Status: Pen, Time: 2:10 PMOrtonville Hospital 250 DO Work Phone: Start: 51-11-2511SOJ patients and/or patients aged 60+ years (1 - 1-dose 60+ series)RSV patients and/or patients aged 60+ years (1 - 1-dose 60+ series)[facility]: 49-21-0881Vkraxp Vaccines (1 of 2)Zoster Vaccines (1 of 2)[facility]: 75-82-3596Nakhpuohi C screeningHepatitis C Screening [facility]: 99-18-4583Mayth panelLipid Panel [facility]: 10-27-1945Medicare Annual Wellness Visit Medicare Annual Wellness Visit (AWV)[facility]: 40-85-8381Kexaqyomb for osteoporosisBone Density ScanUnMary [facility] Hospital: 53-07-2633Esnafwi stimulating hormone measurementTSH Level [facility] DaytonXR Chest 2 [facility] Immunizations Immunization DateImmunizationNotesCare QcgbgqldMcppqxqa12-27-4326nuvbfiocf virus vaccine, unspecified formulationSdyana Ramirez RAYON WINDER Work Phone: [facility] SpringsHuyfwdcbyi19-06-5333eoixrdged virus vaccine, unspecified formulationJELE TREJO [facility]10-01-2022influenza virus vaccine, whole virusMorgan aRy MD Work Phone: [facility] Work Phone: 1(154) [phone]jlrnwf, seasonal, injectableMarcia E Camara Work Phone: [phone]-ViqdxL[facility] View [facility] 250 DO Work Phone: Comment on above:Series:42-26-9494ylcmomlvmu, tetanus toxoids and pertussis vaccineMarcia E Camara Work Phone: [phone]-NpktwLake View Memorial Hospital 250 DO Work Phone: 1(213) [phone] COVID-19 Vaccine 0.5 ML Intramuscular SuspensionErlindacia E Camara Work Phone: [facility] HospitalComment on above:Result Comment: 2023-02-01: XOF5790-84-7657tihwtyhagqgu conjugate vaccine, 13 valentAlbino Michaels NP Work Phone: [facility] Blue SpringsFworsmvvre39-01-4159BCJH-LsL-3 (COVID-19) Ad26 vaccine, recombinantPaJukedocsk Resonant Vibes [facility]10-01-2020influenza virus vaccine, unspecified formulationMarcia E Camara Work Phone: [facility]09-25-2020influenza, seasonal, injectableMarcia E Camara Work Phone: mpLake View Memorial Hospital 250 DO Work Phone: 1(999) [phone]xzfctd virus vaccine, unspecified formulationPatrick SILVA [facility]09-26-2019influenza virus vaccine, unspecified formulationJENNIFER ELVIE [facility]09-26-2019Influenza, injectable, [place] Canine Kidney, preservative free, quadrivalentMarcia E Camara Work Phone: [phone]-FutrmVictoria V[place] [address] DO Work Phone: 1(377) [phone]iiqts virus vaccine, unspecified formulationJENNIFER ELVIE [facility]10-24-2018Influenza, injectable, [place] Canine Kidney, preservative free, quadrivalentMarcia E Camara Work Phone: [phone]) [phone]-OxexjErica V[place] [address] DO Work Phone: 1(745) 136-81071664000-13-0440vkrkatryt virus vaccine, unspecified formulationJENNIFER ELVIE [facility]10-04-2017influenza, injectable, quadrivalent, preservative freeMarcia E Camara Work Phone: [phone]-TdavsErica V[place] [address] DO Work Phone: 1(687) [phone]lljijq virus vaccine, unspecified formulationJENNIFER ELVIE [facility]09-28-2015influenza, seasonal, injectable, preservative freeMarcia E Camara Work Phone: [phone]) [phone]-HlfadErica V[place] [address] DO Work Phone: 1(640) 430-69370255547-59-8400ujuiilyyrzrl polysaccharide vaccine, 23 valentMarcia E Camara Work Phone: [facility]10-04-2013influenza virus vaccine, whole virusMarcia E Camara Work Phone: mp055-4868GL-VmamaVictoria [place] [address] DO Work Phone: 1(672) [phone]q, wholeJENNIFER ELVIE [facility]10-17-2012influenza virus vaccine, whole virusMarcia E Camara Work Phone: mp014-6985IN-YgyiaVictoria [place] [address] DO Work Phone: 1(126) [phone]ggrby, wholeJENNIFER ELVIE [facility]10-03-2011influenza virus vaccine, whole virusMarcia E Camara Work Phone: [phone]) [phone]-TmdlpErica [place] [address] DO Work Phone: 1(955) [phone]hv, wholeJENNIFER ELVIE [facility]11-01-2010pneumococcal polysaccharide vaccine, 23 valentMarcia E Camara Work Phone: [facility]10-20-2010influenza virus vaccine, whole virusMarcia E Camara Work Phone: [phone]-YhqrwErica V[place] [address] DO Work Phone: 1([phone]) [phone], wholeJENNIFER ELVIE [facility]10-21-2009influenza virus vaccine, whole virusMarcia E Camara Work Phone: [phone]-AdczpVictoria V[place] [address] DO Work Phone: [phone]) [phone]ay, wholeJENNIFER ELVIE [facility]10-31-2007influenza virus vaccine, whole virusMarcia E Camara Work Phone: [phone]-Fidhy [facility] 250 DO Work Phone: 1(495) [phone]gljdgKarolina alfredo [facility] Payers DatePayer CategoryPayerPolicy [id number] (Managed Care)[employer] [id number] [id number] [id number] 1960Unknown [id number] 2..1.683346.3.579.2. [id number] 2..1.356043.3.57[id number] 2..1.680503.3.57[id number] 2.0.1.927932.3.57[id number] 2.0.1.719721.3.57[id number] 2.0.1.868545.3.57[id number] 2.16.840.1.807964.3.57[id number] 2.16.840.1.358997.3.57[id number] 2.16.840.1.261651.3.57[id number] 2.16.840.1.483206.3.57[id number] 2.16.840.1.971578.3.57[id number] 2.16.840.1.138330.3.57[id number] 2.16.840.1.909329.3.57[id number] 2.16.840.1.508252.3.57[id number] 2.16.840.1.592129.3.57[id number] 2.16.840.1.992324.3.579.2.727Private Health JlbevdenfEFJW1J2S [id number]-n22q-[id number] Health InsuranceLoma Linda [facility] [id number] Social History DateTypeDetailFacilityStart: 09-15-2023 End: 44-78-1162Fc illicit drug useNo illicit drug useKettering Health DaytonStart: 11-30-2021 End: 63-21-7971Kkccthz smoking statusNever smoked tobacco (finding)[facility]: 09-15-2023 End: 52-02-5481Prr Assigned At [facility]Fest[facility] health centereExec[facility] Tobacco smoking statusNeverExecutive Urology of [facility] Hospitaltart: 05-18-2023 End: 75-44-7111Hxpbfhd use and exposureSmokeless tobacco non-userUnParkview Health [facility] Work Phone: Start: 09-15-2023 End: 56-84-0726Jwwvbnnbl beverage intakeLifetime non-drinker (finding)[facility] Work Phone: Start: 21-47-6445Qfl assigned at birthNot on file [facility] Work Phone: Start: 10-25-2023 End: 11-22-9487Cjkieyhz to SARS-CoV-2 (event)Not sureKettering Health DaytonStart: 03-03-2024 End: 80-18-2164NarYbpqve (finding)[facility]tart: 22-11-8505Rxa Assigned At [facility] Medical Equipment Procedure CodeEquipment CodeEquipment Original TextEquipment IdentifierDates Blood Sugar Diagnostic (Onetouch Verio Test Strips) stripStart: 99-55-2473Iskfz Sugar Diagnostic (Onetouch Verio Test Strips) stripStart: 07-77-5460Omwvq Sugar Diagnostic (Advanced Gluc Meter Test Strip) stripStart: 23-91-6590Qbmki Sugar Diagnostic (Onetouch Verio Test Strips) stripStart: 78-14-1022Uungs Sugar Diagnostic (Advanced Gluc Meter Test Strip) stripStart: 56-87-8722Mpicm Sugar Diagnostic (Onetouch Verio Test Strips) stripStart: 47-90-1045Xvatlfp 30 gauge miscStart: 60-21-5075Caaqfyr miscStart: 06-26-2024 End: 97-73-1691Ewuxo Sugar Diagnostic (Advanced Gluc Meter Test Strip) strip Start: 01-89-1448Zeosp Sugar Diagnostic (Onetouch Verio Test Strips) stripStart: 21-40-6252Unbmoqz 30 gauge miscStart: 99-60-4912Ktnmgol miscStart: 06-26-2024 End: 16-50-4519Blupa Sugar Diagnostic (Advanced Gluc Meter Test Strip) strip Start: 29-07-8546Oalch Sugar Diagnostic (Onetouch Verio Test Strips) stripStart: 19-33-4910Xydbocy 30 gauge miscStart: 66-86-5741Vdsgppr miscStart: 06-26-2024 End: 77-79-1785Ukeyh Sugar Diagnostic (Advanced Gluc Meter Test Strip) strip Start: 51-60-6527Wofif Sugar Diagnostic (Onetouch Verio Test Strips) stripStart: 65-54-5759Rdiveyr 30 gauge miscStart: 25-47-9042Jpvtfvn miscStart: 06-26-2024 End: 06-27-2024 Functional Status FbbnVbeeekqlzoIprazhZofuteli71-45-0145Vkbevbgxic StatusN/AExec[facility] of [facility]12-05-2023Functional StatusN/AExec[facility]10-03-2022Functional StatusN/A [facility] Clinical Notes 09-24-2021 to 10-22-2024 Note Date & HgvvDdqyPdnpedyn28-85-6124 Evaluation note* Diagnosis Onset Date Resolution Status Admit Date Abnormal weight gain acuteAugust 2024 1:17pmBMI 50.0-59.9, adultacuteAugust 2024 1:17pm Class 3 severe obesity with body mass index (BMI) of 50.0 to 59.9 in adultacute Ambrose 2024 1:17pmDietary surveillance and counselingacuteAugust 2024 1:17pmEssential (primary) hypertensionacuteAugust 2024 1:17pm Essential tremoracuteAugust 2024 1:17pmExercise counselingacuteAugust 2024 1:17pmHistory of kidney stonesacuteAugust 2024 1:17pmHx of cholecystectomyacuteAugust 2024 1:17pmHyperlipidemiaacuteAugust 2024 1:17pmHypothyroidismacuteAugust 2024 1:17pmType 2 diabetes mellitus with hyperglycemiaacuteAugust 2024 1:17pmType II diabetes [facility]ropathy[facility]:17pmAbnormal weight gainacuteAled[facility]20[facility] 2:15pmBMI 50.0-59.9, adultacuteOct2024 2:15pmClass 3 severe obesity with body mass index (BMI) of 50.0 to 59.9 in adultacuteA[facility]20[facility] 2:15pmDietary surveillance and counselingacuteAleda [facility]20[facility] 2:15pm Essential (primary) hypertensionacuteAled[facility]20[facility] 2:15pmEssential tremor acuteAled[facility]20[facility] 2:15pmExercise counselingacuteA[facility]20[facility] 2:15pm History of kidney stonesacuteAleda E. [facility]2024 2:15pmHx of cholecystectomyacute December 17, 2024 2:15pmHyperlipidemiaacuteAleda E. [facility]20[facility] 2:15pm HypothyroidismacuteAleda E. [facility]2024 2:15pmType 2 diabetes mellitus with [facility]cemiaMor[facility]20[facility] 2:15pmType II diabetes mellitus with nephropathyacuteAleda E. [facility]2024 2:15pm [facility] Work Phone: 1(904) 964-750606-16-2025 Evaluation note* Diagnosis Onset Date Resolution Status Admit Date Abnormal weight gain acuteJun2024 10:27amBMI 50.0-59.9, adultacuteJune 2024 10:27am Class 3 severe obesity with body mass index (BMI) of 50.0 to 59.9 in adultacute Hawa 2024 10:27amDietary surveillance and counselingacuteJune 2024 10:27amEssential (primary) hypertensionacuteJune 2024 10:27amEssential tremoracuteJune 2024 10:27amExercise counselingacuteJune 2024 10:27amHistory of kidney stonesacuteJune 2024 10:27amHx of cholecystectomy acuteJune 2024 10:27amHyperlipidemiaacuteJune 2024 10:27am HypothyroidismacuteJune 2024 10:27amType 2 diabetes mellitus with hyperglycemiaacuteJune 2024 10:27amType II diabetes mellitus with nephropathyacuteJune 2024 10:27amAbnormal weight gainacuteAugus2024 1:17pmBMI 50.0-59.9, adultacuteAugust 2024 1:17pmClass 3 severe obesity with body mass index (BMI) of 50.0 to 59.9 in adultacuteAugust 2024 1:17pmDietary surveillance and counselingacuteAugust 2024 1:17pm Essential (primary) hypertensionacuteAugust 2024 1:17pmEssential tremor acuteAugust 2024 1:17pmExercise counselingacuteAugust 2024 1:17pm History of kidney stonesacuteAugust 2024 1:17pmHx of cholecystectomyacute October 22, 2024 1:17pmHyperlipidemiaacuteAugust 2024 1:17pm HypothyroidismacuteAugust 2024 1:17pmType 2 diabetes mellitus with hyperglycemiaacuteAugust 2024 1:17pmType II diabetes mellitus with nephropathyacuteAugust 2024 1:17pm [facility] Work Phone: 1(418) 237-551704-21-2025 Evaluation note* Diagnosis Onset Date Resolution Status Admit Date Class 3 severe obesity with body mass in dex (BMI) of 50.0 to 59.9 in adult acuteApril 2024 1:04pmHypothyroidismacuteApril 2024 1:04pmMedicare annual wellness visit, subsequentacuteJune 18, 2024 1:04pmRight-sided chest painacuteApr2024 1:04pmType 2 diabetes mellitus with hyperglycemiaacute June 18, 2024 1:04pmAbnormal weight gainacuteJune 2024 10:27amBMI 50.0- 59.9, adultacuteJune 2024 10:27amClass 3 severe obesity with body mass index (BMI) of 50.0 to 59.9 in adultacuteJune 2024 10:27amDietary surveillance and counselingacuteJune 2024 10:27amEssential (primary) hypertensionacuteJune 2024 10:27amEssential tremoracuteJune 2024 10:27amExercise counselingacuteJune 2024 10:27amHistory of kidney stones acuteJune 2024 10:27amHx of cholecystectomyacuteJune 2024 10:27am HyperlipidemiaacuteJune 2024 10:27amHypothyroidismacuteJune 2024 10:27amType 2 diabetes mellitus with hyperglycemiaacuteJune 2024 10:27am Type II diabetes mellitus with nephropathyacuteJune 2024 10:27am [facility] Work Phone: 1(282) 637-735001-04-2025 Evaluation note* Diagnosis Onset Date Resolution Status Admit Date Acute UTI acuteJanuary 2024 1:17pm [facility] Work Phone: 1(571) 379-684012-12-2024 Hospital Discharge instructions Patient Education 02/09/2024 10:16:37 [...] your health care provider. General instructions Take wive-hzt-ukxeajh and prescription medicines only as told by [...] provider. Document Revised: 11/03/2020 Document Reviewed: 11/03/2020 [employer] Patient Education 2023 [employer]. 02/09/2024 10:16:36 Kidney Stones, Kywg-zf-Hizl Kidney Stones Kidney stones are rock-like masses [...] Follow these instructions at home: Medicines Take enlq-qno-pfcyzbr and prescription medicines only as told by [...] provider. Document Revised: 10/08/2022 Document Reviewed: 10/08/2022 [employer] Patient Education 2023 [employer]. Follow Up Care 02/01/2023 10:54:02 With:KANDI TREJO PA-C, URL Address: [address] [place] [address] When: Unknown [facility] 12-12-2024 NotePatient Education Obstetrics and Gynecology Overactive [...] health care provider. General instructions ??? Take rsao-ivr-hhcmuoz and prescription medicines only as told by [...] you drink, and whe (more content not included)...[facility]09-06-2024 History of Present illness Narrative* Morgan Ray MD - 11/04/2023 9:50 AM EDT Subjective Phyllis Vanessa is a 77 y.o. female Chief Complaint [...] normal. Judgment: Judgment normal. Allergies Penicillins and Uibenak-kou-aim reductase inhibitors Current Medications Current Outpatient Medications: [...] Scribe Attestation By signing my name below, Jeaneth Zafar LPN, Scribe attest that this documentation has [...] exam, discussion and plan. documented in this [facility] Work Phone: 1(470) 773-417809-06-2024 Instructions* Patient Instructions* Jeaneth Darden LPN - [...] instructions on dietary changes. [facility] Work Phone: 1(731) 932-389801-15-2024 Evaluation note* Encounter Date Diagnosis Assessment Notes [...] reviewed and amended by provider signed below. Feb,Type 2 diabetes mellitus with diabetic neuropathy, unspecified (ICD- 10 - E11.40)Will write a script for itDue for labs. discussed diet and activity Feb,Hypothyroidism, unspecified (ICD-10 - E03.9)chronic problem. check labs prior to refill of synthroid Feb,Essential (primary) hypertension (ICD-10 - I10)GOAL: Maintain BP < 140/90. STATUS: achieved. TIME FRAME: Lifetime goal. Barriers: Non- identifed. Continue current regimen and a low Na+ diet. Regular CV exercise also encouraged. Feb,Monoarticular arthritis (ICD-10 - M13.10)reports 1 week ago had L ankle pain. friend suggested possible gout. will check lab Feb,Vitamin D deficiency (ICD-10 - E55.9)due for check Feb,cute anemia (ICD-10 - D64.9)assess anemia with history of fatigue. [employer] Other 12-28-2023 Evaluation note* Encounter Date Diagnosis Assessment Notes Treatment Notes Treatment Clinical Notes Jan, Acute non-recurrent maxillary si nusitis (ICD-10 - J01.00) Sinus infections can be triggered by a secondary infection from a viral URI or even seasonal allergies. Take medications as directed. Use saline nasal spray prior to presciption nasal spray. Take medications as directed, and complete all doses of medication even if you start to feel better. Patientadvised to follow up with PCP if symptoms persist or worsen. Patient verbalized understanding and agreement with treatment plan. [employer] Other 12-05-2023 Hospital Discharge instructions Patient Education [...] include: ?8 oz (237 mL) of milk, ssyukgr-lzvucqnwiwbt-rxupc milk, and calcium- fortifiedfruit juice. Calcium-fortified means [...] ?Spinach (cooked), rhubarb, beets, sweet potatoes, and Nigerian chard. ?Peanuts. ?Potato chips, arabic fries, and baked potatoes with skin on. ?Nuts and nut products. ?Chocolate. If you regularly take a diuretic medicine, make sure to eat at least 1 or 2 servings of fruits or vegetables that are high in potassium each day. These include: ?Avocado. ?Banana. ?Taylor, prune, carrot, or tomato juice. ?Baked potato. [...] magnesium, fish oil, or vitamin B6. Take bixw-otv-rdmjefb and prescription medicines only as told by [...] Casseroles. Pizza. Lasagna. Frozen meals. Potato chips. Estonian fries. The items listed above may not [...] provider. Document Revised: 05/27/2022 Document Reviewed: 05/27/2022 [employer] Patient Education 2022 [employer]. Follow Up Care 11/30/2021 15:38:59 With:KANDI TREJO PA-C, URL Address: [address] [place] [address] [phone] When: Unknown Comments:1 yr w/ ANNAMARIE [facility] 05-30-2023 Evaluation note* Encounter Date Diagnosis Assessment Notes Treatment Notes Treatment Clinical Notes June, Acute COVID-19 (ICD-10 - U07.1) Reviewed medications. Would be a good candidate for paxlovid due to her age. Cautioned her of side effects. Pt agrees to rx - will call if symptoms continue or worsen. [employer] Other 10-03-2022 Hospital Discharge instructions Patient Education 11/30/2021 15:30:36 Kidney Stones, Pmej-ce-Zqpi Kidney Stones Kidney stones are rock-like masses [...] Follow these instructions at home: Medicines Take dsfl-xge-kpssaiv and prescription medicines only as told by [...] 08/02/2008 Document Revised: 07/03/2019 Document Reviewed: 07/03/2019 [employer] Patient Education 2019 [employer] Follow Up Care 06/01/2021 09:42:58 With:Jonny SILVA MD, URL Address: [facility] [address], [place] [address] [phone] When: Unknown [facility] 07-28-2022 NotePROCEDURE: XR HAND LT MIN 3V HISTORY: Falls ; pain after falling COMPARISON: None. FINDINGS: BONES:No fracture or dislocation. Moderate degenerative changes of the distal interphalangeal joints of all digits. SOFT TISSUES:No visible soft tissue swelling. EFFUSION:None visible. OTHER: Negative. IMPRESSION: 1. No acute bone abnormality. Electronically authenticated by: CARMEN HAY Date: 2021-09-24 11:21[facility]07-28-2022 NotePROCEDURE: XR FOREARM LT 2 VIEWS, XR HUMERUS LT MIN 2V HISTORY: Falls ; pain after falling COMPARISON: None. FINDINGS: BONES:No fracture, acute abnormality, or significant arthropathy. SOFT TISSUES:No visible soft tissue swelling. EFFUSION:None visible. OTHER: Negative. IMPRESSION: 1. No acute bone abnormality of the left humerus or forearm. Electronically authenticated by: CARMEN HAY Date: 2021-09-24 11:10[facility] NotePROCEDURE: XR FOREARM LT 2 VIEWS, XR HUMERUS LT MIN 2V HISTORY: Falls ; pain after falling COMPARISON: None. FINDINGS: BONES:No fracture, acute abnormality, or significant arthropathy. SOFT TISSUES:No visible soft tissue swelling. EFFUSION:None visible. OTHER: Negative. IMPRESSION: 1. No acute bone abnormality of the left humerus or forearm. Electronically authenticated by: CARMEN HAY Date: 2021-09-24 11: [facility] Future App[facility]ments Appointment Date:12/06/2022 10:30:00 AM Scheduled Provider:Jonny SILVA MD Location:[facility] Appointment Type:URO Office Visit [facility] evaluation + Plan note Future Appointments Appointment Date:02/07/2024 10:00:00 AM Scheduled Provider:KANDI TREJO PA-C Location:[facility] Appointment Type:URO Office Visit [facility] evalgijube + Plan note Future Appointments Appointment Date:01/14/2025 09:40:00 AM Scheduled Provider:KANDI TREJO PA-C Location:[facility] Appointment Type:URO Office Visit [facility] evalhhxrie noteNo InformationNort [employer] Other Evaluation note* Diagnosis Essential tremor- Primary Essential hypertension (CMS/HCC) Unspecified essential hypertension Right hand weakness Muscle weakness (generalized) Gait instability Abnormality of gait [facility] Diagnosis Sinus tachycardia- Primary Other specified cardiac dysrhythmias Primary hypertension Unspecified essential hypertension Essential tremor BMI 45.0-49.9, adult (Multi) Never smoked tobacco Lipid screening Screening for lipoid disorders documented in this encounter [facility] Work Phone: Evaluation noteNo assessment information available [facility] Work Phone: Evaluation note* Diagnosis Essential tremor- Primary Family history of Parkinson's disease Family history of other neurological diseases Right hand weakness Muscle weakness (generalized) Gait instability Abnormality of gait [facility]* Diagnosis Onset Date Resolution Status Admit Date Right-sided chest pain acuteApr2024 1:04pmType 2 diabetes mellitus with hyperglycemiaacute June 18, 2024 1:04pm [facility] Work Phone: History general Narrative - Reported* Type Description Date Surgical History Problem Title : Kristen ract Extraction-Bilateral, Problem Comment : 2020, Problem Status : Active, Surgical HistoryProblem Title : Section - 3 or more, Problem Status : Active,Surgical HistoryProblem Title : Cholecystectomy, Problem Comment : 1967, Problem Status : Active, [employer] [facility] [employer] general Narrative - Reported* Type Description Date Medical History HTN Medical HistoryHypothyroidismMedical HistoryType 2 diabetesMedical History ObesityMedical HistoryParkinsonsMedical HistoryOsteoarthritisSurgical History Problem Title : Cataract Extraction-Bilateral, Problem Comment : 2020, Problem Status : Active,Surgical HistoryProblem Title : Section - 3 or more, Problem Status : Active,Surgical HistoryProblem Title : Cholecystectomy, Problem Comment : 1967, Problem Status : Active, [facility] [employer] Other History of Present illness Narrative* Patient [...] her back in 6-month in follow-up EKG -[facility]-Mel 250 DO Work Phone: History of Present [...] in 8 month * 6. Fall precaution [facility] [employer] 250 DO Work Phone: History of Present [...] in 1 year * 6. Fall precaution [facility] [employer] 250 DO Work Phone: Hospital course Narrative No data available for this section [facility] progress note No data available for this section [facility] reason for referral (narrative)No reason for referral information availableMemorial [facility] Work Phone: Chief Complaint PHYLLIS VANESSA is being seen for a 4 month follow-up of.PHYLLIS VANESSA is being seen for a 6 month [...] Not Specified No pertinent family history Unknown brotherHistory of strokeUnknownfatherDeceasedUnknownfamily memberDeceasedUnknown motherHypertensionUnknownDeceasedUnknownHeart diseaseUnknown Relationship Condition Age at Onset Recorded Date/T usman Not Specified No pertinent family history Unknown brotherHistory of strokeUnknownfatherDeceasedUnknownDisorder of kidneyUnknown Parkinson's diseaseUnknownfamily memberDeceasedUnknownmotherHypertensionUnknown DeceasedUnknownHeart diseaseUnknownMalignant neoplasm of breastUnknownbrother TremorUnknown Relationship Condition Age at Onset Recorded Date/T usman brother History of stroke Unknown fatherDeceasedUnknownDisorder of kidneyUnknownParkinson's diseaseUnknownmother HypertensionUnknownDeceasedUnknownHeart diseaseUnknownMalignant neoplasm of breastUnknownbrotherTremorUnknown Summary Purpose Advance Directives Advance Directive Response Recorded Date/ Time Advance Directives No January 2:39pm Advance Directive Response Recorded Date/ Time Advance Directives No January 3:39pm Reason for Referral SpecialtyDiagnoses / ProceduresReferred By ContactReferred To Contact Diagnoses Sinus tachycardia Procedures ECG 12 Lead Morgan Ray MD [address] [address] Referral IDStatusReasonStart DateExpiration DateVisits RequestedVisits [id number]/6/[id number]/[id number] / Procedures Referred By ContactReferred To ContactCardiology Diagnoses Sinus tachycardia Procedures Follow Up In Cardiology Morgan Ray MD 703 [facility] 2, [address] [address] Morgan Ray MD 703 [facility] 2, [facility] [address] [place] [address] Referral IDStatusReasonStart DateExpiration DateVisits RequestedVisits [id number]/[id number] Chief Complaint and Reason for Visit Chief Complaint Admit Date Poss uti March 03, 2024 1: 17pm Reason for Visit Admit Date Acute UTI March 03, 2024 1: 17pm Chief Complaint Admit Date Wellness June 18, 2024 1:0 4pm Reason for Visit Admit Date Right-sided chest pain June 18, 2024 1:04pm Type 2 diabetes mellitus with hyperglyce [facility] June 18, 2024 1:04pm Chief Complaint Admit Date Wellness June 18, 2024 1:0 4pm Self- [facility] (Q-Done) Called pt. LM o n VM August 13, 2024 10:27am Reason for Visit Admit Date Class 3 severe obesity with body mass index (BMI) of 50.0 to 59.9 in adult June 18, 2024 1:04pm Hypothyroidism June 18, 2024 1:0 4pm Medicare annual wellness visit, elayne nt June 18, 2024 1:04pm Right-sided chest pain June 18, 2024 1:04pm Type 2 diabetes mellitus with hyperglyce [facility] June 18, 2024 1:04pm Abnormal weight gain [...] o n VM August 13, 2024 10:27am October 24, 2024 12 :42pm Chief Complaint Admit Date October 24, 2024 12 :42pm 2 month December 17, 2024 2 :15pm Reason for Visit Admit Date Abnormal weight gain October 22, 2024 1 [...] with nephropat hy October 22, 2024 1:17pm Abnormal weight gain December 17, 2024 2:15pm BMI 50.0-59.9, adult December 17, 2024 2:15pm Class 3 severe obesity with body mass index (BMI) of 50.0 to 59.9 in adult December 17, 2024 2:15pm Dietary surveillance and counseling Octo 2024 2:15pm Essential (primary) hypertension December 17, 2024 2:15pm Essential tremor December 17, 2024 2 :15pm Exercise counseling December 17, 2024 2 :15pm History of kidney stones December 17, 2:15pm Hx of cholecystectomy December 17, 2024 2:15pm Hyperlipidemia December 17, 2024 2 :15pm Hypothyroidism December 17, 2024 2 :15pm Type 2 diabetes mellitus with hyperglyce cody December 17, 2024 2:15pm 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 DATE CREATED AUTHOR AUTHOR'S ORGANIZ ATION 03/10/2024 [facility] DATE CREATED AUTHOR AUTHOR'S ORGANIZ ATION 05/29/2024 [facility] EPIC DATE CREATED AUTHOR AUTHOR'S ORGANIZ ATION 11/13/2024 [facility] Care Team (unrecognized sect ion and content) Team MemberRelationshipSpecialtyStart DateEnd Date Moises Camara MD [address] [place] [phone] PCP - GeneralFamily Nvnliwdo50/16/24Team MemberRelationshipSpecialtyStart Date End Date Moises Camara MD [address] [place] [facility] [place] [address] PCP - GeneralFamily Ogqkvtth44/16/24Team MemberRelationshipSpecialtyStart Date End Date Moises Camara MD [address] [place] [address] PCP - General02/28/99 Team Status: Active Member Role Status Dates Moises Camara MD Primary Care Provider Active Team Status: Inactive Member Role Status Dates Moises Camara MD Primary Care Provider Active Start: March 03, 2024 End: March 03, 2024Angel Epstein ProviderActiveStart: March 03, 2024 End: March 03, 2024Team MemberRelationshipSpecialtyStart DateEnd Date Moises Camara MD [address] [place] [address] PCP - GeneralFamily Xoainjap27/16/24 Lauren Ramirez NP [address] [place] [address] Nurse PractitionerNeurology05/28/24 Butch Guerra DO [address] [address] Referring PhysicianNeurology05/28/24Team MemberRelationshipSpecialtyStart DateEnd Date Moises Camara MD [address] [facility] [place] [address] PCP - GeneralFamily Yyupancf42/16/24 Lauren Ramirez NP [address] [place] [address] Nurse PractitionerNeurology05/28/24 Butch Guerra DO [address] [place] [address] Referring PhysicianNeurology05/28/24 Team Status: Inactive Member Role Status Dates Moises Camara MD Primary Care Provide r, Attending Provider Active Start: June 18, 2024 End: June 18, 2024 Team Status: Inactive Member Role Status Dates Moises Camara MD Primary Care Provider Active Start: June 18, 2024 End: June 18, 2024Moises Camara MDAttending ProviderActiveStart: June 18, 2024 End: June 18, 2024 Team Status: Inactive Member Role Status Dates Moises Camara MD Primary Care Provider Active Start: August 13, 2024 End: August 13, 2024Bob Haywood ProviderActiveStart: August 13, 2024 End: August 13, 2024 Team Status: Inactive Member Role Status Dates Moises Camara MD Primary Care Provider Active Start: September 13, 2024 End: September 13cory Vega , RDAttending ProviderActiveStart: September 13, 2024 End: September 13, 2024 Team Status: Inactive Member Role Status Dates Moises Camara MD Primary Care Provider Active Start: October 22, 2024 End: October 22, 2024Kandi Cage DNPAttending ProviderActiveStart: October 22, 2024 End: October 22, 2024 Team Status: Inactive Member Role Status Dates Moises Camara MD Primary Care Provider Active Start: October 24, 2024 End: October 24cory Vega RDAttending ProviderActiveStart: October 24, 2024 End: October 24, 2024 Team Status: Active Member Role/Relationship Status Dates Moises Camara MD Primary Care Provider Active Team Status: Inactive Member Role/Relationship Status Dates Moises Camara MD Primary Care Provider Active Start: October 22, 2024 End: October 22, 2024Kandi Cage DNPAttending ProviderActiveStart: October 22, 2024 End: October 22, 2024 Team Status: Inactive Member Role/Relationship Status Dates Moises Camara MD Primary Care Provider Active Start: October 24, 2024 End: October 24cory Vega RDAttending ProviderActiveStart: October 24, 2024 End: October 24, 2024 Team Status: Inactive Member Role/Relationship Status Román Camara MD Primary Care Provider Active Start: December 17, 2024 End: December 17, 2024Kandi Cage DNPAttending ProviderActiveStart: December 17, 2024 End: December 17, 2024 REASON FOR VISIT (unrecogniz ed section and content) ReasonCommentsTremorsWeakness, GenR handHypertensionReasonCommentsAnnual [id number] with ekgSpecialtyDiagnoses / ProceduresReferred By ContactReferred To Contact Diagnoses Sinus tachycardia Procedures ECG 12 Lead Morgan Ray MD [address] [place] [address], [address] [address] Referral IDStatusReasonStart DateExpiration DateVisits RequestedVisits [id number]/6/20249/6/[id number]dsszqm WeaknessRight handBalance difficulty Goals (unrecognized section and content) Goals [...] BE BASED ON THE PRIMARY CLINICAL RECORDS. [facility] CenterGrupanya [facility]. provides no warranty or guarantee of the accuracy or completeness of information in this document.
== END 2025-01-07 10:57 | disposition home or self-care (01) ==
LOC: RAD 10:56
PROVIDERS: PCP Family Medicine; Visit Provider Urology
DX: N20.0 Calculus of kidney (principal)
CPT/HCPCS: 74018